=== PATIENT | female | born 1965 | race Caucasian/White ===

== ENCOUNTER 2017-07-30 08:26 | Inpatient (IN) | payer OTHER, SELFPAY ==
[2017-07-30] VITALS (10 sets, daily range): BP systolic 101–143; BP diastolic 57–80; PULSE 73–87; RESP 16–21; TEMP 36.2–37.8; O2SAT 86–98; BMI 28.0; BMI 28.2
--- NOTE | 2017-07-30 08:39 | RAD_ITS ---
STUDY: X-RAY CHEST REASON FOR EXAM: Female, 52 years old. Cough, COPD TECHNIQUE: PA and lateral views of the chest. COMPARISON: 04/12/2017 FINDINGS: Cardiac monitoring leads overlie the chest. The lungs are hyperinflated. There is scarring at the right lung base. There is no demonstrated pleural abnormality. Normal size heart. Normal mediastinum and rosemary. Normal visualized pulmonary arteries. Normal visualized aortic arch and descending thoracic aorta. Normal visualized thoracic spine. The bones are demineralized. There is no demonstrated abnormality of the visualized soft tissue structures of the upper abdomen. RAD/Chest PA and Lateral IMPRESSION: COPD. No focal consolidation. Electronically Signed: Ori Gibbons DO at 10:35 EDT Tel , Service support ,
--- NOTE | 2017-07-30 08:39 | EKG12_ITS ---
Test Reason : SOB Blood Pressure : / mmHG Vent. Rate : 077 BPM Atrial Rate : 077 BPM P-R Int : 152 ms QRS Dur : 090 ms QT Int : 428 ms P-R-T Axes : 057 063 064 degrees QTc Int : 484 ms Normal sinus rhythm Prolonged QT Abnormal ECG Confirmed by SHI TIJERINA ([id number]), editor greeting card MATT HARRIS ([id number]) on 08/01/2017 2:25:17 PM Referred By: LYLE Confirmed By:SHI TIJERINA
[2017-07-30] MEDS: Ipratropium/Albuterol Sulfate 3 ML AMPUL.NEB INHALATION ×4 (08:55→22:50)
[2017-07-30] MEDS: Albuterol 2.5 MG/3 ML VIAL.NEB. INHALATION ×3 (08:55→08:57)
[2017-07-30] MEDS: predniSONE 20 MG Tablet 60 MG PO (09:36)
[2017-07-30 09:37] LABS: Absolute Lymphocyte Count 0.58 X10^3/ul (0.83-4.51); Absolute Neutrophil Count 2.2 X10^3/uL (2.0-7.7); Basophil# 0.01 X10^3/uL; Basophil% 0.3 % (0-1); Eosinophil# 0.06 X10^3/uL; Hematocrit 42.3 % (37-47); Hemoglobin 14.4 g/dl (12.0-15.0); Lymphocyte # 0.58 X10^3/ul (4.0); Lymphocyte % 19.2 % (19-41); Mean Corpuscular Hgb 29.2 pg (27.0-32.0); Mean Corpuscular Volume 85.8 fL (81-99); Mean Platelet Vol. 11.8 fl (6.2-12.0); Monocyte# 0.21 X10^3/uL; Neutrophil # 2.15 X10^3/uL (2.7-7.7); Neutrophil % 71.2 % (47-70); Platelet Count 86 K/mm3 (150-450); RBC Distribution Width CV 13.5 % (11.6-14.6); RBC Distribution Width SD 41.8 fl (35.1-43.9); Red Blood Count 4.93 M/mm3 (4.2-5.4)
[2017-07-30 09:39] LABS: Differential Indicated SCAN CRITERIA MET; POSITIVE COUNT NO; POSITIVE DIFFERENTIAL YES; POSITIVE MORPHOLOGY NO
[2017-07-30 09:51] LABS: Anion Gap 7 (5-15); BUN 18 mg/dL (7-18); BUN/Creat Ratio 20.5 RATIO (10-20); Calcium,Total 9.1 mg/dL (8.5-10.1); Chloride 102 mmol/L (98-107); Creatinine, Serum 0.88 mg/dL (0.55-1.02); EST Glomerular Filtration Rate 71 mL/min (>60); Est Glom Filt Rate - Afr Amer 86 mL/min (>60); Estimated Creatinine Clearance 60.46 ml/min; Glucose 125 mg/dL (74-106); Potassium 3.9 mmol/L (3.5-5.1); Sodium Level 143 mmol/L (136-145)
--- NOTE | 2017-07-30 10:10 | ED.VISSUMM ---
- ER Visit Summary Date of Service: 07/30/17 Chief Complaint: Cough and shortness of breath History of Present Illness: The patient is a 52 F presenting for evaluation secondary to cough and shortness of breath. Patient has a history of COPD due to alpha-1 antitrypsin deficiency. She is on chronic 3 L. Patient states that she has had hypoxia at home down into the 70s. She reports that she has had a cough productive of clear sputum. She denies any fevers or chest pain. She denies any nausea vomiting or diarrhea. Patient states that she gets short of breath even with walking short distances. Physical Examination: Vital signs are notable for pulse ox 86% on 3 L with hypoxia. Well-nourished female no acute distress. Moist mucous membranes, no conjunctival pallor or scleral icterus. No JVD. Heart regular rate and rhythm. Lungs sounds show poor air movement, but no retractions or respiratory distress. Abdomen soft nontender. No peripheral edema noted. No skin rashes noted. Test Results: EKG shows sinus rhythm at 77 with a mildly prolonged QTC of 484 no evidence of other acute ischemic or arrhythmic changes. CBC shows leukopenia of 3, troponin negative, chest x-ray demonstrates right lower lobe infiltrate with small effusion. Emergency Department Course and Treatment: Patient presented secondary to shortness of breath. She was treated with albuterol Atrovent oxygen and prednisone. Workup shows leukopenia and a right lower lobe infiltrate. Patient does meet sepsis criteria. Antibiotics were initiated after the patient was cultured. Due to the patient's hypoxia sepsis and pneumonia I believe she requires admission. I discussed this with the hospitalist. Disposition: Admission Impression: 1. Community-acquired pneumonia 2. Sepsis 3. Hypoxia This note was generated with [employer] dictation software. It may contain incorrect words, spelling, and punctuation that were not noted in review of the chart prior to signing ED Disposition - Plan for ED Patient: Chief Complaint: Shortness of Breath Referrals: Felipe Souza [Primary Care Provider] -
[2017-07-30] MEDS: Ceftriaxone 1 GM/50 mL Premix x1 IV (10:55)
--- NOTE | 2017-07-30 11:05 | CM.ED ---
CM Initial Assessment: See Link. CM will continue to follow for safe discharge planning.
[2017-07-30 12:00] LABS: Lactic Acid 0.9 mmol/L (0.4-2.0)
--- NOTE | 2017-07-30 15:35 | CASEMGMT ---
ER CM assessment reviewed. RN CM introduced role of CM to patient. Requested pt try and find out Home Health agency. Pt states her will be in later and will know the name of agency. Per pt, only nursing was coming to home. Jai JEAN BAPTISTEN RN ACM
--- NOTE | 2017-07-30 16:06 | PCM.HP.STD ---
Problem List (1) COPD with acute exacerbation Status: Acute (2) Hyperlipidemia Status: Chronic (3) Chronic thrombocytopenia Status: Chronic (4) Depression Status: Chronic (5) Chronic respiratory failure Status: Chronic (6) COPD (chronic obstructive pulmonary disease) Status: Chronic (7) Txatp-0-iegvfgvlhfb deficiency Status: Chronic History of Present Illness Date of Admission: 07/30/17 Chief Complaint: shortness of breath. The patient is a 52 year old F resents with shortness of breath for the past several days. Patient had a pulse ox and was registering in to the 70 range. Patient was having dyspnea on exertion. Patient presented to the emergency room was 86% on 3 L. Patient is on oxygen 3 L at home. Patient did receive prednisone and bronchodilators and her sats are now in the mid 90s. Patient is still short of breath. This is similar to prior episodes of her COPD. Patient does have a known history of alpha-1 antitrypsin deficiency but still does continue to smoke though only 3-4 cigarettes per day. [] Past Medical History Past Medical History (Chronic Problems): Chronic Problems Hyperlipidemia (Chronic) Chronic thrombocytopenia (Chronic) Depression (Chronic) Chronic respiratory failure (Chronic) COPD (chronic obstructive pulmonary disease) (Chronic) Nxgwp-5-jsnhdhidaaf deficiency (Chronic) Allergies erythromycin base Allergy (Verified 07/30/17 08:27) Other Home Medications: Ambulatory Orders Medication Instructions Recorded Albuterol Inhaler [Ventolin Hfa] 2 puff INHALATION Q4H PRN PRN 05/29/16 Atorvastatin Calcium [Lipitor] 10 mg PO QHS 05/29/16 Fluticasone/Salmeterol [Advair 1 puff INHALATION BID 05/29/16 500/50 Mcg Diskus] Ipratropium/Albuterol Sulfate 3 ml INHALATION Q6H PRN PRN 05/29/16 [Duoneb] Roflumilast [Daliresp] 500 mcg PO DAILY 05/29/16 Tiotropium [place] [Spiriva 18 MCG] 1 puff INHALATION DAILY 05/29/16 hydrOXYzine pamoate capsule 50 mg PO BIDCM 05/29/16 [Vistaril pamoate capsule] Alpha-1 Proteinase Inhibitor 5,390 mg IV QWEEK 04/12/17 [Prolastin C] Escitalopram Oxalate [Lexapro] 20 mg PO DAILY 04/12/17 Hydrochlorothiazide [Hctz] 25 mg PO DAILY 04/12/17 Hydroxyzine Pamoate [Vistaril] 50 mg PO QHS 04/12/17 Ipratropium [Atrovent Inhaler] 2 puff INHALATION TID 04/12/17 Lorazepam [Ativan] 0.5 mg PO TID PRN PRN 04/12/17 Pantoprazole Sodium [Protonix] 40 mg PO DAILY 04/12/17 Pregabalin [Lyrica] 150 mg PO BID 04/12/17 Gabapentin [Neurontin] 400 mg PO TID 07/30/17 Quetiapine Fumarate [Seroquel] 800 mg PO QHS 07/30/17 Surgical History: noncontributory Psychiatric History: Anxiety, 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 Smoking Status: Current some day smoker - *Family History Maternal History Items: No pertinent history, - - Positive for alpha-1 antitrypsin deficiency Paternal History Items: No pertinent history, - - Positive for alpha-1 antitrypsin deficiency Review of Systems Constitutional: Denies: Chills, Fever, Weight Change Eyes: Denies: Blurred vision, Double vision HEENT: Denies: Head Aches, Sinus Congestion, Sinus Drainage Cardiovascular: Denies: Chest Pain, Palpitations Respiratory: Reports: Cough, Shortness of Breath, Sputum production Gastrointestinal: Denies: Abdominal Pain, Nausea, Vomiting Genitourinary: Denies: Dysuria Musculoskeletal: Denies: Joint Pain, Joint Tenderness Skin: Denies: Rash, Wounds Neurological: Denies: Blurred vision, Double vision Psychiatric: Denies: Anxiety, Depression Endocrine: Denies: Change in Body Habitus, Heat/ Cold Intolerance Hematologic/ Lymphatic: Reports: Hx of blood clot. Denies: Easy Bruising, Easy Bleeding VTE Information - Inpt Only VTE Present on Admission: No VTE Pharm Prophylaxis ordered?: Yes Patient Problems: Active and Suspected Problems COPD with acute exacerbation (Acute) - Physical Exam General: Alert, Cooperative, No apparent distress, - - Tachypneic and with conversational dyspnea HEENT: Atraumatic, Normocephalic Neck: No Nodes, Thyroid Normal Size and Texture Lungs: No rhonchi, No wheeze, Diminished Cardiovascular: Regular rate, Regular Rhythm, Normal S1, Normal S2 Abdomen: Bowel Sounds Present, Soft, Non Tender, Non-Distended, No Hepato-splenomegaly Extremities: No edema, No Calf Tenderness Skin: No rashes, No breakdown Musculoskeletal: No Tenderness to Palpation of Joints or Extremities, No Muscle Wasting Neurological: Slurred Speech, - - no clonus. Psych/Mental Status: Normal Affect, Appropriate Vital Signs Temp Pulse Resp BP Pulse Ox 36.8 C 81 20 H 119/57 L 94 07/30/17 14:45 07/30/17 15:22 07/30/17 15:22 07/30/17 14:45 07/30/17 15:22 Oxygen Flow Rate (L/min) 3 Oxygen Delivery Method Nasal Cannula Weight: 72.257 kg Body Mass Index (BMI) 28.2 Laboratory Tests Past 24 Hrs 07/30/17 07/30/17 10:50 11:24 Lactic Acid Cancelled 0.9 Assessment/Plan Active and Suspected Problems COPD with acute exacerbation (Acute) 1. Acute COPD exacerbation No audible wheezes at this time the patient is profoundly diminished I do not appreciate any pneumonia on the patient's chest x-ray and therefore will be continuing antibiotics Will start patient on IV Solu-Medrol and tea with bronchodilators. Patient will follow up with Dr. Guajardo as outpatient Patient has known alpha-1 antitrypsin deficiency though does continue to smoke. Strongly recommended that the patient quit smoking as it will only continue to worsen her COPD which will likely continue to worsen with her alpha anti-1 trypsin deficiency. 2. Acute on chronic hypoxic respiratory failure Secondary to above Improved 3. DVT prophylaxis with Lovenox 4. Advanced care planning: Discussed with the patient about intubation and CPR. Patient wishes full there is: Patient is full CODE STATUS. Code Visit Inpatient E&M: 40170 Init Hosp L3
--- NOTE | 2017-07-30 16:13 | HP.PCM_ITS ---
Problem List (1) COPD with acute exacerbation Status: Acute (2) Hyperlipidemia Status: Chronic (3) Chronic thrombocytopenia Status: Chronic (4) Depression Status: Chronic (5) Chronic respiratory failure Status: Chronic (6) COPD (chronic obstructive pulmonary disease) Status: Chronic (7) Zggvp-0-qvskyrtggyw deficiency Status: Chronic History of Present Illness Date of Admission: 07/30/17 Chief Complaint: shortness of breath. The patient is a 52 year old F resents with shortness of breath for the past several days. Patient had a pulse ox and was registering in to the 70 range. Patient was having dyspnea on exertion. Patient presented to the emergency room was 86% on 3 L. Patient is on oxygen 3 L at home. Patient did receive prednisone and bronchodilators and her sats are now in the mid 90s. Patient is still short of breath. This is similar to prior episodes of her COPD. Patient does have a known history of alpha-1 antitrypsin deficiency but still does continue to smoke though only 3-4 cigarettes per day. [] Past Medical History Past Medical History (Chronic Problems): Chronic Problems Hyperlipidemia (Chronic) Chronic thrombocytopenia (Chronic) Depression (Chronic) Chronic respiratory failure (Chronic) COPD (chronic obstructive pulmonary disease) (Chronic) Xfdeu-9-orthcbnamlh deficiency (Chronic) Allergies erythromycin base Allergy (Verified 07/30/17 08:27) Other Home Medications: Ambulatory Orders Medication Instructions Recorded Albuterol Inhaler [Ventolin Hfa] 2 puff INHALATION Q4H PRN PRN 05/29/16 Atorvastatin Calcium [Lipitor] 10 mg PO QHS 05/29/16 Fluticasone/Salmeterol [Advair 1 puff INHALATION BID 05/29/16 500/50 Mcg Diskus] Ipratropium/Albuterol Sulfate 3 ml INHALATION Q6H PRN PRN 05/29/16 [Duoneb] Roflumilast [Daliresp] 500 mcg PO DAILY 05/29/16 Tiotropium [place] [Spiriva 18 MCG] 1 puff INHALATION DAILY 05/29/16 hydrOXYzine pamoate capsule 50 mg PO BIDCM 05/29/16 [Vistaril pamoate capsule] Alpha-1 Proteinase Inhibitor 5,390 mg IV QWEEK 04/12/17 [Prolastin C] Escitalopram Oxalate [Lexapro] 20 mg PO DAILY 04/12/17 Hydrochlorothiazide [Hctz] 25 mg PO DAILY 04/12/17 Hydroxyzine Pamoate [Vistaril] 50 mg PO QHS 04/12/17 Ipratropium [Atrovent Inhaler] 2 puff INHALATION TID 04/12/17 Lorazepam [Ativan] 0.5 mg PO TID PRN PRN 04/12/17 Pantoprazole Sodium [Protonix] 40 mg PO DAILY 04/12/17 Pregabalin [Lyrica] 150 mg PO BID 04/12/17 Gabapentin [Neurontin] 400 mg PO TID 07/30/17 Quetiapine Fumarate [Seroquel] 800 mg PO QHS 07/30/17 Surgical History: noncontributory Psychiatric History: Anxiety, Depression 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 Smoking Status: Current some day smoker - *Family History Maternal History Items: No pertinent history, - - Positive for alpha-1 antitrypsin deficiency Paternal History Items: No pertinent history, - - Positive for alpha-1 antitrypsin deficiency Review of Systems Constitutional: Denies: Chills, Fever, Weight Change Eyes: Denies: Blurred vision, Double vision HEENT: Denies: Head Aches, Sinus Congestion, Sinus Drainage Cardiovascular: Denies: Chest Pain, Palpitations Respiratory: Reports: Cough, Shortness of Breath, Sputum production Gastrointestinal: Denies: Abdominal Pain, Nausea, Vomiting Genitourinary: Denies: Dysuria Musculoskeletal: Denies: Joint Pain, Joint Tenderness Skin: Denies: Rash, Wounds Neurological: Denies: Blurred vision, Double vision Psychiatric: Denies: Anxiety, Depression Endocrine: Denies: Change in Body Habitus, Heat/ Cold Intolerance Hematologic/ Lymphatic: Reports: Hx of blood clot. Denies: Easy Bruising, Easy Bleeding VTE Information - Inpt Only VTE Present on Admission: No VTE Pharm Prophylaxis ordered?: Yes Patient Problems: Active and Suspected Problems COPD with acute exacerbation (Acute) - Physical Exam General: Alert, Cooperative, No apparent distress, - - Tachypneic and with conversational dyspnea HEENT: Atraumatic, Normocephalic Neck: No Nodes, Thyroid Normal Size and Texture Lungs: No rhonchi, No wheeze, Diminished Cardiovascular: Regular rate, Regular Rhythm, Normal S1, Normal S2 Abdomen: Bowel Sounds Present, Soft, Non Tender, Non-Distended, No Hepato- splenomegaly Extremities: No edema, No Calf Tenderness Skin: No rashes, No breakdown Musculoskeletal: No Tenderness to Palpation of Joints or Extremities, No Muscle Wasting Neurological: Slurred Speech, - - no clonus. Psych/Mental Status: Normal Affect, Appropriate Vital Signs Temp Pulse Resp BP Pulse Ox 36.8 C 81 20 H 119/57 L 94 07/30/17 14:45 07/30/17 15:22 07/30/17 15:22 07/30/17 14:45 07/30/17 15:22 Oxygen Flow Rate (L/min) 3 Oxygen Delivery Method Nasal Cannula Weight: 72.257 kg Body Mass Index (BMI) 28.2 Laboratory Tests Past 24 Hrs 07/30/17 07/30/17 10:50 11:24 Lactic Acid Cancelled 0.9 Assessment/Plan Active and Suspected Problems COPD with acute exacerbation (Acute) 1. Acute COPD exacerbation * No audible wheezes at this time the patient is profoundly diminished * I do not appreciate any pneumonia on the patient's chest x-ray and therefore will be continuing antibiotics * Will start patient on IV Solu-Medrol and tea with bronchodilators. * Patient will follow up with Dr. Guajardo as outpatient * Patient has known alpha-1 antitrypsin deficiency though does continue to smoke. Strongly recommended that the patient quit smoking as it will only continue to worsen her COPD which will likely continue to worsen with her alpha anti-1 trypsin deficiency. 2. Acute on chronic hypoxic respiratory failure * Secondary to above * Improved 3. DVT prophylaxis with Lovenox 4. Advanced care planning: Discussed with the patient about intubation and CPR. Patient wishes full there is: Patient is full CODE STATUS. Code Visit Inpatient E&M: 15638 Init Hosp L3
[2017-07-30] MEDS: hydrOXYzine PAM 25 MG Capsule 50 MG PO (16:28)
[2017-07-30] MEDS: LORazepam 0.5 MG Tablet PO ×2 (16:31→22:09)
[2017-07-30] MEDS: Acetaminophen 325 MG Tablet 650 MG PO (22:08)
[2017-07-30] MEDS: Ondansetron 4 MG/2 ML Vial IV (22:08)
[2017-07-30] MEDS: guaiFENesin 600 MG Tablet PO (22:09)
[2017-07-30] MEDS: Atorvastatin Calcium 10 MG Tablet PO (22:09)
[2017-07-30] MEDS: Pregabalin 75 MG Capsule 150 MG PO (22:09)
[2017-07-30] MEDS: QUEtiapine 100 MG Tablet 800 MG PO (22:09)
[2017-07-30] MEDS: hydrOXYzine PAM 25 MG Capsule 100 MG PO (22:10)
[2017-07-31 03:12] VITALS: BP 101/57; PULSE 83; RESP 14; TEMP 36.6; O2SAT 94
[2017-07-31 03:34] VITALS: PULSE 80; RESP 16
[2017-07-31] MEDS: Ipratropium/Albuterol Sulfate 3 ML AMPUL.NEB INHALATION ×3 (03:34→10:56)
[2017-07-31] MEDS: 0.9% NaCl Peripheral Flush Adult/Peds IV (06:23)
[2017-07-31 06:55] LABS: Absolute Lymphocyte Count 0.29 X10^3/ul (0.83-4.51); Absolute Neutrophil Count 1.4 X10^3/uL (2.0-7.7); Eosinophil# 0.05 X10^3/uL; Eosinophils% 2.8 % (0-5); Hematocrit 37.3 % (37-47); Hemoglobin 12.4 g/dl (12.0-15.0); Lymphocyte # 0.29 X10^3/ul (4.0); Mean Corp Hgb Conc 33.2 g/gl (32-36); Mean Corpuscular Volume 87.4 fL (81-99); Mean Platelet Vol. 11.2 fl (6.2-12.0); Monocyte# 0.07 X10^3/uL; Monocyte% 3.9 % (0-10); Neutrophil # 1.39 X10^3/uL (2.7-7.7); Neutrophil % 76.7 % (47-70); RBC Distribution Width CV 13.4 % (11.6-14.6); RBC Distribution Width SD 41.4 fl (35.1-43.9); Red Blood Count 4.27 M/mm3 (4.2-5.4); White Blood Count 1.8 K/mm3 (4.4-11.0)
[2017-07-31 06:56] VITALS: PULSE 78; RESP 18; O2SAT 95
[2017-07-31 06:57] LABS: Anion Gap 7 (5-15); BUN 20 mg/dL (7-18); BUN/Creat Ratio 27.6 RATIO (10-20); Calcium,Total 8.8 mg/dL (8.5-10.1); Chloride 111 mmol/L (98-107); Creatinine, Serum 0.72 mg/dL (0.55-1.02); EST Glomerular Filtration Rate 89 mL/min (>60); Est Glom Filt Rate - Afr Amer 108 mL/min (>60); Estimated Creatinine Clearance 73.89 ml/min; Glucose 174 mg/dL (74-106); Potassium 4.2 mmol/L (3.5-5.1); Sodium Level 142 mmol/L (136-145)
[2017-07-31 07:06] LABS: Differential Indicated SCAN CRITERIA MET; POSITIVE COUNT YES; POSITIVE DIFFERENTIAL YES; POSITIVE MORPHOLOGY NO
[2017-07-31 07:07] LABS: Platelet Count 35 K/mm3 (150-450)
[2017-07-31 07:08] LABS: Differential Comment SCANNED; Platelet Estimate MOD DEC (ADEQ)
[2017-07-31 07:41] VITALS: BP 126/51; PULSE 75; RESP 16; TEMP 36.6; O2SAT 93
[2017-07-31] MEDS: hydrOXYzine PAM 25 MG Capsule 50 MG PO (07:47)
[2017-07-31] MEDS: Pantoprazole Sodium 40 MG Tablet PO (07:47)
[2017-07-31] MEDS: ROFLUMILAST 500 MCG TABLET PO (10:05)
[2017-07-31] MEDS: hydroCHLOROthiazide 25 MG Tablet PO (10:05)
[2017-07-31] MEDS: guaiFENesin 600 MG Tablet PO (10:05)
[2017-07-31] MEDS: Escitalopram Oxalate 20 MG Tablet PO (10:05)
[2017-07-31] MEDS: Pregabalin 75 MG Capsule 150 MG PO (10:05)
--- NOTE | 2017-07-31 10:21 | PCM.PN.HOSP ---
Patient Problems: Active and Suspected Problems COPD with acute exacerbation (Acute) Subjective: Much better. Wants to go home. Vitals/I&O's: Vital Signs Temp Pulse Resp BP Pulse Ox 36.6 C 75 16 126/51 H 93 07/31/17 07:41 07/31/17 07:41 07/31/17 07:41 07/31/17 07:41 07/31/17 07:41 Oxygen Flow Rate (L/min) 3 Oxygen Delivery Method Nasal Cannula Weight: 72.257 kg Body Mass Index (BMI) 28.2 Intake and Output for Last 24 Hours 07/29/17 07/30/17 07/31/17 23:59 23:59 23:59 Intake Total 620 / 620 300 / 300 Output Total 200 / 200 Balance 420 / 420 300 / 300 General: Alert, Cooperative, No apparent distress HEENT: Atraumatic, Normocephalic Neck: No Nodes, Thyroid Normal Size and Texture Lungs: Normal air movement, - - Goals right lower lobe Cardiovascular: Regular rate, Regular Rhythm, Normal S1, Normal S2, No murmurs Abdomen: Bowel Sounds Present, Soft, Non Tender, Non-Distended, No Hepato-splenomegaly Extremities: No edema, No Calf Tenderness Musculoskeletal: No Tenderness to Palpation of Joints or Extremities, No Muscle Wasting Psych/Mental Status: Normal Affect, Appropriate Laboratory Results 07/30/17 10:50: Lactic Acid Cancelled 07/30/17 11:24: Lactic Acid 0.9 07/31/17 05:50: Sodium 142, Potassium 4.2, Chloride 111 H, Carbon Dioxide 24.0, Anion Gap 7, BUN 20 H, Creatinine 0.72, Estim Creat Clear Calc 73.89, Est GFR (MDRD) Af Amer 108, Est GFR (MDRD) Non-Af 89, BUN/Creatinine Ratio 27.6 H, Glucose 174 H, Calcium 8.8 07/31/17 05:50: WBC 1.8 L, RBC 4.27, Hgb 12.4, Hct 37.3, MCV 87.4, MCH 29.0, MCHC 33.2, RDW 13.4, RDW Differential 41.4, Plt Count 35 L*, MPV 11.2, Immature Gran % (Auto) 0.600, Neut % (Auto) 76.7 H, Lymph % (Auto) 16.0 L, [place] % (Auto) 3.9, Eos % (Auto) 2.8, Baso % (Auto) 0.0, Absolute Neuts (auto) 1.4 L, Absolute Lymphs (auto) 0.29 L, Total Counted Not Reportable, Differential Comment SCANNED, Diff Path Review May foll, Platelet Estimate MOD DEC Current Medications Acetaminophen (Tylenol) 650 mg PO Q6H PRN PRN PRN Reason: Mild Pain (scale 0-3)/T>100.7 Last Admin: 07/30/17 22:08 Dose: 650 mg Albuterol Sulfate (Ventolin Aerosols) 2.5 mg INHALATION Q2H PRN PRN PRN Reason: SHORTNESS OF BREATH Albuterol/Ipratropium (Duoneb) 3 ml INHALATION Q4H.RT [facility] Last Admin: 07/31/17 06:56 Dose: 3 ml Atorvastatin Calcium (Lipitor) 10 mg PO QHS [facility] Last Admin: 07/30/17 22:09 Dose: 10 mg Escitalopram Oxalate (Lexapro) 20 mg PO DAILY [facility] Last Admin: 07/31/17 10:05 Dose: 20 mg Guaifenesin (Mucinex) 600 mg PO BID [facility] Last Admin: 07/31/17 10:05 Dose: 600 mg Hydrochlorothiazide (Hctz) 25 mg PO DAILY [facility] Last Admin: 07/31/17 10:05 Dose: 25 mg Hydroxyzine Pamoate (Vistaril Pamoate Capsule) 100 mg PO QHS [facility] Last Admin: 07/30/17 22:10 Dose: 100 mg Hydroxyzine Pamoate ([facility]il [facility]apsule) [facility] Last Admin: 07/31/17 07:47 Dose: 50 mg Lorazepam (Ativan) 0.5 mg PO TID PRN PRN PRN Reason: ANXIETY Last Admin: 07/30/17 22:09 Dose: 0.5 mg Magnesium Hydroxide (Milk Of Magnesia) 30 ml PO DAILY PRN PRN PRN Reason: Constipation Methylprednisolone (Solu-Medrol) 40 mg IV Q8 [facility] Last Admin: 07/31/17 06:21 Dose: 40 mg Non-Formulary Medication (Alpha-1 Proteinase Inhibitor) 5,390 mg IV QWEEK [facility] Ondansetron HCl (Zofran) 4 mg IV Q8H PRN PRN PRN Reason: Nausea Last Admin: 07/30/17 22:08 Dose: 4 mg Pantoprazole Sodium (Protonix) 40 mg PO DAILY [facility] Last Admin: 07/31/17 07:47 Dose: 40 mg Pregabalin (Lyrica) 150 mg PO BID [facility] Last Admin: 07/31/17 10:05 Dose: 150 mg Quetiapine Fumarate (Seroquel) 800 mg PO QHS [facility] Last Admin: 07/30/17 22:09 Dose: 800 mg Sodium Chloride () 5 - 30 ml IV UD PRN PRN Reason: SALINE FLUSH Last Admin: 07/31/17 06:23 Dose: 10 ml Medical Necessity - Tobacco Use Smoking Status: Current some day smoker Assessment/Plan Active and Suspected Problems COPD with acute exacerbation (Acute) 1. Acute COPD exacerbation No audible wheezes at this time the patient is profoundly diminished I do not appreciate any pneumonia on the patient's chest x-ray and therefore will be continuing antibiotics Will start patient on IV Solu-Medrol and tea with bronchodilators. Patient will follow up with Dr. Guajardo as outpatient Patient has known alpha-1 antitrypsin deficiency though does continue to smoke. Strongly recommended that the patient quit smoking as it will only continue to worsen her COPD which will likely continue to worsen with her alpha anti-1 trypsin deficiency. Improved aeration today. Patient is on chronic O2 at 3 L/min and which is what she is on right now and doing well. Patient has a follow-up appointment with Dr. Guajardo on the . We will discharge patient with a prednisone taper 2. Acute on chronic hypoxic respiratory failure Secondary to above Improved 3. DVT prophylaxis with Lovenox 4. Advanced care planning: Discussed with the patient about intubation and CPR. Patient wishes full there is: Patient is full CODE STATUS. 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 Patient does have thrombocytopenia which is chronic. Lightly worse today but has been lower in the past. No evidence of any bleeding and therefore does not require any platelet infusions.
--- NOTE | 2017-07-31 10:24 | PN_ITS ---
Patient Problems: Active and Suspected Problems COPD with acute exacerbation (Acute) Subjective: Much better. Wants to go home. Vitals/I&O's: Vital Signs Temp Pulse Resp BP Pulse Ox 36.6 C 75 16 126/51 H 93 07/31/17 07:41 07/31/17 07:41 07/31/17 07:41 07/31/17 07:41 07/31/17 07:41 Oxygen Flow Rate (L/min) 3 Oxygen Delivery Method Nasal Cannula Weight: 72.257 kg Body Mass Index (BMI) 28.2 Intake and Output for Last 24 Hours 07/29/17 07/30/17 07/31/17 23:59 23:59 23:59 Intake Total 620 / 620 300 / 300 Output Total 200 / 200 Balance 420 / 420 300 / 300 General: Alert, Cooperative, No apparent distress HEENT: Atraumatic, Normocephalic Neck: No Nodes, Thyroid Normal Size and Texture Lungs: Normal air movement, - - Goals right lower lobe Cardiovascular: Regular rate, Regular Rhythm, Normal S1, Normal S2, No murmurs Abdomen: Bowel Sounds Present, Soft, Non Tender, Non-Distended, No Hepato- splenomegaly Extremities: No edema, No Calf Tenderness Musculoskeletal: No Tenderness to Palpation of Joints or Extremities, No Muscle Wasting Psych/Mental Status: Normal Affect, Appropriate Laboratory Results 07/30/17 10:50: Lactic Acid Cancelled 07/30/17 11:24: Lactic Acid 0.9 07/31/17 05:50: Sodium 142, Potassium 4.2, Chloride 111 H, Carbon Dioxide 24.0, Anion Gap 7, BUN 20 H, Creatinine 0.72, Estim Creat Clear Calc 73.89, Est GFR ( MDRD) Af Amer 108, Est GFR (MDRD) Non-Af 89, BUN/Creatinine Ratio 27.6 H, Glucose 174 H, Calcium 8.8 07/31/17 05:50: WBC 1.8 L, RBC 4.27, Hgb 12.4, Hct 37.3, MCV 87.4, MCH 29.0, MCHC 33.2, RDW 13.4, RDW Differential 41.4, Plt Count 35 L*, MPV 11.2, Immature Gran % (Auto) 0.600, Neut % (Auto) 76.7 H, Lymph % (Auto) 16.0 L, [place] % (Auto) 3.9, Eos % (Auto) 2.8, Baso % (Auto) 0.0, Absolute Neuts (auto) 1.4 L, Absolute Lymphs (auto) 0.29 L, Total Counted Not Reportable, Differential Comment SCANNED , Diff Path Review May foll, Platelet Estimate MOD DEC Current Medications Acetaminophen (Tylenol) 650 mg PO Q6H PRN PRN PRN Reason: Mild Pain (scale 0-3)/T>100.7 Last Admin: 07/30/17 22:08 Dose: 650 mg Albuterol Sulfate (Ventolin Aerosols) 2.5 mg INHALATION Q2H PRN PRN PRN Reason: SHORTNESS OF BREATH Albuterol/Ipratropium (Duoneb) 3 ml INHALATION Q4H.RT [facility] Last Admin: 07/31/17 06:56 Dose: 3 ml Atorvastatin Calcium (Lipitor) 10 mg PO QHS [facility] Last Admin: 07/30/17 22:09 Dose: 10 mg Escitalopram Oxalate (Lexapro) 20 mg PO DAILY [facility] Last Admin: 07/31/17 10:05 Dose: 20 mg Guaifenesin (Mucinex) 600 mg PO BID [facility] Last Admin: 07/31/17 10:05 Dose: 600 mg Hydrochlorothiazide (Hctz) 25 mg PO DAILY [facility] Last Admin: 07/31/17 10:05 Dose: 25 mg Hydroxyzine Pamoate (Vistaril Pamoate Capsule) 100 mg PO QHS [facility] Last Admin: 07/30/17 22:10 Dose: 100 mg [facility]xyzine [facility]ate ([facility]apsule[facility] Last Admin: 07/31/17 07:47 Dose: 50 mg Lorazepam (Ativan) 0.5 mg PO TID PRN PRN PRN Reason: ANXIETY Last Admin: 07/30/17 22:09 Dose: 0.5 mg Magnesium Hydroxide (Milk Of Magnesia) 30 ml PO DAILY PRN PRN PRN Reason: Constipation Methylprednisolone (Solu-Medrol) 40 mg IV Q8 [facility] Last Admin: 07/31/17 06:21 Dose: 40 mg Non-Formulary Medication (Alpha-1 Proteinase Inhibitor) 5,390 mg IV QWEEK [facility] Ondansetron HCl (Zofran) 4 mg IV Q8H PRN PRN PRN Reason: Nausea Last Admin: 07/30/17 22:08 Dose: 4 mg Pantoprazole Sodium (Protonix) 40 mg PO DAILY [facility] Last Admin: 07/31/17 07:47 Dose: 40 mg Pregabalin (Lyrica) 150 mg PO BID [facility] Last Admin: 07/31/17 10:05 Dose: 150 mg Quetiapine Fumarate (Seroquel) 800 mg PO QHS [facility] Last Admin: 07/30/17 22:09 Dose: 800 mg Sodium Chloride () 5 - 30 ml IV UD PRN PRN Reason: SALINE FLUSH Last Admin: 07/31/17 06:23 Dose: 10 ml Medical Necessity - Tobacco Use Smoking Status: Current some day smoker Assessment/Plan Active and Suspected Problems COPD with acute exacerbation (Acute) 1. Acute COPD exacerbation * No audible wheezes at this time the patient is profoundly diminished * I do not appreciate any pneumonia on the patient's chest x-ray and therefore will be continuing antibiotics * Will start patient on IV Solu-Medrol and tea with bronchodilators. * Patient will follow up with Dr. Guajardo as outpatient * Patient has known alpha-1 antitrypsin deficiency though does continue to smoke. Strongly recommended that the patient quit smoking as it will only continue to worsen her COPD which will likely continue to worsen with her alpha anti-1 trypsin deficiency. * Improved aeration today. Patient is on chronic O2 at 3 L/min and which is what she is on right now and doing well. Patient has a follow-up appointment with Dr. Guajardo on the . * We will discharge patient with a prednisone taper 2. Acute on chronic hypoxic respiratory failure * Secondary to above * Improved 3. DVT prophylaxis with Lovenox 4. Advanced care planning: Discussed with the patient about intubation and CPR. Patient wishes full there is: Patient is full CODE STATUS. 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 Patient does have thrombocytopenia which is chronic. Lightly worse today but has been lower in the past. No evidence of any bleeding and therefore does not require any platelet infusions.
--- NOTE | 2017-07-31 10:27 | PCM.DC ---
- Discharge Diagnoses Current Active Problems: Current Active and Chronic Problems COPD with acute exacerbation (Acute) You will use the following diet at home:: No restrictions Your food should be the consistency of: Regular Your liquids should be the consistency of: Regular/Thin Discharge Activity: Return to Normal Activity Call your doctor if you observe: Fever of 101 or Higher, Shortness of breath Allergies/Adverse Reactions: Allergies erythromycin base Allergy (Verified 07/30/17 08:27) Other Medications to take at Discharge Albuterol Inhaler [Ventolin Hfa] 2 puff INHALATION Q4H PRN PRN 05/29/16 Atorvastatin Calcium [Lipitor] 10 mg PO QHS 05/29/16 Fluticasone/Salmeterol [Advair 500/50 Mcg Diskus] 1 puff INHALATION BID 05/29/16 Ipratropium/Albuterol Sulfate [Duoneb] 3 ml INHALATION Q6H PRN PRN 05/29/16 Roflumilast [Daliresp] 500 mcg PO DAILY 05/29/16 Tiotropium [place] [Spiriva 18 MCG] 1 puff INHALATION DAILY 05/29/16 hydrOXYzine pamoate capsule [Vistaril pamoate capsule] 50 mg PO BIDCM 05/29/16 Alpha-1 Proteinase Inhibitor [Prolastin C] 5,390 mg IV QWEEK 04/12/17 Escitalopram Oxalate [Lexapro] 20 mg PO DAILY 04/12/17 Hydrochlorothiazide [Hctz] 25 mg PO DAILY 04/12/17 Hydroxyzine Pamoate [Vistaril] 50 mg PO QHS 04/12/17 Ipratropium [Atrovent Inhaler] 2 puff INHALATION TID 04/12/17 Lorazepam [Ativan] 0.5 mg PO TID PRN PRN 04/12/17 Pantoprazole Sodium [Protonix] 40 mg PO DAILY 04/12/17 Pregabalin [Lyrica] 150 mg PO BID 04/12/17 Gabapentin [Neurontin] 400 mg PO TID 07/30/17 Quetiapine Fumarate [Seroquel] 800 mg PO QHS 07/30/17 Prednisone 10 mg PO DAILY #30 tab 07/31/17 The following prescriptions were given: Prednisone 10 mg PO DAILY #30 tab Primary Care Physician: Felipe Souza [Primary Care Provider] - Within 2 Weeks
--- NOTE | 2017-07-31 10:29 | PCM.DC.SUM ---
Discharge Date and Diagnosis - Problem List Patient Problems: Active and Suspected Problems COPD with acute exacerbation (Acute) Date of Admission: 07/30/17 Date of Discharge: 07/31/17 - Primary Discharge Diagnosis Active and Suspected Problems COPD with acute exacerbation (Acute) - Secondary Discharge Diagnosis Chronic Problems Hyperlipidemia (Chronic) Chronic thrombocytopenia (Chronic) Depression (Chronic) Chronic respiratory failure (Chronic) COPD (chronic obstructive pulmonary disease) (Chronic) [id number] deficiency (Chronic) Hospital Course and Treatment Imaging Results: Clinical Impression(s) from Imaging Studies Chest X-Ray 07/30/17 08:39 IMPRESSION: COPD. No focal consolidation. Electronically Signed: Ori Gibbons DO at 10:35 EDT Tel , Service support , Operations: None Procedures: None Summary of Care Provided: The patient is a 52 year old F with acute exacerbation of COPD. Patient was started on steroids and broad dilators and has improved. Patient will be discharged today. 1. Acute COPD exacerbation No audible wheezes at this time the patient is profoundly diminished I do not appreciate any pneumonia on the patient's chest x-ray and therefore will be continuing antibiotics Will start patient on IV Solu-Medrol and tea with bronchodilators. Patient will follow up with Dr. Guajardo as outpatient Patient has known alpha-1 antitrypsin deficiency though does continue to smoke. Strongly recommended that the patient quit smoking as it will only continue to worsen her COPD which will likely continue to worsen with her alpha anti-1 trypsin deficiency. Improved aeration today. Patient is on chronic O2 at 3 L/min and which is what she is on right now and doing well. Patient has a follow-up appointment with Dr. Guajardo on the . We will discharge patient with a prednisone taper 2. Acute on chronic hypoxic respiratory failure Secondary to above Improved 3. Advanced care planning: Discussed with the patient about intubation and CPR. Patient wishes full there is: Patient is full CODE STATUS. 4. 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 Patient does have thrombocytopenia which is chronic. Lightly worse today but has been lower in the past. No evidence of any bleeding and therefore does not require any platelet infusions.[] Discharge Diet: No Restrictions Discharge Activity: Return to Normal Activity Call your doctor if you observe: Fever of 101 or Higher, Shortness of breath Home Medications: Medications to take at Discharge Albuterol Inhaler [Ventolin Hfa] 2 puff INHALATION Q4H PRN PRN 05/29/16 Atorvastatin Calcium [Lipitor] 10 mg PO QHS 05/29/16 Fluticasone/Salmeterol [Advair 500/50 Mcg Diskus] 1 puff INHALATION BID 05/29/16 Ipratropium/Albuterol Sulfate [Duoneb] 3 ml INHALATION Q6H PRN PRN 05/29/16 Roflumilast [Daliresp] 500 mcg PO DAILY 05/29/16 Tiotropium [place] [Spiriva 18 MCG] 1 puff INHALATION DAILY 05/29/16 hydrOXYzine pamoate capsule [Vistaril pamoate capsule] 50 mg PO BIDCM 05/29/16 Alpha-1 Proteinase Inhibitor [Prolastin C] 5,390 mg IV QWEEK 04/12/17 Escitalopram Oxalate [Lexapro] 20 mg PO DAILY 04/12/17 Hydrochlorothiazide [Hctz] 25 mg PO DAILY 04/12/17 Hydroxyzine Pamoate [Vistaril] 50 mg PO QHS 04/12/17 Ipratropium [Atrovent Inhaler] 2 puff INHALATION TID 04/12/17 Lorazepam [Ativan] 0.5 mg PO TID PRN PRN 04/12/17 Pantoprazole Sodium [Protonix] 40 mg PO DAILY 04/12/17 Pregabalin [Lyrica] 150 mg PO BID 04/12/17 Gabapentin [Neurontin] 400 mg PO TID 07/30/17 Quetiapine Fumarate [Seroquel] 800 mg PO QHS 07/30/17 Prednisone 10 mg PO DAILY #30 tab 07/31/17 Following Prescrptions Were Given to Patient: Prednisone 10 mg PO DAILY #30 tab Primary Care Physician: Felipe Souza [Primary Care Provider] - Within 2 Weeks Please Follow Up With: Haim Guajardo MD Disposition: Home Minutes spent on discharge:: 28 Patient Condition:: Good Medical Necessity - Tobacco Use Smoking Status: Current some day smoker Meaningful Use Info Meaningful Use Diagnoses (Choose all that apply): None applicable Code Visit Inpatient E&M: 96036 [facility] Hosp
--- NOTE | 2017-07-31 10:32 | DS.PCM_ITS ---
Discharge Date and Diagnosis - Problem List Patient Problems: Active and Suspected Problems COPD with acute exacerbation (Acute) Date of Admission: 07/30/17 Date of Discharge: 07/31/17 - Primary Discharge Diagnosis Active and Suspected Problems COPD with acute exacerbation (Acute) - Secondary Discharge Diagnosis Chronic Problems Hyperlipidemia (Chronic) Chronic thrombocytopenia (Chronic) Depression (Chronic) Chronic respiratory failure (Chronic) COPD (chronic obstructive pulmonary disease) (Chronic) [id number] deficiency (Chronic) Hospital Course and Treatment Imaging Results: Clinical Impression(s) from Imaging Studies Chest X-Ray 07/30/17 08:39 IMPRESSION: COPD. No focal consolidation. Electronically Signed: Ori Gibbons DO at 10:35 EDT Tel , Service support , Operations: None Procedures: None Summary of Care Provided: The patient is a 52 year old F with acute exacerbation of COPD. Patient was started on steroids and broad dilators and has improved. Patient will be discharged today. 1. Acute COPD exacerbation * No audible wheezes at this time the patient is profoundly diminished * I do not appreciate any pneumonia on the patient's chest x-ray and therefore will be continuing antibiotics * Will start patient on IV Solu-Medrol and tea with bronchodilators. * Patient will follow up with Dr. Guajardo as outpatient * Patient has known alpha-1 antitrypsin deficiency though does continue to smoke. Strongly recommended that the patient quit smoking as it will only continue to worsen her COPD which will likely continue to worsen with her alpha anti-1 trypsin deficiency. * Improved aeration today. Patient is on chronic O2 at 3 L/min and which is what she is on right now and doing well. Patient has a follow-up appointment with Dr. Guajardo on the . * We will discharge patient with a prednisone taper 2. Acute on chronic hypoxic respiratory failure * Secondary to above * Improved 3. Advanced care planning: Discussed with the patient about intubation and CPR. Patient wishes full there is: Patient is full CODE STATUS. 4. 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 Patient does have thrombocytopenia which is chronic. Lightly worse today but has been lower in the past. No evidence of any bleeding and therefore does not require any platelet infusions.[] Discharge Diet: No Restrictions Discharge Activity: Return to Normal Activity Call your doctor if you observe: Fever of 101 or Higher, Shortness of breath Home Medications: Medications to take at Discharge Albuterol Inhaler [Ventolin Hfa] 2 puff INHALATION Q4H PRN PRN 05/29/16 Atorvastatin Calcium [Lipitor] 10 mg PO QHS 05/29/16 Fluticasone/Salmeterol [Advair 500/50 Mcg Diskus] 1 puff INHALATION BID Ipratropium/Albuterol Sulfate [Duoneb] 3 ml INHALATION Q6H PRN PRN 05/29/16 Roflumilast [Daliresp] 500 mcg PO DAILY 05/29/16 Tiotropium [place] [Spiriva 18 MCG] 1 puff INHALATION DAILY 05/29/16 hydrOXYzine pamoate capsule [Vistaril pamoate capsule] 50 mg PO BIDCM 05/29/16 Alpha-1 Proteinase Inhibitor [Prolastin C] 5,390 mg IV QWEEK 04/12/17 Escitalopram Oxalate [Lexapro] 20 mg PO DAILY 04/12/17 Hydrochlorothiazide [Hctz] 25 mg PO DAILY 04/12/17 Hydroxyzine Pamoate [Vistaril] 50 mg PO QHS 04/12/17 Ipratropium [Atrovent Inhaler] 2 puff INHALATION TID 04/12/17 Lorazepam [Ativan] 0.5 mg PO TID PRN PRN 04/12/17 Pantoprazole Sodium [Protonix] 40 mg PO DAILY 04/12/17 Pregabalin [Lyrica] 150 mg PO BID 04/12/17 Gabapentin [Neurontin] 400 mg PO TID 07/30/17 Quetiapine Fumarate [Seroquel] 800 mg PO QHS 07/30/17 Prednisone 10 mg PO DAILY #30 tab 07/31/17 Following Prescrptions Were Given to Patient: Prednisone 10 mg PO DAILY #30 tab Primary Care Physician: Felipe Souza [Primary Care Provider] - Within 2 Weeks Please Follow Up With: Haim Guajardo MD Disposition: Home Minutes spent on discharge:: 28 Patient Condition:: Good Medical Necessity - Tobacco Use Smoking Status: Current some day smoker Meaningful Use Info Meaningful Use Diagnoses (Choose all that apply): None applicable Code Visit Inpatient E&M: 18114 Disch Hosp
[2017-07-31 10:57] VITALS: PULSE 98; RESP 18; O2SAT 95
[2017-07-31 14:45] LABS: Pathologist Review Reviewed
== END 2017-07-31 11:49 | disposition home or self-care (01) | DRG 190 ==
LOC: ED 09:33 → MS2 10:24
PROVIDERS: Emergency Provider Emergency Medicine; Family Provider Family Medicine; PCP Family Medicine
DX: J44.1 Chronic obstructive pulmonary disease with (acute) exacerbation (principal); J96.21 Acute and chronic respiratory failure with hypoxia; F17.210 Nicotine dependence, cigarettes, uncomplicated; Z99.81 Dependence on supplemental oxygen; E78.5 Hyperlipidemia, unspecified; D69.6 Thrombocytopenia, unspecified; F32.9 Major depressive disorder, single episode, unspecified; Z79.51 Long term (current) use of inhaled steroids; Z79.899 Other long term (current) drug therapy; E88.01 Alpha-1-antitrypsin deficiency; K74.60 Unspecified cirrhosis of liver
CPT/HCPCS: 36415; 71046; 80048; 83605; 84484; 85025; 87040; 93005; 94640; 94667; 94668; 97802; 99285; A4216; J2405

== ENCOUNTER 2018-03-09 21:07 | Observation (INO) | payer OTHER, SELFPAY ==
[2018-03-09 21:08] VITALS: BP 133/80; PULSE 100; RESP 28; TEMP 37.8; O2SAT 95; BMI 30.2
[2018-03-09 21:12] VITALS: RESP 4; O2SAT 96
--- NOTE | 2018-03-09 21:14 | EKG12_ITS ---
Test Reason : SOB Blood Pressure : / mmHG Vent. Rate : 094 BPM Atrial Rate : 094 BPM P-R Int : 118 ms QRS Dur : 088 ms QT Int : 370 ms P-R-T Axes : 048 032 045 degrees QTc Int : 462 ms Normal sinus rhythm Normal ECG Confirmed by MORELIA ALEXANDRA, SHANE ([id number]), assistant editor MEL WESTBROOK ([id number]) on 03/11/2018 4:24:17 PM Referred By: REY Confirmed By:SHANE THIBODEAUX MD
--- NOTE | 2018-03-09 21:15 | RAD_ITS ---
STUDY: X-RAY CHEST REASON FOR EXAM: Female, 52 years old. Increased SOB. TECHNIQUE: Portable chest. COMPARISON: 07/30/2017. FINDINGS: There is a new opacity in the left lower lobe laterally, consistent with pneumonia. Small lucency within the opacity may represent mild cavitation. Mild fibrotic changes are noted on the right, stable. There is no pleural effusion. Normal size heart. Normal mediastinum and rosemary. Normal visualized pulmonary arteries. Normal visualized aortic arch and descending thoracic aorta. Normal visualized thoracic spine. Normal visualized ribs, clavicles, and shoulders. There is no demonstrated abnormality of the visualized soft tissue structures of the upper abdomen. RAD/Chest 1 View (Portable) IMPRESSION: Left lower lobe pneumonia with possible cavitation. Electronically Signed: Dipti Allen MD at 21:55 EST Tel , Service support ,
[2018-03-09 21:20] VITALS: PULSE 97; RESP 20
[2018-03-09] MEDS: Ipratropium/Albuterol Sulfate 3 ML AMPUL.NEB INHALATION (21:20)
[2018-03-09] MEDS: Albuterol 2.5 MG/3 ML VIAL.NEB. INHALATION ×3 (21:20)
--- NOTE | 2018-03-09 21:22 | ED.VISSUMM ---
- ER Visit Summary Date of Service: 03/09/18 Chief Complaint: [Shortness of breath History of Present Illness: The patient is a 52 F presents to the emergency department shortness of breath. Patient has a history of COPD and alpha-1 antitrypsin. She is on 4-5 L of oxygen at home. States over the past 24 hours, she had gradual worsening shortness of breath. She had scant cough without productive sputum. She also admits to chills and myalgias. Her last prednisone was greater than a month ago. She does follow with Dr. Guajardo. She states that she is try to cut down on her smoking. She denies any chest pain. She is no history of pulmonary embolus. She denies any other recent travel or infectious symptoms. Physical Examination: Vital signs reviewed General: Well-nourished, well-developed Head: Normocephalic, atraumatic Eyes: Pupils equal and reactive, extraocular muscles intact Neck, supple, no lymphadenopathy Heart: Regular rate and rhythm Respiratory: No distress, diminished air movement with wheezing in all lung gould Abdomen: Soft, nontender, nondistended, no peritoneal signs Back: Nontender Extremities: Nontender, no edema, no cords Skin: Normal color no rash Neuro: Alert and oriented, no focal or lateralizing deficits Test Results: [] Emergency Department Course and Treatment: The patient presents with cough, chills, myalgias. She really has not had any productive sputum. She does have diffuse wheezing in all lung gould. She is a T-max of 100.1. Sepsis workup was pursued. Blood cultures were obtained. Patient has a white count of 3. Her lactate however is normal. She does have thrombus cytopenia with platelets in the 30s. This is chronic for her. Her chest x-ray does demonstrate a left lower lobe infiltrate. This was concerning for cavitation. Patient is sent for CT of her chest. She was started on broad-spectrum antibiotics. Given her worsening hypoxia, infection of the lung, and history of other significant lung disease I do feel that she is going to require admission. Patient was discussed with the hospitalist. Treatment Plan: [] Disposition: Admission Impression: 1. Community-acquired pneumonia 2. COPD exacerbation with history of alpha-1 antitrypsin 3. Increasing oxygen requirement 4. Thrombus cytopenia This note was generated with [employer] software. It may contain incorrect words, spelling, and punctuation that were not noted in review of the chart prior to signing ED Disposition - Plan for ED Patient: Chief Complaint: Shortness of Breath Referrals: Felipe Souza [Primary Care Provider] -
[2018-03-09] MEDS: 0.9% Normal Saline 1,000 ML 150 ML IV (21:39)
[2018-03-09] MEDS: MethylPREDNISolone 125 MG/2 ML Vial IV (21:39)
[2018-03-09 21:46] LABS: Absolute Lymphocyte Count 0.47 X10^3/ul (0.83-4.51); Absolute Neutrophil Count 2.3 X10^3/uL (2.0-7.7); Basophil# 0.01 X10^3/uL; Basophil% 0.3 % (0-1); Eosinophil# 0.08 X10^3/uL; Eosinophils% 2.7 % (0-5); Hematocrit 39.4 % (37-47); Hemoglobin 12.7 g/dl (12.0-15.0); Lymphocyte # 0.47 X10^3/ul (4.0); Lymphocyte % 15.6 % (19-41); Mean Corp Hgb Conc 32.2 g/gl (32-36); Mean Corpuscular Hgb 28.8 pg (27.0-32.0); Mean Corpuscular Volume 89.3 fL (81-99); Mean Platelet Vol. 10.6 fl (6.2-12.0); Monocyte# 0.19 X10^3/uL; Monocyte% 6.3 % (0-10); Neutrophil # 2.25 X10^3/uL (2.7-7.7); Neutrophil % 74.8 % (47-70); RBC Distribution Width CV 16.7 % (11.6-14.6); RBC Distribution Width SD 54.6 fl (35.1-43.9); Red Blood Count 4.41 M/mm3 (4.2-5.4)
[2018-03-09 21:59] LABS: Differential Indicated SCAN CRITERIA MET; POSITIVE COUNT YES; POSITIVE DIFFERENTIAL YES; POSITIVE MORPHOLOGY NO
[2018-03-09 22:00] LABS: Platelet Count 33 K/mm3 (150-450)
--- NOTE | 2018-03-09 22:00 | ED.RN ---
lab called with critical lab results. plt 33. Dr. Aviles made aware. no new orders at this time
[2018-03-09 22:02] LABS: Anisocytosis RARE; Platelet Estimate MKD DEC (ADEQ)
[2018-03-09 22:03] LABS: Anion Gap 4 (5-15); BUN 13 mg/dL (7-18); BUN/Creat Ratio 15.2 RATIO (10-20); Calcium,Total 9.4 mg/dL (8.5-10.1); Chloride 105 mmol/L (98-107); Creatinine, Serum 0.85 mg/dL (0.55-1.02); EST Glomerular Filtration Rate 74 mL/min (>60); Est Glom Filt Rate - Afr Amer 89 mL/min (>60); Estimated Creatinine Clearance 62.59 ml/min; Glucose 108 mg/dL (74-106); Potassium 4.1 mmol/L (3.5-5.1); Sodium Level 142 mmol/L (136-145)
[2018-03-09 22:07] VITALS: BP 117/64; PULSE 101; RESP 20; O2SAT 95
--- NOTE | 2018-03-09 22:08 | CT_ITS ---
STUDY: CT CHEST WITHOUT CONTRAST REASON FOR EXAM: Female, 52 years old. Cough RADIATION DOSAGE (If Supplied By Facility): CTDIvol = ( 7.43 ) mGy, DLP = ( 258.05 ) mGycm TECHNIQUE: Transaxial imaging was performed without the administration of intravenous contrast material. Individualized dose optimization techniques were used for this CT. COMPARISON: 01/30/2012 FINDINGS: Mild elevation of the left hemidiaphragm. Diffuse pulmonary emphysema. Lingular scarring and atelectasis. There is no demonstrated pleural abnormality. Normal heart and pericardium. Normal mediastinum. Normal hilar regions. Normal unenhanced pulmonary arteries. Normal aorta arch and descending thoracic aorta. Normal osseous structures. Incompletely imaged splenomegaly. CT/Chest without Contrast IMPRESSION: Mild elevation of the left hemidiaphragm. Incompletely imaged splenomegaly. Pulmonary emphysema. Lingular scarring. No acute alveolar disease or evidence of mediastinal pathology. Electronically Signed: Deric Bello MD at 0:27 EST Tel , Service support ,
[2018-03-09 22:17] LABS: Lactic Acid 1.3 mmol/L (0.4-2.0)
[2018-03-09] MEDS: levoFLOXacin IV 750 MG/150 ML BAG 100 MG IV (22:22)
--- NOTE | 2018-03-09 23:30 | PCM.HP.STD ---
Problem List (1) Acute respiratory failure with hypoxia Status: Acute (2) COPD exacerbation Status: Acute (3) Hyperlipidemia Status: Chronic Qualifiers: Hyperlipidemia type: unspecified Qualified Code(s): E78.5 - Hyperlipidemia, unspecified (4) Chronic thrombocytopenia Status: Chronic (5) Depression Status: Chronic Qualifiers: Depression Type: unspecified Qualified Code(s): F32.9 - Major depressive disorder, single episode, unspecified (6) Chronic respiratory failure Status: Chronic Qualifiers: Respiratory failure complication: hypoxia Qualified Code(s): J96.11 - Chronic respiratory failure with hypoxia (7) COPD (chronic obstructive pulmonary disease) Status: Chronic Qualifiers: COPD type: unspecified COPD Qualified Code(s): J44.9 - Chronic obstructive pulmonary disease, unspecified (8) Gffbn-0-dajhyvtemje deficiency Status: Chronic History of Present Illness Date of Admission: 03/09/18 Chief Complaint: Dyspnea, cough, wheezing. The patient is a 52 y/o F w/ PMHx: HTN. HLD, Chronic Thrombocytopenia, Depression and Anxiety, Chronic COPD w/ Chronic Hypoxic Respiratory Failure (4L NC home), Vtaeb-1-rlkajielylj deficiency following w/ Dr. Guajardo, Obesity, GERD who presents to the [facility] ED on 03/09/18 w/ history of 24 hours of worsening dyspnea, increased O2 needs, harsh cough without increased sputum production, myalgia and arthralgias. She noted despite home aerosol usage she continued to worsen. In the ED following treatments she initially intended to leave the ED AMA however following discussions she remained. Patient upon initial ED presentation with notable increased work of breathing, accessory muscle usage, increased RR. In the ED work-up included T1 100.1, heart rate 100, BP 133/80, respiratory rate initially 28, 95% on 4 L nasal cannula, CBC with WBC 3, hemoglobin 12.7, platelet 33, BMP with carbon dioxide 33, glucose 108, lactic acid 1.3, troponin < 0.015, rapid influenza negative, blood culture x2 pending, chest x-ray with left lower lobe pneumonia and possible cavitation but as noted follow-up CT chest with findings likely secondary to severity of her underlying pulmonary disease and scarring, CT chest w/ mild elevation of the left hemidiaphragm, incompletely imaged splenic megaly, pulmonary emphysema, lingular scarring, no acute alveolar disease or evidence of mediastinal pathology. In the ED patient administered Solu-Medrol, Levaquin 750 mg IV x1, DuoNeb, albuterol, normal saline. Past Medical History Past Medical History (Chronic Problems): Chronic Problems Hyperlipidemia (Chronic) Chronic thrombocytopenia (Chronic) Depression (Chronic) Chronic respiratory failure (Chronic) COPD (chronic obstructive pulmonary disease) (Chronic) Foobc-5-odkgiyekqij deficiency (Chronic) Allergies erythromycin base Allergy (Verified 03/09/18 21:11) FACIAL SWELLING Home Medications: Ambulatory Orders Medication Instructions Recorded Albuterol Inhaler [Ventolin Hfa] 2 puff INHALATION Q4H PRN PRN 05/29/16 Atorvastatin Calcium [Lipitor] 10 mg PO QHS 05/29/16 Ipratropium/Albuterol Sulfate 3 ml INHALATION Q6H PRN PRN 05/29/16 [Duoneb] Roflumilast [Daliresp] 500 mcg PO DAILY 05/29/16 Tiotropium [place] [Spiriva 18 MCG] 1 puff INHALATION DAILY 05/29/16 hydrOXYzine pamoate capsule 100 mg PO DAILY 05/29/16 [Vistaril pamoate capsule] Alpha-1 Proteinase Inhibitor 5,390 mg IV QWEEK 04/12/17 [Prolastin C] Escitalopram Oxalate [Lexapro] 20 mg PO DAILY 04/12/17 Hydrochlorothiazide [Hctz] 25 mg PO DAILY 04/12/17 Pantoprazole Sodium [Protonix] 40 mg PO DAILY 04/12/17 Pregabalin [Lyrica] 150 mg PO BID 04/12/17 Quetiapine Fumarate [Seroquel] 800 mg PO QHS 07/30/17 ALPRAZolam [Xanax] 0.5 mg PO TID 03/09/18 Potassium Chloride [K-Dur] 10 meq PO TID 03/09/18 Surgical History: hysterectomy Psychiatric History: Anxiety, Depression [employer]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 Tobacco Use: Cigarettes Alcohol: None Drugs: None - *Family History Maternal History Items: Diabetes, - - Positive for alpha-1 antitrypsin deficiency Paternal History Items: Heart Disease, Hypertension, - - Positive for alpha-1 antitrypsin deficiency Review of Systems Constitutional: Reports: Anorexia, Chills, Fever, Malaise, Weakness, Fatigue. Denies: Weight Change HEENT: Denies: Head Aches, Sinus Congestion, Sinus Drainage Cardiovascular: Denies: Chest Pain, Palpitations Respiratory: Reports: Cough, Shortness of Breath, Shortness of breath at rest, Shortness of breath upon exertion, Wheezing. Denies: Sputum production Gastrointestinal: Denies: Abdominal Pain, Nausea, Vomiting Genitourinary: Denies: Dysuria Musculoskeletal: Reports: Back Pain, Joint Pain, Muscle pain. Denies: Joint Tenderness Skin: Denies: Rash, Wounds Neurological: Denies: Numbness, Tingling, Focal weakness Psychiatric: Reports: Anxiety, Depression. Denies: Homicidal Ideations, Suicidal Ideations Hematologic/ Lymphatic: Denies: Easy Bruising, Easy Bleeding VTE Information - Inpt Only VTE Present on Admission: No VTE Mechan Device Prophylaxis: SCD's VTE Pharm Prophylaxis ordered?: Yes Patient Problems: Active and Suspected Problems Acute respiratory failure with hypoxia (Acute) Pneumonia (Acute) COPD exacerbation (Acute) Subjective: Seated upright in the ED bed, fatigued appearing, notes feeling improved since initial presentation which had been notable for increased work of breathing, accessory muscle usage and increased RR. Objective: Physical Examination: General: awake, alert, oriented x 3 and cooperative, seated upright in ED bed, improved appearance since initial presentation, was originally notable for increased work of breathing, accessory muscle usage increased respiratory rate. Skin: normal color, turgor, no icterus, cyanosis. HEENT: AT/NC, EOMI, PERRLA, moderately dry MM, no carotid bruits or JVD noted. Lungs: Notably diminished breath sounds bilateral bases, mild airway movement upper gould with audible expiratory wheezing diffusely, poor effort, still some accessory muscle usage but improved from initial presentation at which point patient had increased work of breathing and notably increased respiratory rate as well. Heart: Mildly tachycardic with regular rhythm; no gallop, rub audible. Abdomen: soft, NTTP, ND, normal BS, no HSM. Extremities: no cyanosis, clubbing, or edema. Neurological: patient awake, alert, oriented x 3; cognitive function intact; pupils equally reactive to light and accomodation; cranial nerves II-XII grossly normal, moving all 4 extremities, no focal deficits, strength severely globally decreased secondary to acute presentation. Psychiatric: affect appears irritable at having to stay, no acute evidence of depressive or anxiety feelings. - Physical Exam Vital Signs Temp Pulse Resp BP Pulse Ox 100.1 F H 101 H 20 H 117/64 95 03/09/18 21:08 03/09/18 22:07 03/09/18 22:07 03/09/18 22:07 03/09/18 22:07 Oxygen Flow Rate (L/min) 4 Oxygen Delivery Method Nasal Cannula Weight: 170 lb 13.732 oz Body Mass Index (BMI) 30.2 Microbiology Past 72 Hours 03/09/18 21:40 Influenza Types A,B Direct FA (JEREL) - Final Mucosa - Nasopharyngeal Laboratory Tests Past 24 Hrs 03/09/18 03/09/18 03/09/18 21:30 21:30 21:30 WBC 3.0 L RBC 4.41 Hgb 12.7 Hct 39.4 MCV 89.3 MCH 28.8 MCHC 32.2 RDW 16.7 H RDW Differential 54.6 H Plt Count 33 L* MPV 10.6 Immature Gran % (Auto) 0.300 Neut % (Auto) 74.8 H Lymph % (Auto) 15.6 L [place] % (Auto) 6.3 Eos % (Auto) 2.7 Baso % (Auto) 0.3 Absolute Neuts (auto) 2.3 Absolute Lymphs (auto) 0.47 L Total Counted Not Reportable Platelet Estimate MKD DEC Anisocytosis RARE Sodium 142 Potassium 4.1 Chloride 105 Carbon Dioxide 33.0 H Anion Gap 4 L BUN 13 Creatinine 0.85 Estim Creat Clear Calc 62.59 Est GFR (MDRD) Af Amer 89 Est GFR (MDRD) Non-Af 74 BUN/Creatinine Ratio 15.2 Glucose 108 H Lactic Acid 1.3 Calcium 9.4 Troponin I < 0.015 Assessment/Plan All Active Problems COPD with acute exacerbation (Acute) Acute respiratory failure with hypoxia (Acute) Pneumonia (Acute) COPD exacerbation (Acute) The patient is a 52 y/o F w/ PMHx: HTN, HLD, Chronic Thrombocytopenia, Depression and Anxiety, Chronic COPD w/ Chronic Hypoxic Respiratory Failure (4L NC home), Bvhbq-9-ajmmogyscru deficiency following w/ Dr. Guajardo, Obesity, GERD who presents to the [facility] ED on 03/09/18 w/ history of 24 hours of worsening dyspnea, increased O2 needs, harsh cough without increased sputum production, myalgia and arthralgias. (1) Acute Sepsis secondary to Acute on Chronic Hypoxic Respiratory Failure secondary to Acute on Chronic COPD Exacerbation, complicated by alpha-1 antitrypsin deficiency, CAP ruled out by CT Chest: In the ED work-up included T1 100.1, heart rate 100, BP 133/80, respiratory rate initially 28, 95% on 4 L nasal cannula, CBC with WBC 3, hemoglobin 12.7, platelet 33, BMP with carbon dioxide 33, glucose 108, lactic acid 1.3, troponin < 0.015, rapid influenza negative, blood culture x2 pending, chest x-ray with left lower lobe pneumonia and possible cavitation but as noted follow-up CT chest with findings likely secondary to severity of her underlying pulmonary disease and scarring, CT chest w/ mild elevation of the left hemidiaphragm, incompletely imaged splenic megaly, pulmonary emphysema, lingular scarring, no acute alveolar disease or evidence of mediastinal pathology. In the ED patient administered Solu-Medrol, Levaquin 750 mg IV x1, DuoNeb, albuterol, normal saline. Will admit to [facility], maintain on oxygen with wean as tolerated to home oxygen supplementation, continue ATC duonebs, PRN albuterol, maintain on IV solumedrol, maintain on on IV levaquin for COPD exacerbation, HOB, IS parameters w/ pending sputum cultures, respiratory viral panel. Bld cx x 2 obtained in the ED. Continue home alpha-1 protease inhibitor Prolastin C if remains through Saturday as administered IV weekly. (2) Chronic Thrombocytopenia: Admission Plts 33, Plts baseline 30-70, most recent 07/31/17 35, repeat CBC in AM. (3) Obesity: Weight loss and lifestyle changes encouraged. (4) Anxiety and depression: Continue home Xanax, Lexapro, Seroquel regimen. (5) Hyperlipidemia: Continue home statin regimen. (6) Hypertension: Continue home regimen including hydrochlorthiazide, PRN hydralazine. (7) GERD: PPI. (8) DVT Prophylaxis: SCDs, given thrombocytopenia will defer chemoprophylaxis. Code Visit Inpatient E&M: 05643 Init Hosp L3
[2018-03-10 00:43] VITALS: BMI 30.2
[2018-03-10 00:51] VITALS: BP 144/82; PULSE 97; RESP 22; TEMP 36.8; O2SAT 92
[2018-03-10 01:19] VITALS: BMI 30.2
[2018-03-10] MEDS: 0.9% Normal Saline 1,000 ML 100 ML IV (01:50)
[2018-03-10] MEDS: ALPRAZolam 0.5 MG Tablet PO (01:50)
[2018-03-10] MEDS: QUEtiapine 100 MG Tablet 800 MG PO (02:15)
--- NOTE | 2018-03-10 03:05 | NURSING ---
Pt left AMA at this time. This RN educated patient on importance of IV steroids and antibiotics. Pt states I have to go home and sleep in my own bed. Dr. Panchal notified.
--- NOTE | 2018-03-10 03:10 | DS.PCM_ITS ---
Discharge Date and Diagnosis - Problem List Patient Problems: Active and Suspected Problems Acute respiratory failure with hypoxia (Acute) Pneumonia (Acute) COPD exacerbation (Acute) Date of Admission: 03/09/18 Date of Discharge: 03/10/18 - Primary Discharge Diagnosis Active and Suspected Problems (1) Acute Sepsis secondary to Acute on Chronic Hypoxic Respiratory Failure secondary to Acute on Chronic COPD Exacerbation, complicated by alpha-1 antitrypsin deficiency, CAP ruled out by CT Chest (2) Chronic Thrombocytopenia (3) Obesity (4) Anxiety and depression (5) Hyperlipidemia (6) Hypertension: (7) GERD (8) Tobacco use - Secondary Discharge Diagnosis Chronic Problems Hyperlipidemia (Chronic) Chronic thrombocytopenia (Chronic) Depression (Chronic) Chronic respiratory failure (Chronic) COPD (chronic obstructive pulmonary disease) (Chronic) Kdnty-9-jruwqcolikt deficiency (Chronic) Hospital Course and Treatment Imaging Results: 03/09/18 21:15 Chest 1 View (Portable) [RAD] Stat 03/09/18 22:08 CT Chest [Chest without Contrast] [CT] Stat Operations: None Procedures: EKG Summary of Care Provided: The patient is a 52 y/o F w/ PMHx: HTN. HLD, Chronic Thrombocytopenia, Depression and Anxiety, Chronic COPD w/ Chronic Hypoxic Respiratory Failure (4L NC home), Qpnbj-3-kakbqozoduz deficiency following w/ Dr. Guajardo, Obesity, GERD who presented to the [facility] ED on 03/09/18 w/ history of 24 hours of worsening dyspnea, increased O2 needs, harsh cough without increased sputum production, myalgia and arthralgias. She noted despite home aerosol usage she continued to worsen. In the ED following treatments she initially intended to leave the ED AMA however following discussions she remained. Patient upon initial ED presentation with notable increased work of breathing, accessory muscle usage, increased RR. In the ED work-up included T1 100.1, heart rate 100, BP 133/80, respiratory rate initially 28, 95% on 4 L nasal cannula, CBC with WBC 3, hemoglobin 12.7, platelet 33, BMP with carbon dioxide 33, glucose 108, lactic acid 1.3, troponin < 0.015, rapid influenza negative, blood culture x2 pending, chest x-ray with left lower lobe pneumonia and possible cavitation but as noted follow-up CT chest with findings likely secondary to severity of her underlying pulmonary disease and scarring, CT chest w/ mild elevation of the left hemidiaphragm, incompletely imaged splenic megaly, pulmonary emphysema, lingular scarring, no acute alveolar disease or evidence of mediastinal pathology. In the ED patient administered Solu-Medrol, Levaquin 750 mg IV x1, DuoNeb, albuterol, normal saline. Patient was admiteded to MS w/ continued oxygen supplementation with wean as tolerated to home oxygen supplementation, continued ATC duonebs, PRN albuterol, maintained on IV solumedrol, maintained on on IV levaquin for COPD exacerbation, HOB, IS parameters w/ requested sputum cultures, respiratory viral panel; however, despite continued encouragement she left AMA. Patient Problems: Active and Suspected Problems Acute respiratory failure with hypoxia (Acute) Pneumonia (Acute) COPD exacerbation (Acute) - Physical Exam Vital Signs Temp Pulse Resp BP Pulse Ox 98.2 F 97 22 H 144/82 H 92 03/10/18 00:51 03/10/18 00:51 03/10/18 00:51 03/10/18 00:51 03/10/18 00:51 Oxygen Flow Rate (L/min) 4 Oxygen Delivery Method Nasal Cannula Weight: 170 lb 6.677 oz Body Mass Index (BMI) 30.2 Microbiology Past 72 Hours 03/09/18 21:40 Influenza Types A,B Direct FA (JEREL) - Final Mucosa - Nasopharyngeal Laboratory Tests Past 24 Hrs 03/09/18 03/09/18 03/09/18 21:30 21:30 21:30 WBC 3.0 L RBC 4.41 Hgb 12.7 Hct 39.4 MCV 89.3 MCH 28.8 MCHC 32.2 RDW 16.7 H RDW Differential 54.6 H Plt Count 33 L* MPV 10.6 Immature Gran % (Auto) 0.300 Neut % (Auto) 74.8 H Lymph % (Auto) 15.6 L [place] % (Auto) 6.3 Eos % (Auto) 2.7 Baso % (Auto) 0.3 Absolute Neuts (auto) 2.3 Absolute Lymphs (auto) 0.47 L Total Counted Not Reportable Platelet Estimate MKD DEC Anisocytosis RARE Sodium 142 Potassium 4.1 Chloride 105 Carbon Dioxide 33.0 H Anion Gap 4 L BUN 13 Creatinine 0.85 Estim Creat Clear Calc 62.59 Est GFR (MDRD) Af Amer 89 Est GFR (MDRD) Non-Af 74 BUN/Creatinine Ratio 15.2 Glucose 108 H Lactic Acid 1.3 Calcium 9.4 Magnesium Troponin I < 0.015 03/09/18 21:30 WBC RBC Hgb Hct MCV MCH MCHC RDW RDW Differential Plt Count MPV Immature Gran % (Auto) Neut % (Auto) Lymph % (Auto) [place] % (Auto) Eos % (Auto) Baso % (Auto) Absolute Neuts (auto) Absolute Lymphs (auto) Total Counted Platelet Estimate Anisocytosis Sodium Potassium Chloride Carbon Dioxide Anion Gap BUN Creatinine Estim Creat Clear Calc Est GFR (MDRD) Af Amer Est GFR (MDRD) Non-Af BUN/Creatinine Ratio Glucose Lactic Acid Calcium Magnesium 2.0 Troponin I Home Medications: Medications to take at Discharge Albuterol Inhaler [Ventolin Hfa] 2 puff INHALATION Q4H PRN PRN 05/29/16 Atorvastatin Calcium [Lipitor] 10 mg PO DAILY 05/29/16 Ipratropium/Albuterol Sulfate [Duoneb] 3 ml INHALATION Q6H PRN PRN 05/29/16 Roflumilast [Daliresp] 500 mcg PO DAILY 05/29/16 Tiotropium [place] [Spiriva 18 MCG] 1 puff INHALATION DAILY 05/29/16 Alpha-1 Proteinase Inhibitor [Prolastin C] 5,390 mg IV TH 04/12/17 Escitalopram Oxalate [Lexapro] 20 mg PO DAILY 04/12/17 Pantoprazole Sodium [Protonix] 40 mg PO DAILY 04/12/17 Pregabalin [Lyrica] 150 mg PO BID 04/12/17 Quetiapine Fumarate [Seroquel] 800 mg PO QHS 07/30/17 ALPRAZolam [Xanax] 0.5 mg PO TID 03/09/18 Potassium Chloride [K-Dur] 10 meq PO TID 03/09/18 Lamotrigine [Lamictal] 200 mg PO DAILY 03/10/18 traZODone [Desyrel] 50 mg PO QHS 03/10/18 Primary Care Physician: Felipe Souza [Primary Care Provider] - Disposition: Against Medical Advice Minutes spent on discharge:: 20 Patient Condition:: Stable Medical Necessity - Tobacco Use Smoking Status: Current some day smoker Tobacco Use: Cigarettes Meaningful Use Info Meaningful Use Diagnoses (Choose all that apply): None applicable
== END 2018-03-10 03:05 | disposition left against medical advice (07) ==
LOC: ED 21:26 → MS3 03-10 00:13
PROVIDERS: Admitting Provider Family Medicine; Emergency Provider Emergency Medicine; Family Provider Family Medicine; PCP Family Medicine; Visit Provider Family Medicine
DX: J96.21 Acute and chronic respiratory failure with hypoxia (principal); J18.9 Pneumonia, unspecified organism; J44.1 Chronic obstructive pulmonary disease with (acute) exacerbation; J44.0 Chronic obstructive pulmonary disease with (acute) lower respiratory infection; K21.9 Gastro-esophageal reflux disease without esophagitis; Z79.899 Other long term (current) drug therapy; E78.5 Hyperlipidemia, unspecified; E66.9 Obesity, unspecified; Z68.30 Body mass index [BMI] 30.0-30.9, adult; Z71.3 Dietary counseling and surveillance; F41.9 Anxiety disorder, unspecified; F32.9 Major depressive disorder, single episode, unspecified; I10 Essential (primary) hypertension; D69.6 Thrombocytopenia, unspecified; Z99.81 Dependence on supplemental oxygen; F17.210 Nicotine dependence, cigarettes, uncomplicated; E88.01 Alpha-1-antitrypsin deficiency
CPT/HCPCS: 71045; 71250; 80048; 83605; 83735; 84484; 85025; 87040; 87804; 93005; 94640; 96361; 96365; 96375; 99218; 99285; J7030; A4216; G0378

== ENCOUNTER → 2019-02-19 | Outpatient (CLI) | payer OTHER, SELFPAY ==
[2019-02-19 16:56] LABS: Base Excess 5 mmol/L (-2 to +2); Bicarbonate 29.1 mmol/L (22-26); Blood Gas Specimen Type ART; O2 Delivery Device Room Air; PO2 65 mmHG (75-100); SITE R Radial; SO2 93 % (95-99); Time Given 1648; Total Carbon Dioxide 30 mmol/L; pCO2 42.7 mmHg (35-45); pH 7.44 (7.35-7.45)
== END | disposition home or self-care (01) ==
LOC: PSN 16:30
PROVIDERS: Family Provider Family Medicine; PCP Family Medicine; Referring Provider Internal Medicine Pulmonary Disease; Visit Provider Internal Medicine Pulmonary Disease
DX: J44.9 Chronic obstructive pulmonary disease, unspecified (principal); R09.02 Hypoxemia
CPT/HCPCS: 36600; 82803

== ENCOUNTER 2019-07-27 17:08 | Inpatient (IN) | payer OTHER, SELFPAY ==
[2019-07-27] VITALS (12 sets, daily range): BP systolic 138–199; BP diastolic 65–108; PULSE 78–125; RESP 12–34; TEMP 35.5–37.4; O2SAT 62–98; BMI 33.0; BMI 32.8; BMI 32.9
--- NOTE | 2019-07-27 17:12 | EKG12_ITS ---
Test Reason : SOB Blood Pressure : / mmHG Vent. Rate : 117 BPM Atrial Rate : 117 BPM P-R Int : 164 ms QRS Dur : 118 ms QT Int : 340 ms P-R-T Axes : 064 076 059 degrees QTc Int : 474 ms Sinus tachycardia Otherwise normal ECG Confirmed by SHI TIJERINA ([id number]), metropolitan editor MATT HARRIS ([id number]) on 07/30/2019 10:26:17 AM Referred By: Yael Amaral Confirmed By:SHI TIJERINA
[2019-07-27] MEDS: 0.9% Normal Saline 1,000 ML 150 ML IV (17:21)
[2019-07-27] MEDS: MethylPREDNISolone 125 MG/2 ML Vial IV (17:21)
[2019-07-27] MEDS: Albuterol 2.5 MG/3 ML VIAL.NEB. INHALATION ×3 (17:28→17:37)
[2019-07-27] MEDS: Ipratropium/Albuterol Sulfate 3 ML AMPUL.NEB INHALATION (17:28)
[2019-07-27 17:31] LABS: Absolute Lymphocyte Count 1.03 X10^3/uL (0.83-4.51); Absolute Neutrophil Count 5.6 X10^3/uL (2.0-7.7); Basophil# 0.04 X10^3/uL; Basophil% 0.6 % (0-1); Eosinophil# 0.06 X10^3/uL; Eosinophils% 0.8 % (0-5); Hematocrit 45.3 % (37-47); Hemoglobin 13.8 g/dL (12.0-15.0); Lymphocyte # 1.03 X10^3/ul (4.0); Lymphocyte % 14.2 % (19-41); Mean Corp Hgb Conc 30.5 g/dL (32-36); Mean Corpuscular Volume 85.5 fL (81-99); Mean Platelet Vol. 10.5 fl (6.2-12.0); Monocyte# 0.39 X10^3/uL; Monocyte% 5.4 % (0-10); NRBC Flagged by Analyzer 0 % (0-5); Neutrophil # 5.62 X10^3/uL (2.7-7.7); Neutrophil % 77.3 % (47-70); POSITIVE COUNT YES; Platelet Count 97 K/mm3 (150-450); RBC Distribution Width CV 15.9 % (11.6-14.6); RBC Distribution Width SD 49.7 fl (35.1-43.9); White Blood Count 7.3 K/mm3 (4.4-11.0)
[2019-07-27 17:39] LABS: Differential Indicated SCAN CRITERIA MET
--- NOTE | 2019-07-27 17:40 | RAD_ITS ---
STUDY: X-RAY CHEST REASON FOR EXAM: Female, 54 years old. hx: COPD, increased SOB. TECHNIQUE: Single AP portable view of the chest. COMPARISON: March 09, 2018 FINDINGS: There is hyperinflation of the lungs consistent with chronic obstructive lung disease (COPD). Emphysematous changes and scarring noted bilaterally. No focal consolidation is seen. There is no demonstrated pleural abnormality. Normal size heart. Unremarkable visualized osseous structures. RAD/Chest 1 View (Portable) IMPRESSION: COPD/emphysema Electronically Signed: Lalo Kc MD at 18:10 EDT , Service support ,
[2019-07-27 17:53] LABS: Anion Gap 7 (5-15); BUN 18 mg/dL (7-18); BUN/Creat Ratio 15.5 RATIO (10-20); Calcium,Total 9.6 mg/dL (8.5-10.1); Chloride 106 mmol/L (98-107); Creatinine, Serum 1.16 mg/dL (0.55-1.02); EST Glomerular Filtration Rate 51 mL/min (>60); Est Glom Filt Rate - Afr Amer 62 mL/min (>60); Glucose 165 mg/dL (74-106); Potassium 4.9 mmol/L (3.5-5.1); Sodium Level 140 mmol/L (136-145)
[2019-07-27 18:05] LABS: Differential Comment SCANNED; Platelet Estimate MOD DEC (ADEQ)
--- NOTE | 2019-07-27 18:26 | ED.DCSUM_ITS ---
- ER Visit Summary Date of Service: 07/27/19 Chief Complaint: [Shortness of breath] History of Present Illness: The patient is a 54 F [resents the emergency department complaint of shortness of breath for over 2 weeks. Patient progressively getting worse. She denies any fever. Has had a mild cough is mos tly nonproductive. Patient has history of COPD and emphysema related to alpha-1 antitrypsin. Patient seen by sonography technologist Dr. Guajardo who referred her to the emergency department today. He did not feel her symptoms were consistent with novel coronavirus and she has had no exposures to any known patients. Patient's not had any recent travel. Patient normally on 4 L of home O2. She denies any chest pain.] Patient has never been intubated. Patient is agreeable to intubation should she needed. Physical Examination: [HEENT-PERRLA, EOMI. Cranial nerves II through XII grossly intact. TMs clear. Mucous membranes moist. No adenopathy. Cardiovascular-regular rate and rhythm without murmur or ectopy Lungs-diminished breath sounds bilaterally. Patient has expiratory wheezes bilaterally. She has conversational dyspnea. She has pallor and cyanosis around the lips. Patient has accessory muscle use. Abdomen-normoactive bowel sounds, soft, nontender, no rebound or rigidity, no peritoneal signs. Extremities-intact ?4, normal range of motion, normal pulses, atraumatic] Test Results: [EKG obtained arrival shows sinus rhythm with a ventricular rate of 117 bpm with no acute segment changes. CBC with external count 7.3, hemoglobin 13.8, hematocrit 45, placed 97. Chemistries unremarkable. Troponin was less than 0.015. Chest x-ray showed COPD and emphysema. Lactate is pending. Blood cultures ordered and pending. Patient had influenza screen ordered as well as a respiratory panel.] Emergency Department Course and Treatment: [She was ordered a DuoNeb aerosol followed by albuterol aerosols. Patient was started on BiPAP. ABG will be ordered. Patient did do very well on BiPAP and significantly improved her respiratory rate and she looks well and in no acute distress at this time. Patient was started on Solu-Medrol 125 mg IV.] Treatment Plan: [Admit] Disposition: [Admit] Impression: [COPD exacerbation Respiratory failure] This note was generated with [employer] dictation software. It may contain incorrect words, spelling, and punctuation that were not noted in review of the chart prior to signing ED Disposition - Plan for ED Patient: Referrals: Felipe Souza [Primary Care Provider] -
[2019-07-27 18:40] LABS: Base Excess 5 mmol/L (-2 to +2); Bicarbonate 29.2 mmol/L (22-26); PO2 98 mmHG (75-100); SO2 98 % (95-99); Total Carbon Dioxide 31 mmol/L; pCO2 44.7 mmHg (35-45); pH 7.42 (7.35-7.45)
[2019-07-27 18:42] LABS: Blood Gas Specimen Type ART
[2019-07-27 18:42] LABS: Lactic Acid 4.7 mmol/L (0.4-1.9)
--- NOTE | 2019-07-27 18:42 | ED.RN ---
notified Dr. Boyd of lactic acid 4.7
[2019-07-27 18:43] LABS: O2 Delivery Device Bi Pap; SITE R RADIAL; Time Given 1832
[2019-07-27 18:44] LABS: EPAP 8; IPAP 14
--- NOTE | 2019-07-27 18:44 | PCM.HP.STD ---
Problem List (1) Hyperlipidemia Status: Chronic Qualifiers: (2) Chronic thrombocytopenia Status: Chronic (3) Depression Status: Chronic Qualifiers: (4) Chronic respiratory failure Status: Chronic Qualifiers: (5) COPD (chronic obstructive pulmonary disease) Status: Chronic Qualifiers: (6) [id number] deficiency Status: Chronic History of Present Illness Date of Admission: 07/27/19 Chief Complaint: Shortness of breath. The patient is a 54 year old F with past medical history as mentioned above presented to the emergency room because of shortness of breath. Her symptoms started couple of weeks ago and has been progressive, shortness of breath initially was on moderate exertion and it progressed until became even at rest, aggravated by any type of activity over the last several days, associated with dry cough without sputum production and no relieving factors. She denied fever or chills. Today, she was seen by her supervisor beam department Dr. Guajardo and she was referred to the ER for evaluation. Patient denied any recent travel or sick contacts. She was oxygen at home at 4 L at baseline. Upon arrival to the emergency department, patient was afebrile, tachycardic, dyspneic, tachypneic and her pulse ox was 62% on 4 L. She was started on BiPAP and her pulse ox improved, heart rate also improved and her blood pressure came down. Her routine blood work was remarkable for chronic thrombocytopenia and blood glucose of 165 mg/dL. Her EKG revealed sinus tachycardia, otherwise normal. Troponin was negative. Chest x-ray revealed chronic emphysematous changes on both lower lobes, no acute infiltrate or consolidation. She is being admitted for acute COPD exacerbation complicated by acute on chronic hypoxic respiratory failure. Past Medical History Past Medical History (Chronic Problems): Chronic Problems Hyperlipidemia (Chronic) Chronic thrombocytopenia (Chronic) Depression (Chronic) Chronic respiratory failure (Chronic) COPD (chronic obstructive pulmonary disease) (Chronic) Gkxsg-1-wnxamqiubwm deficiency (Chronic) Allergies erythromycin base Allergy (Verified 07/27/19 17:15) FACIAL SWELLING Home Medications: Ambulatory Orders Medication Instructions Recorded Albuterol Inhaler [Ventolin Hfa] 2 puff INHALATION Q4H PRN PRN 05/29/16 Atorvastatin Calcium [Lipitor] 10 mg PO DAILY 05/29/16 Ipratropium/Albuterol Sulfate 3 ml INHALATION Q6H PRN PRN 05/29/16 [Duoneb] Roflumilast [Daliresp] 500 mcg PO DAILY 05/29/16 Escitalopram Oxalate [Lexapro] 20 mg PO DAILY 04/12/17 Potassium Chloride [K-Dur] 10 meq PO TID 03/09/18 [id number]-3-Qmxvosmjwy Inhibitor 5,390 mg IV TH 07/27/19 [Prolastin C] Doxycycline 100 mg PO BID 07/27/19 Esomeprazole Mag Trihydrate 40 mg PO DAILY 07/27/19 [Nexium] Fluticasone/Umeclidin/Vilanter 1 ea IH DAILY 07/27/19 [Trelegy Ellipta 100-62.5-25] Lamotrigine 150 mg PO DAILY@1900 07/27/19 Lamotrigine 300 mg PO DAILY 07/27/19 Prednisone See Taper PO DAILY 07/27/19 Quetiapine Fumarate [Seroquel Xr] 800 mg PO QHS 07/27/19 hydrOXYzine pamoate capsule 25 mg PO QHS 07/27/19 [Vistaril pamoate capsule] Surgical History: hysterectomy Psychiatric History: Anxiety, Depression [employer]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 Denies: Anorexia, Chills, Fever Eyes: Denies: Blurred vision, Double vision, Drainage, Redness HEENT: Denies: Difficulty Hearing, Ear Pain, Eye Pain, Nasal Congestion, Sore Throat Cardiovascular: Denies: Chest Pain, Chest Pressure, Chest Tightness, Edema, Light Headedness, Palpitations, Syncope Respiratory: Reports: Cough, Shortness of Breath, Shortness of breath at rest, Shortness of breath upon exertion. Denies: Pleuritic Pain, Sputum production, Wheezing Gastrointestinal: Denies: Abdominal Pain, Constipation, Diarrhea, Nausea, Vomiting Genitourinary: Denies: Dysuria, Frequency, Hematuria Musculoskeletal: Denies: Arm Pain, Back Pain, Foot Pain Skin: Denies: Dryness, Rash Neurological: Denies: Balance problems, Blurred vision, Double vision, Slurred speech, Confusion, Headaches, Incoordination, Numbness Psychiatric: Reports: Anxiety, Depression Endocrine: Denies: Change in Body Habitus, Polydipsia, Polyuria VTE Information - Inpt Only VTE Present on Admission: No VTE Mechan Device Prophylaxis: None VTE Pharm Prophylaxis ordered?: Yes - Physical Exam Vitals/I&O's: Vital Signs Temp Pulse Resp BP Pulse Ox 97.4 F L 95 22 H 148/67 H 97 07/27/19 18:39 07/27/19 18:39 07/27/19 18:39 07/27/19 18:39 07/27/19 18:39 Oxygen Flow Rate (L/min) 4 Oxygen Delivery Method Bi-pap Weight: 186 lb 8.177 oz Body Mass Index (BMI) 33.0 General: Alert, Oriented x3, Cooperative, - - Moderately short of breath. HEENT: Atraumatic, PERRLA, EOMI, Normocephalic Oral: Moist Mucosa, No Gingival or Mucosal Lesions/ Ulcerations Neck: Supple, No JVD, Negative Carotid Bruits, Trachea Midline, Thyroid Normal Size and Texture Lungs: No rhonchi, No wheeze, No rales, Diminished, Short of Breath, Tachypneic, - - Markedly decreased breath sounds bilateral, otherwise clear. Cardiovascular: Regular rate, Regular Rhythm, Normal S1, Normal S2, PMI Normal, Tachycardic Abdomen: Bowel Sounds Present, Soft, Non Tender, Non-Distended, No Hepato-splenomegaly Extremities: No clubbing, No cyanosis, No edema Skin: No rashes, No breakdown Lymphatic: No Cervical, Supraclavicular, or Inguinal Adenopathy Neurological: Cranial nerves II-XII grossly intact, Motor Exam 5/5 strength throughout Psych/Mental Status: Normal Affect, Appropriate, Alert and oriented to time, place, person, mood and affect Laboratory Results 07/27/19 17:20: WBC 7.3, RBC 5.30, Hgb 13.8, Hct 45.3, MCV 85.5, MCH 26.0 L, MCHC 30.5 L, RDW Std Deviation 49.7 H, RDW Coeff of Renetta 15.9 H, Plt Count 97 L, MPV 10.5, Immature Gran % (Auto) 1.700 H, Neut % (Auto) 77.3 H, Lymph % (Auto) 14.2 L, Carter % (Auto) 5.4, Eos % (Auto) 0.8, Baso % (Auto) 0.6, Absolute Neuts (auto) 5.6, Absolute Lymphs (auto) 1.03, Nucleated RBC % 0, Differential Comment SCANNED, Platelet Estimate MOD DEC 07/27/19 17:20: Sodium 140, Potassium 4.9, Chloride 106, Carbon Dioxide 27.0, Anion Gap 7, BUN 18, Creatinine 1.16 H, Estim Creat Clear Calc 44.80, Est GFR (MDRD) Af Amer 62, Est GFR (MDRD) Non-Af 51 L, BUN/Creatinine Ratio 15.5, Glucose 165 H, Calcium 9.6, Troponin I < 0.015 07/27/19 17:20: Lactic Acid 4.7 H* 07/27/19 18:32: pH 7.42, Bicarbonate Actual 29.2 H, POC Total CO2 31, Base Excess 5 H, O2 Saturation 98, ABG pCO2 44.7, ABG pO2 98 Clinical Impression(s) from Imaging Studies Chest X-Ray 07/27/19 17:40 IMPRESSION: COPD/emphysema Electronically Signed: Lalo Kc MD at 18:10 EDT , Service support , Current Medications Sodium Chloride () 1,000 mls @ 150 mls/hr IV .[id number] ONE Stop: 07/27/19 23:51 Last Admin: 07/27/19 17:21 Dose: 150 mls/hr Documented by: Assessment/Plan This is a 54 years old female patient presented to the emergency room because of shortness of breath that has been progressive over the last couple of weeks with dry cough and she was found to have acute COPD exacerbation complicated by acute on chronic hypoxic respiratory failure and she is being admitted for treatment. #1 acute on chronic hypoxic respiratory failure: Attributed to acute COPD exacerbation triggered by influenza A and B. Pulse ox was 62% on 4 L upon arrival, patient was dyspneic and tachypneic. Chest x-ray reviewed, no acute findings. Nasal swab for influenza a and B as well as respiratory panel for viruses is pending. Patient is on BiPAP at this time. ABG reviewed as above. Plan: Admit to PCU, cardiac monitoring, continue BiPAP, IV steroids, bronchodilators, IV antibiotics, chest physiotherapy, incentive spirometer, repeat CBC and BMP tomorrow morning, PT OT evaluation and treatment. #2 acute COPD exacerbation: Likely triggered by influenza A and B. With history of alpha-1 antitrypsin deficiency. Patient is on home oxygen. Plan: IV steroids, IV Levaquin, DuoNeb every 6 hours, albuterol PRN, Tamiflu twice daily. #3 hyperglycemia: Without history of diabetes. Blood glucose is 165. Plan: Hemoglobin A1c, Accu-Cheks, sliding scale. #4 alpha-1 antitrypsin deficiency: Continue alpha-1 proteinase inhibitor supplement. #5 COPD/chronic respiratory failure: On home oxygen at 4 L at baseline. Plan as above. #6 chronic thrombocytopenia: Unclear etiology, platelet count is stable. No evidence of active bleeding. #7 hyperlipidemia: Continue statins. #8 depression: Continue Lexapro and Seroquel. #9 CODE STATUS: Full code. Patient agreed to CPR, intubation and mechanical ventilation if needed. #10 DVT prophylaxis: Subcu Lovenox. This note was generated with [employer]Note[employer] dictation software. It may contain incorrect words, spelling, and punctuation that were not noted in checking the note before signing. Inpatient E&M: 51300 Init Hosp L3
[2019-07-27] MEDS: Oseltamivir Phosphate 75 MG Capsule PO (19:04)
[2019-07-27] MEDS: 0.9% Normal Saline 1,000 ML 75 ML IV (20:45)
[2019-07-27 21:26] LABS: Reflex Lactate? Y
[2019-07-27 21:46] LABS: Hemoglobin A1c 5.9 % (4.2-6.3)
[2019-07-27] MEDS: 0.9% Saline Lock 10 ML Syringe IV (22:33)
[2019-07-27] MEDS: levoFLOXacin IV 500 MG/100 ML BAG 100 MG IV (22:34)
[2019-07-27 22:38] LABS: Lactic Acid 3.9 mmol/L (0.4-1.9)
[2019-07-27] MEDS: QUEtiapine 100 MG Tablet 400 MG PO (22:51)
[2019-07-27] MEDS: lamoTRIgine 150 MG Tablet PO (22:51)
[2019-07-27] MEDS: hydrOXYzine PAM 25 MG Capsule PO (22:51)
[2019-07-28] VITALS (11 sets, daily range): BP systolic 127–148; BP diastolic 62–74; PULSE 74–101; RESP 18–24; TEMP 36.8–37.5; O2SAT 93–96
[2019-07-28] MEDS: Insulin Lispro 100 UNIT/ML INSULN.PEN SC ×5 (00:50→21:51)
[2019-07-28 01:05] LABS: Bedside Glucose 196 mg/dL (70-110)
[2019-07-28] MEDS: 0.9% Saline Lock 10 ML Syringe IV ×3 (05:02→21:39)
[2019-07-28] MEDS: Acetaminophen 325 MG Tablet 650 MG PO (05:03)
[2019-07-28 05:56] LABS: Bedside Glucose 179 mg/dL (70-110)
[2019-07-28 06:15] LABS: Absolute Lymphocyte Count 0.22 X10^3/uL (0.83-4.51); Absolute Neutrophil Count 2.4 X10^3/uL (2.0-7.7); Eosinophil# 0.01 X10^3/uL; Eosinophils% 0.4 % (0-5); Hemoglobin 11.1 g/dL (12.0-15.0); Lymphocyte # 0.22 X10^3/ul (4.0); Lymphocyte % 8.1 % (19-41); Mean Corp Hgb Conc 30.8 g/dL (32-36); Mean Corpuscular Hgb 26.2 pg (27.0-32.0); Mean Corpuscular Volume 84.9 fL (81-99); Mean Platelet Vol. 11.3 fl (6.2-12.0); Monocyte# 0.12 X10^3/uL; Monocyte% 4.4 % (0-10); NRBC Flagged by Analyzer 0 % (0-5); Neutrophil # 2.35 X10^3/uL (2.7-7.7); Neutrophil % 86.4 % (47-70); POSITIVE COUNT YES; POSITIVE DIFFERENTIAL YES; Platelet Count 50 K/mm3 (150-450); RBC Distribution Width CV 15.9 % (11.6-14.6); RBC Distribution Width SD 49.5 fl (35.1-43.9); Red Blood Count 4.24 M/mm3 (4.2-5.4); White Blood Count 2.7 K/mm3 (4.4-11.0)
[2019-07-28 06:19] LABS: Differential Indicated SCAN CRITERIA MET
[2019-07-28 06:33] LABS: Anion Gap 4 (5-15); BUN 18 mg/dL (7-18); BUN/Creat Ratio 20.9 RATIO (10-20); Calcium,Total 9.2 mg/dL (8.5-10.1); Chloride 105 mmol/L (98-107); Creatinine, Serum 0.86 mg/dL (0.55-1.02); EST Glomerular Filtration Rate 72 mL/min (>60); Est Glom Filt Rate - Afr Amer 88 mL/min (>60); Estimated Creatinine Clearance 60.42 ml/min; Glucose 164 mg/dL (74-106); Potassium 4.6 mmol/L (3.5-5.1); Sodium Level 138 mmol/L (136-145)
[2019-07-28 06:36] LABS: Lactic Acid 1.9 mmol/L (0.4-1.9)
[2019-07-28 06:46] LABS: Differential Comment SCANNED
[2019-07-28 06:47] LABS: Reactive Lymphocyte RARE
[2019-07-28] MEDS: Ipratropium/Albuterol Sulfate 3 ML AMPUL.NEB INHALATION ×3 (07:13→19:45)
[2019-07-28] MEDS: Ensure Clear 120 ML Liquid PO (07:37)
--- NOTE | 2019-07-28 09:43 | CASEMGMT ---
SHAKIR ROSARIO assessment: Phone interview with patient due to pt in droplet isolation for initial transition planning/care coordination assessment. SHAKIR ROSARIO introduced self and role at [facility], pt voices understanding and consents to assessment at this time. Pt is A/Ox4 at this time and answers all questions appropriately at this time. Care providers, pharmacy, and demographics verified/updated at this time. Presentation: Increased SOB, pt states hx COPD Admitting dx: Acute on chronic resp failure, COPD PCP: Felipe Souza Specialists: sujit Guajardo Preferred Pharmacy: [facility] Insurance: [employer] Prescription Benefit: [employer] Living Will/HPOA: Pt states does not have LW/HPOA but states would like AD info at this time and this was provided at this time. LNOK: Rick Miller, ; Ruslan Mark, daughter Living Arrangements: Pt states lives with in 1 story home with no steps and states no concerns at home at this time. Pt states independent with ADL's. Transportation: Pt states drives self and states no transportation concerns at this time. DME/HHC: Pt states has the following DME: w/c, walker, raised toilet seat, grab bars, shower chair, electric scooter, and 4 liters home oxygen thru [employer]. Pt states no need for any further DME at this time. Pt states no hx of HHC or SNF in the past. Pt states no concerns with going home at time of discharge. Pt states is disabled. Pt states quit smoking cigarettes 8 months ago and does not drink ETOH. Pt states no further concerns/needs at this time. CM to follow for any further discharge planning/needs. Advised pt to ask for CM if any further questions/concerns/needs arise, voices understanding. Pt Goal: Home Plan[place] SHAKIR ROSARIO
[2019-07-28] MEDS: levoFLOXacin IV 500 MG/100 ML BAG 100 MG IV (10:00)
[2019-07-28] MEDS: Oseltamivir Phosphate 30 MG Capsule PO (10:01)
[2019-07-28] MEDS: QUEtiapine 100 MG Tablet 400 MG PO ×2 (10:01→21:36)
[2019-07-28] MEDS: lamoTRIgine 150 MG Tablet 300 MG PO (10:02)
[2019-07-28] MEDS: Escitalopram Oxalate 20 MG Tablet PO (10:02)
[2019-07-28] MEDS: Pantoprazole Sodium 40 MG Tablet PO (10:02)
--- NOTE | 2019-07-28 10:55 | PN_ITS ---
<Hui Gibbons - Last Filed: 07/28/19 11:08> Subjective: Patient seen and examined. Reports mild improvement in breathing. Intermittent cough. Patient states she thinks her had COVID within the last week. When questioned regarding his symptoms she states he had all of the symptoms. She also reports she has had visitors in her home that have had a cold. Given patient's presentation and negative respiratory panel, COVID testing obtained and patient transferred to COVID floor. - Physical Exam Vitals/I&O's: Vital Signs Temp Pulse Resp BP Pulse Ox 99.5 F H 87 20 H 148/73 H 94 07/28/19 09:57 07/28/19 09:57 07/28/19 09:57 07/28/19 09:57 07/28/19 09:57 Oxygen Flow Rate (L/min) 4 Oxygen Delivery Method Nasal Cannula Weight: 185 lb 10.067 oz Body Mass Index (BMI) 32.8 Intake and Output for Last 24 Hours 07/26/19 07/27/19 07/28/19 23:59 23:59 23:59 Intake Total 1140 / 1140 457.5 / 457.5 Output Total 290 / 290 100 / 100 Balance 850 / 850 357.5 / 357.5 General: Alert, Oriented x3, Cooperative HEENT: Atraumatic, PERRLA, EOMI, Normocephalic Oral: Dry Mucosa Neck: Supple, No JVD, Negative Carotid Bruits Lungs: Diminished, Wheezes Cardiovascular: Regular rate, Regular Rhythm, Normal S1, Normal S2, No murmurs Abdomen: Bowel Sounds Present, Soft, Non Tender, Non-Distended Extremities: No clubbing, No cyanosis, No edema, Capillary Refill Less than 3 Seconds Skin: No rashes, No breakdown Musculoskeletal: No Tenderness to Palpation of Joints or Extremities Neurological: Cranial nerves II-XII grossly intact, Neuro grossly intact Psych/Mental Status: Normal Affect, Appropriate Microbiology Past 72 Hours 07/27/19 17:30 Mucosa - Nasopharyngeal Respiratory Panel (PCR) - Final 07/27/19 17:30 Mucosa - Nasopharyngeal Influenza Types A,B Direct FA (JEREL) - Final Influenzae A&B Laboratory Results 07/27/19 17:20: WBC 7.3, RBC 5.30, Hgb 13.8, Hct 45.3, MCV 85.5, MCH 26.0 L, MCHC 30.5 L, RDW Std Deviation 49.7 H, RDW Coeff of Renetta 15.9 H, Plt Count 97 L, MPV 10.5, Immature Gran % (Auto) 1.700 H, Neut % (Auto) 77.3 H, Lymph % (Auto) 14.2 L, [place] % (Auto) 5.4, Eos % (Auto) 0.8, Baso % (Auto) 0.6, Absolute Neuts (auto) 5.6, Absolute Lymphs (auto) 1.03, Nucleated RBC % 0, Differential Comment SCANNED, Platelet Estimate MOD 07/27/19 17:20: Sodium 140, Potassium 4.9, Chloride 106, Carbon Dioxide 27.0, Anion Gap 7, BUN 18, Creatinine 1.16 H, Estim Creat Clear Calc 44.80, Est GFR (MDRD) Af Amer 62, Est GFR (MDRD) Non-Af 51 L, BUN/Creatinine Ratio 15.5, Glucose 165 H, Calcium 9.6, Troponin I < 0.015 07/27/19 17:20: Lactic Acid 4.7 H* 07/27/19 17:20: Hemoglobin A1c 5.9 07/27/19 18:32: Specimen Type ART, Sample Site R RADIAL, pH 7.42, Bicarbonate Actual 29.2 H, POC Total CO2 31, Base Excess 5 H, O2 Saturation 98, ABG pCO2 44.7, ABG pO2 98, O2 Delivery Device Bi Pap, EPAP 8, IPAP 14, Blood Gas Notified Whom ED , Blood Gas Notified Time 18307/27/19 22:00: Lactic Acid 3.9 H* 07/28/19 00:50: POC Glucose 196 H 07/28/19 04:59: POC Glucose 179 H 07/28/19 06:00: Sodium 138, Potassium 4.6, Chloride 105, Carbon Dioxide 29.0, Anion Gap 4 L, BUN 18, Creatinine 0.86, Estim Creat Clear Calc 60.42, Est GFR (MDRD) Af Amer 88, Est GFR (MDRD) Non-Af 72, BUN/Creatinine Ratio 20.9 H, Glucose 164 H, Calcium 9.2 07/28/19 06:00: WBC 2.7 L, RBC 4.24, Hgb 11.1 L, Hct 36.0 L, MCV 84.9, MCH 26.2 L, MCHC 30.8 L, RDW Std Deviation 49.5 H, RDW Coeff of Renetta 15.9 H, Plt Count 50 L*, MPV 11.3, Immature Gran % (Auto) 0.700, Neut % (Auto) 86.4 H, Lymph % (Auto) 8.1 L, [place] % (Auto) 4.4, Eos % (Auto) 0.4, Baso % (Auto) 0.0, Absolute Neuts (auto) 2.4, Absolute Lymphs (auto) 0.22 L, Nucleated RBC % 0, Differential Comment SCANNED, Reactive Lymphocytes RARE 07/28/19 06:00: Lactic Acid 1.9 Current Medications Acetaminophen (Tylenol) 650 mg PO Q6H PRN PRN PRN Reason: Pain Score 1-10/Temp > 100.7 F Last Admin: 07/28/19 05:03 Dose: 650 mg Documented by: Albuterol Sulfate (Ventolin Aerosols) 2.5 mg INHALATION Q2H PRN PRN PRN Reason: Shortness of breath, wheezing Albuterol/Ipratropium (Duoneb) 3 ml INHALATION Q4HWA.RT [facility] Last Admin: 07/28/19 07:13 Dose: 3 ml Documented by: Atorvastatin Calcium (Lipitor) 10 mg PO QHS TY Escitalopram Oxalate (Lexapro) 20 mg PO DAILY [facility] Last Admin: 07/28/19 10:02 Dose: 20 mg Documented by: Hydroxyzine Pamoate (Vistaril Pamoate Capsule) 25 mg PO QHS [facility] Last Admin: 07/27/19 22:51 Dose: 25 mg Documented by: Levofloxacin (Levaquin Iv) 500 mg in 100 mls @ 100 mls/hr IV Q24 [facility] Last Admin: 07/28/19 10:00 Dose: 100 mls/hr Documented by: Sodium Chloride () 250 mls @ 15 mls/hr IV .[id number] PRN PRN Reason: Saline Flush Sodium Chloride () 250 mls @ 15 mls/hr IV .[id number] PRN PRN Reason: Additional IVPB Infusion Insulin Human Lispro (Humalog Kwikpen (Bkc)) 0 unit SC Q6 [facility]; Protocol Last Admin: 07/28/19 05:03 Dose: 1 u Documented by: Lamotrigine (Lamictal) 150 mg PO DAILY@1900 [facility] Last Admin: 07/27/19 22:51 Dose: 150 mg Documented by: Lamotrigine (Lamictal) 300 mg PO DAILY [facility] Last Admin: 07/28/19 10:02 Dose: 300 mg Documented by: Methylprednisolone (Solu-Medrol) 40 mg IV Q8 [facility] Last Admin: 07/28/19 05:02 Dose: 40 mg Documented by: Nutritional Formula (Lactose Free) (Glucerna Shake) 120 ml PO TIDCM [facility] Ondansetron HCl (Zofran) 4 mg IV Q8H PRN PRN PRN Reason: NAUSEA/VOMITING Oseltamivir Phosphate (Tamiflu) 30 mg PO BID [facility] Stop: 08/01/19 10:01 Last Admin: 07/28/19 10:01 Dose: 30 mg Documented by: Pantoprazole Sodium (Protonix) 40 mg PO DAILY [facility] Last Admin: 07/28/19 10:02 Dose: 40 mg Documented by: Quetiapine Fumarate (Seroquel) 400 mg PO BID [facility] Last Admin: 07/28/19 10:01 Dose: 400 mg Documented by: Senna/Docusate Sodium (Senokot-S, [place]-Colace) 2 tablet PO BID PRN PRN PRN Reason: Constipation Sodium Chloride () 10 - 40 ml IV UD PRN PRN Reason: SALINE FLUSH Last Admin: 07/28/19 05:02 Dose: 20 ml Documented by: Zolpidem Tartrate (Ambien (Generic)) 5 mg PO QHS PRN PRN PRN Reason: INSOMNIA Medical Necessity - Tobacco Use Smoking Status: Former smoker Assessment/Plan 1. Acute on chronic hypoxic respiratory failure secondary to COPD exacerbation- rapid influenza positive for a and B however respiratory panel negative. COVID test ordered. Continue albuterol and DuoNeb. IV Levaquin. Check CPK, CRP, LDH, liver profile. Lactic acid 4.7 on admission however no other criteria for sepsis. Chest x-ray without acute process. Continue supplement oxygen to maintain O2 at or above 90%. Patient wears 4 L chronically at baseline. Discontinue Tamiflu. Ambulatory pulse ox prior to discharge. 2. Alpha 1 antitrypsin deficiency-continue alpha-1 proteinase inhibitor supplement. 3. Acute on chronic thrombocytopenia-hold Lovenox. Trend CBC. 4. Hyperlipidemia-continue statin. 5. Depression-continue Lexapro, Seroquel, lamotrigine. 6. GERD-continue PPI. DVT prophylaxis-SCDs, discontinue Lovenox given worsening thrombocytopenia This patient was seen by FREDDY Newman under the supervision of Dr. Lipscomb. <Jeffersno Lipscomb - Last Filed: 07/28/19 11:34> Subjective: Seen and examined. Patient has history of smoking started smoking in teenage and quit a year ago therefore about 40 pack years of smoking. Has COPD for more than 10 years. On 4 L of home oxygen 05/11. Follows Dr. Guajardo. Shortness of breath is better. Patient still has dry cough. She thinks her has COVID last 1 week. Patient still mild short of breath. Rapid influenza test was positive flu a and B but respiratory panel negative. Needs COVID testing therefore transferred to second floor. T-max 99.5. No fever. - Physical Exam Vitals/I&O's: Vital Signs Temp Pulse Resp BP Pulse Ox 99.5 F H 87 20 H 148/73 H 94 07/28/19 09:57 07/28/19 09:57 07/28/19 09:57 07/28/19 09:57 07/28/19 09:57 Oxygen Flow Rate (L/min) 4 Oxygen Delivery Method Nasal Cannula Weight: 185 lb 10.067 oz Body Mass Index (BMI) 32.8 Intake and Output for Last 24 Hours 07/26/19 07/27/19 07/28/19 23:59 23:59 23:59 Intake Total 1140 / 1140 557.5 / 557.5 Output Total 290 / 290 100 / 100 Balance 850 / 850 457.5 / 457.5 General: Alert, Oriented x3, Cooperative HEENT: Atraumatic, PERRLA, EOMI, Normocephalic Neck: Supple, No JVD, Negative Carotid Bruits Lungs: Diminished - Air entry diminished diffusely in all lung gould, Rhonchi, Short of Breath, Wheezes - . Cardiovascular: Regular Rhythm, Normal S1, Normal S2, No murmurs Abdomen: Bowel Sounds Present, Soft, Non Tender, Non-Distended Extremities: No edema, Capillary Refill Less than 3 Seconds Skin: No rashes, No breakdown Musculoskeletal: No Tenderness to Palpation of Joints or Extremities, Arthritic Changes Neurological: Cranial nerves II-XII grossly intact, Deep Tendon Reflexes 2+/4 and Symmetrical, Neuro grossly intact, Motor Exam 5/5 strength throughout Psych/Mental Status: Normal Affect, Appropriate Microbiology Past 72 Hours 07/27/19 17:30 Mucosa - Nasopharyngeal Respiratory Panel (PCR) - Final 07/27/19 17:30 Mucosa - Nasopharyngeal Influenza Types A,B Direct FA (JEREL) - Final Influenzae A&B Laboratory Results 07/27/19 17:20: WBC 7.3, RBC 5.30, Hgb 13.8, Hct 45.3, MCV 85.5, MCH 26.0 L, MCHC 30.5 L, RDW Std Deviation 49.7 H, RDW Coeff of Renetta 15.9 H, Plt Count 97 L, MPV 10.5, Immature Gran % (Auto) 1.700 H, Neut % (Auto) 77.3 H, Lymph % (Auto) 14.2 L, [place] % (Auto) 5.4, Eos % (Auto) 0.8, Baso % (Auto) 0.6, Absolute Neuts (auto) 5.6, Absolute Lymphs (auto) 1.03, Nucleated RBC % 0, Differential Comment SCANNED, Platelet Estimate MOD 07/27/19 17:20: Sodium 140, Potassium 4.9, Chloride 106, Carbon Dioxide 27.0, Anion Gap 7, BUN 18, Creatinine 1.16 H, Estim Creat Clear Calc 44.80, Est GFR (MDRD) Af Amer 62, Est GFR (MDRD) Non-Af 51 L, BUN/Creatinine Ratio 15.5, Glucose 165 H, Calcium 9.6, Troponin I < 0.015 07/27/19 17:20: Lactic Acid 4.7 H* 07/27/19 17:20: Hemoglobin A1c 5.9 07/27/19 18:32: Specimen Type ART, Sample Site R RADIAL, pH 7.42, Bicarbonate Actual 29.2 H, POC Total CO2 31, Base Excess 5 H, O2 Saturation 98, ABG pCO2 44.7, ABG pO2 98, O2 Delivery Device Bi Pap, EPAP 8, IPAP 14, Blood Gas Notified Whom ED , Blood Gas Notified Time 183107/27/19 22:00: Lactic Acid 3.9 H* 07/28/19 00:50: POC Glucose 196 H 07/28/19 04:59: POC Glucose 179 H 07/28/19 06:00: Sodium 138, Potassium 4.6, Chloride 105, Carbon Dioxide 29.0, Anion Gap 4 L, BUN 18, Creatinine 0.86, Estim Creat Clear Calc 60.42, Est GFR (MDRD) Af Amer 88, Est GFR (MDRD) Non-Af 72, BUN/Creatinine Ratio 20.9 H, Glucose 164 H, Calcium 9.2 07/28/19 06:00: WBC 2.7 L, RBC 4.24, Hgb 11.1 L, Hct 36.0 L, MCV 84.9, MCH 26.2 L, MCHC 30.8 L, RDW Std Deviation 49.5 H, RDW Coeff of Renetta 15.9 H, Plt Count 50 L*, MPV 11.3, Immature Gran % (Auto) 0.700, Neut % (Auto) 86.4 H, Lymph % (Auto) 8.1 L, [place] % (Auto) 4.4, Eos % (Auto) 0.4, Baso % (Auto) 0.0, Absolute Neuts (auto) 2.4, Absolute Lymphs (auto) 0.22 L, Nucleated RBC % 0, Differential Comment SCANNED, Reactive Lymphocytes RARE 07/28/19 06:00: Lactic Acid 1.9 Current Medications Acetaminophen (Tylenol) 650 mg PO Q6H PRN PRN PRN Reason: Pain Score 1-10/Temp > 100.7 F Last Admin: 07/28/19 05:03 Dose: 650 mg Documented by: Albuterol Sulfate (Ventolin Aerosols) 2.5 mg INHALATION Q2H PRN PRN PRN Reason: Shortness of breath, wheezing Albuterol/Ipratropium (Duoneb) 3 ml INHALATION Q4HWA.RT [facility] Last Admin: 07/28/19 07:13 Dose: 3 ml Documented by: Atorvastatin Calcium (Lipitor) 10 mg PO QHS TY Escitalopram Oxalate (Lexapro) 20 mg PO DAILY [facility] Last Admin: 07/28/19 10:02 Dose: 20 mg Documented by: Hydroxyzine Pamoate (Vistaril Pamoate Capsule) 25 mg PO QHS [facility] Last Admin: 07/27/19 22:51 Dose: 25 mg Documented by: Levofloxacin (Levaquin Iv) 500 mg in 100 mls @ 100 mls/hr IV Q24 [facility] Last Infusion: 07/28/19 11:04 Dose: Infused Documented by: Sodium Chloride () 250 mls @ 15 mls/hr IV .[id number] PRN PRN Reason: Saline Flush Sodium Chloride () 250 mls @ 15 mls/hr IV .[id number] PRN PRN Reason: Additional IVPB Infusion Insulin Human Lispro (Humalog Kwmariellepen (Bkc)) 0 unit SC Q6 [facility]; Protocol Last Admin: 07/28/19 05:03 Dose: 1 u Documented by: Lamotrigine (Lamictal) 150 mg PO DAILY@1900 [facility] Last Admin: 07/27/19 22:51 Dose: 150 mg Documented by: Lamotrigine (Lamictal) 300 mg PO DAILY [facility] Last Admin: 07/28/19 10:02 Dose: 300 mg Documented by: Methylprednisolone (Solu-Medrol) 40 mg IV Q8 [facility] Last Admin: 07/28/19 05:02 Dose: 40 mg Documented by: Nutritional Formula (Lactose Free) (Glucerna Shake) 120 ml PO TIDCM [facility] Ondansetron HCl (Zofran) 4 mg IV Q8H PRN PRN PRN Reason: NAUSEA/VOMITING Pantoprazole Sodium (Protonix) 40 mg PO DAILY [facility] Last Admin: 07/28/19 10:02 Dose: 40 mg Documented by: Quetiapine Fumarate (Seroquel) 400 mg PO BID [facility] Last Admin: 07/28/19 10:01 Dose: 400 mg Documented by: Senna/Docusate Sodium (Senokot-S, [place]-Colace) 2 tablet PO BID PRN PRN PRN Reason: Constipation Sodium Chloride () 10 - 40 ml IV UD PRN PRN Reason: SALINE FLUSH Last Admin: 07/28/19 05:02 Dose: 20 ml Documented by: Zolpidem Tartrate (Ambien (Generic)) 5 mg PO QHS PRN PRN PRN Reason: INSOMNIA Assessment/Plan This patient was seen in conjunction with VP COMPLIANCEHui. I have independently interviewed and examined the patient and reviewed pertinent history, examination findings, laboratory and plan of management. I have reviewed the note and agree with the documented findings with the few additional points. In brief, patient is 54-year-old female with history of COPD, chronic hypoxic respiratory failure on 4 L of home oxygen came to ER with progressive worsening shortness of breath for few weeks along with cough. No fever or chills. Rapid influenza test was positive for A AND B but respiratory panel is negative. Discussed with the ID, we agree that needs with testing. Patient is transfer to COVID floor. Continue IV Levaquin. Continue DuoNeb, Solu-Medrol, incentive spirometry and chest physiotherapy. Tamiflu discontinued. She follows Dr. Guajardo. Diagnosis: Acute on chronic hypoxic respiratory failure secondary to COPD exacerbation rule out COVID. Has alpha-1 antitrypsin deficiency. Acute on chronic thrombocytopenia. Other comorbidities include anxiety and depression, GERD and dyslipidemia: No antiplatelet or antithrombotic agent. Bilateral SCDs for DVT prophylaxis. I have discussed my assessment with VP COMPLIANCEHui and orders have been reviewed. Total time of the visit including total time spent in counseling or coordination of care, (more than 50% of the total time, spent in obtaining medical information from nurses and other ancillary care providers), discussion with security system sales consultant, ID, review of labs and imaging is 30 minutes Inpatient E&M: [id number] [facility]
[2019-07-28 12:11] LABS: AST(SGOT) 11 U/L (15-37); Alanine Aminotransfer ALT/SGPT 18 U/L (13-56); Albumin, Serum 3.5 g/dL (3.2-5.0); Alkaline Phosphatase 70 U/L (45-117); Bilirubin, Direct 0.16 mg/dL (0.00-0.30); CPK Total, Creatine Kinase 37 U/L (26-192); CRP < 2.90 mg/L (0.0-3.0); Globulin 2.8 g/dL (2.2-4.2); LDH 162 U/L (84-246); Protein, Total 6.3 g/dL (6.4-8.2)
[2019-07-28 12:21] LABS: Bedside Glucose 396 mg/dL (70-110)
[2019-07-28] MEDS: Glucerna Shake 120 ML LIQUID PO ×2 (12:41→17:13)
[2019-07-28] MEDS: lamoTRIgine 150 MG Tablet PO (17:13)
[2019-07-28] MEDS: LORazepam 1 MG Tablet PO (17:13)
[2019-07-28 17:25] LABS: Bedside Glucose 283 mg/dL (70-110)
[2019-07-28] MEDS: hydrOXYzine PAM 25 MG Capsule PO (21:37)
[2019-07-28] MEDS: Atorvastatin Calcium 10 MG Tablet PO (21:37)
--- NOTE | 2019-07-28 22:00 | NURSING ---
Pt. moved from MS2 room 210 to ICU room 5 at this time. Maddy Owusu RN taking over care of pt. Pt. A/O, no distress noted.
[2019-07-28 22:16] LABS: Bedside Glucose 286 mg/dL (70-110)
[2019-07-29 03:44] VITALS: BP 124/69; PULSE 85; RESP 19; TEMP 37.3; O2SAT 95
[2019-07-29 03:58] LABS: Hematocrit 35.7 % (37-47); Hemoglobin 11.1 g/dL (12.0-15.0); Mean Corp Hgb Conc 31.1 g/dL (32-36); Mean Corpuscular Hgb 26.4 pg (27.0-32.0); Mean Corpuscular Volume 84.8 fL (81-99); Mean Platelet Vol. 11.1 fl (6.2-12.0); POSITIVE COUNT YES; RBC Distribution Width SD 49.1 fl (35.1-43.9); Red Blood Count 4.21 M/mm3 (4.2-5.4); White Blood Count 2.8 K/mm3 (4.4-11.0)
[2019-07-29 04:00] LABS: Platelet Count 48 K/mm3 (150-450)
[2019-07-29 04:08] LABS: Anion Gap 5 (5-15); BUN 21 mg/dL (7-18); BUN/Creat Ratio 22.9 RATIO (10-20); Calcium,Total 8.7 mg/dL (8.5-10.1); Chloride 103 mmol/L (98-107); Creatinine, Serum 0.92 mg/dL (0.55-1.02); EST Glomerular Filtration Rate 67 mL/min (>60); Est Glom Filt Rate - Afr Amer 82 mL/min (>60); Estimated Creatinine Clearance 56.48 ml/min; Glucose 190 mg/dL (74-106); Potassium 4.2 mmol/L (3.5-5.1); Sodium Level 138 mmol/L (136-145)
[2019-07-29 04:18] LABS: Differential Comment SCANNED; Scan Indicated on CBC? Y/N YES- FLAGS NOTED
[2019-07-29] MEDS: 0.9% Saline Lock 10 ML Syringe IV (07:12)
[2019-07-29 07:15] VITALS: PULSE 77; RESP 17
[2019-07-29] MEDS: Ipratropium/Albuterol Sulfate 3 ML AMPUL.NEB INHALATION ×2 (07:20→11:30)
[2019-07-29 08:50] LABS: Bedside Glucose 116 mg/dL (70-110)
[2019-07-29 09:44] VITALS: BP 140/65; PULSE 91; RESP 20; TEMP 36.9; O2SAT 96
[2019-07-29] MEDS: levoFLOXacin IV 500 MG/100 ML BAG 100 MG IV (10:17)
[2019-07-29] MEDS: QUEtiapine 100 MG Tablet 400 MG PO (10:17)
[2019-07-29] MEDS: lamoTRIgine 150 MG Tablet 300 MG PO (10:18)
[2019-07-29] MEDS: Glucerna Shake 120 ML LIQUID PO (10:18)
[2019-07-29] MEDS: Pantoprazole Sodium 40 MG Tablet PO (10:18)
[2019-07-29] MEDS: Escitalopram Oxalate 20 MG Tablet PO (10:18)
[2019-07-29 10:55] LABS: Pathologist Review Reviewed
[2019-07-29 10:56] LABS: Pathologist Review Reviewed
[2019-07-29] MEDS: Insulin Lispro 100 UNIT/ML INSULN.PEN SC (11:25)
[2019-07-29 11:36] LABS: Bedside Glucose 256 mg/dL (70-110)
--- NOTE | 2019-07-29 11:46 | DCINST_ITS ---
You will use the following diet at home:: Cardiac Your food should be the consistency of: Regular Your liquids should be the consistency of: Regular/Thin Discharge Activity: Return to Normal Activity Weight Bearing Status: Weight bearing as tolerated Call your doctor if you observe: Fever of 101 or Higher, Shortness of breath Instructions: What Is COPD?, Care for COPD, Treatments for COPD, Chronic Lung Disease: Your Emotional Well-Being Additional Instructions: stay in self isolation for hte next 14 days; If COVID screen comes back negative, to consider discontinuing self isolation. Use 3L of oxygen for shortness of breath as needed Allergies/Adverse Reactions: Allergies erythromycin base Allergy (Verified 07/27/19 17:15) FACIAL SWELLING Medications to take at Discharge Albuterol Inhaler [Ventolin Hfa] 2 puff INHALATION Q4H PRN PRN 05/29/16 Atorvastatin Calcium [Lipitor] 10 mg PO DAILY 05/29/16 Ipratropium/Albuterol Sulfate [Duoneb] 3 ml INHALATION Q6H PRN PRN 05/29/16 Roflumilast [Daliresp] 500 mcg PO DAILY 05/29/16 Escitalopram Oxalate [Lexapro] 20 mg PO DAILY 04/12/17 Potassium Chloride [K-Dur] 10 meq PO TID 03/09/18 [id number] Inhibitor [Prolastin C] 5,390 mg IV TH 07/27/19 Esomeprazole Mag Trihydrate [Nexium] 40 mg PO DAILY 07/27/19 Fluticasone/Umeclidin/Vilanter [Trelegy Ellipta 100-62.5-25] 1 ea IH DAILY 07/27/19 Lamotrigine 150 mg PO DAILY@1900 07/27/19 Lamotrigine 300 mg PO DAILY 07/27/19 Quetiapine Fumarate [Seroquel Xr] 800 mg PO QHS 07/27/19 hydrOXYzine pamoate capsule [Vistaril pamoate capsule] 25 mg PO QHS 07/27/19 levoFLOXacin tablet [Levaquin tablet] 750 mg PO DAILY #3 tab 07/29/19 predniSONE tablet 40 mg PO DAILY 5 Days #10 tab 07/29/19 The following prescriptions were given: levoFLOXacin tablet [Levaquin tablet] 750 mg PO DAILY #3 tab Transmission Status: Pending to [id number] predniSONE tablet 40 mg PO DAILY 5 Days #10 tab Transmission Status: Pending to [id number] Primary Care Physician: Felipe Souza [Primary Care Provider] - Please follow up with your Primary Care Physician in: 1-2 weeks Test Results: Test results from this visit will be discussed in further detail at your follow- up appointment, if applicable. Proposed Discharge Date: 07/29/19
[2019-07-29 11:58] VITALS: PULSE 72; RESP 18
--- NOTE | 2019-07-29 11:58 | PCM.DC.SUM ---
Discharge Date and Diagnosis Date of Admission: 07/27/19 Date of Discharge: 07/29/19 - Primary Discharge Diagnosis COPD exacerbation acute on chronic hypoxic respiratory failure - Secondary Discharge Diagnosis Chronic Problems Hyperlipidemia (Chronic) Chronic thrombocytopenia (Chronic) Depression (Chronic) Chronic respiratory failure (Chronic) COPD (chronic obstructive pulmonary disease) (Chronic) Ujyfm-8-ezjipxtaxlt deficiency (Chronic) Hospital Course and Treatment Imaging Results: Diagnostic Data Chest X-Ray 07/27/19 17:40 IMPRESSION: COPD/emphysema Electronically Signed: Lalo Kc MD at 18:10 EDT , Service support , Operations: None Procedures: None Summary of Care Provided: The patient is a 54 year old F admitted through the ED on 07/27/2019 with a complaint of shortness of breath. Symptoms have been going on for couple of weeks and progressively worsening until was present even at rest and aggravated by exertion. She also had a still dry cough without sputum production. She said her may have had symptoms of COVID-19 though he had not been diagnosed with it. Patient is on 4 L of oxygen chronically at home but she was still short of breath even on her baseline 4 liters. He saw her implementation consultant on the day of admission and she was referred to the ED. On arrival in the ED, she was afebrile, tachycardic and tachypneic with a saturation being 62% on 4 L of oxygen. She was put on BiPAP and her saturation improved, heart rate also improved and her blood pressure came down. Labs were significant for chronic thrombocytopenia. EKG showed sinus tachycardia with no acute ST changes and troponins were negative. Chest x-ray showed chronic emphysematous changes with no evidence of new acute infiltrate or consolidation. She was admitted to be managed for acute on chronic hypoxic respiratory failure and COPD exacerbation. She was placed on IV Solu-Medrol and breathing treatments with bronchodilators as well as IV Levaquin. Covered 19 screen was also ordered and patient was sent home with precaution during admission. Shortness of breath resolved and patient was doing well on 3 L of oxygen which is lower than her baseline 4 L of oxygen that she wears at home. She was evaluated by physical therapy and did well with therapy. She remained stable and was discharged home on 07/29/2019 with a prescription for p.o. Levaquin 750 mg daily x3 days and with a 5-day course of prednisone 40 mg daily. She is to follow-up with her primary care doctor and implementation consultant. COVID-19 screen was still pending at time of discharge and patient was counseled that she would need to be in self-isolation for the next 14 days and would be informed by the hospital about the COVID screen. If COVID screen came back negative, then she could end self-isolation. Patient seen and examined prior to discharge. He had no complaints. Review of systems otherwise negative. Labs and vitals reviewed. Home medications reviewed and reconciled. o/e: Vital Signs Temp Pulse Resp BP Pulse Ox 99.1 F 72 18 124/69 H 95 07/29/19 03:44 07/29/19 11:58 07/29/19 11:58 07/29/19 03:44 07/29/19 03:44 General: Alert, Oriented x3, Cooperative HEENT: Atraumatic, PERRLA, EOMI, Normocephalic Oral: Dry Mucosa Neck: Supple, No JVD, Negative Carotid Bruits Lungs: mildly diminished breawth sounds, no wheezes or crackles. on 3L of oxygen Cardiovascular: Regular rate, Regular Rhythm, Normal S1, Normal S2, No murmurs Abdomen: Bowel Sounds Present, Soft, Non Tender, Non-Distended Extremities: No clubbing, No cyanosis, No edema, Capillary Refill Less than 3 Seconds Skin: No rashes, No breakdown Musculoskeletal: No Tenderness to Palpation of Joints or Extremities Neurological: Cranial nerves II-XII grossly intact, Neuro grossly intact Psych/Mental Status: Normal Affect, Appropriate Plan as above. - Physical Exam Vitals/I&O's: Vital Signs Temp Pulse Resp BP Pulse Ox 99.1 F 77 17 124/69 H 95 07/29/19 03:44 07/29/19 07:15 07/29/19 07:15 07/29/19 03:44 07/29/19 03:44 Oxygen Flow Rate (L/min) 3 Oxygen Delivery Method Nasal Cannula Weight: 185 lb 10.067 oz Body Mass Index (BMI) 32.8 Intake and Output for Last 24 Hours 04/13/20 04/14/20 04/15/20 23:59 23:59 23:59 Intake Total 1140 / 1140 2237.5 / 2237.5 400 / 400 Output Total 290 / 290 725 / 725 400 / 400 Balance 850 / 850 1512.5 / 1512.5 0 / 0 Microbiology Past 72 Hours 07/27/19 17:30 Mucosa - Nasopharyngeal Respiratory Panel (PCR) - Final 07/27/19 17:30 Mucosa - Nasopharyngeal Influenza Types A,B Direct FA (JEREL) - Final Influenzae A&B Laboratory Results 07/28/19 06:00: Diff Path Review Reviewed 07/28/19 06:00: Total Bilirubin 0.30, Direct Bilirubin 0.16, AST 11 L, ALT 18, Alkaline Phosphatase 70, Lactate Dehydrogenase 162, Total Creatine Kinase 37, C-React Prot Ext Range < 2.90, Total Protein 6.3 L, Albumin 3.5, Globulin 2.8 07/28/19 12:01: POC Glucose 396 H 07/28/19 17:12: POC Glucose 283 H 07/28/19 21:45: POC Glucose 286 H 07/29/19 02:47: WBC 2.8 L, RBC 4.21, Hgb 11.1 L, Hct 35.7 L, MCV 84.8, MCH 26.4 L, MCHC 31.1 L, RDW Std Deviation 49.1 H, RDW Coeff of Renetta 16.0 H, Plt Count 48 L*, MPV 11.1, Differential Comment SCANNED, Diff Path Review Reviewed 07/29/19 02:47: Sodium 138, Potassium 4.2, Chloride 103, Carbon Dioxide 30.0, Anion Gap 5, BUN 21 H, Creatinine 0.92, Estim Creat Clear Calc 56.48, Est GFR (MDRD) Af Amer 82, Est GFR (MDRD) Non-Af 67, BUN/Creatinine Ratio 22.9 H, Glucose 190 H, Calcium 8.7 07/29/19 08:18: POC Glucose 116 H 07/29/19 11:18: POC Glucose 256 H Current Medications Acetaminophen (Tylenol) 650 mg PO Q6H PRN PRN PRN Reason: Pain Score 1-10/Temp > 100.7 F Last Admin: 07/28/19 05:03 Dose: 650 mg Documented by: Albuterol Sulfate (Ventolin Aerosols) 2.5 mg INHALATION Q2H PRN PRN PRN Reason: Shortness of breath, wheezing Albuterol/Ipratropium (Duoneb) 3 ml INHALATION Q4HWA.RT [facility] Last Admin: 07/29/19 11:30 Dose: 3 ml Documented by: Atorvastatin Calcium (Lipitor) 10 mg PO QHS [facility] Last Admin: 07/28/19 21:37 Dose: 10 mg Documented by: Escitalopram Oxalate (Lexapro) 20 mg PO DAILY [facility] Last Admin: 07/29/19 10:18 Dose: 20 mg Documented by: Hydroxyzine Pamoate (Vistaril Pamoate Capsule) 25 mg PO QHS [facility] Last Admin: 07/28/19 21:37 Dose: 25 mg Documented by: Levofloxacin (Levaquin Iv) 500 mg in 100 mls @ 100 mls/hr IV Q24 [facility] Last Infusion: 07/29/19 11:50 Dose: Infused Documented by: Sodium Chloride () 250 mls @ 15 mls/hr IV .[id number] PRN PRN Reason: Saline Flush Sodium Chloride () 250 mls @ 15 mls/hr IV .[id number] PRN PRN Reason: Additional IVPB Infusion Insulin Human Lispro (Humalog Kwikpen (Bkc)) 0 unit SC ACHS [facility]; Protocol Last Admin: 07/29/19 11:25 Dose: 2 units Documented by: Lamotrigine (Lamictal) 150 mg PO DAILY@1900 [facility] Last Admin: 07/28/19 17:13 Dose: 150 mg Documented by: Lamotrigine (Lamictal) 300 mg PO DAILY [facility] Last Admin: 07/29/19 10:18 Dose: 300 mg Documented by: Methylprednisolone (Solu-Medrol) 40 mg IV Q8 [facility] Last Admin: 07/29/19 07:12 Dose: 40 mg Documented by: Nutritional Formula (Lactose Free) (Glucerna Shake) 120 ml PO TIDCM [facility] Last Admin: 07/29/19 10:18 Dose: 120 ml Documented by: Ondansetron HCl (Zofran) 4 mg IV Q8H PRN PRN PRN Reason: NAUSEA/VOMITING Pantoprazole Sodium (Protonix) 40 mg PO DAILY [facility] Last Admin: 07/29/19 10:18 Dose: 40 mg Documented by: Quetiapine Fumarate (Seroquel) 400 mg PO BID [facility] Last Admin: 07/29/19 10:17 Dose: 400 mg Documented by: Senna/Docusate Sodium (Senokot-S, [place]-Colace) 2 tablet PO BID PRN PRN PRN Reason: Constipation Sodium Chloride () 10 - 40 ml IV UD PRN PRN Reason: SALINE FLUSH Last Admin: 07/29/19 07:12 Dose: 10 ml Documented by: Zolpidem Tartrate (Ambien (Generic)) 5 mg PO QHS PRN PRN PRN Reason: INSOMNIA Discharge Diet: Low fat/ Low Cholesterol Discharge Activity: Return to Normal Activity Weight Bearing Status: Weight bearing as tolerated Call your doctor if you observe: Fever of 101 or Higher, Shortness of breath Home Medications: Medications to take at Discharge Albuterol Inhaler [Ventolin Hfa] 2 puff INHALATION Q4H PRN PRN 05/29/16 Atorvastatin Calcium [Lipitor] 10 mg PO DAILY 05/29/16 Ipratropium/Albuterol Sulfate [Duoneb] 3 ml INHALATION Q6H PRN PRN 05/29/16 Roflumilast [Daliresp] 500 mcg PO DAILY 05/29/16 Escitalopram Oxalate [Lexapro] 20 mg PO DAILY 04/12/17 Potassium Chloride [K-Dur] 10 meq PO TID 03/09/18 Qzxvj-6-Trdqqbipmx Inhibitor [Prolastin C] 5,390 mg IV TH 07/27/19 Esomeprazole Mag Trihydrate [Nexium] 40 mg PO DAILY 07/27/19 Fluticasone/Umeclidin/Vilanter [Trelegy Ellipta 100-62.5-25] 1 ea IH DAILY 07/27/19 Lamotrigine 150 mg PO DAILY@1900 07/27/19 Lamotrigine 300 mg PO DAILY 07/27/19 Quetiapine Fumarate [Seroquel Xr] 800 mg PO QHS 07/27/19 hydrOXYzine pamoate capsule [Vistaril pamoate capsule] 25 mg PO QHS 07/27/19 levoFLOXacin tablet [Levaquin tablet] 750 mg PO DAILY #3 tab 07/29/19 predniSONE tablet 40 mg PO DAILY 5 Days #10 tab 07/29/19 Following Prescrptions Were Given to Patient: levoFLOXacin tablet [Levaquin tablet] 750 mg PO DAILY #3 tab Transmission Status: Pending to [facility] predniSONE tablet 40 mg PO DAILY 5 Days #10 tab Transmission Status: Pending to [facility] Primary Care Physician: Felipe Souza [Primary Care Provider] - Please follow up with your Primary Care Physician in: 1-2 weeks Please Follow Up With: Haim Guajardo MD When: 2-3 weeks Patient Instructions: What Is COPD?, Care for COPD, Treatments for COPD, Chronic Lung Disease: Your Emotional Well-Being Disposition: Home Minutes spent on discharge:: 45 Patient Condition:: Stable Medical Necessity - Tobacco Use Smoking Status: Former smoker Meaningful Use Info Meaningful Use Diagnoses (Choose all that apply): None applicable Inpatient E&M: [id number] [facility]
--- NOTE | 2019-07-29 13:11 | CASEMGMT ---
SHAKIR ROSARIO called patient to discuss discharge plans. Patient wishes to discharge home. Patient already has oxygen with portability at home and has tanks. Patient states she is independent and denies need for HHC. Patient's Covid-19 test is still pending results. SHAKIR ROSARIO inquired if patient is able to self isolate with own bed and bath, patient states yes. Patient states she has thermometer at home to check temperature. is able to assist with meals and meds. Patient denied further needs at this time. CM to remain available should discharge needs arise.
--- NOTE | 2019-07-31 13:52 | CASEMGMT ---
SHAKIR CM DC PHONE CALL DC DATE: 07.29.19 DC DISPOSITION: Home LACE/STRATA: 01/15 DC DIAGNOSIS: SARS COVID 2- NEGATIVE Attempted call to patient. No answer and no message machine. Jai JEAN BAPTISTEN RN ACM
== END 2019-07-29 15:25 | disposition home or self-care (01) | DRG 190 ==
LOC: ED 17:33 → PCU 18:46 → MS2 07-28 11:36 → ICU 07-28 22:15
PROVIDERS: Family Medicine; Internal Medicine; Nurse Practitioner Family; Admitting Provider Hospitalist; Emergency Provider Emergency Medicine; PCP Family Medicine; Referring Provider Hospitalist; Visit Provider Student in an Organized Health Care Education/Training Program
DX: J44.1 Chronic obstructive pulmonary disease with (acute) exacerbation (principal); J96.21 Acute and chronic respiratory failure with hypoxia; D69.6 Thrombocytopenia, unspecified; E78.5 Hyperlipidemia, unspecified; F32.9 Major depressive disorder, single episode, unspecified; E88.01 Alpha-1-antitrypsin deficiency; Z99.81 Dependence on supplemental oxygen; Z87.891 Personal history of nicotine dependence; K21.9 Gastro-esophageal reflux disease without esophagitis
CPT/HCPCS: 36415; 36600; 71045; 80048; 80076; 82550; 82803; 82962; 83036; 83605; 83615; 84484; 85025; 85027; 86140; 87040; 87633; 87635; 87804; 93005; 94002; 94003; 94640; 94667; 94668; 96361; 96374; 97116; 97162; 97166; 97530; 99251; 99285; 99406; J7030; A4216; G0463; U0004

== ENCOUNTER 2019-08-13 11:39 | Inpatient (IN) | payer OTHER, SELFPAY ==
[2019-07-27 20:15] VITALS: BMI 32.8
[2019-08-13] VITALS (25 sets, daily range): BP systolic 94–163; BP diastolic 57–107; PULSE 90–112; RESP 12–33; TEMP 36.5–37.1; O2SAT 94–100; BMI 32.1; BMI 31.6
--- NOTE | 2019-08-13 11:50 | EKG12_ITS ---
Test Reason : SOB Blood Pressure : / mmHG Vent. Rate : 100 BPM Atrial Rate : 100 BPM P-R Int : 170 ms QRS Dur : 096 ms QT Int : 366 ms P-R-T Axes : 054 054 041 degrees QTc Int : 472 ms Normal sinus rhythm Normal ECG Confirmed by OANH ALEXANDRA, LISA ([id number]), publication editor MATT HARRIS ([id number]) on 08/17/2019 2:19:27 PM Referred By: HUMBLE Confirmed By:LISA HUGO MD
--- NOTE | 2019-08-13 11:50 | RAD_ITS ---
STUDY: X-RAY CHEST REASON FOR EXAM: Female, 54 years old. COUGH, SHORT OF BREATH X A COUPLE DAYS TECHNIQUE: Single AP portable view of the chest. COMPARISON: Comparison is made with prior study dated July 27, 2019. FINDINGS: EKG electrodes are seen. Stable mild increased linear markings at the lung bases suggestive of scarring. Hyperinflation. There is no demonstrated pleural abnormality. Normal size heart. Normal mediastinum and rosemary. Normal visualized pulmonary arteries. Normal visualized aortic arch and descending thoracic aorta. There is a mild dextroscoliosis of the thoracic spine. Normal visualized ribs, clavicles, and shoulders. There is no demonstrated abnormality of the visualized soft tissue structures of the upper abdomen. RAD/Chest 1 View (Portable) IMPRESSION: Hyperinflation. Stable mild increased linear markings at the lung bases suggestive of linear scarring. Electronically Signed: Gregory Salas, at 13:23 EDT , Service support ,
[2019-08-13] MEDS: 0.9% Normal Saline 1,000 ML 999 ML IV (11:54)
[2019-08-13] MEDS: MethylPREDNISolone 125 MG/2 ML Vial IV (11:54)
[2019-08-13] MEDS: Ipratropium/Albuterol Sulfate 3 ML AMPUL.NEB INHALATION ×3 (11:54→19:07)
[2019-08-13 12:17] LABS: Absolute Lymphocyte Count 0.36 X10^3/uL (0.83-4.51); Absolute Neutrophil Count 2.3 X10^3/uL (2.0-7.7); Basophil# 0.01 X10^3/uL; Basophil% 0.3 % (0-1); Eosinophil# 0.03 X10^3/uL; Hematocrit 38.6 % (37-47); Hemoglobin 11.7 g/dL (12.0-15.0); Lymphocyte # 0.36 X10^3/ul (4.0); Lymphocyte % 12.4 % (19-41); Mean Corp Hgb Conc 30.3 g/dL (32-36); Mean Corpuscular Hgb 25.5 pg (27.0-32.0); Mean Corpuscular Volume 84.3 fL (81-99); Mean Platelet Vol. 11.1 fl (6.2-12.0); Monocyte# 0.19 X10^3/uL; Monocyte% 6.5 % (0-10); NRBC Flagged by Analyzer 0 % (0-5); Neutrophil # 2.29 X10^3/uL (2.7-7.7); Neutrophil % 78.8 % (47-70); POSITIVE COUNT YES; POSITIVE DIFFERENTIAL YES; RBC Distribution Width CV 16.7 % (11.6-14.6); RBC Distribution Width SD 50.7 fl (35.1-43.9); Red Blood Count 4.58 M/mm3 (4.2-5.4); White Blood Count 2.9 K/mm3 (4.4-11.0)
[2019-08-13 12:20] LABS: Anion Gap 5 (5-15); BUN 11 mg/dL (7-18); BUN/Creat Ratio 12.1 RATIO (10-20); Calcium,Total 9.2 mg/dL (8.5-10.1); Chloride 105 mmol/L (98-107); Creatinine, Serum 0.91 mg/dL (0.55-1.02); EST Glomerular Filtration Rate 68 mL/min (>60); Est Glom Filt Rate - Afr Amer 82 mL/min (>60); Estimated Creatinine Clearance 62.12 ml/min; Glucose 171 mg/dL (74-106); Potassium 4.6 mmol/L (3.5-5.1); Sodium Level 139 mmol/L (136-145)
[2019-08-13 12:25] LABS: Differential Indicated SCAN CRITERIA MET; Platelet Count 44 K/mm3 (150-450)
[2019-08-13 12:29] LABS: Lactic Acid 1.5 mmol/L (0.4-1.9)
--- NOTE | 2019-08-13 12:42 | ED.DCSUM_ITS ---
- ER Visit Summary Date of Service: 08/13/19 Chief Complaint: Shortness of breath History of Present Illness: The patient is a [address] Munoz and Dr. Guajardo. She has a history of alpha-1 antitrypsin deficiency. She does not smoke. However, she has a history of chronic respiratory failure and is on 4 L of home O2. Patient reports that she has been short of breath for the past 2 weeks. She is had a nonproductive cough. She denies any fever or chills. No chest pain. She does complain of generalized weakness. Physical Examination: Vitals: 97.7, 159/107, 112, 24, 96% on BiPAP General: Well-nourished and well-developed. Head: Normocephalic atraumatic. Neck: Supple, no lymphadenopathy. No JVD. Nontender. Cardiovascular: Tachycardic regular rhythm. No murmurs. Respiratory: Moderate respiratory distress. She has mild wheezing bilaterally with greatly decreased air movement. Abdominal: Soft, nontender, nondistended, normal bowel sounds. No guarding, rebound, or peritoneal signs. Back: Nontender. Extremities: IO in her right tibia. There is no infiltration. There is no surrounding erythema. There is no active bleeding. No pedal edema. Skin: Normal color, no rash. Neurologic: Alert and oriented ?3. Cranial nerves II through XII are intact. Normal strength and sensation. Psych: Normal affect. Test Results: EKG is sinus tach at 100. Is unchanged from earlier this month. CBC shows a white count of 2.9, hemoglobin of 11.7, platelets of 44, segmented neutrophils 79, and lymphocytes of 12. Chem-7 shows a glucose of 171. Lactic acid is 1.5. BNP is 21.0. Clinical Impression(s) from Imaging Studies Chest X-Ray 08/13/19 11:50 IMPRESSION: Hyperinflation. Stable mild increased linear markings at the lung bases suggestive of linear scarring. Electronically Signed: Gregory Salas, at 13:23 EDT , Service support , I reviewed the patient's prior labs. She had a negative COVID-19 test on Anna 14. Emergency Department Course and Treatment: Patient was placed on BiPAP upon arrival. She was given albuterol Atrovent aerosols. She was given Solu-Medrol IV. She is resting more comfortably. Treatment Plan: Patient was discussed with Dr. Guevara. She will be admitted to the hospital for further evaluation and treatment. Disposition: Admitted in serious condition. Impression: 1. Acute on chronic respiratory failure on BiPAP. 2. COPD exacerbation. 3. History of alpha antitrypsin deficiency. 4. Pancytopenia. 5. Critical care time 33 minutes. This note was generated with [employer] dictation software. It may contain incorrect words, spelling, and punctuation that were not noted in review of the chart prior to signing ED Disposition - Plan for ED Patient: Referrals: Felipe Souza [Primary Care Provider] -
[2019-08-13 12:59] LABS: Differential Comment SCANNED; Platelet Estimate MKD DEC (ADEQ)
[2019-08-13 13:00] LABS: Platelet Morphology LARGE
--- NOTE | 2019-08-13 14:08 | HP.PCM_ITS ---
Problem List (1) Wcrad-6-qrnbeptypvs deficiency Status: Chronic (2) COPD (chronic obstructive pulmonary disease) Status: Chronic Qualifiers: COPD type: unspecified COPD (3) Chronic respiratory failure Status: Chronic Qualifiers: Respiratory failure complication: hypoxia Qualified Code(s): J96.11 - Chronic respiratory failure with hypoxia (4) Chronic thrombocytopenia Status: Chronic (5) Depression Status: Chronic Qualifiers: Depression Type: unspecified (6) Hyperlipidemia Status: Chronic Qualifiers: Hyperlipidemia type: unspecified History of Present Illness Date of Admission: 08/13/19 Chief Complaint: Shortness of breath - since July, The patient is a 54 year old F with PMHx of chronic respiratory failure secondary to alpha-1 anti-trypsin deficiency, who was recently admitted on 07/27/19 and discharged on 07/29/19 with progressive worsening shortness of breath and treated as COPD exacerbation. Patient at that time was tested for CO VID and was found to be negative. Patient lives at home with her and denies any contact with any sick person. Her is not feeling well and has had myalgia with arthralgia ongoing for 1 month. Further history taking from the revealed that he does not have fever or shortness of breath. He has had a telemetry held visit with his primary care doctor twice and the explanation given was that he has post influenza myalgia and his arthralgia was secondary to his RA flareup. According to the patient's , patient has not had any fever, she has a dry cough, she however has been very short of breath. She was discharged with 5 days of prednisone. Vitals in the ED showed temperature of 97.7F, heart rate 112, blood pressure 159/107, respiratory rate was 32, she was saturating 96% on BiPAP. BC count is 2.9 hemoglobin is 11.7 platelet count is 44, pH is 7.33, PCO2 is 57.3, PO2 was 434 on BiPAP 18/8, 100% FiO2. Admitting chest x-ray showed hyperinflation, stable mild increased linear markings at the lung bases suggestive of linear scarring. When patient was seen in the ICU, she was in severe respiratory distress with use of accessory muscles, and respiratory rate was more than 38, she was on BiPAP 14/8, FiO2 30%. This was the settings that she was on in the ED and was comfortable. Attempts at getting her CODE STATUS clarified were unsuccessful as patient would not and at times also shake her head. Called her , Rick Miller on phone and and clarify the various type of CODE STATUS with him. stated patient would like to be kept alive and thinks she should be intubated if needed. Past Medical History Past Medical History (Chronic Problems): Chronic Problems Hyperlipidemia (Chronic) Chronic thrombocytopenia (Chronic) Depression (Chronic) Chronic respiratory failure (Chronic) COPD (chronic obstructive pulmonary disease) (Chronic) Tqkad-7-ncabsrzpjky deficiency (Chronic) Allergies erythromycin base Allergy (Verified 08/13/19 11:46) FACIAL SWELLING Home Medications: Ambulatory Orders Medication Instructions Recorded Albuterol Inhaler [Ventolin Hfa] 2 puff INHALATION Q4H PRN PRN 05/29/16 Atorvastatin Calcium [Lipitor] 10 mg PO DAILY 05/29/16 Ipratropium/Albuterol Sulfate 3 ml INHALATION Q6H PRN PRN 05/29/16 [Duoneb] Roflumilast [Daliresp] 500 mcg PO DAILY 05/29/16 Escitalopram Oxalate [Lexapro] 40 mg PO DAILY 04/12/17 Potassium Chloride [K-Dur] 10 meq PO TID 03/09/18 Aazgl-8-Qgffdtvvyz Inhibitor 5,390 mg IV TH 07/27/19 [Prolastin C] Esomeprazole Mag Trihydrate 40 mg PO DAILY 07/27/19 [Nexium] Fluticasone/Umeclidin/Vilanter 1 ea IH DAILY 07/27/19 [Trelegy Ellipta 100-62.5-25] Lamotrigine 150 mg PO BID 07/27/19 Quetiapine Fumarate [Seroquel Xr] 800 mg PO QHS 07/27/19 hydrOXYzine pamoate capsule 25 mg PO QHS 07/27/19 [Vistaril pamoate capsule] Prednisone See Taper PO DAILY 08/13/19 Surgical History: hysterectomy Psychiatric History: Anxiety, Depression B2B APPOINTMENT SETTER History: No pertinent B2B APPOINTMENT SETTER history Lives: Spouse/ Significant Other Smoking Status: Former smoker Tobacco Use: Non-smoker Alcohol: None Drugs: None - *Family History Maternal History Items: Diabetes, - - Positive for alpha-1 antitrypsin deficiency Paternal History Items: Heart Disease, Hypertension, - - Positive for alpha-1 antitrypsin deficiency Review of Systems Constitutional: Reports: Malaise, Weakness, Fatigue. Denies: Anorexia, Chills, Fever, Weight Change Eyes: Denies: Blurred vision, Cataracts, Conjunctivae Inflammation, Pain, Redness, Vision Change HEENT: Denies: Difficulty Hearing, Difficulty Swallowing, Head Aches, Hearing Changes, Sinus Congestion, Sinus Drainage, Sore Throat Cardiovascular: Denies: Chest Pain, Claudication, Orthopnea, Palpitations, Paroxysmal Noc. Dyspnea Respiratory: Reports: Cough, Shortness of Breath, Shortness of breath at rest, Shortness of breath upon exertion, Wheezing. Denies: Hemoptysis, Sputum production Gastrointestinal: Denies: Abdominal Pain, Nausea, Vomiting Genitourinary: Denies: Dysuria Musculoskeletal: Denies: Joint Pain, Joint stiffness, Joint swelling, Joint Tenderness Skin: Denies: Rash, Wounds Neurological: Denies: Difficulty swallowing, Focal weakness, Numbness, Tingling Psychiatric: Denies: Anxiety, Depression, Homicidal Ideations, Suicidal Ideations Hematologic/ Lymphatic: Denies: Easy Bruising, Easy Bleeding VTE Information - Inpt Only VTE Present on Admission: No VTE Pharm Prophylaxis ordered?: Yes - Physical Exam Vitals/I&O's: Vital Signs Temp Pulse Resp BP Pulse Ox 97.8 F 90 20 H 126/78 H 95 08/13/19 13:22 08/13/19 14:03 08/13/19 14:03 08/13/19 13:22 08/13/19 13:22 Oxygen Delivery Method Bi-pap Weight: 87.6 kg Body Mass Index (BMI) 32.1 Intake and Output for Last 24 Hours 08/11/19 08/12/19 08/13/19 23:59 23:59 23:59 Intake Total 1000 / 1000 Balance 1000 / 1000 General: Alert, Cooperative, - - in severe respiratory distress HEENT: Atraumatic, PERRLA, EOMI, Normocephalic Oral: Moist Mucosa Neck: Supple Lungs: Diminished Cardiovascular: Regular rate, Regular Rhythm, Normal S1, Normal S2 Abdomen: Bowel Sounds Present, Soft, Non Tender, Non-Distended, No Hepato- splenomegaly Extremities: No edema Skin: No rashes Musculoskeletal: No Tenderness to Palpation of Joints or Extremities Lymphatic: No Cervical, Supraclavicular, or Inguinal Adenopathy Neurological: Cranial nerves II-XII grossly intact Psych/Mental Status: Normal Affect, Appropriate Laboratory Results 08/13/19 11:49: WBC 2.9 L, RBC 4.58, Hgb 11.7 L, Hct 38.6, MCV 84.3, MCH 25.5 L, MCHC 30.3 L, RDW Std Deviation 50.7 H, RDW Coeff of Renetta 16.7 H, Plt Count 44 L*, MPV 11.1, Immature Gran % (Auto) 1.000 H, Neut % (Auto) 78.8 H, Lymph % (Auto) 12.4 L, [place] % (Auto) 6.5, Eos % (Auto) 1.0, Baso % (Auto) 0.3, Absolute Neuts (auto) 2.3, Absolute Lymphs (auto) 0.36 L, Nucleated RBC % 0, Differential Comment SCANNED, Diff Path Review August rosalinda, Platelet Estimate MKD DEC, Plt Morphology Comment LARGE 08/13/19 11:49: Sodium 139, Potassium 4.6, Chloride 105, Carbon Dioxide 29.0, Anion Gap 5, BUN 11, Creatinine 0.91, Estim Creat Clear Calc 62.12, Est GFR (MDRD) Af Amer 82, Est GFR (MDRD) Non-Af 68, BUN/Creatinine Ratio 12.1, Glucose 171 H, Calcium 9.2 08/13/19 11:49: Lactic Acid 1.5 08/13/19 11:49: B-Natriuretic Peptide 21.0 Assessment/Plan 1. Acute hypoxic respiratory failure in a patient with chronic respiratory failure on 4 L of oxygen at home Patient is currently on BiPAP, continue breathing treatments, oxygen 2. Acute COPD exacerbation in a patient with alpha-1 antitrypsin deficiency Respiratory panel is negative. Recent influenza A and B Recent COVID 19 negative Most likely exacerbation could be smoldering COPD exacerbation with perhaps not long enough prednisone taper Continue on IV Solu-Medrol, breathing treatments, continue on Bipap, acupuncture physician consult 3. Pancytopenia, chronic, with low thrombocytopenia 4. Depression, on Seroquel, on Lexapro 5. DVT PPx- SCDs 6. Code status: Full code Discussed in detail with the patient's , explaining the various types of CODE STATUS-full code, DNR CCA, DNR CC. He states patient will wish to be full code. Time spent discussing CODE STATUS 18 minutes Inpatient E&M: [id number] Init Hosp L3
--- NOTE | 2019-08-13 14:23 | ED.RN ---
assisted pt to make phone call to . ice water given to drink, purewick placed per pt request. repositioned in bed x2 assist.
[2019-08-13 16:15] LABS: AST(SGOT) 16 U/L (15-37); Alanine Aminotransfer ALT/SGPT 27 U/L (13-56); Albumin, Serum 3.9 g/dL (3.2-5.0); Alkaline Phosphatase 79 U/L (45-117); Bilirubin, Direct 0.23 mg/dL (0.00-0.30); Globulin 2.9 g/dL (2.2-4.2); Protein, Total 6.8 g/dL (6.4-8.2)
[2019-08-13 16:31] LABS: Base Excess 4 mmol/L (-2 to +2); Bicarbonate 30.2 mmol/L (22-26); PO2 434 mmHG (75-100); SO2 100 % (95-99); Total Carbon Dioxide 32 mmol/L; pCO2 57.3 mmHg (35-45); pH 7.33 (7.35-7.45)
[2019-08-13 16:34] LABS: Blood Gas Specimen Type ART; Time Given 1604
[2019-08-13 16:35] LABS: FI02 100; O2 Delivery Device Bi Pap
[2019-08-13 16:36] LABS: EPAP 8; IPAP 18
[2019-08-13] MEDS: fentaNYL 100 MCG/2 ML Ampul 25 MCG IV (17:04)
[2019-08-13] MEDS: Furosemide 100 MG/10 ML Vial 40 MG IV (17:04)
[2019-08-13 17:17] LABS: SITE L RADIAL
--- NOTE | 2019-08-13 17:18 | CPS ---
COPIES OF CRITICAL ABG GIVEN TO DR. MOREIRA AND DR. LEMON
--- NOTE | 2019-08-13 17:39 | CON.PCM_ITS ---
Problem List (1) Acute respiratory failure with hypercapnia Status: Acute (2) Hyperlipidemia Status: Chronic Qualifiers: Hyperlipidemia type: unspecified (3) Chronic thrombocytopenia Status: Chronic (4) Depression Status: Chronic Qualifiers: Depression Type: unspecified (5) COPD (chronic obstructive pulmonary disease) Status: Chronic Qualifiers: COPD type: unspecified COPD (6) Rrzsg-7-[id number] deficiency Status: Chronic Reason for Consult Date of Consultation: 08/13/19 Reason for Consultation: Respiratory failure History of Present Illness: The patient is a 54 year old F, with past medical history listed below, who presented to [facility] on 08/13/2019 secondary to progressive shortness of breath. Patient does have a history of alpha-1 antitrypsin deficiency with associated COPD and is on 4 L nasal cannula at baseline. Patient reports that over the last 2 weeks she has had progressive shortness of breath and a nonproductive cough. Patient is unclear if she has had any fever or chills though she does not check her temperature at home. Patient denied any chest pain, but does report generalized weakness. Patient was recently hospitalized for similar type presentation and found to have influenza A and influenza B approximately 2 weeks ago. In the ER, patient was immediately placed on BiPAP therapy secondary to respiratory effort and hypoxia. EKG showed no ST change compared to previous. Patient does have a history of pancytopenia. Chem-7 showed an elevated glucose at 171, but BNP was normal at 21. Lactate was 1.5. Chest x-ray showed no acute infiltrates, but did have some linear scarring. Patient was given aerosols, IV Solu-Medrol and transferred to the intensive care unit for further evaluation. On arrival to the intensive care unit, patient had significant respiratory distress. Patient was breathing 30-40 times a minute and saturating in the 60s. Patient was evaluated and there was some concern that she would require intubation. Patient had an increase in IPAP pressures and FiO2 with some improvement. Patient was not able to provide a full review of systems secondary to the acute condition. Patient does report that she should have a BiPAP at home, but she cannot afford it. Patient was unaware of her previous pulmonary function testing. Patient is unaware of any previous cardiac history. Patient has completed pulmonary rehab in the past. Patient was unable to tell me if she is currently on replacement therapy for alpha-1 antitrypsin, but it is labeled on her outpatient medications. Past Medical History Past Medical History (Chronic Problems): Chronic Problems Hyperlipidemia (Chronic) Chronic thrombocytopenia (Chronic) Depression (Chronic) Chronic respiratory failure (Chronic) COPD (chronic obstructive pulmonary disease) (Chronic) Xkbnt-2-iabmllwitlt deficiency (Chronic) Allergies erythromycin base Allergy (Verified 08/13/19 11:46) FACIAL SWELLING Home Medications: Ambulatory Orders Medication Instructions Recorded Albuterol Inhaler [Ventolin Hfa] 2 puff INHALATION Q4H PRN PRN 05/29/16 Atorvastatin Calcium [Lipitor] 10 mg PO DAILY 05/29/16 Ipratropium/Albuterol Sulfate 3 ml INHALATION Q6H PRN PRN 05/29/16 [Duoneb] Roflumilast [Daliresp] 500 mcg PO DAILY 05/29/16 Escitalopram Oxalate [Lexapro] 40 mg PO DAILY 04/12/17 Potassium Chloride [K-Dur] 10 meq PO TID 03/09/18 Rsfjr-4-Khgnauszdi Inhibitor 5,390 mg IV TH 07/27/19 [Prolastin C] Esomeprazole Mag Trihydrate 40 mg PO DAILY 07/27/19 [Nexium] Fluticasone/Umeclidin/Vilanter 1 ea IH DAILY 07/27/19 [Trelegy Ellipta 100-62.5-25] Lamotrigine 150 mg PO BID 07/27/19 Quetiapine Fumarate [Seroquel Xr] 800 mg PO QHS 07/27/19 hydrOXYzine pamoate capsule 25 mg PO QHS 07/27/19 [Vistaril pamoate capsule] Prednisone See Taper PO DAILY 08/13/19 Surgical History: hysterectomy Psychiatric History: Anxiety, Depression 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 Chest x-ray shows no obvious infiltrates. Patient does not have a previous echocardiogram. No pulmonary function tests are available for review. - Physical Exam Vitals/I&O's: Vital Signs Temp Pulse Resp BP Pulse Ox 37.1 C 107 H 32 H 114/57 L 100 08/13/19 14:09 08/13/19 16:30 08/13/19 16:30 08/13/19 14:09 08/13/19 16:30 Oxygen Delivery Method Bi-pap Weight: 87.6 kg Body Mass Index (BMI) 32.1 Intake and Output for Last 24 Hours 08/11/19 08/12/19 08/13/19 23:59 23:59 23:59 Intake Total 1000 / 1000 Balance 1000 / 1000 General: Alert, Oriented x3, Cooperative, - - Moderate respiratory distress. Decent BiPAP synchrony after increase in IPAP. HEENT: Atraumatic, PERRLA, EOMI, Normocephalic, - - Slight scleral injection without icterus Oral: No Gingival or Mucosal Lesions/ Ulcerations, Dry Mucosa Neck: Supple, No JVD, No Nodes, Trachea Midline Lungs: No rhonchi, No wheeze, No rales, Diminished - Very poor air exchange Cardiovascular: Normal S1, Normal S2, No murmurs, No rub noted, No Gallop, Tachycardic Abdomen: Bowel Sounds Present, Soft, Non Tender, Non-Distended, Obese Extremities: No cyanosis, Clubbing, Edema - 1-2+ lower extremities Skin: No rashes, No breakdown Musculoskeletal: No Tenderness to Palpation of Joints or Extremities Lymphatic: No Cervical, Supraclavicular, or Inguinal Adenopathy Neurological: Cranial nerves II-XII grossly intact, Neuro grossly intact, Motor Exam 5/5 strength throughout Psych/Mental Status: Anxious, Impulsive, Restless Microbiology Past 72 Hours 08/13/19 11:55 Mucosa - Nose Influenza Types A,B Direct FA (JEREL) - Final 08/13/19 12:15 Mucosa - Nose Respiratory Panel (PCR) - Final Laboratory Results 08/13/19 11:49: WBC 2.9 L, RBC 4.58, Hgb 11.7 L, Hct 38.6, MCV 84.3, MCH 25.5 L, MCHC 30.3 L, RDW Std Deviation 50.7 H, RDW Coeff of Renetta 16.7 H, Plt Count 44 L*, MPV 11.1, Immature Gran % (Auto) 1.000 H, Neut % (Auto) 78.8 H, Lymph % (Auto) 12.4 L, [place] % (Auto) 6.5, Eos % (Auto) 1.0, Baso % (Auto) 0.3, Absolute Neuts (auto) 2.3, Absolute Lymphs (auto) 0.36 L, Nucleated RBC % 0, Differential Comment SCANNED, Diff Path Review May foll, Platelet Estimate MKD DEC, Plt Morphology Comment LARGE 08/13/19 11:49: Sodium 139, Potassium 4.6, Chloride 105, Carbon Dioxide 29.0, Anion Gap 5, BUN 11, Creatinine 0.91, Estim Creat Clear Calc 62.12, Est GFR (MDRD) Af Amer 82, Est GFR (MDRD) Non-Af 68, BUN/Creatinine Ratio 12.1, Glucose 171 H, Calcium 9.2 08/13/19 11:49: Lactic Acid 1.5 08/13/19 11:49: B-Natriuretic Peptide 21.0 08/13/19 11:49: Total Bilirubin 0.60, Direct Bilirubin 0.23, AST 16, ALT 27, Alkaline Phosphatase 79, Total Protein 6.8, Albumin 3.9, Globulin 2.9 08/13/19 16:04: Specimen Type ART, Sample Site L RADIAL, pH 7.33 L, Bicarbonate Actual 30.2 H, POC Total CO2 32, Base Excess 4 H, O2 Saturation 100 H, O2 % 100, ABG pCO2 57.3 H, ABG pO2 434 H*, Derian Test NA, O2 Delivery Device Bi Pap, EPAP 8, IPAP 18, Blood Gas Notified Whom [facility] , Blood Gas Notified Time 1604 08/13/19 17:00: COVID-19 (DELANEY) Pending Current Medications Acetaminophen (Tylenol) 650 mg PO Q6H PRN PRN PRN Reason: Pain Score 1-10/Temp > 100.7 F Albuterol Sulfate (Ventolin Aerosols) 2.5 mg INHALATION Q2H PRN PRN PRN Reason: SOB/Wheezing Albuterol/Ipratropium (Duoneb) 3 ml INHALATION Q4HWA.RT TY Last Admin: 08/13/19 15:30 Dose: 3 ml Documented by: Atorvastatin Calcium (Lipitor) 10 mg PO DAILY [facility] Escitalopram Oxalate (Lexapro) 40 mg PO DAILY TY Fentanyl Citrate (Sublimaze (100mcg Ampule)) 25 mcg IV Q2H PRN PRN PRN Reason: Pain Score 1-10/10 Last Admin: 08/13/19 17:04 Dose: 25 mcg Documented by: Furosemide (Lasix) 20 mg IV DAILY [facility] Hydroxyzine Pamoate (Vistaril Pamoate Capsule) 25 mg PO QHS TY Sodium Chloride () 250 mls @ 15 mls/hr IV .[id number] PRN PRN Reason: Saline Flush Sodium Chloride () 250 mls @ 15 mls/hr IV .[id number] PRN PRN Reason: Additional IVPB Infusion Methylprednisolone (Solu-Medrol) 40 mg IV Q8 TY Pantoprazole Sodium (Protonix) 40 mg PO DAILY TY Sodium Chloride () 10 - 40 ml IV UD PRN PRN Reason: SALINE FLUSH Clinical Impression(s) from Imaging Studies Chest X-Ray 08/13/19 11:50 IMPRESSION: Hyperinflation. Stable mild increased linear markings at the lung bases suggestive of linear scarring. Electronically Signed: Gregory Salas, at 13:23 EDT , Service support , Assessment/Plan Active and Suspected Problems Acute respiratory failure with hypercapnia (Acute) RECOMMENDATIONS: 1. Continue empiric BiPAP therapy for now 2. BiPAP breaks as tolerated, but continue with sleep 3. Agree with mucolytic, bronchodilators and Solu-Medrol 4. Monitor for signs and symptoms of bleeding. No transfusions at this time 5. Hold on systemic anticoagulation given pancytopenia IMPRESSIONS: 1. Acute on chronic hypoxic respiratory failure secondary to presumed COPD exacerbation Patient was recently positive for influenza A and B. Patient did have a COVID negative test in the past, but may have been exposed to a positive person in the interim. We will repeat COVID testing. Agree with Solu-Medrol, bronchodilators and mucolytic. Patient appears to be tolerating BiPAP at this time. Patient did state that she would be open to intubation if necessary. Patient has been placed in a negative pressure room with appropriate viral filters in place. Will use COVID precautions. If patient is positive for COVID-19, convalescent serum may be considered. 2. Pancytopenia/depression/alpha-1 antitrypsin deficiency/poor historian/hyperglycemia Patient does not carry a formal diagnosis of diabetes mellitus, but was recently on steroid therapy. Reasonable to continue with sliding scale insulin. No alpha-1 repletion while in the intensive care unit. Okay to continue with p.o. medications if patient is able to take breaks off of BiPAP. TIME: 32 minutes critical care time spent addressing patient's respiratory failure, pancytopenia, review of all data and collaboration with care team. (4 PM to 5:50 PM) [phone]: [id number] Critical care first hour
[2019-08-13] MEDS: hydrOXYzine PAM 25 MG Capsule PO (21:32)
[2019-08-13 23:45] LABS: Bedside Glucose 141 mg/dL (70-110)
[2019-08-14] VITALS (26 sets, daily range): BP systolic 92–145; BP diastolic 52–93; PULSE 23–106; RESP 12–27; TEMP 36.5–36.8; O2SAT 92–100
--- NOTE | 2019-08-14 01:47 | CPS ---
Pt. requested to come off BiPAP
[2019-08-14 04:05] LABS: Absolute Lymphocyte Count 0.21 X10^3/uL (0.83-4.51); Absolute Neutrophil Count 2.5 X10^3/uL (2.0-7.7); Basophil# 0.01 X10^3/uL; Basophil% 0.4 % (0-1); Hematocrit 37.5 % (37-47); Hemoglobin 11.5 g/dL (12.0-15.0); Lymphocyte # 0.21 X10^3/ul (4.0); Lymphocyte % 7.4 % (19-41); Mean Corp Hgb Conc 30.7 g/dL (32-36); Mean Corpuscular Volume 84.8 fL (81-99); Monocyte% 3.5 % (0-10); NRBC Flagged by Analyzer 0 % (0-5); Neutrophil # 2.51 X10^3/uL (2.7-7.7); POSITIVE COUNT YES; POSITIVE DIFFERENTIAL YES; RBC Distribution Width CV 16.7 % (11.6-14.6); Red Blood Count 4.42 M/mm3 (4.2-5.4); White Blood Count 2.9 K/mm3 (4.4-11.0)
[2019-08-14 04:17] LABS: Differential Indicated SCAN CRITERIA MET; Platelet Count 44 K/mm3 (150-450)
[2019-08-14 04:22] LABS: ALB/GLOB Ratio 1.2 RATIO (0.9-2.4); AST(SGOT) 32 U/L (15-37); Alanine Aminotransfer ALT/SGPT 26 U/L (13-56); Albumin, Serum 3.7 g/dL (3.2-5.0); Alkaline Phosphatase 70 U/L (45-117); Anion Gap 7 (5-15); BUN 12 mg/dL (7-18); Calcium,Total 9.2 mg/dL (8.5-10.1); Chloride 103 mmol/L (98-107); EST Glomerular Filtration Rate 61 mL/min (>60); Est Glom Filt Rate - Afr Amer 74 mL/min (>60); Estimated Creatinine Clearance 54.24 ml/min; Globulin 3.2 g/dL (2.2-4.2); Glucose 145 mg/dL (74-106); Potassium 4.7 mmol/L (3.5-5.1); Protein, Total 6.9 g/dL (6.4-8.2); Sodium Level 137 mmol/L (136-145)
[2019-08-14 04:54] LABS: Anisocytosis 1+; Hypochromasia 2+; Platelet Estimate MKD DEC (ADEQ)
[2019-08-14] MEDS: Acetaminophen 325 MG Tablet 650 MG PO ×2 (05:19→11:35)
[2019-08-14 05:31] LABS: Bedside Glucose 134 mg/dL (70-110)
[2019-08-14] MEDS: Ipratropium/Albuterol Sulfate 3 ML AMPUL.NEB INHALATION ×3 (06:58→18:39)
--- NOTE | 2019-08-14 07:11 | PN_ITS ---
Subjective: Patient did well overnight. No acute issues were reported. Patient reports she is subjectively improved compared to yesterday, but still has significant dyspnea on exertion. Patient has had some issues with poor respiratory mechanics with anxiety, but has been able to tolerate 4 L nasal cannula for most of the evening. Patient is asking to eat. No bleeding complications have been reported. General: Alert, Oriented x3, Cooperative, - - Mild conversational dyspnea. Appears older than stated age. HEENT: Atraumatic, PERRLA, EOMI, Normocephalic, - - No scleral icterus or injection noted Oral: Moist Mucosa, No Gingival or Mucosal Lesions/ Ulcerations Neck: Supple, No JVD, No Nodes, Trachea Midline Lungs: No rhonchi, No rales, Diminished, Wheezes, - - Symmetric expansion. Cardiovascular: Normal S1, Normal S2, No murmurs, No rub noted, No Gallop, Tachycardic Abdomen: Bowel Sounds Present, Soft, Non Tender, Non-Distended, Obese Extremities: No cyanosis, No edema, Capillary Refill Less than 3 Seconds, Clubbing Skin: No rashes, No breakdown Musculoskeletal: No Tenderness to Palpation of Joints or Extremities Lymphatic: No Cervical, Supraclavicular, or Inguinal Adenopathy Neurological: Cranial nerves II-XII grossly intact, Neuro grossly intact, Motor Exam 5/5 strength throughout Psych/Mental Status: Anxious Vital Signs Temp Pulse Resp BP Pulse Ox 36.8 C 90 18 135/65 H 100 08/14/19 00:00 08/14/19 07:00 08/14/19 07:00 08/14/19 07:00 08/14/19 07:00 Oxygen Flow Rate (L/min) 4 Oxygen Delivery Method Nasal Cannula Weight: 83.6 kg Body Mass Index (BMI) 31.6 Intake and Output for Last 24 Hours 08/12/19 08/13/19 08/14/19 23:59 23:59 23:59 Intake Total 1075 / 1075 150 / 150 Output Total 1250 / 1250 450 / 450 Balance -175 / -175 -300 / -300 Labs (Last 48 Hours) 08/13/19 08/13/19 08/13/19 11:49 11:49 11:49 WBC 2.9 L RBC 4.58 Hgb 11.7 L Hct 38.6 MCV 84.3 MCH 25.5 L MCHC 30.3 L RDW Std Deviation 50.7 H RDW Coeff of Renetta 16.7 H Plt Count 44 L* MPV 11.1 Immature Gran % (Auto) 1.000 H Neut % (Auto) 78.8 H Lymph % (Auto) 12.4 L [place] % (Auto) 6.5 Eos % (Auto) 1.0 Baso % (Auto) 0.3 Absolute Neuts (auto) 2.3 Absolute Lymphs (auto) 0.36 L Nucleated RBC % 0 Differential Comment SCANNED Diff Path Review May foll Platelet Estimate MKD DEC Plt Morphology Comment LARGE Hypochromasia Anisocytosis Specimen Type Sample Site pH Bicarbonate Actual POC Total CO2 Base Excess O2 Saturation O2 % ABG pCO2 ABG pO2 Derian Test O2 Delivery Device EPAP IPAP Blood Gas Notified Whom Blood Gas Notified Time Sodium 139 Potassium 4.6 Chloride 105 Carbon Dioxide 29.0 Anion Gap 5 BUN 11 Creatinine 0.91 Estim Creat Clear Calc 62.12 Est GFR (MDRD) Af Amer 82 Est GFR (MDRD) Non-Af 68 BUN/Creatinine Ratio 12.1 Glucose 171 H Lactic Acid 1.5 Calcium 9.2 Total Bilirubin Direct Bilirubin AST ALT Alkaline Phosphatase B-Natriuretic Peptide Total Protein Albumin Globulin Albumin/Globulin Ratio COVID-19 (DELANEY) POC Glucose 08/13/19 08/13/19 08/13/19 11:49 11:49 16:04 WBC RBC Hgb Hct MCV MCH MCHC RDW Std Deviation RDW Coeff of Renetta Plt Count MPV Immature Gran % (Auto) Neut % (Auto) Lymph % (Auto) [place] % (Auto) Eos % (Auto) Baso % (Auto) Absolute Neuts (auto) Absolute Lymphs (auto) Nucleated RBC % Differential Comment Diff Path Review Platelet Estimate Plt Morphology Comment Hypochromasia Anisocytosis Specimen Type ART Sample Site L RADIAL pH 7.33 L Bicarbonate Actual 30.2 H POC Total CO2 32 Base Excess 4 H O2 Saturation 100 H O2 % 100 ABG pCO2 57.3 H ABG pO2 434 H* Derian Test NA O2 Delivery Device Bi Pap EPAP 8 IPAP 18 Blood Gas Notified Whom [facility] Blood Gas Notified Time 1604 Sodium Potassium Chloride Carbon Dioxide Anion Gap BUN Creatinine Estim Creat Clear Calc Est GFR (MDRD) Af Amer Est GFR (MDRD) Non-Af BUN/Creatinine Ratio Glucose Lactic Acid Calcium Total Bilirubin 0.60 Direct Bilirubin 0.23 AST 16 ALT 27 Alkaline Phosphatase 79 B-Natriuretic Peptide 21.0 Total Protein 6.8 Albumin 3.9 Globulin 2.9 Albumin/Globulin Ratio COVID-19 (DELANEY) POC Glucose 08/13/19 08/13/19 08/14/19 17:00 23:36 03:50 WBC 2.9 L RBC 4.42 Hgb 11.5 L Hct 37.5 MCV 84.8 MCH 26.0 L MCHC 30.7 L RDW Std Deviation 51.0 H RDW Coeff of Renetta 16.7 H Plt Count 44 L* MPV Immature Gran % (Auto) 0.700 Neut % (Auto) 88.0 H Lymph % (Auto) 7.4 L [place] % (Auto) 3.5 Eos % (Auto) 0.0 Baso % (Auto) 0.4 Absolute Neuts (auto) 2.5 Absolute Lymphs (auto) 0.21 L Nucleated RBC % 0 Differential Comment COMMENT Diff Path Review May foll Platelet Estimate MKD DEC Plt Morphology Comment Hypochromasia 2+ Anisocytosis 1+ Specimen Type Sample Site pH Bicarbonate Actual POC Total CO2 Base Excess O2 Saturation O2 % ABG pCO2 ABG pO2 Derian Test O2 Delivery Device EPAP IPAP Blood Gas Notified Whom Blood Gas Notified Time Sodium Potassium Chloride Carbon Dioxide Anion Gap BUN Creatinine Estim Creat Clear Calc Est GFR (MDRD) Af Amer Est GFR (MDRD) Non-Af BUN/Creatinine Ratio Glucose Lactic Acid Calcium Total Bilirubin Direct Bilirubin AST ALT Alkaline Phosphatase B-Natriuretic Peptide Total Protein Albumin Globulin Albumin/Globulin Ratio COVID-19 (DELANEY) Pending POC Glucose 141 H 08/14/19 08/14/19 03:50 05:17 WBC RBC Hgb Hct MCV MCH MCHC RDW Std Deviation RDW Coeff of Renetta Plt Count MPV Immature Gran % (Auto) Neut % (Auto) Lymph % (Auto) [place] % (Auto) Eos % (Auto) Baso % (Auto) Absolute Neuts (auto) Absolute Lymphs (auto) Nucleated RBC % Differential Comment Diff Path Review Platelet Estimate Plt Morphology Comment Hypochromasia Anisocytosis Specimen Type Sample Site pH Bicarbonate Actual POC Total CO2 Base Excess O2 Saturation O2 % ABG pCO2 ABG pO2 Derian Test O2 Delivery Device EPAP IPAP Blood Gas Notified Whom Blood Gas Notified Time Sodium 137 Potassium 4.7 Chloride 103 Carbon Dioxide 27.0 Anion Gap 7 BUN 12 Creatinine 1.00 Estim Creat Clear Calc 54.24 Est GFR (MDRD) Af Amer 74 Est GFR (MDRD) Non-Af 61 BUN/Creatinine Ratio 12.0 Glucose 145 H Lactic Acid Calcium 9.2 Total Bilirubin 0.60 Direct Bilirubin AST 32 ALT 26 Alkaline Phosphatase 70 B-Natriuretic Peptide Total Protein 6.9 Albumin 3.7 Globulin 3.2 Albumin/Globulin Ratio 1.2 COVID-19 (DELANEY) POC Glucose 134 H Microbiology 08/13/19 11:55 Mucosa - Nose Influenza Types A,B Direct FA (JEREL) - Final 08/13/19 12:15 Mucosa - Nose Respiratory Panel (PCR) - Final Clinical Impression(s) from Imaging Studies Chest X-Ray 08/13/19 11:50 IMPRESSION: Hyperinflation. Stable mild increased linear markings at the lung bases suggestive of linear scarring. Electronically Signed: Gregory Josue, at 13:23 EDT , Service support , Medical Necessity - Tobacco Use Smoking Status: Former smoker Tobacco Use: Non-smoker Assessment/Plan All Active Problems Acute respiratory failure with hypercapnia (Acute) RECOMMENDATIONS: 1. Reinitiate baseline Seroquel therapy nightly 2. BiPAP breaks as tolerated, but continue with sleep 3. Agree with mucolytic, bronchodilators and Solu-Medrol 4. Monitor for signs and symptoms of bleeding. No transfusions at this time 5. Await COVID testing 6. Monitor through the day. Possible transfer to the cohort floor later today pending clinical course IMPRESSIONS: 1. Acute on chronic hypoxic respiratory failure secondary to presumed COPD exacerbation Patient was recently positive for influenza A and B. Patient did have a COVID negative test in the past, but may have been exposed to a positive person in the interim. We will repeat COVID testing. Agree with Solu-Medrol, bronchodilators and mucolytic. Patient appears to be tolerating baseline nasal cannula at this time. Patient did state that she would be open to intubation if necessary. Patient has been placed in a negative pressure room with appropriate viral filters in place. If patient is positive for COVID-19, convalescent serum may be considered. 2. Pancytopenia/depression/alpha-1 antitrypsin deficiency/poor historian/hyperglycemia Patient does not carry a formal diagnosis of diabetes mellitus, but was recently on steroid therapy. Reasonable to continue with sliding scale insulin. No alpha-1 repletion while in the intensive care unit. Okay to continue with p.o. medications if patient is able to take breaks off of BiPAP. Inpatient E&M: [id number] [facility]
[2019-08-14] MEDS: Atorvastatin Calcium 10 MG Tablet PO (08:46)
[2019-08-14] MEDS: Pantoprazole Sodium 40 MG Tablet PO (08:46)
[2019-08-14] MEDS: Furosemide 20 MG/2 ML VIAL IV (08:46)
[2019-08-14] MEDS: QUEtiapine 100 MG Tablet 400 MG PO ×2 (08:46→22:11)
[2019-08-14] MEDS: Escitalopram Oxalate 20 MG Tablet 40 MG PO (08:46)
[2019-08-14] MEDS: 0.9% Saline Lock 10 ML Syringe IV ×3 (08:50→22:11)
[2019-08-14 09:57] LABS: Pathologist Review Reviewed
[2019-08-14 10:00] LABS: Pathologist Review Reviewed
--- NOTE | 2019-08-14 10:28 | PN_ITS ---
Patient Problems: Active and Suspected Problems Acute respiratory failure with hypercapnia (Acute) Reason for Visit: COPD exacerbation Subjective: breathing better. still with WEBBER with minimal activity. Chest pain and left arm pain today. Vitals/I&O's: Vital Signs Temp Pulse Resp BP Pulse Ox 36.7 C 101 H 22 H 145/80 H 94 08/14/19 08:51 08/14/19 10:00 08/14/19 08:51 08/14/19 10:00 08/14/19 10:00 Oxygen Flow Rate (L/min) 4 Oxygen Delivery Method Nasal Cannula Weight: 83.6 kg Body Mass Index (BMI) 31.6 Intake and Output for Last 24 Hours 08/12/19 08/13/19 08/14/19 23:59 23:59 23:59 Intake Total 1075 / 1075 150 / 150 Output Total 1250 / 1250 450 / 450 Balance -175 / -175 -300 / -300 General: Alert, Cooperative, No apparent distress HEENT: Atraumatic, Normocephalic Oral: Moist Mucosa, No Gingival or Mucosal Lesions/ Ulcerations Neck: No Nodes, Trachea Midline Lungs: No wheeze, Diminished Cardiovascular: Regular rate, Regular Rhythm, Normal S1, Normal S2 Abdomen: Bowel Sounds Present, Soft, Non Tender, Non-Distended, No Hepato-splenomegaly Extremities: No edema, No Calf Tenderness, - - reproducible left sided chest pain. Psych/Mental Status: Normal Affect, Appropriate Microbiology Past 72 Hours 08/13/19 11:55 Mucosa - Nose Influenza Types A,B Direct FA (JEREL) - Final 08/13/19 12:15 Mucosa - Nose Respiratory Panel (PCR) - Final Laboratory Results 08/13/19 11:49: WBC 2.9 L, RBC 4.58, Hgb 11.7 L, Hct 38.6, MCV 84.3, MCH 25.5 L, MCHC 30.3 L, RDW Std Deviation 50.7 H, RDW Coeff of Renetta 16.7 H, Plt Count 44 L*, MPV 11.1, Immature Gran % (Auto) 1.000 H, Neut % (Auto) 78.8 H, Lymph % (Auto) 12.4 L, [place] % (Auto) 6.5, Eos % (Auto) 1.0, Baso % (Auto) 0.3, Absolute Neuts (auto) 2.3, Absolute Lymphs (auto) 0.36 L, Nucleated RBC % 0, Differential Comment SCANNED, Diff Path Review Reviewed, Platelet Estimate MKD DEC, Plt Morphology Comment LARGE 08/13/19 11:49: Sodium 139, Potassium 4.6, Chloride 105, Carbon Dioxide 29.0, Anion Gap 5, BUN 11, Creatinine 0.91, Estim Creat Clear Calc 62.12, Est GFR (MDRD) Af Amer 82, Est GFR (MDRD) Non-Af 68, BUN/Creatinine Ratio 12.1, Glucose 171 H, Calcium 9.2 08/13/19 11:49: Lactic Acid 1.5 08/13/19 11:49: B-Natriuretic Peptide 21.0 08/13/19 11:49: Total Bilirubin 0.60, Direct Bilirubin 0.23, AST 16, ALT 27, Alkaline Phosphatase 79, Total Protein 6.8, Albumin 3.9, Globulin 2.9 08/13/19 16:04: Specimen Type ART, Sample Site L RADIAL, pH 7.33 L, Bicarbonate Actual 30.2 H, POC Total CO2 32, Base Excess 4 H, O2 Saturation 100 H, O2 % 100, ABG pCO2 57.3 H, ABG pO2 434 H*, Derian Test NA, O2 Delivery Device Bi Pap, EPAP 8, IPAP 18, Blood Gas Notified Whom CHARLA ALEXANDRA, Blood Gas Notified Time 1604 08/13/19 17:00: COVID-19 (DELANEY) Pending 08/13/19 23:36: POC Glucose 141 H 08/14/19 03:50: WBC 2.9 L, RBC 4.42, Hgb 11.5 L, Hct 37.5, MCV 84.8, MCH 26.0 L, MCHC 30.7 L, RDW Std Deviation 51.0 H, RDW Coeff of Renetta 16.7 H, Plt Count 44 L*, Immature Gran % (Auto) 0.700, Neut % (Auto) 88.0 H, Lymph % (Auto) 7.4 L, [place] % (Auto) 3.5, Eos % (Auto) 0.0, Baso % (Auto) 0.4, Absolute Neuts (auto) 2.5, Absolute Lymphs (auto) 0.21 L, Nucleated RBC % 0, Differential Comment COMMENT, Diff Path Review Reviewed, Platelet Estimate MKD MAR, Hypochromasia 2+, Anisocytosis 1+ 08/14/19 03:50: Sodium 137, Potassium 4.7, Chloride 103, Carbon Dioxide 27.0, Anion Gap 7, BUN 12, Creatinine 1.00, Estim Creat Clear Calc 54.24, Est GFR (MDRD) Af Amer 74, Est GFR (MDRD) Non-Af 61, BUN/Creatinine Ratio 12.0, Glucose 145 H, Calcium 9.2, Total Bilirubin 0.60, AST 32, ALT 26, Alkaline Phosphatase 70, Total Protein 6.9, Albumin 3.7, Globulin 3.2, Albumin/Globulin Ratio 1.2 08/14/19 05:17: POC Glucose 134 H Current Medications Acetaminophen (Tylenol) 650 mg PO Q6H PRN PRN PRN Reason: Pain Score 1-10/Temp > 100.7 F Last Admin: 08/14/19 05:19 Dose: 650 mg Documented by: Albuterol Sulfate (Ventolin Aerosols) 2.5 mg INHALATION Q2H PRN PRN PRN Reason: SOB/Wheezing Albuterol/Ipratropium (Duoneb) 3 ml INHALATION Q4HWA.RT [facility] Last Admin: 08/14/19 06:58 Dose: 3 ml Documented by: Atorvastatin Calcium (Lipitor) 10 mg PO DAILY [facility] Last Admin: 08/14/19 08:46 Dose: 10 mg Documented by: Escitalopram Oxalate (Lexapro) 40 mg PO DAILY [facility] Last Admin: 08/14/19 08:46 Dose: 40 mg Documented by: Fentanyl Citrate (Sublimaze (100mcg Ampule)) 50 mcg IV Q2H PRN PRN PRN Reason: Pain Score 1-10/10 Furosemide (Lasix) 20 mg IV DAILY [facility] Last Admin: 08/14/19 08:46 Dose: 20 mg Documented by: Hydroxyzine Pamoate (Vistaril Pamoate Capsule) 25 mg PO QHS [facility] Last Admin: 08/13/19 21:32 Dose: 25 mg Documented by: Sodium Chloride () 250 mls @ 15 mls/hr IV .[id number] PRN PRN Reason: Saline Flush Sodium Chloride () 250 mls @ 15 mls/hr IV .[id number] PRN PRN Reason: Additional IVPB Infusion Methylprednisolone (Solu-Medrol) 40 mg IV Q8 [facility] Last Admin: 08/14/19 05:20 Dose: 40 mg Documented by: Pantoprazole Sodium (Protonix) 40 mg PO DAILY [facility] Last Admin: 08/14/19 08:46 Dose: 40 mg Documented by: Quetiapine Fumarate (Seroquel) 400 mg PO BID [facility] Last Admin: 08/14/19 08:46 Dose: 400 mg Documented by: Sodium Chloride () 10 - 40 ml IV UD PRN PRN Reason: SALINE FLUSH Last Admin: 08/14/19 08:50 Dose: 10 ml Documented by: STROKE Vital Signs/Narrative: Vital Signs Temp Pulse Resp BP Pulse Ox 08/14/19 10:00 101 H 145/80 H 94 08/14/19 08:51 36.7 C 22 H 08/14/19 08:00 92 126/79 H 96 08/14/19 07:36 88 08/14/19 07:01 87 19 H 97 08/14/19 07:00 90 18 135/65 H 100 08/14/19 06:58 19 H 97 Medical Necessity - Tobacco Use Smoking Status: Former smoker Tobacco Use: Non-smoker Assessment/Plan All Active Problems Acute respiratory failure with hypercapnia (Acute) 1. acute hypoxic respiratory failure * 2/2 COPD 2. AECOPD * still very symptomatic. Patient states that she was short of breath after her last admission, but had worsened. * on BDs, methylprednisolone * COVID-19 pending. 3. Pancytopenia: * chronic. stable 4. Chest pain * atypical * cycle troponins 5. VTE proph: SCDs Inpatient E&M: [id number] Subs Hosp L2
--- NOTE | 2019-08-14 11:36 | CASEMGMT ---
RN CM Readmission Note Previous Admission: 07.27.19-.20 Diagnosis: COPD exacerbation. 07.28.19- COVID 19 results negative. DC Plan: Home Presentation: COPD exacerbation, COVID 19 pending Intro role of CM and purpose of RN CM assessment to patient via phone. Pt is able to participate in assessment via phone. Demographics, PCP and Pharmacy verified. Pt states she lives at home with her . Is not independent with care needs. States her helps her with care at home. -Pt would have difficulty isolating in home, as her assists with care, meals etc. Would need instructions on isolation, masks etc on dc. Family can get get groceries and prescriptions if needed. Pt has nurse through [employer] for prolastin- this is not an agency that can provide long-term. Per nurse, Joey Jimenez , he provides infusion only. PCP: Dr. Felipe Souza Specialists: Dr. Guajardo [facility] Insurance: [employer] Prescription Benefit: yes LNOK : , Rick Living Arrangements: Live in one story home with her . States her assists with ADL's. Daughter comes once a week to assist with house cleaning. Transportation: does driving. DME: walker, wheelchair, scooter, shower chair, grab bars. Oxygen: pt does not remember name of company, but has portability and concentrator at home. HHC: Pt would consider if needed. Patient DC goals: Home DC PLAN: Home. RN CM advised to contact cm for any concerns/needs that may arise. Jai DUVALL RN AC
[2019-08-14 12:10] LABS: Bedside Glucose 223 mg/dL (70-110)
[2019-08-14 18:11] LABS: Bedside Glucose 172 mg/dL (70-110)
[2019-08-14] MEDS: hydrOXYzine PAM 25 MG Capsule PO (22:10)
[2019-08-14 22:40] LABS: Bedside Glucose 140 mg/dL (70-110)
--- NOTE | 2019-08-14 22:57 | CPS ---
Pt. states she doesn't want to wear BiPAP at night; pt.'s maintaining oxygen saturation > 94% on 4L NC
[2019-08-15] MEDS: 0.9% Saline Lock 10 ML Syringe IV ×3 (04:59→21:20)
[2019-08-15 05:02] VITALS: BP 133/79; PULSE 97; RESP 20; TEMP 36.6; O2SAT 95
[2019-08-15 05:36] LABS: Bedside Glucose 144 mg/dL (70-110)
[2019-08-15 07:52] LABS: Absolute Lymphocyte Count 0.25 X10^3/uL (0.83-4.51); Absolute Neutrophil Count 1.4 X10^3/uL (2.0-7.7); Hemoglobin 11.5 g/dL (12.0-15.0); Lymphocyte # 0.25 X10^3/ul (4.0); Lymphocyte % 13.7 % (19-41); Mean Corp Hgb Conc 30.3 g/dL (32-36); Monocyte# 0.12 X10^3/uL; Monocyte% 6.6 % (0-10); NRBC Flagged by Analyzer 0 % (0-5); Neutrophil # 1.43 X10^3/uL (2.7-7.7); Neutrophil % 78.6 % (47-70); POSITIVE COUNT YES; POSITIVE DIFFERENTIAL YES; POSITIVE MORPHOLOGY YES; RBC Distribution Width CV 16.3 % (11.6-14.6); RBC Distribution Width SD 51.4 fl (35.1-43.9); Red Blood Count 4.42 M/mm3 (4.2-5.4); White Blood Count 1.8 K/mm3 (4.4-11.0)
[2019-08-15 07:57] LABS: Differential Indicated SCAN CRITERIA MET; Platelet Count 41 K/mm3 (150-450)
[2019-08-15] MEDS: Ipratropium/Albuterol Sulfate 3 ML AMPUL.NEB INHALATION ×3 (08:00→19:39)
[2019-08-15 08:01] VITALS: PULSE 94; RESP 18; O2SAT 94
[2019-08-15 08:13] LABS: Anion Gap 4 (5-15); BUN 24 mg/dL (7-18); BUN/Creat Ratio 25.1 RATIO (10-20); Calcium,Total 9.1 mg/dL (8.5-10.1); Chloride 107 mmol/L (98-107); Creatinine, Serum 0.96 mg/dL (0.55-1.02); EST Glomerular Filtration Rate 64 mL/min (>60); Est Glom Filt Rate - Afr Amer 78 mL/min (>60); Glucose 142 mg/dL (74-106); Potassium 4.3 mmol/L (3.5-5.1); Sodium Level 143 mmol/L (136-145)
--- NOTE | 2019-08-15 08:47 | PCM.PN.INT ---
Subjective: Patient transferred out of the intensive care unit yesterday. Patient reports subjective improvement in overall condition. No fevers were noted overnight. Patient has been on her baseline 3 to 4 L/min nasal cannula to maintain saturations. No BiPAP rescue has been required. General: Alert, Oriented x3, Cooperative, - - Mild conversational dyspnea. Obese. Appears older than stated age. HEENT: Atraumatic, PERRLA, EOMI, Normocephalic, - - No scleral icterus or injection noted Oral: Moist Mucosa, No Gingival or Mucosal Lesions/ Ulcerations Neck: Supple, No JVD, No Nodes, Trachea Midline Lungs: No rhonchi, No wheeze, No rales, Diminished, - - Symmetric expansion. Increased AP diameter. Cardiovascular: Normal S1, Normal S2, No murmurs, No rub noted, No Gallop, Tachycardic Abdomen: Bowel Sounds Present, Soft, Non Tender, Non-Distended, Obese Extremities: No cyanosis, No edema, Capillary Refill Less than 3 Seconds, Clubbing Skin: - - No change compared to previous Musculoskeletal: No Tenderness to Palpation of Joints or Extremities Lymphatic: No Cervical, Supraclavicular, or Inguinal Adenopathy Neurological: Cranial nerves II-XII grossly intact, Neuro grossly intact, Motor Exam 5/5 strength throughout Psych/Mental Status: Alert and oriented to time, place, person, mood and affect Vital Signs Temp Pulse Resp BP Pulse Ox 36.6 C 94 18 133/79 H 94 08/15/19 05:02 08/15/19 08:01 08/15/19 08:01 08/15/19 05:02 08/15/19 08:01 Oxygen Flow Rate (L/min) 4.5 Oxygen Delivery Method Nasal Cannula Weight: 81.6 kg Body Mass Index (BMI) 31.6 Intake and Output for Last 24 Hours 08/13/19 08/14/19 08/15/19 23:59 23:59 23:59 Intake Total 1075 / 1075 650 / 650 Output Total 1250 / 1250 1300 / 1300 Balance -175 / -175 -650 / -650 Labs (Last 48 Hours) 08/13/19 08/13/19 08/13/19 11:49 11:49 11:49 WBC 2.9 L RBC 4.58 Hgb 11.7 L Hct 38.6 MCV 84.3 MCH 25.5 L MCHC 30.3 L RDW Std Deviation 50.7 H RDW Coeff of Renetta 16.7 H Plt Count 44 L* MPV 11.1 Immature Gran % (Auto) 1.000 H Neut % (Auto) 78.8 H Lymph % (Auto) 12.4 L [place] % (Auto) 6.5 Eos % (Auto) 1.0 Baso % (Auto) 0.3 Absolute Neuts (auto) 2.3 Absolute Lymphs (auto) 0.36 L Nucleated RBC % 0 Differential Comment SCANNED Diff Path Review Reviewed Platelet Estimate MKD DEC Plt Morphology Comment LARGE Hypochromasia Anisocytosis Specimen Type Sample Site pH Bicarbonate Actual POC Total CO2 Base Excess O2 Saturation O2 % ABG pCO2 ABG pO2 Derian Test O2 Delivery Device EPAP IPAP Blood Gas Notified Whom Blood Gas Notified Time Sodium 139 Potassium 4.6 Chloride 105 Carbon Dioxide 29.0 Anion Gap 5 BUN 11 Creatinine 0.91 Estim Creat Clear Calc 62.12 Est GFR (MDRD) Af Amer 82 Est GFR (MDRD) Non-Af 68 BUN/Creatinine Ratio 12.1 Glucose 171 H Lactic Acid 1.5 Calcium 9.2 Total Bilirubin Direct Bilirubin AST ALT Alkaline Phosphatase Troponin I B-Natriuretic Peptide Total Protein Albumin Globulin Albumin/Globulin Ratio COVID-19 (DELANEY) POC Glucose 08/13/19 08/13/19 08/13/19 11:49 11:49 16:04 WBC RBC Hgb Hct MCV MCH MCHC RDW Std Deviation RDW Coeff of Renetta Plt Count MPV Immature Gran % (Auto) Neut % (Auto) Lymph % (Auto) [place] % (Auto) Eos % (Auto) Baso % (Auto) Absolute Neuts (auto) Absolute Lymphs (auto) Nucleated RBC % Differential Comment Diff Path Review Platelet Estimate Plt Morphology Comment Hypochromasia Anisocytosis Specimen Type ART Sample Site L RADIAL pH 7.33 L Bicarbonate Actual 30.2 H POC Total CO2 32 Base Excess 4 H O2 Saturation 100 H O2 % 100 ABG pCO2 57.3 H ABG pO2 434 H* Derian Test NA O2 Delivery Device Bi Pap EPAP 8 IPAP 18 Blood Gas Notified Whom [facility] Blood Gas Notified Time 1604 Sodium Potassium Chloride Carbon Dioxide Anion Gap BUN Creatinine Estim Creat Clear Calc Est GFR (MDRD) Af Amer Est GFR (MDRD) Non-Af BUN/Creatinine Ratio Glucose Lactic Acid Calcium Total Bilirubin 0.60 Direct Bilirubin 0.23 AST 16 ALT 27 Alkaline Phosphatase 79 Troponin I B-Natriuretic Peptide 21.0 Total Protein 6.8 Albumin 3.9 Globulin 2.9 Albumin/Globulin Ratio COVID-19 (DELANEY) POC Glucose 08/13/19 08/13/19 08/14/19 17:00 23:36 03:50 WBC 2.9 L RBC 4.42 Hgb 11.5 L Hct 37.5 MCV 84.8 MCH 26.0 L MCHC 30.7 L RDW Std Deviation 51.0 H RDW Coeff of Renetta 16.7 H Plt Count 44 L* MPV Immature Gran % (Auto) 0.700 Neut % (Auto) 88.0 H Lymph % (Auto) 7.4 L [place] % (Auto) 3.5 Eos % (Auto) 0.0 Baso % (Auto) 0.4 Absolute Neuts (auto) 2.5 Absolute Lymphs (auto) 0.21 L Nucleated RBC % 0 Differential Comment COMMENT Diff Path Review Reviewed Platelet Estimate MKD DEC Plt Morphology Comment Hypochromasia 2+ Anisocytosis 1+ Specimen Type Sample Site pH Bicarbonate Actual POC Total CO2 Base Excess O2 Saturation O2 % ABG pCO2 ABG pO2 Derian Test O2 Delivery Device EPAP IPAP Blood Gas Notified Whom Blood Gas Notified Time Sodium Potassium Chloride Carbon Dioxide Anion Gap BUN Creatinine Estim Creat Clear Calc Est GFR (MDRD) Af Amer Est GFR (MDRD) Non-Af BUN/Creatinine Ratio Glucose Lactic Acid Calcium Total Bilirubin Direct Bilirubin AST ALT Alkaline Phosphatase Troponin I B-Natriuretic Peptide Total Protein Albumin Globulin Albumin/Globulin Ratio COVID-19 (DELANEY) Pending POC Glucose 141 H 08/14/19 08/14/19 08/14/19 03:50 05:17 11:35 WBC RBC Hgb Hct MCV MCH MCHC RDW Std Deviation RDW Coeff of Renetta Plt Count MPV Immature Gran % (Auto) Neut % (Auto) Lymph % (Auto) [place] % (Auto) Eos % (Auto) Baso % (Auto) Absolute Neuts (auto) Absolute Lymphs (auto) Nucleated RBC % Differential Comment Diff Path Review Platelet Estimate Plt Morphology Comment Hypochromasia Anisocytosis Specimen Type Sample Site pH Bicarbonate Actual POC Total CO2 Base Excess O2 Saturation O2 % ABG pCO2 ABG pO2 Derian Test O2 Delivery Device EPAP IPAP Blood Gas Notified Whom Blood Gas Notified Time Sodium 137 Potassium 4.7 Chloride 103 Carbon Dioxide 27.0 Anion Gap 7 BUN 12 Creatinine 1.00 Estim Creat Clear Calc 54.24 Est GFR (MDRD) Af Amer 74 Est GFR (MDRD) Non-Af 61 BUN/Creatinine Ratio 12.0 Glucose 145 H Lactic Acid Calcium 9.2 Total Bilirubin 0.60 Direct Bilirubin AST 32 ALT 26 Alkaline Phosphatase 70 Troponin I B-Natriuretic Peptide Total Protein 6.9 Albumin 3.7 Globulin 3.2 Albumin/Globulin Ratio 1.2 COVID-19 (DELANEY) POC Glucose 134 H 223 H 08/14/19 08/14/19 08/14/19 12:05 14:30 17:29 WBC RBC Hgb Hct MCV MCH MCHC RDW Std Deviation RDW Coeff of Renetta Plt Count MPV Immature Gran % (Auto) Neut % (Auto) Lymph % (Auto) [place] % (Auto) Eos % (Auto) Baso % (Auto) Absolute Neuts (auto) Absolute Lymphs (auto) Nucleated RBC % Differential Comment Diff Path Review Platelet Estimate Plt Morphology Comment Hypochromasia Anisocytosis Specimen Type Sample Site pH Bicarbonate Actual POC Total CO2 Base Excess O2 Saturation O2 % ABG pCO2 ABG pO2 Derian Test O2 Delivery Device EPAP IPAP Blood Gas Notified Whom Blood Gas Notified Time Sodium Potassium Chloride Carbon Dioxide Anion Gap BUN Creatinine Estim Creat Clear Calc Est GFR (MDRD) Af Amer Est GFR (MDRD) Non-Af BUN/Creatinine Ratio Glucose Lactic Acid Calcium Total Bilirubin Direct Bilirubin AST ALT Alkaline Phosphatase Troponin I < 0.015 < 0.015 B-Natriuretic Peptide Total Protein Albumin Globulin Albumin/Globulin Ratio COVID-19 (DELANEY) POC Glucose 172 H 08/14/19 08/15/19 08/15/19 22:08 04:58 07:25 WBC 1.8 L RBC 4.42 Hgb 11.5 L Hct 38.0 MCV 86.0 MCH 26.0 L MCHC 30.3 L RDW Std Deviation 51.4 H RDW Coeff of Renetta 16.3 H Plt Count 41 L* MPV 11.0 Immature Gran % (Auto) 1.100 H Neut % (Auto) 78.6 H Lymph % (Auto) 13.7 L [place] % (Auto) 6.6 Eos % (Auto) 0.0 Baso % (Auto) 0.0 Absolute Neuts (auto) 1.4 L Absolute Lymphs (auto) 0.25 L Nucleated RBC % 0 Differential Comment Diff Path Review Platelet Estimate Plt Morphology Comment Hypochromasia Anisocytosis Specimen Type Sample Site pH Bicarbonate Actual POC Total CO2 Base Excess O2 Saturation O2 % ABG pCO2 ABG pO2 Derian Test O2 Delivery Device EPAP IPAP Blood Gas Notified Whom Blood Gas Notified Time Sodium Potassium Chloride Carbon Dioxide Anion Gap BUN Creatinine Estim Creat Clear Calc Est GFR (MDRD) Af Amer Est GFR (MDRD) Non-Af BUN/Creatinine Ratio Glucose Lactic Acid Calcium Total Bilirubin Direct Bilirubin AST ALT Alkaline Phosphatase Troponin I B-Natriuretic Peptide Total Protein Albumin Globulin Albumin/Globulin Ratio COVID-19 (DELANEY) POC Glucose 140 H 144 H 08/15/19 07:25 WBC RBC Hgb Hct MCV MCH MCHC RDW Std Deviation RDW Coeff of Renetta Plt Count MPV Immature Gran % (Auto) Neut % (Auto) Lymph % (Auto) [place] % (Auto) Eos % (Auto) Baso % (Auto) Absolute Neuts (auto) Absolute Lymphs (auto) Nucleated RBC % Differential Comment Diff Path Review Platelet Estimate Plt Morphology Comment Hypochromasia Anisocytosis Specimen Type Sample Site pH Bicarbonate Actual POC Total CO2 Base Excess O2 Saturation O2 % ABG pCO2 ABG pO2 Derian Test O2 Delivery Device EPAP IPAP Blood Gas Notified Whom Blood Gas Notified Time Sodium 143 Potassium 4.3 Chloride 107 Carbon Dioxide 32.0 Anion Gap 4 L BUN 24 H Creatinine 0.96 Estim Creat Clear Calc 56.50 Est GFR (MDRD) Af Amer 78 Est GFR (MDRD) Non-Af 64 BUN/Creatinine Ratio 25.1 H Glucose 142 H Lactic Acid Calcium 9.1 Total Bilirubin Direct Bilirubin AST ALT Alkaline Phosphatase Troponin I B-Natriuretic Peptide Total Protein Albumin Globulin Albumin/Globulin Ratio COVID-19 (DELANEY) POC Glucose Microbiology 08/13/19 12:05 Blood Culture (Wb) #2 - Anticubital Right Blood Culture - Preliminary No growth in 48 hours. 08/13/19 11:49 Blood Culture (Wb) - Left Wrist Blood Culture - Preliminary No growth in 48 hours. 08/13/19 11:55 Mucosa - Nose Influenza Types A,B Direct FA (JEREL) - Final 08/13/19 12:15 Mucosa - Nose Respiratory Panel (PCR) - Final Medical Necessity - Tobacco Use Smoking Status: Former smoker Tobacco Use: Non-smoker Assessment/Plan All Active Problems Acute respiratory failure with hypercapnia (Acute) RECOMMENDATIONS: 1. Reinitiate baseline Seroquel therapy 2. Encourage BiPAP with sleep 3. Agree with mucolytic, bronchodilators, but will wean Solu-Medrol 4. Monitor for signs and symptoms of bleeding. No transfusions at this time 5. Await COVID testing 6. If COVID negative, anticipate transition to prednisone tomorrow and wean over the next 12 to 14 days IMPRESSIONS: 1. Acute on chronic hypoxic respiratory failure secondary to presumed COPD exacerbation Patient was recently positive for influenza A and B. Patient did have a COVID negative test in the past, but may have been exposed to a positive person in the interim. Repeat COVID testing pending. Agree with bronchodilators and mucolytic. Will wean IV steroids. Probably transition to prednisone tomorrow and wean over 12 to 14 days. If doing well, possible discharge tomorrow with follow-up with primary drafting clerk. Patient appears to be tolerating baseline nasal cannula at this time. Patient did state that she would be open to intubation if necessary. 2. Pancytopenia/depression/alpha-1 antitrypsin deficiency/poor historian/hyperglycemia Patient does not carry a formal diagnosis of diabetes mellitus, but was recently on steroid therapy. Reasonable to continue with sliding scale insulin. No alpha-1 repletion while hospitalized. Okay to continue with baseline p.o. medications. Inpatient E&M: [id number] [facility] Hosp L2
[2019-08-15 08:51] LABS: Platelet Estimate MKD DEC (ADEQ)
[2019-08-15 10:30] VITALS: BP 110/59; PULSE 93; RESP 18; TEMP 37.2; O2SAT 96
[2019-08-15] MEDS: Escitalopram Oxalate 20 MG Tablet 40 MG PO (10:43)
[2019-08-15] MEDS: Atorvastatin Calcium 10 MG Tablet PO (10:43)
[2019-08-15] MEDS: Pantoprazole Sodium 40 MG Tablet PO (10:43)
[2019-08-15] MEDS: Furosemide 20 MG/2 ML VIAL IV (10:43)
[2019-08-15] MEDS: Glucerna Shake 120 ML LIQUID PO ×3 (10:43→17:14)
[2019-08-15] MEDS: QUEtiapine 100 MG Tablet 400 MG PO ×2 (10:43→21:21)
--- NOTE | 2019-08-15 12:00 | PN_ITS ---
Patient Problems: Active and Suspected Problems Acute respiratory failure with hypercapnia (Acute) Reason for Visit: COPD exacerbation Subjective: Breathing better. Vitals/I&O's: Vital Signs Temp Pulse Resp BP Pulse Ox 37.2 C 93 18 110/59 L 96 08/15/19 10:30 08/15/19 10:30 08/15/19 10:30 08/15/19 10:30 08/15/19 10:30 Oxygen Flow Rate (L/min) 4 Oxygen Delivery Method Nasal Cannula Weight: 81.6 kg Body Mass Index (BMI) 31.6 Intake and Output for Last 24 Hours 08/13/19 08/14/19 08/15/19 23:59 23:59 23:59 Intake Total 1075 / 1075 650 / 650 Output Total 1250 / 1250 1300 / 1300 Balance -175 / -175 -650 / -650 General: Alert, Cooperative, No apparent distress HEENT: Atraumatic, Normocephalic Oral: Moist Mucosa, No Gingival or Mucosal Lesions/ Ulcerations Neck: No Nodes, Trachea Midline Lungs: Diminished, Wheezes - faint Cardiovascular: Regular rate, Regular Rhythm, Normal S1, Normal S2, No murmurs Abdomen: Bowel Sounds Present, Soft, Non Tender, Non-Distended, No Hepato- splenomegaly Extremities: No edema, No Calf Tenderness Psych/Mental Status: Normal Affect, Appropriate Microbiology Past 72 Hours 08/13/19 12:05 Blood Culture (Wb) #2 - Anticubital Right Blood Culture - Preliminary No growth in 48 hours. 08/13/19 11:49 Blood Culture (Wb) - Left Wrist Blood Culture - Preliminary No growth in 48 hours. 08/13/19 11:55 Mucosa - Nose Influenza Types A,B Direct FA (JEREL) - Final 08/13/19 12:15 Mucosa - Nose Respiratory Panel (PCR) - Final Laboratory Results 08/14/19 11:35: POC Glucose 223 H 08/14/19 12:05: Troponin I < 0.015 08/14/19 14:30: Troponin I < 0.015 08/14/19 17:29: POC Glucose 172 H 08/14/19 22:08: POC Glucose 140 H 08/15/19 04:58: POC Glucose 144 H 08/15/19 07:25: WBC 1.8 L, RBC 4.42, Hgb 11.5 L, Hct 38.0, MCV 86.0, MCH 26.0 L, MCHC 30.3 L, RDW Std Deviation 51.4 H, RDW Coeff of Renetta 16.3 H, Plt Count 41 L*, MPV 11.0, Immature Gran % (Auto) 1.100 H, Neut % (Auto) 78.6 H, Lymph % (Auto) 13.7 L, [place] % (Auto) 6.6, Eos % (Auto) 0.0, Baso % (Auto) 0.0, Absolute Neuts (auto) 1.4 L, Absolute Lymphs (auto) 0.25 L, Nucleated RBC % 0, Differential Comment COMMENT, Diff Path Review August foll, Platelet Estimate MKD 08/15/19 07:25: Sodium 143, Potassium 4.3, Chloride 107, Carbon Dioxide 32.0, Anion Gap 4 L, BUN 24 H, Creatinine 0.96, Estim Creat Clear Calc 56.50, Est GFR (MDRD) Af Amer 78, Est GFR (MDRD) Non-Af 64, BUN/Creatinine Ratio 25.1 H, Glucose 142 H, Calcium 9.1 Current Medications Acetaminophen (Tylenol) 650 mg PO Q6H PRN PRN PRN Reason: Pain Score 1-10/Temp > 100.7 F Last Admin: 08/14/19 11:35 Dose: 650 mg Documented by: Albuterol Sulfate (Ventolin Aerosols) 2.5 mg INHALATION Q2H PRN PRN PRN Reason: SOB/Wheezing Albuterol/Ipratropium (Duoneb) 3 ml INHALATION Q4HWA.RT [facility] Last Admin: 08/15/19 08:00 Dose: 3 ml Documented by: Atorvastatin Calcium (Lipitor) 10 mg PO DAILY [facility] Last Admin: 08/15/19 10:43 Dose: 10 mg Documented by: Escitalopram Oxalate (Lexapro) 40 mg PO DAILY [facility] Last Admin: 08/15/19 10:43 Dose: 40 mg Documented by: Fentanyl Citrate (Sublimaze (100mcg Ampule)) 50 mcg IV Q2H PRN PRN PRN Reason: Pain Score 1-10/10 Furosemide (Lasix) 20 mg IV DAILY [facility] Last Admin: 08/15/19 10:43 Dose: 20 mg Documented by: Hydroxyzine Pamoate (Vistaril Pamoate Capsule) 25 mg PO QHS [facility] Last Admin: 08/14/19 22:10 Dose: 25 mg Documented by: Sodium Chloride () 250 mls @ 15 mls/hr IV .[id number] PRN PRN Reason: Saline Flush Sodium Chloride () 250 mls @ 15 mls/hr IV .[id number] PRN PRN Reason: Additional IVPB Infusion Methylprednisolone (Solu-Medrol) 40 mg IV Q12 [facility] Nutritional Formula (Lactose Free) (Glucerna Shake) 120 ml PO TIDCM [facility] Last Admin: 08/15/19 10:43 Dose: 120 ml Documented by: Pantoprazole Sodium (Protonix) 40 mg PO DAILY [facility] Last Admin: 08/15/19 10:43 Dose: 40 mg Documented by: Quetiapine Fumarate (Seroquel) 400 mg PO BID [facility] Last Admin: 08/15/19 10:43 Dose: 400 mg Documented by: Sodium Chloride () 10 - 40 ml IV UD PRN PRN Reason: SALINE FLUSH Last Admin: 08/15/19 10:43 Dose: 10 ml Documented by: STROKE Vital Signs/Narrative: Vital Signs Temp Pulse Resp BP Pulse Ox 08/15/19 10:30 37.2 C 93 18 110/59 L 96 08/15/19 08:01 94 18 94 Medical Necessity - Tobacco Use Smoking Status: Former smoker Tobacco Use: Non-smoker Assessment/Plan All Active Problems Acute respiratory failure with hypercapnia (Acute) 1. acute hypoxic respiratory failure * 2/2 COPD exacerbation 2. AECOPD * subjectively improved. Patient states that she was short of breath after her last admission, but had worsened. * on BDs, methylprednisolone * COVID-19 pending. * Pulm following 3. Pancytopenia: * chronic. stable 4. Chest pain * atypical * trops negative 5. VTE proph: SCDs Inpatient E&M: 80892 Subs Hosp L2
[2019-08-15 12:56] LABS: Bedside Glucose 231 mg/dL (70-110)
[2019-08-15 15:27] VITALS: BP 127/88; PULSE 103; RESP 18; TEMP 37.1; O2SAT 97
[2019-08-15 19:40] VITALS: PULSE 102; RESP 18; O2SAT 95
--- NOTE | 2019-08-15 20:12 | CPS ---
PT STATES INSURANCE WILL NOT PAY FOR BIPAP WILL NOT WEAR DOESN'T WANT TO GET USED TO WEARING AND NOT HAVE AT HOME
[2019-08-15 20:24] VITALS: BP 142/52; PULSE 105; RESP 18; TEMP 37.6; O2SAT 95
[2019-08-15] MEDS: hydrOXYzine PAM 25 MG Capsule PO (21:21)
[2019-08-15 21:51] LABS: Bedside Glucose 175 mg/dL (70-110)
[2019-08-16 02:45] VITALS: BP 136/94; PULSE 93; RESP 18; TEMP 36.7; O2SAT 100
[2019-08-16 06:30] LABS: Bedside Glucose 156 mg/dL (70-110)
--- NOTE | 2019-08-16 07:44 | PCM.PN.PUL ---
Patient Problems: Active and Suspected Problems Acute respiratory failure with hypercapnia (Acute) Subjective: Patient did well overnight. No acute issues were reported. Patient has been saturating well on her baseline nasal cannula oxygen. COVID testing came back negative and patient was moved back to [facility]. Patient states that she feels good this morning and is confident that she can go home. - Physical Exam Vitals/I&O's: Vital Signs Temp Pulse Resp BP Pulse Ox 36.7 C 93 18 136/94 H 100 08/16/19 02:45 08/16/19 02:45 08/16/19 02:45 08/16/19 02:45 08/16/19 02:45 Oxygen Flow Rate (L/min) 4 Oxygen Delivery Method Nasal Cannula Weight: 83 kg Body Mass Index (BMI) 31.6 Intake and Output for Last 24 Hours 08/14/19 08/15/19 08/16/19 23:59 23:59 23:59 Intake Total 650 / 650 1090 / 1090 100 / 100 Output Total 1300 / 1300 Balance -650 / -650 1090 / 1090 100 / 100 General: Alert, Oriented x3, Cooperative, No apparent distress, - - Appears older than stated age. Obese. Speaking in full sentences. HEENT: Atraumatic, PERRLA, EOMI, Normocephalic, - - No scleral icterus or injection noted Oral: Moist Mucosa, No Gingival or Mucosal Lesions/ Ulcerations Neck: Supple, No JVD, No Nodes, Trachea Midline Lungs: No rhonchi, No wheeze, No rales, Diminished, - - Symmetric expansion. Increased AP diameter. Cardiovascular: Regular rate, Regular Rhythm, Normal S1, Normal S2, No murmurs, No rub noted, No Gallop Abdomen: Bowel Sounds Present, Soft, Non Tender, Non-Distended, Obese Extremities: No cyanosis, No edema, Capillary Refill Less than 3 Seconds, Clubbing Skin: - - No change compared to previous Musculoskeletal: No Tenderness to Palpation of Joints or Extremities, No Muscle Wasting Lymphatic: No Cervical, Supraclavicular, or Inguinal Adenopathy Neurological: Cranial nerves II-XII grossly intact, Neuro grossly intact, Motor Exam 5/5 strength throughout Psych/Mental Status: Alert and oriented to time, place, person, mood and affect Microbiology Past 72 Hours 08/13/19 12:05 Blood Culture (Wb) #2 - Anticubital Right Blood Culture - Preliminary No growth in 48 hours. 08/13/19 11:49 Blood Culture (Wb) - Left Wrist Blood Culture - Preliminary No growth in 48 hours. 08/13/19 11:55 Mucosa - Nose Influenza Types A,B Direct FA (JEREL) - Final 08/13/19 12:15 Mucosa - Nose Respiratory Panel (PCR) - Final Laboratory Results 08/13/19 17:00: COVID-19 (DELANEY) Not Detected 08/15/19 07:25: WBC 1.8 L, RBC 4.42, Hgb 11.5 L, Hct 38.0, MCV 86.0, MCH 26.0 L, MCHC 30.3 L, RDW Std Deviation 51.4 H, RDW Coeff of Renetta 16.3 H, Plt Count 41 L*, MPV 11.0, Immature Gran % (Auto) 1.100 H, Neut % (Auto) 78.6 H, Lymph % (Auto) 13.7 L, [place] % (Auto) 6.6, Eos % (Auto) 0.0, Baso % (Auto) 0.0, Absolute Neuts (auto) 1.4 L, Absolute Lymphs (auto) 0.25 L, Nucleated RBC % 0, Differential Comment COMMENT, Diff Path Review August rosalinda, Platelet Estimate MKD 08/15/19 07:25: Sodium 143, Potassium 4.3, Chloride 107, Carbon Dioxide 32.0, Anion Gap 4 L, BUN 24 H, Creatinine 0.96, Estim Creat Clear Calc 56.50, Est GFR (MDRD) Af Amer 78, Est GFR (MDRD) Non-Af 64, BUN/Creatinine Ratio 25.1 H, Glucose 142 H, Calcium 9.1 08/15/19 12:38: POC Glucose 231 H 08/15/19 17:13: POC Glucose 156 H 08/15/19 21:20: POC Glucose 175 H Current Medications Acetaminophen (Tylenol) 650 mg PO Q6H PRN PRN PRN Reason: Pain Score 1-10/Temp > 100.7 F Last Admin: 08/14/19 11:35 Dose: 650 mg Documented by: Albuterol Sulfate (Ventolin Aerosols) 2.5 mg INHALATION Q2H PRN PRN PRN Reason: SOB/Wheezing Albuterol/Ipratropium (Duoneb) 3 ml INHALATION Q4HWA.RT [facility] [place] Last Admin: 08/15/19 19:39 Dose: 3 ml Documented by: Atorvastatin Calcium (Lipitor) 10 mg PO DAILY [facility] [facility] Last Admin: 08/15/19 10:43 Dose: 10 mg Documented by: Escitalopram Oxalate (Lexapro) 40 mg PO DAILY [facility] [place] Last Admin: 08/15/19 10:43 Dose: 40 mg Documented by: Fentanyl Citrate (Sublimaze (100mcg Ampule)) 50 mcg IV Q2H PRN PRN PRN Reason: Pain Score 1-10/10 Furosemide (Lasix) 20 mg IV DAILY [facility] [place] Last Admin: 08/15/19 10:43 Dose: 20 mg Documented by: Hydroxyzine Pamoate (Vistaril Pamoate Capsule) 25 mg PO QHS [facility] [place] Last Admin: 08/15/19 21:21 Dose: 25 mg Documented by: Sodium Chloride () 250 mls @ 15 mls/hr IV .[id number] PRN PRN Reason: Saline Flush Sodium Chloride () 250 mls @ 15 mls/hr IV .[id number] PRN PRN Reason: Additional IVPB Infusion Nutritional Formula (Lactose Free) (Glucerna Shake) 120 ml PO TIDCM [facility] [place] Last Admin: 08/15/19 17:14 Dose: 120 ml Documented by: Pantoprazole Sodium (Protonix) 40 mg PO DAILY [facility] Last Admin: 08/15/19 10:43 Dose: 40 mg Documented by: Quetiapine Fumarate (Seroquel) 400 mg PO BID [facility] Last Admin: 08/15/19 21:21 Dose: 400 mg Documented by: Sodium Chloride () 10 - 40 ml IV UD PRN PRN Reason: SALINE FLUSH Last Admin: 08/15/19 21:20 Dose: 10 ml Documented by: Medical Necessity - Tobacco Use Smoking Status: Former smoker Tobacco Use: Non-smoker Assessment/Plan All Active Problems Acute respiratory failure with hypercapnia (Acute) RECOMMENDATIONS: 1. Continue baseline Seroquel therapy 2. Encourage BiPAP with sleep 3. Agree with mucolytic, bronchodilators, but will transition to prednisone 4. Monitor for signs and symptoms of bleeding. No transfusions at this time 5. Wean prednisone over the next 12 to 14 days. Okay to discharge from a pulmonary perspective 6. Okay to follow-up with primary final finisher forging dies in 2 weeks following discharge IMPRESSIONS: 1. Acute on chronic hypoxic respiratory failure secondary to presumed COPD exacerbation Patient was recently positive for influenza A and B. Patient did have a COVID negative test in the past, but may have been exposed to a positive person in the interim. Repeat COVID testing negative. Agree with bronchodilators and mucolytic. Transition to prednisone tomorrow and wean over 12 to 14 days. Okay to discharge from my perspective with follow-up with primary final finisher forging dies. Patient appears to be tolerating baseline nasal cannula at this time. Patient did state that she would be open to intubation if necessary. 2. Pancytopenia/depression/alpha-1 antitrypsin deficiency/poor historian/hyperglycemia Patient does not carry a formal diagnosis of diabetes mellitus, but was recently on steroid therapy. Reasonable to continue with sliding scale insulin. No alpha-1 repletion while hospitalized. No bleeding complications, so transfusions are not indicated okay to continue with baseline p.o. medications. Inpatient E&M: [id number] [facility] Hosp L2
[2019-08-16 07:49] VITALS: PULSE 84; RESP 16; O2SAT 98
[2019-08-16] MEDS: Ipratropium/Albuterol Sulfate 3 ML AMPUL.NEB INHALATION (07:49)
--- NOTE | 2019-08-16 08:24 | PCM.DC ---
- Discharge Diagnoses Current Active Problems: Current Active and Chronic Problems Acute respiratory failure with hypercapnia (Acute) You will use the following diet at home:: No restrictions Call your doctor if you observe: Fever of 101 or Higher, Shortness of breath Allergies/Adverse Reactions: Allergies erythromycin base Allergy (Verified 08/13/19 11:46) FACIAL SWELLING Medications to take at Discharge Albuterol Inhaler [Ventolin Hfa] 2 puff INHALATION Q4H PRN PRN 05/29/16 Atorvastatin Calcium [Lipitor] 10 mg PO DAILY 05/29/16 Ipratropium/Albuterol Sulfate [Duoneb] 3 ml INHALATION Q6H PRN PRN 05/29/16 Roflumilast [Daliresp] 500 mcg PO DAILY 05/29/16 Escitalopram Oxalate [Lexapro] 40 mg PO DAILY 04/12/17 Potassium Chloride [K-Dur] 10 meq PO TID 03/09/18 Aabew-4-Wactfchqaq Inhibitor [Prolastin C] 5,390 mg IV TH 07/27/19 Esomeprazole Mag Trihydrate [Nexium] 40 mg PO DAILY 07/27/19 Fluticasone/Umeclidin/Vilanter [Trelegy Ellipta 100-62.5-25] 1 ea IH DAILY 07/27/19 Lamotrigine 150 mg PO BID 07/27/19 Quetiapine Fumarate [Seroquel Xr] 800 mg PO QHS 07/27/19 hydrOXYzine pamoate capsule [Vistaril pamoate capsule] 25 mg PO QHS 07/27/19 Prednisone 1 tab PO DAILY #30 tab.ds.pk 08/16/19 The following prescriptions were given: Prednisone 1 tab PO DAILY #30 tab.ds.pk Transmission Status: Pending to [facility] [facility] Primary Care Physician: Felipe Souza [Primary Care Provider] - Within 2 Weeks Test Results: Test results from this visit will be discussed in further detail at your follow-up appointment, if applicable. Please Follow Up With: pulmonology When: 2 weeks Proposed Discharge Date: 08/16/19
--- NOTE | 2019-08-16 08:25 | PCM.DC.SUM ---
Discharge Date and Diagnosis - Problem List Patient Problems: Active and Suspected Problems Acute respiratory failure with hypercapnia (Acute) Date of Admission: 08/13/19 Date of Discharge: 08/16/19 - Primary Discharge Diagnosis Active and Suspected Problems Acute respiratory failure with hypercapnia (Acute) 1. acute hypoxic respiratory failure 2/2 COPD exacerbation 2. AECOPD subjectively improved. Patient states that she was short of breath after her last admission, but had worsened. on BDs, methylprednisolone, transition to prednisone taper. COVID-19 negative. Follow up with primary intranet developer as outpt. - Secondary Discharge Diagnosis Chronic Problems Hyperlipidemia (Chronic) Chronic thrombocytopenia (Chronic) Depression (Chronic) Chronic respiratory failure (Chronic) COPD (chronic obstructive pulmonary disease) (Chronic) Mziyp-1-dtyiaxssqjd deficiency (Chronic) Hospital Course and Treatment Imaging Results: Clinical Impression(s) from Imaging Studies Chest X-Ray 08/13/19 11:50 IMPRESSION: Hyperinflation. Stable mild increased linear markings at the lung bases suggestive of linear scarring. Electronically Signed: Gregory Salas, at 13:23 EDT , Service support , Anand, pulmonology Operations: None Procedures: None Summary of Care Provided: The patient is a 54 year old F who was discharged roughly 2 weeks prior to this admission. Patient states that that she was short of breath then but has progressively gotten worse. Patient was brought in and diagnosed with a COPD exacerbation. But given the ongoing pandemic, patient was checked for COVID-19 which I did subsequent come back as negative. Patient was treated with bronchodilators as well as methylprednisolone and has steadily improved. Patient was seen in consultation by pulmonology who is followed along during this hospitalization. Today, the patient is feeling better and back to baseline. States that she is able to go to the bathroom without any difficulty whereas when she initially presented, she was a short of breath with just minimal movement just in bed. So plan is to discharge patient with a prednisone taper. Patient will follow-up with her primary intranet developer next coming weeks. Patient still is on oxygen as she was before but she is on 4 L and stable from that standpoint. [] Patient Problems: Active and Suspected Problems Acute respiratory failure with hypercapnia (Acute) - Physical Exam Vitals/I&O's: Vital Signs Temp Pulse Resp BP Pulse Ox 36.7 C 93 18 136/94 H 100 08/16/19 02:45 08/16/19 02:45 08/16/19 02:45 08/16/19 02:45 08/16/19 02:45 Oxygen Flow Rate (L/min) 4 Oxygen Delivery Method Nasal Cannula Weight: 83 kg Body Mass Index (BMI) 31.6 Intake and Output for Last 24 Hours 08/14/19 08/15/19 08/16/19 23:59 23:59 23:59 Intake Total 650 / 650 1090 / 1090 100 / 100 Output Total 1300 / 1300 Balance -650 / -650 1090 / 1090 100 / 100 General: Alert, No apparent distress HEENT: Atraumatic, EOMI Oral: Moist Mucosa, No Gingival or Mucosal Lesions/ Ulcerations Lungs: Diminished, Wheezes Microbiology Past 72 Hours 08/13/19 12:05 Blood Culture (Wb) #2 - Anticubital Right Blood Culture - Preliminary No growth in 48 hours. 08/13/19 11:49 Blood Culture (Wb) - Left Wrist Blood Culture - Preliminary No growth in 48 hours. 08/13/19 11:55 Mucosa - Nose Influenza Types A,B Direct FA (JEREL) - Final 08/13/19 12:15 Mucosa - Nose Respiratory Panel (PCR) - Final Laboratory Results 08/13/19 17:00: COVID-19 (DELANEY) Not Detected 08/15/19 07:25: Differential Comment COMMENT, Diff Path Review May rosalinda Platelet Estimate MKD 08/15/19 12:38: POC Glucose 231 H 08/15/19 17:13: POC Glucose 156 H 08/15/19 21:20: POC Glucose 175 H Current Medications Acetaminophen (Tylenol) 650 mg PO Q6H PRN PRN PRN Reason: Pain Score 1-10/Temp > 100.7 F Last Admin: 08/14/19 11:35 Dose: 650 mg Documented by: Albuterol Sulfate (Ventolin Aerosols) 2.5 mg INHALATION Q2H PRN PRN PRN Reason: SOB/Wheezing Albuterol/Ipratropium (Duoneb) 3 ml INHALATION Q4HWA.RT [facility] Last Admin: 08/15/19 19:39 Dose: 3 ml Documented by: Atorvastatin Calcium (Lipitor) 10 mg PO DAILY [facility] Last Admin: 08/15/19 10:43 Dose: 10 mg Documented by: Escitalopram Oxalate (Lexapro) 40 mg PO DAILY [facility] Last Admin: 08/15/19 10:43 Dose: 40 mg Documented by: Fentanyl Citrate (Sublimaze (100mcg Ampule)) 50 mcg IV Q2H PRN PRN PRN Reason: Pain Score 1-10/10 Furosemide (Lasix) 20 mg IV DAILY [facility] Last Admin: 08/15/19 10:43 Dose: 20 mg Documented by: Hydroxyzine Pamoate (Vistaril Pamoate Capsule) 25 mg PO QHS [facility] Last Admin: 08/15/19 21:21 Dose: 25 mg Documented by: Sodium Chloride () 250 mls @ 15 mls/hr IV .[id number] PRN PRN Reason: Saline Flush Sodium Chloride () 250 mls @ 15 mls/hr IV .[id number] PRN PRN Reason: Additional IVPB Infusion Nutritional Formula (Lactose Free) (GlucerClearwave Shake) 120 ml PO TIDCM [facility] Last Admin: 08/15/19 17:14 Dose: 120 ml Documented by: Pantoprazole Sodium (Protonix) 40 mg PO DAILY [facility] Last Admin: 08/15/19 10:43 Dose: 40 mg Documented by: Prednisone () 40 mg PO DAILY@0800 [facility] Quetiapine Fumarate (Seroquel) 400 mg PO BID [facility] Last Admin: 08/15/19 21:21 Dose: 400 mg Documented by: Sodium Chloride () 10 - 40 ml IV UD PRN PRN Reason: SALINE FLUSH Last Admin: 08/15/19 21:20 Dose: 10 ml Documented by: Discharge Diet: No Restrictions Call your doctor if you observe: Fever of 101 or Higher, Shortness of breath Home Medications: Medications to take at Discharge Albuterol Inhaler [Ventolin Hfa] 2 puff INHALATION Q4H PRN PRN 05/29/16 Atorvastatin Calcium [Lipitor] 10 mg PO DAILY 05/29/16 Ipratropium/Albuterol Sulfate [Duoneb] 3 ml INHALATION Q6H PRN PRN 05/29/16 Roflumilast [Daliresp] 500 mcg PO DAILY 05/29/16 Escitalopram Oxalate [Lexapro] 40 mg PO DAILY 04/12/17 Potassium Chloride [K-Dur] 10 meq PO TID 03/09/18 Wqswf-6-Iytktydfhb Inhibitor [Prolastin C] 5,390 mg IV TH 07/27/19 Esomeprazole Mag Trihydrate [Nexium] 40 mg PO DAILY 07/27/19 Fluticasone/Umeclidin/Vilanter [Trelegy Ellipta 100-62.5-25] 1 ea IH DAILY 07/27/19 Lamotrigine 150 mg PO BID 07/27/19 Quetiapine Fumarate [Seroquel Xr] 800 mg PO QHS 07/27/19 hydrOXYzine pamoate capsule [Vistaril pamoate capsule] 25 mg PO QHS 07/27/19 Prednisone 1 tab PO DAILY #30 tab.ds.pk 08/16/19 Following Prescrptions Were Given to Patient: Prednisone 1 tab PO DAILY #30 tab.ds.pk Transmission Status: Pending to [facility] Primary Care Physician: Felipe Souza [Primary Care Provider] - Within 2 Weeks Please Follow Up With: pulmonology When: 2 weeks Disposition: Home Minutes spent on discharge:: 28 Patient Condition:: Good Medical Necessity - Tobacco Use Smoking Status: Former smoker Tobacco Use: Non-smoker Meaningful Use Info Meaningful Use Diagnoses (Choose all that apply): None applicable Inpatient E&M: [id number] [facility] Hosp
[2019-08-16] MEDS: predniSONE 20 MG Tablet 40 MG PO (09:04)
[2019-08-16 09:06] VITALS: BP 129/69; PULSE 95; RESP 20; TEMP 36.6; O2SAT 100
[2019-08-16] MEDS: Atorvastatin Calcium 10 MG Tablet PO (09:16)
[2019-08-16] MEDS: Pantoprazole Sodium 40 MG Tablet PO (09:16)
[2019-08-16] MEDS: Escitalopram Oxalate 20 MG Tablet 40 MG PO (09:18)
[2019-08-16 09:31] VITALS: O2SAT 82; O2SAT 88
--- NOTE | 2019-08-16 09:32 | NURSING ---
ambulated pt on 4L as she uses at home - walked with therapy and pt maintained on 4l in halls
[2019-08-16 22:41] LABS: Bedside Glucose 126 mg/dL (70-110)
[2019-08-17 11:15] LABS: Pathologist Review Reviewed
--- NOTE | 2019-08-17 11:20 | CASEMGMT ---
SHAKIR ROSARIO Discharge Follow-up Phone Call: ALBA: 12 Strata: 3 Call Date: 08/17/19 Discharge Date: 08/16/19 Time of Call: 1120 Duration: 1 min Admitting Diagnosis: Respiratory Failure SHAKIR ROSARIO attempted to complete follow-up phone call after recent hospitalization. No answer, voice message left with return contact information.
== END 2019-08-16 10:35 | disposition home or self-care (01) | DRG 189 ==
LOC: ED 14:05 → ICU 14:25 → MS2 08-14 17:55 → MS3 08-15 19:57
PROVIDERS: Internal Medicine Critical Care Medicine; Admitting Provider Internal Medicine; Emergency Provider Emergency Medicine; PCP Family Medicine
DX: J96.21 Acute and chronic respiratory failure with hypoxia (principal); J44.1 Chronic obstructive pulmonary disease with (acute) exacerbation; D61.818 Other pancytopenia; J96.02 Acute respiratory failure with hypercapnia; E88.01 Alpha-1-antitrypsin deficiency; Z99.81 Dependence on supplemental oxygen; F32.9 Major depressive disorder, single episode, unspecified; E78.5 Hyperlipidemia, unspecified; Z79.51 Long term (current) use of inhaled steroids; Z79.899 Other long term (current) drug therapy; Z87.891 Personal history of nicotine dependence; R73.9 Hyperglycemia, unspecified; R07.9 Chest pain, unspecified; E66.9 Obesity, unspecified; Z68.32 Body mass index [BMI] 32.0-32.9, adult
CPT/HCPCS: 36415; 36600; 71045; 80048; 80053; 80076; 82803; 82962; 83605; 83880; 84484; 85025; 87040; 87633; 87635; 87804; 93005; 94002; 94003; 94640; 96361; 96374; 97110; 97116; 97162; 97166; 97530; 97802; 99251; 99285; G2023; J7030; A4216; G0463; J1940; U0004

== ENCOUNTER → 2019-12-18 | Outpatient (CLI) | payer OTHER, SELFPAY ==
[2019-08-13 15:10] VITALS: BMI 31.6
== END | disposition home or self-care (01) ==
LOC: MTLAB 16:46
PROVIDERS: PCP Family Medicine; Referring Provider Internal Medicine Pulmonary Disease; Visit Provider Internal Medicine Pulmonary Disease
DX: J96.02 Acute respiratory failure with hypercapnia (principal)

== ENCOUNTER → 2019-12-22 | Outpatient (CLI) | payer OTHER, SELFPAY ==
[2019-08-13 15:10] VITALS: BMI 31.6
[2019-12-22 17:35] LABS: Allen Test Positive; Base Excess 3 mmol/L (-2 to +2); Bicarbonate 27.4 mmol/L (22-26); Blood Gas Specimen Type ART; FI02 36; O2 Delivery Device Cannula; PO2 69 mmHG (75-100); SITE L Radial; SO2 94 % (95-99); Total Carbon Dioxide 29 mmol/L; pCO2 42.4 mmHg (35-45); pH 7.42 (7.35-7.45)
== END | disposition home or self-care (01) ==
LOC: PSN 17:12
PROVIDERS: PCP Family Medicine; Referring Provider Internal Medicine Pulmonary Disease; Visit Provider Internal Medicine Pulmonary Disease
DX: J44.9 Chronic obstructive pulmonary disease, unspecified (principal); G47.33 Obstructive sleep apnea (adult) (pediatric); R09.02 Hypoxemia
CPT/HCPCS: 36600; 82803

== ENCOUNTER → 2020-11-08 11:14 | Outpatient (CLI) | payer OTHER, SELFPAY ==
[2019-08-13 15:10] VITALS: BMI 31.6
[2020-11-08 11:15] VITALS: PULSE 101; PULSE 90; PULSE 96; PULSE 97; PULSE 98; O2SAT 82; O2SAT 90; O2SAT 92; O2SAT 93; O2SAT 95
--- NOTE | 2020-11-08 12:01 | CPS ---
Pt started walk on room air. At 1 min pt was 82%. Pt stated she felt dizzy and S.O.B. Pt was placed back on her 4 lpm and saturation came up to 93%. Pt started walk again and about 30 seconds into restart she took a rest and continued to rest till end of walk.
--- NOTE | 2020-11-09 08:07 | PCM.PSN.6M ---
PSN 6 Minute Walk Test 6 Minute Walk Test 6 Minute Walk Test: 6 Minute Walk Test PSN:6-Minute Walk Test Start: 11/08/20 11:56 Freq: Status: Active Protocol: RESP.6MINW Document 11/08/20 11:15 BANNER (Rec: 11/08/20 12:06 BANNER [id number]) 6 Minute Walk Test Date Performed 11/08/20 Time Performed 11:15 Height 5 ft 3 in Weight: 77.111 kg Weight in Pounds 170.[address]: Haim Guajardo V Assistive device used: Walker 1st minute Oxygen Delivery Method Room Air Pulse Ox (%) 82 Pulse Rate (60-100 beats/min) 101 H Dyspnea Mik Scale (0-10) 3 Number of Rests Taken 1 Reported Symptoms Increased Work of Breathing, Dizziness 2nd minute Oxygen Flow Rate (L/min) (L/min) 4 Oxygen Delivery Method Nasal Cannula Pulse Ox (%) 90 Pulse Rate (60-100 beats/min) 98 Dyspnea Mik Scale (0-10) 2 Number of Rests Taken 1 Reported Symptoms Increased Work of Breathing 3rd minute Oxygen Flow Rate (L/min) (L/min) 4 Oxygen Delivery Method Nasal Cannula Pulse Ox (%) 92 Pulse Rate (60-100 beats/min) 96 Dyspnea Mik Scale (0-10) 1 Number of Rests Taken 1 Reported Symptoms Increased Work of Breathing 4th minute Oxygen Flow Rate (L/min) (L/min) 4 Oxygen Delivery Method Nasal Cannula Pulse Ox (%) 93 Pulse Rate (60-100 beats/min) 96 Dyspnea Mik Scale (0-10) 1 Number of Rests Taken 1 Reported Symptoms Increased Work of Breathing 5th minute Oxygen Flow Rate (L/min) (L/min) 4 Oxygen Delivery Method Nasal Cannula Pulse Ox (%) 90 Pulse Rate (60-100 beats/min) 101 H Dyspnea Mik Scale (0-10) 1 Number of Rests Taken 1 Reported Symptoms Increased Work of Breathing 6th minute Oxygen Flow Rate (L/min) (L/min) 4 Oxygen Delivery Method Nasal Cannula Pulse Ox (%) 90 Pulse Rate (60-100 beats/min) 97 Dyspnea Mik Scale (0-10) 1 Number of Rests Taken 1 Reported Symptoms Increased Work of Breathing Post-test Oxygen Flow Rate (L/min) (L/min) 4 Oxygen Delivery Method Nasal Cannula Pulse Ox (%) 95 Pulse Rate (60-100 beats/min) 90 Dyspnea Mik Scale (0-10) 1 Exertion Mik Scale (6-20) 6 Reported Symptoms Increased Work of Breathing Full Laps Walked 1 Partial Lap, Number of Tiles Walked 0 Total Distance Walked (ft) 59 11/08/20 12:01 Cardiopulmonary Services by Amita Lee Pt started walk on room air. At 1 min pt was 82%. Pt stated she felt dizzy and S.O.B. Pt was placed back on her 4 lpm and saturation came up to 93%. Pt started walk again and about 30 seconds into restart she took a rest and continued to rest till end of walk. Initialized on 11/08/20 12:01 - END OF NOTE Interpretation Interpretation: The patient ambulated 59 feet over the course of 6 minutes beginning on room air with the use of a walker. Pretesting oxygen saturation was noted to be 93% on room air. With ambulation, the tom oxygen saturation was 82% at minute 1 of testing. 4 L/min of supplemental oxygen was applied with appropriate improvement in her oxygenation status. However, the patient was unable to ambulate any further and subsequently rested throughout the remainder of the test. Recommendations Recommendations: 4 L/min of supplemental oxygen should be utilized with exertion. The sensitivity for detecting additional oxygen desaturation was significantly limited by the patient's walk distance.
== END ==
PROVIDERS: PCP Family Medicine; Referring Provider Internal Medicine Pulmonary Disease; Visit Provider Internal Medicine Pulmonary Disease
DX: J44.9 Chronic obstructive pulmonary disease, unspecified (principal); E88.01 Alpha-1-antitrypsin deficiency
CPT/HCPCS: 94618

== ENCOUNTER → 2020-12-08 09:55 | Outpatient (CLI) | payer OTHER, SELFPAY ==
[2019-08-13 15:10] VITALS: BMI 31.6
== END ==
PROVIDERS: PCP Family Medicine; Referring Provider Internal Medicine Pulmonary Disease; Visit Provider Internal Medicine Pulmonary Disease
DX: J44.9 Chronic obstructive pulmonary disease, unspecified (principal); E88.01 Alpha-1-antitrypsin deficiency
CPT/HCPCS: 94060; 94726; 94729

== ENCOUNTER 2021-08-03 02:39 | Emergency (ER) | payer OTHER, SELFPAY ==
[2021-08-03 02:40] VITALS: BP 160/89; PULSE 89; RESP 20; TEMP 36.3; O2SAT 97; BMI 33.3
[2021-08-03 02:51] VITALS: O2SAT 98
--- NOTE | 2021-08-03 02:54 | RAD_ITS ---
STUDY: X-RAY CHEST REASON FOR EXAM: Female, 56 years old. sob TECHNIQUE: AP portable. 3:07 AM COMPARISON: 08/13/2019. FINDINGS: LUNGS: Reticular opacities in the lung bases increased compared to prior study. No pneumothorax. MEDIASTINUM: Aorta atherosclerotic.. CARDIAC SILHOUETTE: Not enlarged. BONES AND SOFT TISSUES: No acute abnormalities. RAD/Chest 1 View (Portable) IMPRESSION: Increased basilar opacities likely atelectasis or infiltrates superimposed on chronic changes. Electronically Signed: Ngoc Coleman MD at 3:31 EDT ,
--- NOTE | 2021-08-03 02:55 | EKG12_ITS ---
Test Reason : DYSRHYTHMIA Blood Pressure : / mmHG Vent. Rate : 089 BPM Atrial Rate : 089 BPM P-R Int : 158 ms QRS Dur : 086 ms QT Int : 360 ms P-R-T Axes : 038 019 047 degrees QTc Int : 438 ms Normal sinus rhythm Nonspecific ST abnormality Abnormal ECG Confirmed by DENZEL ALEXANDRA, EDEN ([id number]), dictionary editor MADDY SHIN ([id number]) on 08/03/2021 12:52:19 P M Referred By: BETTIE Confirmed By:GALDINO MAHONEY MD
--- NOTE | 2021-08-03 02:55 | EDS_ITS ---
HPI History of Present Illness Chief Complaint: Shortness of Breath Informant: patient Onset/Context/Timing Onset: Days Context: Gradual Onset Current Severity: Mild Maximum Severity: Moderate Narrative Narrative: Patient presents via EMS secondary to shortness of breath. She has a history of end-stage COPD as well as alpha-1 antitrypsin deficiency. She is on 4 L nasal cannula chronically. Patient reports increased shortness of breath over the past week with more difficulty with activity. She has had cough with clear sputum. She has had chills with no fever. Patient states that EMS took her off her baseline oxygen and her O2 sat was 82%. On her 4 L that she chronically wears she was 95%. She was given a DuoNeb treatment in route and placed on 6 L nasal cannula. At the time of my exam she is back down to her baseline 4 L nasal cannula and satting 98%. [facility] Medical History Fjvht-2-cplybbqwrce deficiency Chronic hypoxemic respiratory failure COPD (chronic obstructive pulmonary disease) Depression Hyperlipidemia Home Medications albuterol sulfate [Ventolin HFA] 2 puff INHALATION Q4H PRN PRN 05/29/16 [History Last Taken 07/27/19] potassium chloride 10 meq PO TID 03/09/18 [History Last Taken 07/27/19] esomeprazole magnesium 40 mg PO DAILY 07/27/19 [History Last Taken 07/27/19] vjumbwosexs-[id number]-hqmwqdzs [Trelegy Ellipta] 1 ea IH DAILY 07/27/19 [History Last Taken 07/27/19] hydroxyzine pamoate [Vistaril] 25 mg PO QHS 07/27/19 [History Last Taken 07/26/19] lamotrigine [Lamictal] 150 mg PO BID 07/27/19 [History Last Taken 07/26/19] quetiapine 800 mg PO QHS 07/27/19 [History Last Taken 07/26/19] asenapine maleate [Saphris] 10 mg SUBLINGUAL BID 08/03/21 [History Last Taken Unknown] buspirone 15 mg PO BID 08/03/21 [History Last Taken Unknown] doxycycline monohydrate 100 mg PO BID #20 cap 08/03/21 [Rx Last Taken Unknown] metformin 1,000 mg PO BID 08/03/21 [History Last Taken Unknown] prednisone 40 mg PO DAILY #8 tab 08/03/21 [Rx Last Taken Unknown] propranolol 10 mg PO TID 08/03/21 [History Last Taken Unknown] Allergy/AdvReac Type Severity Reaction Status Date / Time erythromycin base Allergy FACIAL Verified 08/03/21 02:44 SWELLING Social History Smoking Status: Former smoker ROS ROS ED Constitutional Constitutional ED: Reports chills; Denies fever(s) Eyes Eyes: Denies change in vision ENT ENT ED: Denies sore throat Cardiovascular Cardiovascular: Reports other Details: Lungs feel tight ; Denies chest pain Respiratory/Chest Respiratory/Chest: Reports cough, dyspnea and sputum Gastrointestinal Gastrointestinal: Denies abdominal pain, diarrhea, nausea or vomiting Genitourinary Genitourinary ED: Denies dysuria Musculoskeletal Musculoskeletal: Denies back pain Integumentary Denies rash Neurologic Neurologic: Denies headache(s) or weakness Allergic/Immunologic Allergic/Immunologic ED: Denies urticaria EXAM Physical Exam Const Vital Signs: 08/03/21 02:40 08/03/21 02:51 08/03/21 04:00 Temperature 97.3 F L Temperature Source Temporal Pulse Rate 89 88 Respiratory Rate 20 H 18 Respiratory Effort Short of Breath Blood Pressure 160/89 H 149/84 H Blood Pressure Mean 112 105 Pulse Ox 97 97 Oxygen Delivery Method Nasal Cannula Nasal Cannula Nasal Cannula Oxygen Flow Rate (L/min) 4 4 4 Positive well nourished and well developed General Appearance ED: well developed HEENT Reports moist mucous membranes Eyes PERRL and EOMs intact bilaterally Neck supple Chest Wall inspection of chest normal and palpation of chest normal Resp normal respiratory effort and clear to auscultation bilaterally Cardio regular rate and regular rhythm GI non-tender Palpation: soft Extremity normal to inspection General Extremety ED: Negative for edema General Extremity: Negative for edema Neuro oriented x3 Sensorium / Orientation: alert Psych mental status grossly normal Skin no rashes or lesions noted MDM MDM MDM Narrative Medical decision making narrative: Patient had been given a DuoNeb with EMS prior to arrival. EKG, chest x-ray, lab work obtained. Lab Data Attestation: I reviewed the patient's lab results. Labs: Laboratory Results - last 24 hr 08/03/21 08/03/21 02:55 02:55 WBC 5.3 RBC 4.77 Hgb 14.2 Hct 42.9 MCV 89.9 MCH 29.8 MCHC 33.1 RDW Std Deviation 46.3 H RDW Coeff of Renetta 14.0 Plt Count 53 L MPV 10.5 Immature Gran % (Auto) 0.600 Neut % (Auto) 74.5 H Lymph % (Auto) 10.3 L Pettis % (Auto) 10.1 H Eos % (Auto) 3.9 Baso % (Auto) 0.6 Absolute Neuts (auto) 4.0 Absolute Lymphs (auto) 0.55 L Nucleated RBC % 0 Differential Comment SCANNED Sodium 142 Potassium 3.4 L Chloride 110 H Carbon Dioxide 28.0 Anion Gap 4 L BUN 7 Creatinine 0.46 L Estim Creat Clear Calc 110.27 Est GFR (MDRD) Af Amer 179 Est GFR (MDRD) Non-Af 148 BUN/Creatinine Ratio 15.2 Glucose 168 H Calcium 7.7 L Troponin I High Sens 5 Radiography Chest X-Ray - ED: 1 View, Read by ED Physician and Chronic Changes Diagnostic Testing: Clinical Impression(s) from Imaging Studies Chest X-Ray 08/03/21 02:54 IMPRESSION: Increased basilar opacities likely atelectasis or infiltrates superimposed on chronic changes. Electronically Signed: Ngoc Coleman MD at 3:31 EDT , EKG Initial EKG: Attestation: I personally reviewed and interpreted this EKG as follows: Interpretation: Sinus Rhythm (Sinus [address] change.) Treatment and Re-Evaluation Narrative: On repeat evaluation patient resting comfortably. She continues to report her breathing is improved after the DuoNeb treatment given by EMS. O2 sat is 97% on her normal baseline 4 L. She is speaking full sentences without difficulty. Lab work is reviewed. Potassium is slightly low at 3.4 this is replaced orally. Troponin normal. EKG reveals no ischemia. Chest x-ray reveals chronic changes at the bases with what appears to be overlying atelectasis. Radiologist interpretation is reviewed. In light of the patient's COPD exacerbation she will be given prednisone and doxycycline. Patient is to follow-up with pulmonary. Return instructions provided. Discharge Plan Triage Chief Complaint: Shortness of Breath ED Provider: Estefany Arrington Dx/Rx/DC Orders Clinical Impression: COPD exacerbation Instructions: ED COPD Flare Prescriptions: New prednisone 20 mg tablet 40 mg PO DAILY Qty: 8 RF: 0 doxycycline monohydrate 100 MG capsule 100 mg PO BID Qty: 20 RF: 0 No Action albuterol sulfate [Ventolin HFA] 1 INHALER inhaler 2 puff inhalation Q4H PRN PRN (Reason: Sob &/Or Wheezing) RF: 0 potassium chloride 10 MEQ tablet 10 meq PO TID RF: 0 lamotrigine [Lamictal] 150 MG tablet 150 mg PO BID RF: 0 esomeprazole magnesium 40 MG capsule 40 mg PO DAILY RF: 0 hydroxyzine pamoate [Vistaril] 25 MG capsule 25 mg PO QHS RF: 0 quetiapine 400 MG tablet extended release 24 hr 800 mg PO QHS RF: 0 Trelegy Ellipta 1 EACH blister with device 1 ea IH DAILY RF: 0 metformin 1,000 mg Tablet 1,000 mg PO BID RF: 0 buspirone 15 mg Tablet 15 mg PO BID RF: 0 asenapine maleate [Saphris] 5 mg Tablet, Sublingual 10 mg SUBLINGUAL BID RF: 0 propranolol 10 mg Tablet 10 mg PO TID RF: 0 Primary Care Provider: Felipe Souza Referrals: Arnaldo Aguirre DO [STAFF PHYSICIAN] - 1 Week if not improving Felipe Souza DO [Primary Care Provider] - Disposition Disposition: Home, Self Care
[2021-08-03 03:05] LABS: Absolute Lymphocyte Count 0.55 X10^3/uL (0.83-4.51); Basophil# 0.03 X10^3/uL; Basophil% 0.6 % (0-1); Eosinophil# 0.21 X10^3/uL; Eosinophils% 3.9 % (0-5); Hematocrit 42.9 % (37-47); Hemoglobin 14.2 g/dL (12.0-15.0); Lymphocyte # 0.55 X10^3/ul (0.83-4.51); Lymphocyte % 10.3 % (19-41); Mean Corp Hgb Conc 33.1 g/dL (32-36); Mean Corpuscular Hgb 29.8 pg (27.0-32.0); Mean Corpuscular Volume 89.9 fL (81-99); Mean Platelet Vol. 10.5 fl (6.2-12.0); Monocyte# 0.54 X10^3/uL; Monocyte% 10.1 % (0-10); NRBC Flagged by Analyzer 0 % (0-5); Neutrophil # 3.98 X10^3/uL (2.7-7.7); Neutrophil % 74.5 % (47-70); POSITIVE COUNT YES; POSITIVE DIFFERENTIAL YES; Platelet Count 53 K/mm3 (150-450); RBC Distribution Width SD 46.3 fl (35.1-43.9); Red Blood Count 4.77 M/mm3 (4.2-5.4); White Blood Count 5.3 K/mm3 (4.4-11.0)
[2021-08-03 03:12] LABS: Differential Indicated SCAN CRITERIA MET
[2021-08-03 03:27] LABS: Anion Gap 4 (5-15); BUN 7 mg/dL (7-18); BUN/Creat Ratio 15.2 RATIO (10-20); Calcium,Total 7.7 mg/dL (8.5-10.1); Chloride 110 mmol/L (98-107); Creatinine, Serum 0.46 mg/dL (0.55-1.02); EST Glomerular Filtration Rate 148 mL/min (>60); Est Glom Filt Rate - Afr Amer 179 mL/min (>60); Estimated Creatinine Clearance 110.27 ml/min; Glucose 168 mg/dL (74-106); Potassium 3.4 mmol/L (3.5-5.1); Sodium Level 142 mmol/L (136-145); Troponin-I HS 5 pg/mL (3.0-54.0)
[2021-08-03 03:41] LABS: Differential Comment SCANNED
[2021-08-03] MEDS: Potassium Chloride Oral Tablet 20 MEQ 40 MEQ PO (03:58)
[2021-08-03] MEDS: MethylPREDNISolone 125 MG/2 ML Vial IV (03:58)
[2021-08-03 04:00] VITALS: BP 149/84; PULSE 88; RESP 18; O2SAT 97
[2021-08-03] MEDS: Doxycycline 100 MG CAPSULE PO (04:17)
--- NOTE | 2021-08-03 04:19 | ED.RN ---
did not bring home o2 with him when he drove here and reports she is going to just take her home on RA. Pt has been dependent on oxygen use for years and is on 4L at home so explained I cannot let them do that and he will need to go home and get the tank and come back to pick her up with it. Patient and agreeable.
[2021-08-03 05:10] VITALS: PULSE 92; RESP 24; RESP 26; O2SAT 97
[2021-08-03] MEDS: Ipratropium/Albuterol Sulfate 3 ML AMPUL.NEB INHALATION (05:10)
[2021-08-03 05:24] VITALS: BP 124/74; PULSE 74; RESP 16; TEMP 36.8; O2SAT 97
== END 2021-08-03 05:27 | disposition home or self-care (01) ==
PROVIDERS: Emergency Provider Emergency Medicine; PCP Family Medicine; Visit Provider Emergency Medicine
DX: J44.1 Chronic obstructive pulmonary disease with (acute) exacerbation (principal); J96.11 Chronic respiratory failure with hypoxia; E88.01 Alpha-1-antitrypsin deficiency; Z87.891 Personal history of nicotine dependence; E78.5 Hyperlipidemia, unspecified; F32.A Depression, unspecified; Z99.81 Dependence on supplemental oxygen; Z79.899 Other long term (current) drug therapy
CPT/HCPCS: 71045; 80048; 84484; 85025; 93005; 94640; 96374; 99251; 99285; A4216; G0463

== ENCOUNTER → 2021-10-10 | Outpatient (CLI) | payer OTHER, SELFPAY ==
[2021-10-10 13:45] VITALS: PULSE 106; PULSE 79; PULSE 87; PULSE 88; PULSE 89; PULSE 90; PULSE 95; PULSE 97; O2SAT 81; O2SAT 82; O2SAT 85; O2SAT 90; O2SAT 91; O2SAT 92
--- NOTE | 2021-10-10 14:14 | CPS ---
PT ARRIVED ON HOME O2 4L. PLACED ON ROOM AIR WALKED ONE LAP AND SATS DROPPED TO 81%. PLACED BACK ON HOME O2 4L INCREASED TO 90%. AT 3 MIN SATS DROPPED TO 82% INCREASED TO 5L. PT RESTED MAJORITY OF THE TIME. WALKED AGAIN ON 5L SATS 90 AND ABOVE.
--- NOTE | 2021-10-11 10:06 | PCM.PSN.6M ---
PSN 6 Minute Walk Test 6 Minute Walk Test 6 Minute Walk Test: 6 Minute Walk Test PSN:6-Minute Walk Test Start: 10/10/21 14:09 Freq: Status: Active Protocol: RESP.6MINW Document 10/10/21 13:45 EW (Rec: 10/10/21 14:17 EW [id number]) 6 Minute Walk Test Date Performed 10/10/21 Time Performed 13:45 Height 5 ft 3 in Weight: 185 lb Weight in Pounds 185.[address]: Arnaldo Aguirre Assistive device used: None Pre-test Oxygen Delivery Method Room Air Pulse Ox (%) 90 Pulse Rate (60-100 beats/min) 87 Dyspnea Mik Scale (0-10) 3 Exertion Mik Scale (6-20) 8 1st minute Oxygen Flow Rate (L/min) (L/min) 4 Oxygen Delivery Method Nasal Cannula Pulse Ox (%) 81 Pulse Rate (60-100 beats/min) 106 H Number of Rests Taken 1 Reported Symptoms Increased Work of Breathing 2nd minute Oxygen Flow Rate (L/min) (L/min) 4 Oxygen Delivery Method Nasal Cannula Pulse Ox (%) 91 Pulse Rate (60-100 beats/min) 97 Number of Rests Taken 1 Reported Symptoms Increased Work of Breathing 3rd minute Oxygen Flow Rate (L/min) (L/min) 5 Oxygen Delivery Method Nasal Cannula Pulse Ox (%) 82 Pulse Rate (60-100 beats/min) 79 Reported Symptoms Increased Work of Breathing 4th minute Oxygen Flow Rate (L/min) (L/min) 5 Oxygen Delivery Method Nasal Cannula Pulse Ox (%) 85 Pulse Rate (60-100 beats/min) 88 Reported Symptoms Increased Work of Breathing 5th minute Oxygen Flow Rate (L/min) (L/min) 5 Oxygen Delivery Method Nasal Cannula Pulse Ox (%) 90 Pulse Rate (60-100 beats/min) 90 Reported Symptoms Increased Work of Breathing 6th minute Oxygen Flow Rate (L/min) (L/min) 5 Oxygen Delivery Method Nasal Cannula Pulse Ox (%) 90 Pulse Rate (60-100 beats/min) 95 Post-test Oxygen Flow Rate (L/min) (L/min) 5 Oxygen Delivery Method Nasal Cannula Pulse Ox (%) 92 Pulse Rate (60-100 beats/min) 89 Dyspnea Mik Scale (0-10) 5 Exertion Mik Scale (6-20) 16 Full Laps Walked 4 Partial Lap, Number of Tiles Walked 0 Total Distance Walked (ft) 236 10/10/21 14:14 Cardiopulmonary Services by Komal Panchal PT ARRIVED ON HOME O2 4L. PLACED ON ROOM AIR WALKED ONE LAP AND SATS DROPPED TO 81%. PLACED BACK ON HOME O2 4L INCREASED TO 90%. AT 3 MIN SATS DROPPED TO 82% INCREASED TO 5L. PT RESTED MAJORITY OF THE TIME. WALKED AGAIN ON 5L SATS 90 AND ABOVE. Initialized on 10/10/21 14:14 - END OF NOTE Interpretation Interpretation: The patient ambulated 236 feet over the course of 6 minutes beginning on room air with the use of a walker. Pretesting oxygen saturation was noted to be 90% on room air. With ambulation, the patient desaturated on several occasions requiring the initiation and escalation of flow rate to 5 L/min to maintain appropriate saturations. Recommendations Recommendations: 5 L/min of supplemental oxygen should be utilized with exertion.
== END | disposition home or self-care (01) ==
LOC: PSN 13:42
PROVIDERS: PCP Family Medicine; Referring Provider Internal Medicine Critical Care Medicine; Visit Provider Internal Medicine Critical Care Medicine
DX: J96.11 Chronic respiratory failure with hypoxia (principal)
CPT/HCPCS: 94618

== ENCOUNTER 2022-03-29 11:38 | Inpatient (IN) | payer OTHER, SELFPAY ==
[2022-03-29] VITALS (12 sets, daily range): BP systolic 126–170; BP diastolic 59–89; PULSE 90–107; RESP 20–26; TEMP 36.8–37.9; O2SAT 81–96; BMI 30.1; BMI 28.7
--- NOTE | 2022-03-29 12:04 | RAD_ITS ---
STUDY: X-RAY CHEST REASON FOR EXAM: Female, 56 years old. Chest pain TECHNIQUE: Single AP portable view of the chest. COMPARISON: Comparison is made with prior study 08/03/2021. FINDINGS: EKG changes are seen. Persistent increased linear markings at the lung bases. There is confluent suggestive of a atelectasis superimposed on scarring. There is no demonstrated pleural abnormality. Normal size heart. Normal mediastinum and rosemary. Normal visualized pulmonary arteries. Normal visualized aortic arch and descending thoracic aorta. There is a dextroscoliosis of the thoracic spine. Normal visualized ribs, clavicles, and shoulders. There is no demonstrated abnormality of the visualized soft tissue structures of the upper abdomen. RAD/Chest 1 View (Portable) IMPRESSION: Persistent increased linear markings at the lung bases with areas of confluence suggestive of atelectasis superimposed on scarring. Electronically Signed: Gregory Salas MD at 13:40 EST ,
--- NOTE | 2022-03-29 12:04 | EKG12_ITS ---
Test Reason : SOB Blood Pressure : / mmHG Vent. Rate : 089 BPM Atrial Rate : 089 BPM P-R Int : 120 ms QRS Dur : 088 ms QT Int : 378 ms P-R-T Axes : 038 008 021 degrees QTc Int : 459 ms Normal sinus rhythm Normal ECG Confirmed by MORELIA ALEXANDRA, SHANE ([id number]), acquisitions editor MADDY SHIN ([id number]) on 03/30/2022 11:01:57 AM Referred By: Confirmed By:SHANE THIBODEAUX MD
--- NOTE | 2022-03-29 12:05 | ED.VIS.DYS ---
HPI History of Present Illness Chief Complaint: Shortness of Breath Informant: patient and family Onset/Context/Timing Onset: Days Context: gradual Timing: Continuous Quality: Positive for Dyspnea on exertion Current Severity: Moderate Maximum Severity: Moderate Worsened by: Exertion and Coughing Relieved by: Oxygen Associated Symptoms cough; Negative for fever, sore throat, subjective, chills, sweats, clear sputum, white sputum, yellow sputum, green sputum or other Chest Pain: Positive for None Narrative Narrative: 56-year-old female history of COPD on 5 L home O2 oxygen. Alpha-1 antitrypsin. Has had URI symptoms for a week and a negative home COVID test. Has had increasing O2 requirements is just felt weak and trouble getting around her home. She has had no nausea or vomiting she has had some mild diarrhea. No dysuria. No fever. No chest pain or hemoptysis. She has had a remote history of prior DVT and PE. PE Risk Factors: Positive for Prior DVT or PE; Negative for Cancer, OCP + Smoking + > 35, Recent immobilization, Recent surgery or Recent travel Prior similar symptoms: Yes Recent Illness/Hospitalization: No PFSH PFSH Medical History [id number] deficiency Chronic hypoxemic respiratory failure COPD (chronic obstructive pulmonary disease) Depression Hyperlipidemia Home Medications albuterol sulfate 90 mcg/actuation aerosol inhaler (Ventolin HFA) 2 puff inhalation Q4H PRN PRN Sob &/Or Wheezing 05/29/16 [History Last Taken 03/28/22] potassium chloride 10 mEq tablet,extended release(part/cryst) 10 meq PO TID supplement 03/09/18 [History Last Taken 03/28/22] esomeprazole magnesium 40 mg capsule,delayed release 40 mg PO DAILY gerd 07/27/19 [History Last Taken 03/28/22] fluticasone fur. 100 mcg-umeclid 62.5 mcg-vilant 25 mcg inhalat.powder (Trelegy Ellipta) 1 ea IH DAILY copd 07/27/19 [History Last Taken 03/28/22] quetiapine 400 mg tablet,extended release 24 hr 800 mg PO QHS sleep 07/27/19 [History Last Taken 03/28/22] asenapine maleate 5 mg sublingual tablet (Saphris) 10 mg sublingual BID 08/03/21 [History Last Taken 03/28/22] buspirone 15 mg tablet 15 mg PO TID 08/03/21 [History Last Taken 03/28/22] metformin 1,000 mg tablet 1,000 mg PO BID 08/03/21 [History Last Taken 03/28/22] propranolol 10 mg tablet 10 mg PO TID 08/03/21 [History Last Taken 03/28/22] alprazolam 0.5 mg tablet 0.5 mg PO BID ANXIETY 03/29/22 [History Last Taken 03/28/22] doxepin 25 mg capsule 25 mg PO DAILY DEPRESSION 03/29/22 [History Last Taken 03/28/22] sertraline 50 mg tablet 100 mg PO DAILY DEPRESSION 03/29/22 [History Last Taken 03/28/22] Allergy/AdvReac Type Severity Reaction Status Date / Time erythromycin base Allergy FACIAL Verified 03/29/22 11:45 SWELLING Social History Smoking Status: Former smoker ROS ROS ED ROS Narrative URI symptoms. Diarrhea. Review of Systems ROS Unobtainable: Denies due to encephalopathy Constitutional Constitutional ED: Denies chills or fever(s) Eyes Eyes: Denies blurry vision ENT ENT ED: Denies ear pain Cardiovascular Cardiovascular: Denies chest pain Respiratory/Chest Respiratory/Chest: Reports cough and dyspnea Gastrointestinal Gastrointestinal: Reports diarrhea; Denies abdominal pain, melena, nausea or vomiting Genitourinary Genitourinary ED: Denies dysuria or hematuria Musculoskeletal Musculoskeletal: Denies arthralgias or back pain Integumentary Denies abscess Neurologic Neurologic: Denies headache(s) Psychiatric Psychiatric: Denies anxiety Endocrine Endocrinology: Denies cold intolerance Hematologic/Lymphatic Hematologic/Lymphatic: Denies easy bleeding or easy bruising Allergic/Immunologic Allergic/Immunologic ED: Denies mouth swelling or tongue swelling EXAM Physical Exam Narrative Exam Narrative: 56-year-old female currently no acute distress on oxygen. Vital signs are stable on her oxygen. Her initial pulse ox was 81% on 4 L. Has been bumped up to 6 L she is in the 90s. H EENT exam unremarkable. Moist Riis members. Neck nontender no JVD. No lymphadenopathy. Lungs diminished breath sounds bilaterally. No rales rhonchi or wheezing. Heart regular rhythm rate about 90 no murmur. Abdomen soft nontender. Moving all 4 extremities. Calves are nontender. Bilateral trace edema. No cords. Neurologically she is awake and alert with no focal motor deficits. Const Vital Signs: 03/29/22 11:40 03/29/22 11:45 03/29/22 12:22 Temperature 98.3 F Temperature Source Temporal Pulse Rate 93 Respiratory Rate 20 H Respiratory Effort Labored Respiratory Depth Shallow Respiratory Pattern Tachypnea Blood Pressure 170/85 H Blood Pressure Mean 113 Pulse Ox 81 Oxygen Delivery Method Nasal Cannula Nasal Cannula Nasal Cannula Oxygen Flow Rate (L/min) 4 6 5 03/29/22 13:14 03/29/22 13:38 03/29/22 15:00 Temperature Temperature Source Pulse Rate 91 94 Respiratory Rate 22 H 21 H Respiratory Effort Respiratory Depth Respiratory Pattern Blood Pressure 148/81 H 151/89 H Blood Pressure Mean 103 109 Pulse Ox 96 88 94 Oxygen Delivery Method Nasal Cannula Nasal Cannula Nasal Cannula Oxygen Flow Rate (L/min) 6 4 5.5 03/29/22 13:45 Temperature Temperature Source Pulse Rate Respiratory Rate Respiratory Effort Respiratory Depth Respiratory Pattern Blood Pressure Blood Pressure Mean Pulse Ox 90 Oxygen Delivery Method Oxygen Flow Rate (L/min) 5.5 Positive well nourished and well developed; Negative for obese, cachectic, contractures or unkempt General Appearance ED: well developed and NAD; Negative for unkempt, cachectic, contractures or pallor Nutritional Appearance: Negative for cachectic or obese HEENT Reports moist mucous membranes; Denies dry mucous membranes atraumatic; Negative for trauma or tenderness Mouth ED: No dry mucous membranes Mouth: No dry mucous membranes Eyes PERRL and EOMs intact bilaterally General Eye ED: Negative for pale conjunctiva or scleral icterus Neck no lymphadenopathy, supple, no meningeal signs and no JVD General: Negative for tenderness Lymph Lymphatic: Negative for other Chest Wall Chest: Negative for other Resp normal respiratory effort and clear to auscultation bilaterally Resp Narrative: Diminished breath sounds bilaterally. Coarse. Effort and Inspection: Negative for pain with movement Auscultation: diminished lung sounds; Negative for rales, rhonchi or wheezes Cardio regular rate, regular rhythm, S1 normal heart sound, S2 normal heart sound and no murmurs Rate: Negative for bradycardia Rhythm: Negative for abnormal rhythm GI non-tender, non-distended and no masses Inspection: Negative for other Auscultation: normoactive bowel sounds Palpation: soft; Negative for tender or guarding Bladder / Kidney Exam: No other Back/Spine no CVA tenderness and normal to inspection General Back: Negative for CVA tenderness Extremity Negative for normal to inspection General Extremety ED: Yes edema; Negative for tenderness General Extremity: edema Neuro oriented x3 Sensorium / Orientation: alert, oriented to person, oriented to place and oriented to time Speech: speech normal Motor Exam: strength 5/5 throughout Psych Appearance: Negative for unkempt Attitude: No agitated Mood & Affect: Negative for depressed Thought Process: No normal thought process Skin no wounds General Skin Exam: Negative for jaundice or pallor Rashes: no rashes Trauma: Negative for abrasion or laceration MDM MDM MDM Narrative Medical decision making narrative: 56-year-old female shortness of breath history of COPD on 5 L at home. This could be COPD it could theoretically be a blood clot because of her prior history it could be pneumonia or URI symptoms. She is also generally weak. She will be treated with DuoNeb and albuterol aerosols. 125 IV Solu-Medrol. Labs to be obtained to consider anemia infection or other etiologies. Cardiac work-up and a D-dimer will be obtained. Repeat exam patient is improved after the IV Solu-Medrol and aerosols. I went over all test results with her and her family. She has influenza A. Exacerbation of COPD. She is just too weak to go home. I will speak to the hospitalist about admission. Lab Data Attestation: I reviewed the patient's lab results. Lab results narrative: CBC shows white count 2.3 H&H 11.3 and 37. Platelets are low at 40,000. Electrolytes show a gap of 4 normal BUN and creatinine. Glucose 111. Troponin normal at 11. D-dimer is elevated at 4.6 6 therefore a CTA will be obtained. Urinalysis is negative. CT of the chest showed no PE per the radiologist to give me a handwritten read. Chronic changes consistent with COPD and bronchiectasis and scarring. Rapid COVID-negative. Influenza A positive. Labs: Laboratory Results - last 24 hr 03/29/22 03/29/22 03/29/22 12:20 12:20 12:20 WBC 2.3 L RBC 3.84 L Hgb 11.3 L Hct 37.3 MCV 97.1 MCH 29.4 MCHC 30.3 L RDW Std Deviation 51.2 H RDW Coeff of Renetta 14.6 Plt Count 40 L* MPV 11.5 Immature Gran % (Auto) 0.400 Neut % (Auto) 70.8 H Lymph % (Auto) 18.1 L [place] % (Auto) 8.6 Eos % (Auto) 1.7 Baso % (Auto) 0.4 Absolute Neuts (auto) 1.6 L Absolute Lymphs (auto) 0.42 L Nucleated RBC % 0 Differential Comment S Diff Path Review May foll D-Dimer Quant (PE/DVT) Cancelled Sodium 141 Potassium 4.1 Chloride 103 Carbon Dioxide 34.0 H Anion Gap 4 L BUN 9 Creatinine 0.40 L Estim Creat Clear Calc 126.82 Est GFR (MDRD) Af Amer 207 Est GFR (MDRD) Non-Af 171 BUN/Creatinine Ratio 22.2 H Glucose 111 H Calcium 8.8 Troponin I High Sens 11 Urine Color Urine Clarity Urine pH Ur Specific [place] Urine Protein Urine Glucose (UA) Urine Ketones Urine Occult Blood Urine Nitrite Urine Bilirubin Urine Urobilinogen Ur Leukocyte Esterase Urine RBC Urine WBC Ur Squamous Epith Cells Urine Bacteria Urine Mucus Urine Yeast 03/29/22 03/29/22 03/29/22 12:47 13:05 14:45 WBC RBC Hgb Hct MCV MCH MCHC RDW Std Deviation RDW Coeff of Renetta Plt Count MPV Immature Gran % (Auto) Neut % (Auto) Lymph % (Auto) [place] % (Auto) Eos % (Auto) Baso % (Auto) Absolute Neuts (auto) Absolute Lymphs (auto) Nucleated RBC % Differential Comment Diff Path Review D-Dimer Quant (PE/DVT) 4.66 H* Sodium Potassium Chloride Carbon Dioxide Anion Gap BUN Creatinine Estim Creat Clear Calc Est GFR (MDRD) Af Amer Est GFR (MDRD) Non-Af BUN/Creatinine Ratio Glucose Calcium Troponin I High Sens 12 Urine Color Yellow Urine Clarity Sl. Cloudy Urine pH 5.0 Ur Specific [place] 1.025 Urine Protein 15 H Urine Glucose (UA) Normal Urine Ketones 15 H Urine Occult Blood Negative Urine Nitrite Negative Urine Bilirubin 1 H Urine Urobilinogen 1 H Ur Leukocyte Esterase 500 H Urine RBC 0 SEEN Urine WBC 0 SEEN Ur Squamous Epith Cells 0-5 SEEN Urine Bacteria 0 SEEN Urine Mucus 0 SEEN Urine Yeast 1+ Radiography Chest X-Ray - ED: 1 View, Read by ED Physician, Heart, Lungs, Mediastinum, Bony Structures, No Acute Disease and Chronic Changes Diagnostic Testing: Clinical Impression(s) from Imaging Studies Chest X-Ray 03/29/22 12:04 IMPRESSION: Persistent increased linear markings at the lung bases with areas of confluence suggestive of atelectasis superimposed on scarring. Electronically Signed: Gregory Salas MD at 13:40 EST , Chest x-ray, portable, single view interpreted myself shows no acute abnormality. Atelectasis in bases. Chronic changes. No infiltrate. Normal cardiac silhouette mediastinum. Also read by the radiologist who agrees. CTA of the chest showed no PE. Chronic changes consistent with COPD. Rhythm Strip Rhythm Strip: Sinus Rhythm Rate: 89 Ectopy: None EKG Initial EKG: Attestation: I personally reviewed and interpreted this EKG as follows: Interpretation: Sinus Rhythm and No Acute Injury Pattern Comments: Normal sinus rhythm rate 89 no acute signs of TN or ischemia. Discharge Plan Dx/Rx/DC Orders Clinical Impression: Influenza A, COPD exacerbation, Weakness Disposition Disposition: [facility]
[2022-03-29] MEDS: MethylPREDNISolone 125 MG/2 ML Vial IV (12:21)
[2022-03-29] MEDS: Albuterol 2.5 MG/3 ML VIAL.NEB. INHALATION (12:22)
[2022-03-29] MEDS: Ipratropium/Albuterol Sulfate 3 ML AMPUL.NEB INHALATION ×3 (12:22→23:28)
[2022-03-29 12:29] LABS: Absolute Lymphocyte Count 0.42 X10^3/uL (0.83-4.51); Absolute Neutrophil Count 1.6 X10^3/uL (2.0-7.7); Basophil# 0.01 X10^3/uL; Basophil% 0.4 % (0-1); Eosinophil# 0.04 X10^3/uL; Eosinophils% 1.7 % (0-5); Hematocrit 37.3 % (37-47); Hemoglobin 11.3 g/dL (12.0-15.0); Lymphocyte # 0.42 X10^3/ul (0.83-4.51); Lymphocyte % 18.1 % (19-41); Mean Corp Hgb Conc 30.3 g/dL (32-36); Mean Corpuscular Hgb 29.4 pg (27.0-32.0); Mean Corpuscular Volume 97.1 fL (81-99); Mean Platelet Vol. 11.5 fl (6.2-12.0); Monocyte% 8.6 % (0-10); NRBC Flagged by Analyzer 0 % (0-5); Neutrophil # 1.64 X10^3/uL (2.7-7.7); Neutrophil % 70.8 % (47-70); POSITIVE COUNT YES; POSITIVE DIFFERENTIAL YES; RBC Distribution Width CV 14.6 % (11.6-14.6); RBC Distribution Width SD 51.2 fl (35.1-43.9); Red Blood Count 3.84 M/mm3 (4.2-5.4); White Blood Count 2.3 K/mm3 (4.4-11.0)
[2022-03-29 12:46] LABS: Anion Gap 4 (5-15); BUN 9 mg/dL (7-18); BUN/Creat Ratio 22.2 RATIO (10-20); Calcium,Total 8.8 mg/dL (8.5-10.1); Chloride 103 mmol/L (98-107); EST Glomerular Filtration Rate 171 mL/min (>60); Est Glom Filt Rate - Afr Amer 207 mL/min (>60); Estimated Creatinine Clearance 126.82 ml/min; Glucose 111 mg/dL (74-106); Potassium 4.1 mmol/L (3.5-5.1); Sodium Level 141 mmol/L (136-145); Troponin-I HS (w/2H Reflex) 11 pg/mL (3.0-54.0)
[2022-03-29 12:56] LABS: Differential Indicated SCAN CRITERIA MET; Platelet Count 40 K/mm3 (150-450)
[2022-03-29 13:09] LABS: Bacteria 0 SEEN /hpf (None Seen); Mucous, Urine 0 SEEN /hpf (<or=2+); Red Blood Cells-Urine 0 SEEN /hpf (0-5); White Blood Cells 0 SEEN /hpf (0-5)
[2022-03-29 13:13] LABS: Color, Urine Yellow (Yellow); Glucose, Dipstick Normal (Normal); Ketone-Dipstick 15 mg/dl (Negative); Leukocyte Esterase-Dipstick 500 /ul (Negative); Nitrite-Dipstick Negative (Negative); Occult Blood-Urine Negative /ul (Negative); Protein-Dipstick 15 mg/dl (Negative); Specific Gravity, Urine 1.025 (1.002-1.030); Urine Bilirubin Dipstick 1 mg/dL (Negative); Urine Clarity Sl. Cloudy (Clear); Urine Urobilinogen 1 mg/dl (Normal)
[2022-03-29 13:19] LABS: Squamous Epithelial Cells - UA 0-5 SEEN /hpf (5-10); Yeast-Urine 1+ /hpf (None Seen)
[2022-03-29 13:33] LABS: D-Dimer Quantitative (DVT/PE) 4.66 FEU/ug/m (0.27-0.49)
[2022-03-29 13:49] LABS: Differential Comment S
--- NOTE | 2022-03-29 14:16 | CT_ITS ---
STUDY: CTA CHEST REASON FOR EXAM: Female, 56 years old. elevated d-dimer RADIATION DOSAGE (If Supplied By Facility): CTDIvol = ( 8.11 ) mGy, DLP = ( 242.45 ) mGycm TECHNIQUE: The examination was performed with the intravenous administration of IV 75mL Isovue-370. Post-processing of the angiographic images was performed, with multiplanar reformation and 3D reconstruction. Individualized dose optimization techniques were used for this CT. COMPARISON: 03/10/2018, chest x-ray earlier today FINDINGS: Normal enhancement of the main pulmonary artery and right and left pulmonary arteries. Normal enhancement of the bilateral peripheral pulmonary arteries. There is no demonstrated pulmonary embolism. Normal thoracic aorta and visualized great vessels. There is no demonstrated aortic dissection. Normal heart and pericardium. Normal mediastinum. Normal hilar regions. Normal visualized trachea and bronchi. The lungs are well expanded. Moderate emphysema. Bibasilar cylindrical bronchiectasis. Alveolar density in the lower left lung consistent with left lower lobe pneumonia. Normal pleura. Normal chest wall structures. Normal osseous structures. Cirrhosis with splenomegaly likely from portal hypertension. CT/CTA Chest W/WO Contrast IMPRESSION: 1. No CT evidence of pulmonary embolism. 2. Moderate emphysema. 3. Left lower lobe pneumonia. Electronically Signed: Rick Rodríguez MD at 17:27 EST ,
[2022-03-29 14:24] LABS: Reflex Troponin-HS? (from REC) Y
[2022-03-29 15:20] LABS: Troponin-I HS 12 pg/mL (3.0-54.0)
--- NOTE | 2022-03-29 16:46 | PCM.HP.STD ---
HPI - General General Date of Admission: 03/29/22 Date of Service: 03/29/22 Chief Complaint: Progressive worsening of shortness of breath for 10 days on baseline chronic short of breath. Increased cough HPI Narrative SLOANE CANO, is a 56 F with history of COPD on chronic 5 L of oxygen with history of alpha-1 antitrypsin deficiency has been sick for about 10 days. She has history of COPD with chronic shortness of breath and cough but for last 2 days and she is having severe cough with whitish sputum, chest tightness and dyspnea even at rest. She had increased oxygen requirement at home. She feels very weak, could not get around at home. She also feels nauseated but no throwing up or change in bowel movement. Mild dyspeptic symptoms. No chest pain or pressure or chest tightness. Denies hemoptysis. 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 In ED, CTPA was done and shows chronic changes but no PE. Twelve-lead EKG shows sinus rhythm at 59 bpm. [facility] Medical History Plxfg-5-vllvxytgrld deficiency Chronic hypoxemic respiratory failure COPD (chronic obstructive pulmonary disease) Depression Hyperlipidemia Home Medications albuterol sulfate 90 mcg/actuation aerosol inhaler (Ventolin HFA) 2 puff inhalation Q4H PRN PRN Sob &/Or Wheezing 05/29/16 [History Last Taken 03/28/22] potassium chloride 10 mEq tablet,extended release(part/cryst) 10 meq PO TID supplement 03/09/18 [History Last Taken 03/28/22] esomeprazole magnesium 40 mg capsule,delayed release 40 mg PO DAILY gerd 07/27/19 [History Last Taken 03/28/22] fluticasone fur. 100 mcg-umeclid 62.5 mcg-vilant 25 mcg inhalat.powder (Trelegy Ellipta) 1 ea IH DAILY copd 07/27/19 [History Last Taken 03/28/22] quetiapine 400 mg tablet,extended release 24 hr 800 mg PO QHS sleep 07/27/19 [History Last Taken 03/28/22] asenapine maleate 5 mg sublingual tablet (Saphris) 10 mg sublingual BID 08/03/21 [History Last Taken 03/28/22] buspirone 15 mg tablet 15 mg PO TID 08/03/21 [History Last Taken 03/28/22] metformin 1,000 mg tablet 1,000 mg PO BID 08/03/21 [History Last Taken 03/28/22] propranolol 10 mg tablet 10 mg PO TID 08/03/21 [History Last Taken 03/28/22] alprazolam 0.5 mg tablet 0.5 mg PO BID ANXIETY 03/29/22 [History Last Taken 03/28/22] doxepin 25 mg capsule 25 mg PO DAILY DEPRESSION 03/29/22 [History Last Taken 03/28/22] sertraline 50 mg tablet 100 mg PO DAILY DEPRESSION 03/29/22 [History Last Taken 03/28/22] Allergy/AdvReac Type Severity Reaction Status Date / Time erythromycin base Allergy FACIAL Verified 03/29/22 11:45 SWELLING Social History Smoking Status: Former smoker ROS ROS Narrative Constitutional: Reports fatigue and weakness. No fever. HEENT: Reports systems reviewed and no addt'l complaints, except as documented Respiratory/Chest: As mentioned in HPI Gastrointestinal: Nauseated and mild dyspeptic symptoms. Denies coffee ground emesis, hematemesis or vomiting Genitourinary: Denies burning urination or new urinary tract symptoms Musculoskeletal: No energy, could not stand up or walk. Mild joint pain and limited range of motion Neurologic: Denies seizure-like activity skin: No ulcer. No rash Endocrinology: Reports systems reviewed and no addt'l complaints, except as documented Hematologic/Lymphatic: Reports systems reviewed and no addt'l complaints, except as documented Rest 14 ROS are negative except as mentioned in HPI Vital Signs Vital Signs Vital Signs: 03/29/22 11:40 03/29/22 11:45 03/29/22 12:22 Temperature 98.3 F Temperature Source Temporal Pulse Rate 93 Respiratory Rate 20 H Respiratory Effort Labored Respiratory Depth Shallow Respiratory Pattern Tachypnea Blood Pressure 170/85 H Blood Pressure Mean 113 Pulse Ox 81 Oxygen Delivery Method Nasal Cannula Nasal Cannula Nasal Cannula Oxygen Flow Rate (L/min) 4 6 5 03/29/22 13:14 03/29/22 13:38 03/29/22 15:00 Temperature Temperature Source Pulse Rate 91 94 Respiratory Rate 22 H 21 H Respiratory Effort Respiratory Depth Respiratory Pattern Blood Pressure 148/81 H 151/89 H Blood Pressure Mean 103 109 Pulse Ox 96 88 94 Oxygen Delivery Method Nasal Cannula Nasal Cannula Nasal Cannula Oxygen Flow Rate (L/min) 6 4 5.5 03/29/22 13:45 Temperature Temperature Source Pulse Rate Respiratory Rate Respiratory Effort Respiratory Depth Respiratory Pattern Blood Pressure Blood Pressure Mean Pulse Ox 90 Oxygen Delivery Method Oxygen Flow Rate (L/min) 5.5 Weight Weight: 169 lb 15.622 oz Body Mass Index (BMI) 30.1 Physical Exam Narrative Physical exam General: Alert, Oriented x3, Cooperative, mild respiratory distress. HEENT: Atraumatic, PERRLA, EOMI, Normocephalic Oral: Oral mucosa dry. No Gingival or Mucosal Lesions/ Ulcerations Neck: Supple, No JVD, Negative Carotid Bruits Lungs: Dyspnea at rest, tachypnea and labored breathing. Using accessory muscles. Air entry diminished in bilateral lung bases. Bilateral expiratory rhonchi Cardiovascular: Regular rate, Regular Rhythm, Normal S1, Normal S2, No murmurs Abdomen: Bowel Sounds Present, Soft, Non Tender, Non-Distended : Dark color unit, deep yellow. No renal angle tenderness. No suprapubic tenderness. Extremities: No edema, Capillary Refill Less than 3 Seconds Skin: No rashes, No breakdown Musculoskeletal: No Tenderness to Palpation of Joints or Extremities, ROM slightly restricted. Moderate muscle atrophy. Neurological: Cranial nerves II-XII grossly intact, DTR 2+/4 and Symmetrical, Neuro grossly intact Psych/Mental Status: Flat affect Results Lab / Micro Data Result Diagrams: 03/29/22 12:20 03/29/22 12:20 Labs: Laboratory Results - last 24 hr 03/29/22 12:20: WBC 2.3 L, RBC 3.84 L, Hgb 11.3 L, Hct 37.3, MCV 97.1, MCH 29.4, MCHC 30.3 L, RDW Std Deviation 51.2 H, RDW Coeff of Renetta 14.6, Plt Count 40 L*, MPV 11.5, Immature Gran % (Auto) 0.400, Neut % (Auto) 70.8 H, Lymph % (Auto) 18.1 L, Day % (Auto) 8.6, Eos % (Auto) 1.7, Baso % (Auto) 0.4, Absolute Neuts (auto) 1.6 L, Absolute Lymphs (auto) 0.42 L, Nucleated RBC % 0, Differential Comment S, Diff Path Review August03/29/22 12:20: D-Dimer Quant (PE/DVT) Cancelled 03/29/22 12:20: Sodium 141, Potassium 4.1, Chloride 103, Carbon Dioxide 34.0 H, Anion Gap 4 L, BUN 9, Creatinine 0.40 L, Estim Creat Clear Calc 126.82, Est GFR (MDRD) Af Amer 207, Est GFR (MDRD) Non-Af 171, BUN/Creatinine Ratio 22.2 H, Glucose 111 H, Calcium 8.8, Troponin I High Sens 11 03/29/22 12:47: D-Dimer Quant (PE/DVT) 4.66 H* 03/29/22 13:05: Urine Color Yellow, Urine Clarity Sl. Cloudy, Urine pH 5.0, Ur Specific [place] 1.025, Urine Protein 15 H, Urine Glucose (UA) Normal, Urine Ketones 15 H, Urine Occult Blood Negative, Urine Nitrite Negative, Urine Bilirubin 1 H, Urine Urobilinogen 1 H, Ur Leukocyte Esterase 500 H, Urine RBC 0 SEEN, Urine WBC 0 SEEN, Ur Squamous Epith Cells 0-5 SEEN, Urine Bacteria 0 SEEN, Urine Mucus 0 SEEN, Urine Yeast 1+ 03/29/22 14:45: Troponin I High Sens 12 Micro: Microbiology 03/29/22 12:47 Nasal Secretion SARS-CoV-2 & FLU Antigen (Rapid) - Final Influenzae A Rhythm Strip Rhythm Strip: Sinus Rhythm Rate: 89 Ectopy: None Radiology Impression Chest X-Ray 03/29/22 12:04 IMPRESSION: Persistent increased linear markings at the lung bases with areas of confluence suggestive of atelectasis superimposed on scarring. Electronically Signed: Gregory Salas MD at 13:40 EST , Assessment & Plan Assessment/Plan (1) COPD exacerbation: (2) Influenza A: PLAN: Plan This is a 56-year-old female is being admitted with acute on chronic shortness of breath, dyspnea at rest and chest tightness suggestive of COPD exacerbation due to influenza A bronchitis. 1. COPD exacerbation due to influenza A bronchitis: Patient is being admitted to [facility] floor. Started on Tamiflu 75 mg p.o. twice daily. DuoNeb every 4 hourly, Solu-Medrol, incentive spirometry, Mucinex, Tessalon pearls, PEP and incentive spirometry. Patient is also dehydrated therefore IV fluid ordered. CTPA negative for PE. It shows chronic changes of COPD. Not officially read but verbally told to ED physician 2. Chronic alpha-1 antitrypsin deficiency with history of COPD: Patient follows Dr. Aguirre but has many canceled pulmonary visits. On Trelegy. 3. Chronic thrombocytopenia with history of PE and DVT, pancytopenia: Patient not candidate for antithrombotic. Platlet count is 40,000. Mild chronic anemia, hemoglobin on baseline. Mild leukopenia, ANC 1.6 thousand and ALC 0.42 thousand therefore neutropenia and lymphopenia. Patient has history of pancytopenia as documented during last discharge summary 08/14/2021 when she was admitted for acute hypoxic respiratory due to COPD exacerbation 4. DVT prophylaxis: Patient not candidate for pharmacological VTE prophylaxis therefore bilateral SCDs Living will/advanced directive/end of life care: Patient does not have living will or advanced directive. Her near the bedside is next to kin and power of business attorney for health. After discussion of benefits/risks procedures involved with full code, DNR CC arrest and DNR CC, the patient opted for full code. Patient and her do want artificial life support including intubation, tube feed, ventilator and/chest compression, central venous catheter, vasopressor and DC shock if needed Total time spent in [id number] encounter in discussion of advanced directive 16 minutes. Clinical Impression(s) from Imaging Studies Chest X-Ray 03/29/22 12:04 IMPRESSION: Persistent increased linear markings at the lung bases with areas of confluence suggestive of atelectasis superimposed on scarring. Microbiology Past 72 Hours 03/29/22 12:47 Nasal Secretion SARS-CoV-2 & FLU Antigen (Rapid) - Final Influenzae A Laboratory Results 03/29/22 12:20: WBC 2.3 L, RBC 3.84 L, Hgb 11.3 L, Hct 37.3, MCV 97.1, MCH 29.4, MCHC 30.3 L, RDW Std Deviation 51.2 H, RDW Coeff of Renetta 14.6, Plt Count 40 L*, MPV 11.5, Immature Gran % (Auto) 0.400, Neut % (Auto) 70.8 H, Lymph % (Auto) 18.1 L, Day % (Auto) 8.6, Eos % (Auto) 1.7, Baso % (Auto) 0.4, Absolute Neuts (auto) 1.6 L, Absolute Lymphs (auto) 0.42 L, Nucleated RBC % 0, Differential Comment S, Diff Path Review August03/29/22 12:20: D-Dimer Quant (PE/DVT) Cancelled 03/29/22 12:20: Sodium 141, Potassium 4.1, Chloride 103, Carbon Dioxide 34.0 H, Anion Gap 4 L, BUN 9, Creatinine 0.40 L, Estim Creat Clear Calc 126.82, Est GFR (MDRD) Af Amer 207, Est GFR (MDRD) Non-Af 171, BUN/Creatinine Ratio 22.2 H, Glucose 111 H, Calcium 8.8, Troponin I High Sens 11 03/29/22 12:47: D-Dimer Quant (PE/DVT) 4.66 H* 03/29/22 13:05: Urine Color Yellow, Urine Clarity Sl. Cloudy, Urine pH 5.0, Ur Specific [place] 1.025, Urine Protein 15 H, Urine Glucose (UA) Normal, Urine Ketones 15 H, Urine Occult Blood Negative, Urine Nitrite Negative, Urine Bilirubin 1 H, Urine Urobilinogen 1 H, Ur Leukocyte Esterase 500 H, Urine RBC 0 SEEN, Urine WBC 0 SEEN, Ur Squamous Epith Cells 0-5 SEEN, Urine Bacteria 0 SEEN, Urine Mucus 0 SEEN, Urine Yeast 1+ 03/29/22 14:45: Troponin I High Sens 12 Charges/Coding Visit Charges Inpatient E&M: 17508 Init Hosp L3 Procedures Hospitalists Procedures: 96087 Advncd Care Plan 30 Min
[2022-03-29] MEDS: Lactated Ringers 1,000 ML 75 ML IV (18:40)
[2022-03-29] MEDS: Benzonatate 100 MG Capsule 200 MG PO ×2 (18:47→21:05)
[2022-03-29] MEDS: guaiFENesin 1,200 MG Tablet 1200 MG PO ×2 (18:48→21:05)
[2022-03-29] MEDS: Pantoprazole Sodium 40 MG Tablet PO (18:48)
[2022-03-29] MEDS: QUEtiapine 100 MG Tablet 300 MG PO (21:05)
[2022-03-29] MEDS: busPIRone 15 MG TABLET PO (21:05)
[2022-03-29] MEDS: Propranolol 10 MG Tablet PO (21:05)
[2022-03-29] MEDS: Oseltamivir Phosphate 75 MG Capsule PO (21:05)
[2022-03-29] MEDS: ALPRAZolam 0.5 MG Tablet 0.25 MG PO (21:06)
[2022-03-29] MEDS: Senna/Docusate Sodium 1 Tablet 2 TABLET PO (21:06)
[2022-03-29] MEDS: Insulin Lispro 100 UNIT/ML INSULN.PEN SC (21:07)
[2022-03-29 23:00] LABS: Bedside Glucose 192 mg/dL (74-106)
[2022-03-30] VITALS (12 sets, daily range): BP systolic 123–141; BP diastolic 55–84; PULSE 84–93; RESP 17–20; TEMP 36.5–36.8; O2SAT 84–94
[2022-03-30] MEDS: Ipratropium/Albuterol Sulfate 3 ML AMPUL.NEB INHALATION ×6 (03:35→23:35)
[2022-03-30] MEDS: Nystatin Powder 15gm Bottle 1 APPLIC TOPICAL ×3 (05:27→21:45)
[2022-03-30] MEDS: Benzonatate 100 MG Capsule 200 MG PO ×3 (05:28→21:45)
[2022-03-30] MEDS: Propranolol 10 MG Tablet PO ×3 (05:28→21:45)
[2022-03-30] MEDS: busPIRone 15 MG TABLET PO ×3 (05:28→21:45)
[2022-03-30] MEDS: 0.9% Saline Lock 10 ML Syringe IV (05:28)
[2022-03-30 06:06] LABS: Absolute Neutrophil Count 1.5 X10^3/uL (2.0-7.7); Eosinophil# 0.01 X10^3/uL; Eosinophils% 0.5 % (0-5); Hematocrit 35.5 % (37-47); Hemoglobin 11.4 g/dL (12.0-15.0); Lymphocyte % 14.6 % (19-41); Mean Corp Hgb Conc 32.1 g/dL (32-36); Mean Corpuscular Volume 93.4 fL (81-99); Mean Platelet Vol. 11.4 fl (6.2-12.0); Monocyte% 9.7 % (0-10); NRBC Flagged by Analyzer 0 % (0-5); Neutrophil # 1.54 X10^3/uL (2.7-7.7); Neutrophil % 74.7 % (47-70); POSITIVE COUNT YES; POSITIVE DIFFERENTIAL YES; RBC Distribution Width CV 14.6 % (11.6-14.6); RBC Distribution Width SD 49.5 fl (35.1-43.9); White Blood Count 2.1 K/mm3 (4.4-11.0)
[2022-03-30 06:09] LABS: Differential Indicated SCAN CRITERIA MET
[2022-03-30 06:10] LABS: Platelet Count 45 K/mm3 (150-450)
[2022-03-30 06:33] LABS: Platelet Estimate MKD DEC (ADEQ)
[2022-03-30 06:35] LABS: Anion Gap 4 (5-15); BUN 9 mg/dL (7-18); BUN/Creat Ratio 21.2 RATIO (10-20); Chloride 102 mmol/L (98-107); Creatinine, Serum 0.42 mg/dL (0.55-1.02); EST Glomerular Filtration Rate 162 mL/min (>60); Est Glom Filt Rate - Afr Amer 196 mL/min (>60); Estimated Creatinine Clearance 120.78 ml/min; Glucose 150 mg/dL (74-106); Potassium 3.9 mmol/L (3.5-5.1); Sodium Level 140 mmol/L (136-145)
[2022-03-30 06:35] LABS: Bedside Glucose 149 mg/dL (74-106)
[2022-03-30 07:26] LABS: Hemoglobin A1c 5.3 % (3.8-5.6)
[2022-03-30] MEDS: Glucerna Shake 120 ML LIQUID PO ×2 (08:10→10:40)
[2022-03-30] MEDS: Pantoprazole Sodium 40 MG Tablet PO (10:35)
[2022-03-30] MEDS: guaiFENesin 1,200 MG Tablet 1200 MG PO ×2 (10:35→21:45)
[2022-03-30] MEDS: Oseltamivir Phosphate 75 MG Capsule PO ×2 (10:36→21:45)
[2022-03-30] MEDS: Doxepin Hcl 25 MG Capsule PO (10:36)
[2022-03-30] MEDS: Sertraline 50 MG Tablet 100 MG PO (10:36)
[2022-03-30] MEDS: Senna/Docusate Sodium 1 Tablet 2 TABLET PO (10:36)
[2022-03-30] MEDS: ALPRAZolam 0.5 MG Tablet 0.25 MG PO ×2 (10:40→21:53)
[2022-03-30] MEDS: Insulin Lispro 100 UNIT/ML INSULN.PEN SC ×2 (11:26→21:45)
[2022-03-30 11:45] LABS: Bedside Glucose 167 mg/dL (74-106)
--- NOTE | 2022-03-30 12:25 | CASEMGMT ---
RN?CM?RESTAURANT HOST/HOSTESS?CM?to room to meet with patient for initial transition planning/care coordination?assessment.?RN?CM?introduced self and role at [facility].? Pt voices understanding and consents to?assessment?at this time.? Pt sitting up in chair in room in no distress at this time.? Pt is A/O at this time and answers all questions appropriately.?? Care providers, pharmacy, and demographics verified/updated at this time.? PCP:?Dr Souza Specialists:?Dr Aguirre-pulmonology Preferred [facility]acy:[facility] Insurance:?[place] PPO [employer] Prescription Benefit:??Yes Living Will/HPOA:??States does not have LW or HCPOA .? Interested in more information and would like to talk with SW to complete paperwork. Pt made aware, if SW unable to meet w/her while @ [facility], that AD can be completed as an OP.? Given Social Service rac card with number to call if chooses in the future to utilize [facility] social work for advanced directive completion. LNOK:?, Yayo. Daughter, Ruslan. Son, Erickson Living Arrangements:?Lives w/ in one-story home w/no steps to enter. assists w/ADL's for pt, such as SBA when ambulating, bathing/dressing, and does most home mgmt tasks. Pt states he helps her w/medications and appts as well. Dtr comes once in awhile to clean. Transportation:?Pt and . DME: ?States has the following DME:??shower chair, grab bars, walker, W/C, Scooter, nebulizer, pulse ox, functioning glucometer w/supplies, and O2 @ 5 l/m thru [employer] [facility]. Pt states no need for further DME at this time.?? HHC/SNF:?No hx of either. Pt would like HHC @ d/c. She was made aware a list of HHC agencies will be provided for her to choose from. MS3 RN ABRAHAM, Alivia, made aware of pt wanting HHC. Discussed Palliative care w/pt. She states she is interested in referral. SHAKIR Bunch CM, made aware. Pt wishes to return home and states has no concerns with going home at time of discharge.? Follow for any increase in home oxygen needs and any further discharge planning/needs.? Pt voices no further concerns/needs at this time.? Advised pt to ask for?CM?if any further questions/concerns/needs arise.? Voices understanding.? PLAN:??Home w/HHC Patricia BSN?RN?CM
--- NOTE | 2022-03-30 13:00 | PN.HOSP_ITS ---
Subjective Subjective Follow-up for COPD exacerbation Shortness of breath is better. Objective Data Objective Data Vital Signs: Vital Signs Temp Pulse Resp BP Pulse Ox O2 Del Method O2 Flow Rate 97.8 F 90 18 130/56 H 90 Nasal Cannula 6 03/30/22 08:16 03/30/22 10:24 03/30/22 10:24 03/30/22 08:16 03/30/22 08:16 03/30/22 08:20 03/30/22 08:20 Oxygen Flow Rate (L/min) 6 Oxygen Delivery Method Nasal Cannula Weight: 161 lb 9.581 oz Body Mass Index (BMI) 28.7 Intake & Output: Intake and Output for Last 24 Hours 03/28/22 03/29/22 03/30/22 23:59 23:59 23:59 Intake Total 1000 / 1000 Output Total 200 / 200 250 / 250 Balance -200 / -200 750 / 750 Lab / Micro Data Result Diagrams: 03/30/22 05:43 03/30/22 05:43 Labs: Laboratory Results - last 24 hr 03/29/22 12:20: Differential Comment S, Diff Path Review August03/29/22 12:47: D-Dimer Quant (PE/DVT) 4.66 H* 03/29/22 13:05: Urine Color Yellow, Urine Clarity Sl. Cloudy, Urine pH 5.0, Ur Specific [place] 1.025, Urine Protein 15 H, Urine Glucose (UA) Normal, Urine Ketones 15 H, Urine Occult Blood Negative, Urine Nitrite Negative, Urine Bilirubin 1 H, Urine Urobilinogen 1 H, Ur Leukocyte Esterase 500 H, Urine RBC 0 SEEN, Urine WBC 0 SEEN, Ur Squamous Epith Cells 0-5 SEEN, Urine Bacteria 0 SEEN, Urine Mucus 0 SEEN, Urine Yeast 1+ 03/29/22 14:45: Troponin I High Sens 03/29/22 20:56: POC Glucose 192 H 03/30/22 05:27: POC Glucose 149 H 03/30/22 05:43: WBC 2.1 L, RBC 3.80 L, Hgb 11.4 L, Hct 35.5 L, MCV 93.4, MCH 30.0, MCHC 32.1 D, RDW Std Deviation 49.5 H, RDW Coeff of Renetta 14.6, Plt Count 45 L*, MPV 11.4, Immature Gran % (Auto) 0.500, Neut % (Auto) 74.7 H, Lymph % (Auto) 14.6 L, White % (Auto) 9.7, Eos % (Auto) 0.5, Baso % (Auto) 0.0, Absolute Neuts (auto) 1.5 L, Absolute Lymphs (auto) 0.30 L, Nucleated RBC % 0, Diff Path Review August foll, Platelet Estimate MKD 03/30/22 05:43: Sodium 140, Potassium 3.9, Chloride 102, Carbon Dioxide 34.0 H, Anion Gap 4 L, BUN 9, Creatinine 0.42 L, Estim Creat Clear Calc 120.78, Est GFR (MDRD) Af Amer 196, Est GFR (MDRD) Non-Af 162, BUN/Creatinine Ratio 21.2 H, Glucose 150 H, Calcium 9.0 03/30/22 05:43: Hemoglobin A1c 5.3 03/30/22 11:25: POC Glucose 167 H Micro: Microbiology 03/29/22 12:47 Nasal Secretion SARS-CoV-2 & FLU Antigen (Rapid) - Final Influenzae A Radiography Diagnostic Testing: Radiology Impression Chest X-Ray 03/29/22 12:04 IMPRESSION: Persistent increased linear markings at the lung bases with areas of confluence suggestive of atelectasis superimposed on scarring. Chest CTA 03/29/22 14:16 IMPRESSION: 1. No CT evidence of pulmonary embolism. 2. Moderate emphysema. 3. Left lower lobe pneumonia. Electronically Signed: Rick Rodríguez MD at 17:27 EST , Rhythm Strip Rhythm Strip: Sinus Rhythm Rate: 89 Ectopy: None Physical Exam Narrative Physical exam General: Alert, Oriented x3, Cooperative, mild respiratory distress. HEENT: Atraumatic, PERRLA, EOMI, Normocephalic Oral: Oral mucosa dry. No Gingival or Mucosal Lesions/ Ulcerations Neck: Supple, No JVD, Negative Carotid Bruits Lungs: Dyspnea at rest, tachypnea and labored breathing. Using accessory muscles. Air entry diminished in bilateral lung bases. Bilateral expiratory rhonchi Cardiovascular: Regular rate, Regular Rhythm, Normal S1, Normal S2, No murmurs Abdomen: Bowel Sounds Present, Soft, Non Tender, Non-Distended : Dark color unit, deep yellow. No renal angle tenderness. No suprapubic tenderness. Extremities: No edema, Capillary Refill Less than 3 Seconds Skin: No rashes, No breakdown Musculoskeletal: No Tenderness to Palpation of Joints or Extremities, ROM slightly restricted. Moderate muscle atrophy. Neurological: Cranial nerves II-XII grossly intact, DTR 2+/4 and Symmetrical, Neuro grossly intact Psych/Mental Status: Flat affect Assessment & Plan Assessment/Plan (1) COPD exacerbation: (2) Influenza A: PLAN: Plan This is a 56-year-old female is being admitted with acute on chronic shortness of breath, dyspnea at rest and chest tightness suggestive of COPD exacerbation due to influenza A bronchitis. 1. COPD exacerbation due to influenza A bronchitis: [facility] Started on Tamiflu 75 mg p.o. twice daily. DuoNeb every 4 hourly, Solu-Medrol, incentive spirometry, Mucinex, Tessalon pearls, PEP and incentive spirometry. Patient is also dehydrated therefore IV fluid ordered. CTPA individually reviewed negative for PE. It shows chronic changes of COPD. Not officially read but verbally told to ED physician 03/30: CT chest shows left lower lobe alveolar density suggestive of pneumonia. Bibasilar cylindrical bronchiectasis. Moderate emphysema the patient is on IV ceftriaxone and doxycycline. Not on azithromycin due to allergy with erythromycin base. There is improvement in shortness of breath and dyspnea. 2. Chronic alpha-1 antitrypsin deficiency with history of COPD: Patient follows Dr. Aguirre but has many canceled pulmonary visits. On Trelegy. 3. Chronic thrombocytopenia with history of PE and DVT, pancytopenia: Patient not candidate for antithrombotic. Platlet count is 40,000. Mild chronic anemia, hemoglobin on baseline. Mild leukopenia, ANC 1.6 thousand and ALC 0.42 thousand therefore neutropenia and lymphopenia. Patient has history of pancytopenia as documented during last discharge summary 08/14/2021 when she was admitted for acute hypoxic respiratory due to COPD exacerbation 03/30: Patient has leukopenia. H&H did not show change. Platelet count 45,000. No significant change in all 3 cell counts. 4. DVT prophylaxis: Patient not candidate for pharmacological VTE prophylaxis therefore bilateral SCDs Total time of the visit including total time spent in counseling or coordination of care, (more than 50% of the total time, spent in obtaining medical information from nurses and other ancillary care providers,explaining to the patient about labs, imaging, diagnosis and management of active complex medical conditions), review of medical, review of labs and imaging is 40 minutes. Living will/advanced directive/end of life care: Patient does not have living will or advanced directive. Her near the bedside is next to kin and power of marketing director for health. After discussion of benefits/risks procedures involved with full code, DNR CC arrest and DNR CC, the patient opted for full code. Patient and her do want artificial life support including intubation, tube feed, ventilator and/chest compression, central venous catheter, vasopressor and DC shock if needed Clinical Impression(s) from Imaging Studies Chest X-Ray 03/29/22 12:04 IMPRESSION: Persistent increased linear markings at the lung bases with areas of confluence suggestive of atelectasis superimposed on scarring. Microbiology Past 72 Hours 03/29/22 12:47 Nasal Secretion SARS-CoV-2 & FLU Antigen (Rapid) - Final Influenzae A Laboratory Results 03/29/22 12:20: WBC 2.3 L, RBC 3.84 L, Hgb 11.3 L, Hct 37.3, MCV 97.1, MCH 29.4, MCHC 30.3 L, RDW Std Deviation 51.2 H, RDW Coeff of Renetta 14.6, Plt Count 40 L*, MPV 11.5, Immature Gran % (Auto) 0.400, Neut % (Auto) 70.8 H, Lymph % (Auto) 18.1 L, White % (Auto) 8.6, Eos % (Auto) 1.7, Baso % (Auto) 0.4, Absolute Neuts (auto) 1.6 L, Absolute Lymphs (auto) 0.42 L, Nucleated RBC % 0, Differential Comment S, Diff Path Review August03/29/22 12:20: D-Dimer Quant (PE/DVT) Cancelled 03/29/22 12:20: Sodium 141, Potassium 4.1, Chloride 103, Carbon Dioxide 34.0 H, Anion Gap 4 L, BUN 9, Creatinine 0.40 L, Estim Creat Clear Calc 126.82, Est GFR (MDRD) Af Amer 207, Est GFR (MDRD) Non-Af 171, BUN/Creatinine Ratio 22.2 H, Glucose 111 H, Calcium 8.8, Troponin I High Sens 11 03/29/22 12:47: D-Dimer Quant (PE/DVT) 4.66 H* 03/29/22 13:05: Urine Color Yellow, Urine Clarity Sl. Cloudy, Urine pH 5.0, Ur Specific [place] 1.025, Urine Protein 15 H, Urine Glucose (UA) Normal, Urine Ketones 15 H, Urine Occult Blood Negative, Urine Nitrite Negative, Urine Bilirubin 1 H, Urine Urobilinogen 1 H, Ur Leukocyte Esterase 500 H, Urine RBC 0 SEEN, Urine WBC 0 SEEN, Ur Squamous Epith Cells 0-5 SEEN, Urine Bacteria 0 SEEN, Urine Mucus 0 SEEN, Urine Yeast 1+ 03/29/22 14:45: Troponin I High Sens 12 Charges/Coding Visit Charges Inpatient E&M: 61410 Subs Hosp L3
[2022-03-30] MEDS: Doxycycline 100 MG CAPSULE PO ×2 (14:35→21:48)
[2022-03-30] MEDS: Ceftriaxone 1 GM/50 ML BAG IV (14:36)
--- NOTE | 2022-03-30 14:42 | CASEMGMT ---
Addendum entered by Alivia Crouch 03/30/22 14:43: Pt screened with [facility] Pall[facility] Care Screening tool, pt met criteria and patient agreeable to services. Email sent to Palliative to check pt benefits. Liaison present at hospital and took face sheet for this. No order entered as of yet. Original Note: Patient was provided a list of [facility] providers including quality and resource use data and consistent with the patient?s preferred geographic region, medical needs, and insurance network were provided from the [employer] Guide. Pt asked RN ABRAHAM to read list, pt chose [facility] followed by [facility]. Referral sent to [facility] via careport at this time.
--- NOTE | 2022-03-30 15:07 | CASEMGMT ---
Social Work Referral received from RNCM that pt would like to complete AD. SW met with pt and discussed Living will and health care POA. Pt choosing not to complete at this time. Pt would like to speak with her spouse. SW left pt with docuements and AD rack card with number to call to make outpt appointment. Pt understanding. LENORE Ross
[2022-03-30 15:54] LABS: M R Staph aureus DNA By PCR Negative (Negative); Probe Check PASS; Specimen Processing Control PASS
[2022-03-30 16:52] LABS: Bedside Glucose 149 mg/dL (74-106)
[2022-03-30] MEDS: QUEtiapine 100 MG Tablet 300 MG PO (21:45)
[2022-03-30 23:50] LABS: Bedside Glucose 226 mg/dL (74-106)
[2022-03-31] VITALS (14 sets, daily range): BP systolic 107–136; BP diastolic 44–71; PULSE 65–88; RESP 16–23; TEMP 36.4–36.9; O2SAT 91–99
[2022-03-31] MEDS: Ipratropium/Albuterol Sulfate 3 ML AMPUL.NEB INHALATION ×6 (03:40→23:06)
[2022-03-31] MEDS: Insulin Lispro 100 UNIT/ML INSULN.PEN SC ×4 (05:01→20:59)
[2022-03-31] MEDS: Propranolol 10 MG Tablet PO ×3 (05:02→21:04)
[2022-03-31] MEDS: Nystatin Powder 15gm Bottle 1 APPLIC TOPICAL ×3 (05:02→21:05)
[2022-03-31] MEDS: busPIRone 15 MG TABLET PO ×3 (05:02→21:04)
[2022-03-31] MEDS: Benzonatate 100 MG Capsule 200 MG PO ×3 (05:02→21:04)
[2022-03-31 06:26] LABS: Bedside Glucose 176 mg/dL (74-106)
[2022-03-31 07:49] LABS: Absolute Lymphocyte Count 0.32 X10^3/uL (0.83-4.51); Absolute Neutrophil Count 1.4 X10^3/uL (2.0-7.7); Eosinophil# 0.01 X10^3/uL; Eosinophils% 0.5 % (0-5); Hematocrit 38.4 % (37-47); Hemoglobin 11.9 g/dL (12.0-15.0); Lymphocyte # 0.32 X10^3/ul (0.83-4.51); Mean Corpuscular Hgb 29.1 pg (27.0-32.0); Mean Corpuscular Volume 93.9 fL (81-99); Mean Platelet Vol. 11.5 fl (6.2-12.0); Monocyte# 0.13 X10^3/uL; Monocyte% 6.9 % (0-10); NRBC Flagged by Analyzer 0 % (0-5); Neutrophil # 1.41 X10^3/uL (2.7-7.7); Neutrophil % 75.1 % (47-70); POSITIVE COUNT YES; POSITIVE DIFFERENTIAL YES; RBC Distribution Width CV 14.9 % (11.6-14.6); RBC Distribution Width SD 51.1 fl (35.1-43.9); Red Blood Count 4.09 M/mm3 (4.2-5.4); White Blood Count 1.9 K/mm3 (4.4-11.0)
[2022-03-31 07:53] LABS: Differential Indicated SCAN CRITERIA MET; Platelet Count 43 K/mm3 (150-450)
[2022-03-31 08:05] LABS: Anion Gap 4 (5-15); BUN 16 mg/dL (7-18); BUN/Creat Ratio 39.8 RATIO (10-20); Calcium,Total 9.3 mg/dL (8.5-10.1); Chloride 104 mmol/L (98-107); EST Glomerular Filtration Rate 173 mL/min (>60); Est Glom Filt Rate - Afr Amer 209 mL/min (>60); Estimated Creatinine Clearance 126.82 ml/min; Glucose 175 mg/dL (74-106); Potassium 3.9 mmol/L (3.5-5.1); Sodium Level 141 mmol/L (136-145)
[2022-03-31] MEDS: Pantoprazole Sodium 40 MG Tablet PO (09:12)
[2022-03-31] MEDS: Sertraline 50 MG Tablet 100 MG PO (09:12)
[2022-03-31] MEDS: Senna/Docusate Sodium 1 Tablet 2 TABLET PO (09:12)
[2022-03-31] MEDS: Doxepin Hcl 25 MG Capsule PO (09:12)
[2022-03-31] MEDS: Oseltamivir Phosphate 75 MG Capsule PO ×2 (09:13→21:04)
[2022-03-31] MEDS: guaiFENesin 1,200 MG Tablet 1200 MG PO ×2 (09:13→21:04)
[2022-03-31] MEDS: 0.9% Saline Lock 10 ML Syringe IV ×2 (09:16→14:06)
[2022-03-31] MEDS: ALPRAZolam 0.5 MG Tablet 0.25 MG PO ×2 (09:16→21:04)
[2022-03-31] MEDS: Ceftriaxone 1 GM/50 ML BAG IV (09:16)
[2022-03-31] MEDS: Doxycycline 100 MG CAPSULE PO ×2 (09:24→21:04)
[2022-03-31 10:14] LABS: Differential Comment SCANNED
[2022-03-31 10:15] LABS: Platelet Estimate MKD DEC (ADEQ)
--- NOTE | 2022-03-31 10:27 | DCINST_ITS ---
Discharge Instructions Follow Up Care Test Results: Test results from this visit will be discussed in further detail at your follow- up appointment, if applicable. Discharge Plan Admission Admit Date/Time: 03/29/22 16:46 Attending Provider: Jefferson Lipscomb Primary Care Provider: Felipe Souza Discharge Orders/Prescriptions Prescriptions: No Action albuterol sulfate [Ventolin HFA] 1 INHALER inhaler 2 puff inhalation Q4H PRN PRN (Reason: Sob &/Or Wheezing) potassium chloride 10 MEQ tablet 10 meq PO TID esomeprazole magnesium 40 MG capsule 40 mg PO DAILY quetiapine 400 MG tablet extended release 24 hr 800 mg PO QHS Trelegy Ellipta 1 EACH blister with device 1 ea IH DAILY metformin 1,000 mg Tablet 1,000 mg PO BID buspirone 15 mg Tablet 15 mg PO TID asenapine maleate [Saphris] 5 mg Tablet, Sublingual 10 mg SUBLINGUAL BID propranolol 10 mg Tablet 10 mg PO TID doxepin 25 mg capsule 25 mg PO DAILY Label Comments: take 1 capsule by mouth at bedtime alprazolam 0.5 mg tablet 0.5 mg PO BID Label Comments: take 1 tablet by mouth twice a day sertraline 50 mg tablet 100 mg PO DAILY Label Comments: take 2 tablets by mouth every evening AT 5PM Referrals / Follow Up: Felipe Souza DO [Primary Care Provider] -
[2022-03-31 11:45] LABS: Bedside Glucose 255 mg/dL (74-106)
--- NOTE | 2022-03-31 15:41 | PCM.PN.HOSP ---
Subjective Subjective Follow-up for COPD exacerbation Objective Data Objective Data Vital Signs: Vital Signs Temp Pulse Resp BP Pulse Ox O2 Del Method O2 Flow Rate 98.3 F 83 23 H 107/44 L 92 Nasal Cannula 5 03/31/22 14:17 03/31/22 14:17 03/31/22 14:33 03/31/22 14:17 03/31/22 14:17 03/31/22 14:17 03/31/22 14:17 Oxygen Flow Rate (L/min) 5 Oxygen Delivery Method Nasal Cannula Weight: 168 lb 3.2 oz Body Mass Index (BMI) 28.7 Intake & Output: Intake and Output for Last 24 Hours 03/29/22 03/30/22 03/31/22 23:59 23:59 23:59 Intake Total 1050 / 1050 400 / 400 Output Total 200 / 200 250 / 250 Balance -200 / -200 800 / 800 400 / 400 Lab / Micro Data Result Diagrams: 03/31/22 07:05 03/31/22 07:05 Labs: Laboratory Results - last 24 hr 03/30/22 14:10: MRSA (PCR) Negative 03/30/22 16:20: POC Glucose 149 H 03/30/22 21:43: POC Glucose 226 H 03/31/22 04:59: POC Glucose 176 H 03/31/22 07:05: WBC 1.9 L, RBC 4.09 L, Hgb 11.9 L, Hct 38.4, MCV 93.9, MCH 29.1, MCHC 31.0 L, RDW Std Deviation 51.1 H, RDW Coeff of Renetta 14.9 H, Plt Count 43 L*, MPV 11.5, Immature Gran % (Auto) 0.500, Neut % (Auto) 75.1 H, Lymph % (Auto) 17.0 L, [place] % (Auto) 6.9, Eos % (Auto) 0.5, Baso % (Auto) 0.0, Absolute Neuts (auto) 1.4 L, Absolute Lymphs (auto) 0.32 L, Nucleated RBC % 0, Differential Comment SCANNED, Diff Path Review August, Platelet Estimate MKD 03/31/22 07:05: Sodium 141, Potassium 3.9, Chloride 104, Carbon Dioxide 33.0 H, Anion Gap 4 L, BUN 16, Creatinine 0.40 L, Estim Creat Clear Calc 126.82, Est GFR (MDRD) Af Amer 209, Est GFR (MDRD) Non-Af 173, BUN/Creatinine Ratio 39.8 H, Glucose 175 H, Calcium 9.3 03/31/22 11:03: POC Glucose 255 H Micro: Microbiology 03/30/22 02:00 Sputum, Expectorated/Coughed Gram Stain - Final 03/30/22 02:00 Sputum, Expectorated/Coughed Respiratory Culture - Preliminary Gram negative jeol 03/30/22 13:48 Urine, Random Legionella Antigen - Final 03/30/22 13:48 Urine, Random Streptococcus pneumoniae Antigen (M - Final 03/29/22 12:47 Nasal Secretion SARS-CoV-2 & FLU Antigen (Rapid) - Final Influenzae A Rhythm Strip Rhythm Strip: Sinus Rhythm Rate: 89 Ectopy: None Physical Exam Narrative Patient is still very short of breath. She got hypoxic, pulse ox dropped in low 80s when she stood up from chair and moved to the bed. She was also dyspneic even on walking few steps. Even though she wants to go home she is not ready. Physical exam General: Alert, Oriented x3, Cooperative, mild respiratory distress. HEENT: Atraumatic, PERRLA, EOMI, Normocephalic Oral: Oral mucosa dry. No Gingival or Mucosal Lesions/ Ulcerations Neck: Supple, No JVD, Negative Carotid Bruits Lungs: Dyspnea at rest, tachypnea and labored breathing on mild exertion/ambulation. Air entry diminished in bilateral lung bases. Bilateral expiratory rhonchi Cardiovascular: Regular rate, Regular Rhythm, Normal S1, Normal S2, No murmurs Abdomen: Bowel Sounds Present, Soft, Non Tender, Non-Distended : Dark color unit, deep yellow. No renal angle tenderness. No suprapubic tenderness. Extremities: No edema, Capillary Refill Less than 3 Seconds Skin: No rashes, No breakdown Musculoskeletal: No Tenderness to Palpation of Joints or Extremities, ROM slightly restricted. Moderate muscle atrophy. Neurological: Cranial nerves II-XII grossly intact, DTR 2+/4 and Symmetrical, Neuro grossly intact Psych/Mental Status: Flat affect Assessment & Plan Assessment/Plan (1) COPD exacerbation: (2) Influenza A: PLAN: Plan This is a 56-year-old female is being admitted with acute on chronic shortness of breath, dyspnea at rest and chest tightness suggestive of COPD exacerbation due to influenza A bronchitis. 1. COPD exacerbation due to influenza A bronchitis: [facility] Started on Tamiflu 75 mg p.o. twice daily. DuoNeb every 4 hourly, Solu-Medrol, incentive spirometry, Mucinex, Tessalon pearls, PEP and incentive spirometry. Patient is also dehydrated therefore IV fluid ordered. CTPA individually reviewed negative for PE. It shows chronic changes of COPD. Not officially read but verbally told to ED physician 03/30: CT chest shows left lower lobe alveolar density suggestive of pneumonia. Bibasilar cylindrical bronchiectasis. Moderate emphysema the patient is on IV ceftriaxone and doxycycline. Not on azithromycin due to allergy with erythromycin base. There is improvement in shortness of breath and dyspnea. 03/31: Continue bronchodilator every 4 hourly, IV antibiotics, incentive spirometry and Pep. 2. Chronic alpha-1 antitrypsin deficiency with history of COPD: Patient follows Dr. Aguirre but has many canceled pulmonary visits. On Trelegy. 3. Chronic thrombocytopenia with history of PE and DVT, pancytopenia: Patient not candidate for antithrombotic. Platlet count is 40,000. Mild chronic anemia, hemoglobin on baseline. Mild leukopenia, ANC 1.6 thousand and ALC 0.42 thousand therefore neutropenia and lymphopenia. Patient has history of pancytopenia as documented during last discharge summary 08/14/2021 when she was admitted for acute hypoxic respiratory due to COPD exacerbation 03/30: Patient has leukopenia. H&H did not show change. Platelet count 45,000. No significant change in all 3 cell counts. 03/31: All 3 cell counts did not show significant change. WBC count 1.9 thousand. 4. DVT prophylaxis: Patient not candidate for pharmacological VTE prophylaxis therefore bilateral SCDs Living will/advanced directive/end of life care: Patient does not have living will or advanced directive. Her near the bedside is next to kin and power of contracts attorney for health. After discussion of benefits/risks procedures involved with full code, DNR CC arrest and DNR CC, the patient opted for full code. Patient and her do want artificial life support including intubation, tube feed, ventilator and/chest compression, central venous catheter, vasopressor and DC shock if needed Clinical Impression(s) from Imaging Studies Chest X-Ray 03/29/22 12:04 IMPRESSION: Persistent increased linear markings at the lung bases with areas of confluence suggestive of atelectasis superimposed on scarring. Charges/Coding Visit Charges Inpatient E&M: 74885 Subs Hosp L2
[2022-03-31 16:50] LABS: Bedside Glucose 250 mg/dL (74-106)
[2022-03-31] MEDS: QUEtiapine 100 MG Tablet 300 MG PO (21:04)
[2022-03-31 21:45] LABS: Bedside Glucose 198 mg/dL (74-106)
[2022-04-01] VITALS (7 sets, daily range): BP systolic 116–127; BP diastolic 51–53; PULSE 62–88; RESP 16–20; TEMP 36.6–36.7; O2SAT 88–96
[2022-04-01] MEDS: Ipratropium/Albuterol Sulfate 3 ML AMPUL.NEB INHALATION ×3 (03:20→10:41)
[2022-04-01] MEDS: Benzonatate 100 MG Capsule 200 MG PO (04:48)
[2022-04-01] MEDS: Propranolol 10 MG Tablet PO (04:48)
[2022-04-01] MEDS: 0.9% Saline Lock 10 ML Syringe IV ×2 (04:48→10:13)
[2022-04-01] MEDS: Nystatin Powder 15gm Bottle 1 APPLIC TOPICAL (04:48)
[2022-04-01] MEDS: busPIRone 15 MG TABLET PO (04:48)
[2022-04-01] MEDS: Insulin Lispro 100 UNIT/ML INSULN.PEN SC ×2 (04:50→10:53)
[2022-04-01 06:46] LABS: Bedside Glucose 208 mg/dL (74-106)
[2022-04-01 08:00] LABS: Absolute Lymphocyte Count 0.35 X10^3/uL (0.83-4.51); Absolute Neutrophil Count 1.2 X10^3/uL (2.0-7.7); Hematocrit 39.7 % (37-47); Hemoglobin 12.5 g/dL (12.0-15.0); Lymphocyte # 0.35 X10^3/ul (0.83-4.51); Lymphocyte % 21.1 % (19-41); Mean Corp Hgb Conc 31.5 g/dL (32-36); Mean Corpuscular Hgb 30.1 pg (27.0-32.0); Mean Corpuscular Volume 95.7 fL (81-99); Mean Platelet Vol. 11.1 fl (6.2-12.0); Monocyte# 0.13 X10^3/uL; Monocyte% 7.8 % (0-10); NRBC Flagged by Analyzer 0 % (0-5); Neutrophil # 1.18 X10^3/uL (2.7-7.7); Neutrophil % 71.1 % (47-70); POSITIVE COUNT YES; POSITIVE DIFFERENTIAL YES; RBC Distribution Width CV 14.9 % (11.6-14.6); RBC Distribution Width SD 51.8 fl (35.1-43.9); Red Blood Count 4.15 M/mm3 (4.2-5.4); White Blood Count 1.7 K/mm3 (4.4-11.0)
[2022-04-01 08:03] LABS: Differential Indicated SCAN CRITERIA MET; Platelet Count 38 K/mm3 (150-450)
--- NOTE | 2022-04-01 08:35 | DCINST_ITS ---
Discharge Instructions Diet Discharge Diet: No restrictions Activity Discharge Activity: Return to Normal Activity Dressing / Incision Call your doctor if you observe: Fever of 101 or Higher, Coldness, Increased Pain, Numbness or Tingling, Change in Color, Inability to urinate, Inability to have a bowel movement, Using more than 1 pad per hour, Shortness of breath, Dizziness, Fainting spells, Swelling in the ankles, Chest pain, Prolonged hiccupping, Increased palpitations (irregular heartbeat), Calf discomfort and Uncontrolled pain Follow Up Care Test Results: Test results from this visit will be discussed in further detail at your follow- up appointment, if applicable. Discharge Plan Admission Admit Date/Time: 03/29/22 16:46 Primary Reason for Your Visit: COPD exacerbation due to influenza A bronchitis. LLL pneumonia Attending Provider: Jefferson Lipscomb Primary Care Provider: Felipe Souza Instructions Additional Instructions / Restrictions: Continuing incentive spirometer and PEP for 1 more week Discharge Orders/Prescriptions Prescriptions: New benzonatate 100 mg Capsule 200 mg PO TID PRN (Reason: cough) Qty: 30 0RF oseltamivir 75 mg Capsule 75 mg PO BID Qty: 5 0RF cefdinir 300 mg capsule 300 mg PO BID Qty: 10 0RF prednisone 20 mg tablet 40 mg PO DAILY Qty: 10 0RF pseudoephedrine-guaifenesin [Mucinex D] 60-600 mg tablet extended release 12 hr 1 tab PO BID Qty: 14 0RF Continued albuterol sulfate [Ventolin HFA] 1 INHALER inhaler 2 puff inhalation Q4H PRN PRN (Reason: Sob &/Or Wheezing) potassium chloride 10 MEQ tablet 10 meq PO TID esomeprazole magnesium 40 MG capsule 40 mg PO DAILY Trelegy Ellipta 1 EACH blister with device 1 ea IH DAILY metformin 1,000 mg Tablet 1,000 mg PO BID buspirone 15 mg Tablet 15 mg PO TID asenapine maleate [Saphris] 5 mg Tablet, Sublingual 10 mg SUBLINGUAL BID propranolol 10 mg Tablet 10 mg PO TID doxepin 25 mg capsule 25 mg PO DAILY Label Comments: take 1 capsule by mouth at bedtime alprazolam 0.5 mg tablet 0.5 mg PO BID Label Comments: take 1 tablet by mouth twice a day sertraline 50 mg tablet 100 mg PO DAILY Label Comments: take 2 tablets by mouth every evening AT 5PM Changed quetiapine 400 MG tablet extended release 24 hr 400 mg PO QHS Qty: 2 0RF Referrals / Follow Up: Arnaldo Aguirre DO [Med Staff - Active Staff] - Within 2 Weeks (advance COPD with Pneumonia) Felipe Souza DO [Primary Care Provider] - Within 1 Week Disposition Disposition (needs filled in before D/C Order can be placed): Home, Self Care
[2022-04-01 08:36] LABS: Anion Gap 2 (5-15); BUN 16 mg/dL (7-18); BUN/Creat Ratio 40.3 RATIO (10-20); Chloride 108 mmol/L (98-107); EST Glomerular Filtration Rate 175 mL/min (>60); Est Glom Filt Rate - Afr Amer 212 mL/min (>60); Estimated Creatinine Clearance 126.82 ml/min; Glucose 180 mg/dL (74-106); Sodium Level 141 mmol/L (136-145)
--- NOTE | 2022-04-01 08:44 | PCM.DC.SUM ---
Providers Date of Admission: 03/29/22 Date of Discharge: 04/01/22 Primary Care Physician: Dr. Felipe Souza DO Reason For Visit: COPD EXA, INFLUENZA A Diagnosis Discharge Diagnosis (1) COPD exacerbation: Status: Chronic Code(s): J44.1 - Chronic obstructive pulmonary disease with (acute) exacerbation (2) Influenza A: Status: Acute Code(s): J10.1 - Influenza due to other identified influenza virus with other respiratory manifestations Plan This is a 56-year-old female is being admitted with acute on chronic shortness of breath, dyspnea at rest and chest tightness suggestive of COPD exacerbation due to influenza A bronchitis. 1. COPD exacerbation due to influenza A bronchitis: [facility] Started on Tamiflu 75 mg p.o. twice daily. DuoNeb every 4 hourly, Solu-Medrol, incentive spirometry, Mucinex, Tessalon pearls, PEP and incentive spirometry. Patient is also dehydrated therefore IV fluid ordered. CTPA individually reviewed negative for PE. It shows chronic changes of COPD. Not officially read but verbally told to ED physician 03/30: CT chest shows left lower lobe alveolar density suggestive of pneumonia. Bibasilar cylindrical bronchiectasis. Moderate emphysema the patient is on IV ceftriaxone and doxycycline. Not on azithromycin due to allergy with erythromycin base. There is improvement in shortness of breath and dyspnea. 03/31: Continue bronchodilator every 4 hourly, IV antibiotics, incentive spirometry and Pep. 04/01: Air entry both lungs improved. Patient not short of breath. Patient uses oxygen at home, and has DuoNeb nebulization equipment. Prescription sent for cefdinir, Tamiflu, Mucinex D and burst therapy of prednisone. 2. Chronic alpha-1 antitrypsin deficiency with history of COPD: Patient follows Dr. Aguirre but has many canceled pulmonary visits. On Trelegy. 04/01: Patient advised to follow-up with Dr. Aguirre. Advised to continue incentive spirometry and Pep at home she is a high risk for readmission 3. Chronic thrombocytopenia with history of PE and DVT, pancytopenia: Patient not candidate for antithrombotic. Platlet count is 40,000. Mild chronic anemia, hemoglobin on baseline. Mild leukopenia, ANC 1.6 thousand and ALC 0.42 thousand therefore neutropenia and lymphopenia. Patient has history of pancytopenia as documented during last discharge summary 08/14/2021 when she was admitted for acute hypoxic respiratory due to COPD exacerbation 03/30: Patient has leukopenia. H&H did not show change. Platelet count 45,000. No significant change in all 3 cell counts. 03/31: All 3 cell counts did not show significant change. WBC count 1.9 thousand. 04/01: Hemoglobin 12.5 much better. Platelet count and WBC are low on baseline 4. DVT prophylaxis: Patient not candidate for pharmacological VTE prophylaxis therefore bilateral SCDs Discharge medication reconciliation done. Discharge follow-up instructions completed. Discharge process discussed with the patient and all questions were answered to patient's satisfaction. Total time spent, exact 35 minutes on discharge meds reconciliation, examination, coordination of care with nurses and ancillary staff, review of imaging and blood test and discussion with the patient on follow-up instructions. Living will/advanced directive/end of life care: Patient does not have living will or advanced directive. Her near the bedside is next to kin and power of assistant county attorney for health. After discussion of benefits/risks procedures involved with full code, DNR CC arrest and DNR CC, the patient opted for full code. Patient and her do want artificial life support including intubation, tube feed, ventilator and/chest compression, central venous catheter, vasopressor and DC shock if needed Clinical Impression(s) from Imaging Studies Chest X-Ray 03/29/22 12:04 IMPRESSION: Persistent increased linear markings at the lung bases with areas of confluence suggestive of atelectasis superimposed on scarring. Medications at Discharge Home Medications albuterol sulfate 90 mcg/actuation aerosol inhaler (Ventolin HFA) 2 puff inhalation Q4H PRN PRN Sob &/Or Wheezing 05/29/16 potassium chloride 10 mEq tablet,extended release(part/cryst) 10 meq PO TID supplement 03/09/18 esomeprazole magnesium 40 mg capsule,delayed release 40 mg PO DAILY gerd 07/27/19 fluticasone fur. 100 mcg-umeclid 62.5 mcg-vilant 25 mcg inhalat.powder (Trelegy Ellipta) 1 ea IH DAILY copd 07/27/19 asenapine maleate 5 mg sublingual tablet (Saphris) 10 mg sublingual BID 08/03/21 buspirone 15 mg tablet 15 mg PO TID 08/03/21 metformin 1,000 mg tablet 1,000 mg PO BID 08/03/21 propranolol 10 mg tablet 10 mg PO TID 08/03/21 alprazolam 0.5 mg tablet 0.5 mg PO BID ANXIETY 03/29/22 doxepin 25 mg capsule 25 mg PO DAILY DEPRESSION 03/29/22 sertraline 50 mg tablet 100 mg PO DAILY DEPRESSION 03/29/22 benzonatate 100 mg capsule 200 mg PO TID PRN cough #30 caps 04/01/22 cefdinir 300 mg capsule 300 mg PO BID #10 caps 04/01/22 oseltamivir 75 mg capsule 75 mg PO BID #5 caps 04/01/22 prednisone 20 mg tablet 40 mg PO DAILY #10 tabs 04/01/22 pseudoephedrine-guaifenesin ER 60 mg-600 mg tablet,extend release 12hr (Mucinex D) 1 tab PO BID cold symptoms #14 tabs 04/01/22 quetiapine 400 mg tablet,extended release 24 hr 400 mg PO QHS sleep #2 tabs 04/01/22 Physical Exam Narrative Patient is not short of breath. On 5 L of oxygen her baseline home O2 requirement Physical exam General: Alert, Oriented x3, Cooperative, mild respiratory distress. HEENT: Atraumatic, PERRLA, EOMI, Normocephalic Oral: Oral mucosa dry. No Gingival or Mucosal Lesions/ Ulcerations Neck: Supple, No JVD, Negative Carotid Bruits Lungs: Air entry bilateral equal. Mild bilateral expiratory rhonchi. No dyspnea at rest or mild exertion. Cardiovascular: Regular rate, Regular Rhythm, Normal S1, Normal S2, No murmurs Abdomen: Bowel Sounds Present, Soft, Non Tender, Non-Distended : Dark color unit, deep yellow. No renal angle tenderness. No suprapubic tenderness. Extremities: No edema, Capillary Refill Less than 3 Seconds Skin: No rashes, No breakdown Musculoskeletal: No Tenderness to Palpation of Joints or Extremities, ROM slightly restricted. Moderate muscle atrophy. Neurological: Cranial nerves II-XII grossly intact, DTR 2+/4 and Symmetrical, Neuro grossly intact Psych/Mental Status: Flat affect Weight / BMI Weight Weight: 165 lb 2.02 oz Body Mass Index (BMI) 28.7 ABG / Lab / Microbiology Data Result Diagrams: 04/01/22 07:13 04/01/22 07:13 Laboratory: Laboratory Results - last 24 hr 03/31/22 07:05: Differential Comment SCANNED, Diff Path Review August foll, Platelet Estimate MKD 03/31/22 11:03: POC Glucose 255 H 03/31/22 16:26: POC Glucose 250 H 03/31/22 20:45: POC Glucose 198 H 04/01/22 04:50: POC Glucose 208 H 04/01/22 07:13: WBC 1.7 L, RBC 4.15 L, Hgb 12.5, Hct 39.7, MCV 95.7, MCH 30.1, MCHC 31.5 L, RDW Std Deviation 51.8 H, RDW Coeff of Renetta 14.9 H, Plt Count 38 L*, MPV 11.1, Immature Gran % (Auto) 0.000, Neut % (Auto) 71.1 H, Lymph % (Auto) 21.1, [place] % (Auto) 7.8, Eos % (Auto) 0.0, Baso % (Auto) 0.0, Absolute Neuts (auto) 1.2 L, Absolute Lymphs (auto) 0.35 L, Nucleated RBC % 0 04/01/22 07:13: Sodium 141, Potassium 4.0, Chloride 108 H, Carbon Dioxide 31.0, Anion Gap 2 L, BUN 16, Creatinine 0.40 L, Estim Creat Clear Calc 126.82, Est GFR (MDRD) Af Amer 212, Est GFR (MDRD) Non-Af 175, BUN/Creatinine Ratio 40.3 H, Glucose 180 H, Calcium 9.0 Microbiology: Microbiology 03/30/22 02:00 Sputum, Expectorated/Coughed Gram Stain - Final 03/30/22 02:00 Sputum, Expectorated/Coughed Respiratory Culture - Preliminary Gram negative joel 03/30/22 13:48 Urine, Random Legionella Antigen - Final 03/30/22 13:48 Urine, Random Streptococcus pneumoniae Antigen (M - Final 03/29/22 12:47 Nasal Secretion SARS-CoV-2 & FLU Antigen (Rapid) - Final Influenzae A D/C Instructions Discharge Diet: No restrictions Call your doctor if you observe: Fever of 101 or Higher, Coldness, Increased Pain, Numbness or Tingling, Change in Color, Inability to urinate, Inability to have a bowel movement, Using more than 1 pad per hour, Shortness of breath, Dizziness, Fainting spells, Swelling in the ankles, Chest pain, Prolonged hiccupping, Increased palpitations (irregular heartbeat), Calf discomfort and Uncontrolled pain Meaningful Use Info Meaningful Use Diagnoses (Choose all that apply): None applicable Discharge Plan Admission Admit Date/Time: 03/29/22 16:46 Primary Reason for Your Visit: COPD exacerbation due to influenza A bronchitis. LLL pneumonia Attending Provider: Jefferson Lipscomb Primary Care Provider: Felipe Souza Instructions Additional Instructions / Restrictions: Continuing incentive spirometer and PEP for 1 more week Discharge Orders/Prescriptions Prescriptions: New benzonatate 100 mg Capsule 200 mg PO TID PRN (Reason: cough) Qty: 30 0RF oseltamivir 75 mg Capsule 75 mg PO BID Qty: 5 0RF cefdinir 300 mg capsule 300 mg PO BID Qty: 10 0RF prednisone 20 mg tablet 40 mg PO DAILY Qty: 10 0RF pseudoephedrine-guaifenesin [Mucinex D] 60-600 mg tablet extended release 12 hr 1 tab PO BID Qty: 14 0RF Continued albuterol sulfate [Ventolin HFA] 1 INHALER inhaler 2 puff inhalation Q4H PRN PRN (Reason: Sob &/Or Wheezing) potassium chloride 10 MEQ tablet 10 meq PO TID esomeprazole magnesium 40 MG capsule 40 mg PO DAILY Trelegy Ellipta 1 EACH blister with device 1 ea IH DAILY metformin 1,000 mg Tablet 1,000 mg PO BID buspirone 15 mg Tablet 15 mg PO TID asenapine maleate [Saphris] 5 mg Tablet, Sublingual 10 mg SUBLINGUAL BID propranolol 10 mg Tablet 10 mg PO TID doxepin 25 mg capsule 25 mg PO DAILY Label Comments: take 1 capsule by mouth at bedtime alprazolam 0.5 mg tablet 0.5 mg PO BID Label Comments: take 1 tablet by mouth twice a day sertraline 50 mg tablet 100 mg PO DAILY Label Comments: take 2 tablets by mouth every evening AT 5PM Changed quetiapine 400 MG tablet extended release 24 hr 400 mg PO QHS Qty: 2 0RF Referrals / Follow Up: Arnaldo Aguirre DO [Med Staff - Active Staff] - Within 2 Weeks (advance COPD with Pneumonia) Felipe Souza DO [Primary Care Provider] - Within 1 Week Disposition Disposition (needs filled in before D/C Order can be placed): Home, Self Care Charges/Coding Visit Charges Inpatient E&M: 79926 Disch Hosp
[2022-04-01] MEDS: Doxycycline 100 MG CAPSULE PO (08:50)
[2022-04-01] MEDS: Pantoprazole Sodium 40 MG Tablet PO (08:50)
[2022-04-01] MEDS: guaiFENesin 1,200 MG Tablet 1200 MG PO (08:50)
[2022-04-01] MEDS: Oseltamivir Phosphate 75 MG Capsule PO (08:51)
[2022-04-01] MEDS: Doxepin Hcl 25 MG Capsule PO (08:51)
[2022-04-01] MEDS: Sertraline 50 MG Tablet 100 MG PO (08:51)
[2022-04-01] MEDS: ALPRAZolam 0.5 MG Tablet 0.25 MG PO (08:55)
[2022-04-01 09:49] LABS: Differential Comment SCANNED; Platelet Estimate MKD DEC (ADEQ)
[2022-04-01] MEDS: Ceftriaxone 1 GM/50 ML BAG IV (10:13)
[2022-04-01 11:15] LABS: Bedside Glucose 284 mg/dL (74-106)
[2022-04-02 10:05] LABS: Pathologist Review Reviewed
[2022-04-02 10:10] LABS: Pathologist Review Reviewed
[2022-04-02 13:56] LABS: Pathologist Review Reviewed
[2022-04-02 14:06] LABS: Pathologist Review Reviewed
== END 2022-04-01 14:11 | disposition home or self-care (01) | DRG 191 ==
LOC: ED 16:23 → MS3 03-30 09:15
PROVIDERS: Admitting Provider Internal Medicine; Emergency Provider Emergency Medicine; PCP Family Medicine; Visit Provider Internal Medicine
DX: J47.0 Bronchiectasis with acute lower respiratory infection (principal); J10.00 Influenza due to other identified influenza virus with unspecified type of pneumonia; J96.11 Chronic respiratory failure with hypoxia; E11.9 Type 2 diabetes mellitus without complications; E86.0 Dehydration; D72.810 Lymphocytopenia; E78.5 Hyperlipidemia, unspecified; E88.01 Alpha-1-antitrypsin deficiency; F32.A Depression, unspecified; F41.9 Anxiety disorder, unspecified; K21.9 Gastro-esophageal reflux disease without esophagitis; Z79.84 Long term (current) use of oral hypoglycemic drugs; Z99.81 Dependence on supplemental oxygen; Z86.718 Personal history of other venous thrombosis and embolism; Z86.711 Personal history of pulmonary embolism; Z87.891 Personal history of nicotine dependence
CPT/HCPCS: 36415; 71045; 71275; 80048; 81001; 82962; 83036; 84484; 85025; 85379; 87070; 87077; 87186; 87205; 87428; 87449; 87641; 93005; 94640; 94667; 94668; 94762; 97110; 97162; 97166; 97530; 97802; 99251; 99285; J7120; Q9967; A4216; G0463

== ENCOUNTER 2022-07-19 11:33 | Inpatient (IN) | payer OTHER, SELFPAY ==
[2022-07-19] VITALS (16 sets, daily range): BP systolic 128–166; BP diastolic 60–84; PULSE 93–118; RESP 14–32; TEMP 35.9–36.9; O2SAT 70–100; BMI 25.8; BMI 25.9
[2022-07-19] MEDS: MethylPREDNISolone 125 MG/2 ML Vial IV (12:11)
[2022-07-19] MEDS: Ipratropium/Albuterol Sulfate 3 ML AMPUL.NEB INHALATION ×2 (12:16→20:04)
--- NOTE | 2022-07-19 12:24 | RAD_ITS ---
EXAM: XR CHEST, 1 VIEW CLINICAL INDICATION: Shortness of breath. TECHNIQUE: Frontal view of the chest. This report was created using [employer] report generation technology. COMPARISON: 03/29/2022. FINDINGS: LUNGS AND PLEURAL SPACES: Asymmetric fibrosis in both lungs, greater in the lung bases are unchanged. No pneumothorax. No effusion. HEART: Unremarkable. Normal cardiac size. MEDIASTINUM: Central airways and mediastinal contour are unremarkable. BONES/JOINTS: Unremarkable. SOFT TISSUES: Unremarkable. OTHER FINDINGS: Rotated chest positioning. RAD/Chest 1 View (Portable) IMPRESSION: 1. No acute findings in the chest. 2. Chronic interstitial lung disease and unchanged when compared to 03/29/2022. Electronically Signed: Huey Frey MD at 12:45 EDT ,
[2022-07-19 12:25] LABS: Allen Test Positive; Base Excess 7 mmol/L (-2 to +2); Blood Gas Specimen Type ART; FI02 40; O2 Delivery Device BiPAP; PO2 85 mmHG (75-100); RR 14; SITE R Radial; SO2 96 % (95-99); Total Carbon Dioxide 34 mmol/L; pCO2 57.7 mmHg (35-45); pH 7.35 (7.35-7.45)
[2022-07-19 12:36] LABS: Anion Gap 5 (5-15); BUN 19 mg/dL (7-18); BUN/Creat Ratio 33.1 RATIO (10-20); Chloride 102 mmol/L (98-107); Creatinine, Serum 0.57 mg/dL (0.55-1.02); EST Glomerular Filtration Rate 115 mL/min (>60); Est Glom Filt Rate - Afr Amer 139 mL/min (>60); Estimated Creatinine Clearance 88.99 ml/min; Glucose 159 mg/dL (74-106); Potassium 4.1 mmol/L (3.5-5.1); Sodium Level 137 mmol/L (136-145); Troponin-I HS 15 pg/mL (3.0-54.0)
[2022-07-19 12:40] LABS: Absolute Lymphocyte Count 0.27 X10^3/uL (0.83-4.51); Absolute Neutrophil Count 1.9 X10^3/uL (2.0-7.7); Basophil# 0.03 X10^3/uL; Basophil% 1.1 % (0-1); Eosinophil# 0.02 X10^3/uL; Eosinophils% 0.8 % (0-5); Hematocrit 39.2 % (37-47); Hemoglobin 11.7 g/dL (12.0-15.0); Lymphocyte # 0.27 X10^3/ul (0.83-4.51); Lymphocyte % 10.2 % (19-41); Mean Corp Hgb Conc 29.8 g/dL (32-36); Mean Corpuscular Hgb 27.1 pg (27.0-32.0); Monocyte# 0.42 X10^3/uL; Monocyte% 15.8 % (0-10); NRBC Flagged by Analyzer 0 % (0-5); Neutrophil # 1.89 X10^3/uL (2.7-7.7); POSITIVE COUNT YES; POSITIVE DIFFERENTIAL YES; RBC Distribution Width CV 15.5 % (11.6-14.6); RBC Distribution Width SD 51.8 fl (35.1-43.9); Red Blood Count 4.31 M/mm3 (4.2-5.4); White Blood Count 2.7 K/mm3 (4.4-11.0)
[2022-07-19 12:43] LABS: Differential Indicated SCAN CRITERIA MET; Lactic Acid 2.2 mmol/L (0.4-1.9); Platelet Count 43 K/mm3 (150-450)
[2022-07-19] MEDS: 0.9% Normal Saline 1,000 ML 999 ML IV (12:58)
[2022-07-19 13:04] LABS: Differential Comment SCANNED; Platelet Estimate MKD DEC (ADEQ)
[2022-07-19 13:07] LABS: BNP,B-Type NATRIURETIC PEPTIDE 21.5 pg/mL (0-100)
--- NOTE | 2022-07-19 13:43 | EDS_ITS ---
HPI History of Present Illness Chief Complaint: Shortness of Breath Narrative Narrative: 56-year-old female presents with her son because of chronic respiratory failure. She has past medical history of alpha-1 antitrypsin deficiency and always has neutropenia according to her son. Over the last few days, she had increasing shortness of breath. They state that she was seen at [facility] for COPD exacerbation, and they wanted to keep her for COPD exacerbation and difficulty breathing, however it was at least a 33-hour wait for bed. Her son figured that they had steroids and albuterol at home for which they could treat her. She usually wears 4 L of oxygen all the time. She quit smoking a few years ago. She denies any fevers but has occasional cough that is dry. She denies other symptoms. Her son was concerned because although she was on her oxygen, she was hypoxic in the 70s, and looked bluish in color this morning. Additionally, he states that when they were getting her into the car, her pulse ox dropped into the 60s. [facility] Medical History Rrdqb-5-lpdrcrrctrx deficiency Chronic hypoxemic respiratory failure Cirrhosis COPD (chronic obstructive pulmonary disease) Depression Hyperlipidemia Influenza A Weakness Home Medications albuterol sulfate 90 mcg/actuation aerosol inhaler (Ventolin HFA) 2 puff inhalation Q4H PRN PRN Sob &/Or Wheezing 05/29/16 [History Last Taken 03/28/22] potassium chloride 10 mEq tablet,extended release(part/cryst) 10 meq PO TID supplement 03/09/18 [History Last Taken 03/28/22] esomeprazole magnesium 40 mg capsule,delayed release 40 mg PO DAILY gerd 07/27/19 [History Last Taken 03/28/22] fluticasone fur. 100 mcg-umeclid 62.5 mcg-vilant 25 mcg inhalat.powder (Trelegy Ellipta) 1 ea IH DAILY copd 07/27/19 [History Last Taken 03/28/22] asenapine maleate 5 mg sublingual tablet (Saphris) 10 mg sublingual BID 08/03/21 [History Last Taken 03/28/22] buspirone 15 mg tablet 15 mg PO TID 08/03/21 [History Last Taken 03/28/22] metformin 1,000 mg tablet 1,000 mg PO BID 08/03/21 [History Last Taken 03/28/22] propranolol 10 mg tablet 10 mg PO TID 08/03/21 [History Last Taken 03/28/22] alprazolam 0.5 mg tablet 0.5 mg PO BID ANXIETY 03/29/22 [History Last Taken 03/28/22] doxepin 25 mg capsule 25 mg PO DAILY DEPRESSION 03/29/22 [History Last Taken 03/28/22] sertraline 50 mg tablet 100 mg PO DAILY DEPRESSION 03/29/22 [History Last Taken 03/28/22] benzonatate 100 mg capsule 200 mg PO TID PRN cough #30 caps 04/01/22 [Rx Last Taken Unknown] cefdinir 300 mg capsule 300 mg PO BID #10 caps 04/01/22 [Rx Last Taken Unknown] oseltamivir 75 mg capsule 75 mg PO BID #5 caps 04/01/22 [Rx Last Taken Unknown] prednisone 20 mg tablet 40 mg PO DAILY #10 tabs 04/01/22 [Rx Last Taken Unknown] pseudoephedrine-guaifenesin ER 60 mg-600 mg tablet,extend release 12hr (Mucinex D) 1 tab PO BID cold symptoms #14 tabs 04/01/22 [Rx Last Taken Unknown] quetiapine 400 mg tablet,extended release 24 hr 400 mg PO QHS sleep #2 tabs 04/01/22 [Rx Last Taken 03/28/22] Allergy/AdvReac Type Severity Reaction Status Date / Time erythromycin base Allergy FACIAL Verified 03/29/22 11:45 SWELLING Family History (Updated 07/19/22 @ 14:[address] Evelyne Panchal MD) Mother Diabetes Cumcz-4-[id number] deficiency Father Heart disease Hypertension Yxpwv-6-[id number] deficiency Surgical History H/O: hysterectomy Social History household members: spouse Smoking Status: Former smoker alcohol intake: never substance use type: does not use ROS ROS ED ROS Narrative Constitutional: No fever, no chills. HEENT: No sore throat. No neck pain. No loss of vision. No rhinorrhea. Cardiovascular: No chest pain. No palpitations. No pedal edema. Respiratory: Occasional dry cough, positive shortness of breath. Abdominal: No abdominal pain. No nausea. No vomiting. Genitourinary: No dysuria. No hematuria. Musculoskeletal: No myalgias. No arthralgias. Neurologic: No headaches. No dizziness. No lightheadedness. Skin: No rash. Positive change in color according to son turned blue. Psychiatric: No depression. No anxiety. EXAM Physical Exam Narrative Exam Narrative: Afebrile. Vital signs noted. HEENT: Normocephalic. Atraumatic. PERRL, EOMI. Neck soft and supple. No point tenderness or step off. Cardiovascular: Positive no murmurs, rubs, or gallops appreciated. Respiratory: Positive tachypnea. Decreased breath sounds bilateral lung gould Gastrointestinal: Abdomen soft, nontender, with normoactive bowel sounds. No rebound or guarding. Neurological: Awake. Alert. Nonfocal, nonlateralizing. Skin: No rash. Normal color. No pallor. Musculoskeletal: No pedal edema. Full range of motion extremities. Const Vital Signs: 07/19/22 11:34 07/19/22 11:37 07/19/22 11:38 Temperature 98 F 98 F Temperature Source Temporal Temporal Pulse Rate 112 H 112 H Respiratory Rate 32 H 32 H Respiratory Effort Short of Breath Labored Respiratory Pattern Blood Pressure 158/84 H 158/84 H Blood Pressure Mean 108 108 Pulse Ox 100 100 Oxygen Delivery Method Non-Rebreather Non-Rebreather Nasal Cannula Oxygen Flow Rate (L/min) 15 15 4 Fraction of Inspired Oxygen (FIO2) 07/19/22 12:37 07/19/22 12:37 07/19/22 11:42 Temperature 97.2 F L 97.2 F L Temperature Source Temporal Temporal Pulse Rate 114 H 115 H 118 H Respiratory Rate 27 H 27 H 30 H Respiratory Effort Respiratory Pattern Normal Blood Pressure 152/77 H 152/77 H Blood Pressure Mean 102 102 Pulse Ox 95 95 100 Oxygen Delivery Method Bi-pap Bi-pap Oxygen Flow Rate (L/min) Fraction of Inspired Oxygen (FIO2) 40 07/19/22 12:16 07/19/22 13:30 07/19/22 13:52 Temperature 96.7 F L Temperature Source Temporal Pulse Rate 118 H 110 H 108 H Respiratory Rate 30 H 27 H 27 H Respiratory Effort Respiratory Pattern Tachypnea Blood Pressure 151/75 H 166/80 H Blood Pressure Mean 100 108 Pulse Ox 96 95 Oxygen Delivery Method Bi-pap Bi-pap Oxygen Flow Rate (L/min) Fraction of Inspired Oxygen (FIO2) 07/19/22 14:01 Temperature Temperature Source Pulse Rate 106 H Respiratory Rate 26 H Respiratory Effort Respiratory Pattern Blood Pressure 152/72 H Blood Pressure Mean 98 Pulse Ox 95 Oxygen Delivery Method Bi-pap Oxygen Flow Rate (L/min) Fraction of Inspired Oxygen (FIO2) MDM MDM MDM Narrative Medical decision making narrative: Upon arrival, patient was placed on BiPAP by respiratory. COPD exacerbation work-up was pursued. She has shown improvement on the BiPAP. I reviewed her laboratory work and she has neutropenia of 2.7 which is chronic for her, hemoglobin stable at 11.7 with hematocrit 39.2, platelet count low at 43. This is also a chronic thrombocytopenia in review of her prior laboratory work. Her lactic acid is slightly elevated at 2.2, but she is not hypotensive. She was bolused normal saline 1 L intravenously. Respiratory swabs were obtained for COVID and influenza and she has influenza B positive. Her son states that they swabbed her for COVID at [place] 2 days ago. High-sensitivity troponin is 15, I interpreted her EKG as sinus tachycardia at 115 bpm without ectopy or acute ST changes, no STEMI. Her BNP is normal at 21.5. Chest x-ray interpreted by myself independently shows no evidence of a consolidation. I reviewed the radiology report which confirms my independent evaluation. At this point in time, given her hypoxia that is profound and need for BiPAP, I will discuss the patient with Dr. Evelyne Panchal for admission to the PCU for her acute on chronic respiratory failure. I did obtain an ABG and reviewed it which shows a normal pH of 7.3 with PCO2 slightly elevated at 57 with a PO2 of 85. Given her slight hypercapnia, disposition is admit. She is in stable condition currently. History & Record Review Discussion w/independent historian: Patient and Family Additional record(s) reviewed:: Prior outpatient record, Prior ED visit and Prior labs Lab Data Attestation: I reviewed the patient's lab results. Labs: Laboratory Results - last 24 hr 07/19/22 07/19/22 07/19/22 11:45 11:45 11:45 WBC 2.7 L RBC 4.31 Hgb 11.7 L Hct 39.2 MCV 91.0 MCH 27.1 MCHC 29.8 L RDW Std Deviation 51.8 H RDW Coeff of Renetta 15.5 H Plt Count 43 L* MPV 13.0 H Immature Gran % (Auto) 1.100 H Neut % (Auto) 71.0 H Lymph % (Auto) 10.2 L [place] % (Auto) 15.8 H Eos % (Auto) 0.8 Baso % (Auto) 1.1 H Absolute Neuts (auto) 1.9 L Absolute Lymphs (auto) 0.27 L Nucleated RBC % 0 Differential Comment SCANNED Diff Path Review May foll Platelet Estimate MKD DEC Sodium 137 Potassium 4.1 Chloride 102 Carbon Dioxide 30.0 Anion Gap 5 BUN 19 H Creatinine 0.57 Estim Creat Clear Calc 88.99 Est GFR (MDRD) Af Amer 139 Est GFR (MDRD) Non-Af 115 BUN/Creatinine Ratio 33.1 H Glucose 159 H Lactic Acid Calcium 10.0 Troponin I High Sens 15 B-Natriuretic Peptide 21.5 07/19/22 11:45 WBC RBC Hgb Hct MCV MCH MCHC RDW Std Deviation RDW Coeff of Renetta Plt Count MPV Immature Gran % (Auto) Neut % (Auto) Lymph % (Auto) [place] % (Auto) Eos % (Auto) Baso % (Auto) Absolute Neuts (auto) Absolute Lymphs (auto) Nucleated RBC % Differential Comment Diff Path Review Platelet Estimate Sodium Potassium Chloride Carbon Dioxide Anion Gap BUN Creatinine Estim Creat Clear Calc Est GFR (MDRD) Af Amer Est GFR (MDRD) Non-Af BUN/Creatinine Ratio Glucose Lactic Acid 2.2 H* Calcium Troponin I High Sens B-Natriuretic Peptide ABG Data ABG results: ABG 07/19/22 12:19 Specimen Type ART Sample Site R Radial pH 7.35 Bicarbonate Actual 32.0 H Total CO2 34 Base Excess 7 H O2 Saturation 96 O2 % 40 ABG pCO2 57.7 H ABG pO2 85 Derian Test Positive Respiration Rate 14 O2 Delivery Device BiPAP Radiography Chest X-Ray - ED: 1 View and Read by ED Physician Diagnostic Testing: Clinical Impression(s) from Imaging Studies Chest X-Ray 07/19/22 12:24 IMPRESSION: 1. No acute findings in the chest. 2. Chronic interstitial lung disease and unchanged when compared to 03/29/2022. Electronically Signed: Huey Frey MD at 12:45 EDT , Management Discussion w/another healthcare provider: Hospitalist (Dr. Evelyne Panchal) Treatment and Re-Evaluation :: Although the patient is triggering the sepsis alert with low platelets, this is chronic for her. She does have the elevated lactic acid above 2, but I do feel that this is most likely secondary to other reasons. I have deferred antibiotics. Additionally, upon repeat evaluation she is improved on the BiPAP. I do not feel that she requires ICU placement at this time and that she could be admitted to the PCU. Discharge Plan Dx/Rx/DC Orders Clinical Impression: Acute respiratory failure with hypercapnia, Gojjj-1-adfqxbuquvz deficiency, Chronic hypoxemic respiratory failure, Chronic thrombocytopenia, Chronic neutropenia Disposition Disposition: [facility]
--- NOTE | 2022-07-19 14:05 | PCM.HP.STD ---
HPI - General General Date of Admission: 07/19/22 Date of Service: 07/19/22 Chief Complaint: Dyspnea, wheezing, hypoxia, worsening. HPI Narrative The patient is a 56 y/o F w/ PMHx: Pancytopenia, Diabetes mellitus type II, Chronic thrombocytopenia, Xvsoi-4-tzvsqnvwowz deficiency, Former tobacco use, COPD w/ Chronic Hypoxic Respiratory failure (4L NC) following with Dr. Aguirre, Depression and Anxiety, HTN, HLD, Cirrhosis unclear etiology who presents to the [facility] ED on 07/19/22 with history of at least approximately 10 days of fatigue, malaise, increased minimally productive cough, occasional wheezing with frontal throbbing aching headache, abdominal mild cramping with nausea with no emesis or diarrhea, congestion and chills with eventual evaluation at [facility] on Saturday of week of presentation with recommendation for inpatient admission however the wait for a bed was at least 33 hours prompting transition to home with ATC nebulizer albuterol at home but she has steadily worsened with oxygenation reported per family noted to be in 60-70s with blue hue prompting eventual transition to the ED for evaluation. Work-up in the ED included T98, heart rate 112, BP 158/84, respiratory rate 32, initially 100% on 15 L nonrebreather eventually transition to BiPAP with most current vital signs heart rate 110, BP 151/75, respiratory rate 27, 96% on BiPAP, CBC with WC 2.7, hemoglobin 0.7, platelet 43 with increased immature granulocytes but ANC 1.9 and absolute lymphs 0.27, ABG with pH 7.35, bicarb 32, PCO2 57.7, PO2 85 performed on BiPAP, BMP with BUN/creatinine 19/0.57, glucose 159, lactic acid 2.2, troponin 15, BNP 21.5, chest x-ray with chronic interstitial lung disease similar to previous with no acute cardiopulmonary findings, rapid SARS COVID and flu engine with a positive influenza B antigen. In the ED patient administered 1 L normal saline, Solu-Medrol 125 mg IV x1 as well as DuoNeb therapy. Patient does report symptomatically feeling improved with ED interventions including BiPAP. ON LICENSE OF [facility] Medical History (Updated 07/19/22 @ 14:[address] Evelyne Panchal MD) Azfqi-9-nmgwzaysjop deficiency Anxiety and depression Chronic hypoxemic respiratory failure Cirrhosis COPD (chronic obstructive pulmonary disease) Diabetes mellitus, type 2 Former tobacco use Hyperlipidemia Pancytopenia Home Medications albuterol sulfate 90 mcg/actuation aerosol inhaler (Ventolin HFA) 2 puff inhalation Q4H PRN PRN Sob &/Or Wheezing 05/29/16 [History Last Taken 03/28/22] potassium chloride 10 mEq tablet,extended release(part/cryst) 10 meq PO TID supplement 03/09/18 [History Last Taken 03/28/22] esomeprazole magnesium 40 mg capsule,delayed release 40 mg PO DAILY gerd 07/27/19 [History Last Taken 03/28/22] fluticasone fur. 100 mcg-umeclid 62.5 mcg-vilant 25 mcg inhalat.powder (Trelegy Ellipta) 1 ea IH DAILY copd 07/27/19 [History Last Taken 03/28/22] asenapine maleate 5 mg sublingual tablet (Saphris) 10 mg sublingual BID 08/03/21 [History Last Taken 03/28/22] buspirone 15 mg tablet 15 mg PO TID 08/03/21 [History Last Taken 03/28/22] metformin 1,000 mg tablet 1,000 mg PO BID 08/03/21 [History Last Taken 03/28/22] propranolol 10 mg tablet 10 mg PO TID 08/03/21 [History Last Taken 03/28/22] alprazolam 0.5 mg tablet 0.5 mg PO BID ANXIETY 03/29/22 [History Last Taken 03/28/22] doxepin 25 mg capsule 25 mg PO DAILY DEPRESSION 03/29/22 [History Last Taken 03/28/22] sertraline 50 mg tablet 100 mg PO DAILY DEPRESSION 03/29/22 [History Last Taken 03/28/22] benzonatate 100 mg capsule 200 mg PO TID PRN cough #30 caps 04/01/22 [Rx Last Taken Unknown] cefdinir 300 mg capsule 300 mg PO BID #10 caps 04/01/22 [Rx Last Taken Unknown] oseltamivir 75 mg capsule 75 mg PO BID #5 caps 04/01/22 [Rx Last Taken Unknown] prednisone 20 mg tablet 40 mg PO DAILY #10 tabs 04/01/22 [Rx Last Taken Unknown] pseudoephedrine-guaifenesin ER 60 mg-600 mg tablet,extend release 12hr (Mucinex D) 1 tab PO BID cold symptoms #14 tabs 04/01/22 [Rx Last Taken Unknown] quetiapine 400 mg tablet (Seroquel) 400 mg PO QHS 07/19/22 [History Last Taken Unknown] Allergy/AdvReac Type Severity Reaction Status Date / Time erythromycin base Allergy FACIAL Verified 03/29/22 11:45 SWELLING Family History (Updated 07/19/22 @ 14:[address] Evelyne Panchal MD) Mother Diabetes Tkxwt-2-nqmdzymoxbc deficiency Father Heart disease Hypertension Kaezd-6-grtozrcxlgb deficiency Surgical History H/O: hysterectomy Social History (Updated 07/19/22 @ 14:[address] Evelyne Panchal MD) household members: spouse Smoking Status: Former smoker how long ago did patient quit smoking: Quit ~ 2018. alcohol intake: never substance use type: does not use ROS ROS Narrative Admission Review of Systems: CONSTITUTIONAL: No weight loss, fever, + chills, weakness or fatigue. HEENT: + Congestion, rhinorrhea, headache. Eyes: No visual loss, blurred vision, double vision or yellow sclerae. Ears, Nose, Throat: No hearing loss, sneezing. SKIN: No rash or itching, lesions, wounds. CARDIOVASCULAR: No chest pain, chest pressure or chest discomfort, palpitations, edema, orthopnea, syncopal events. RESPIRATORY: + Shortness of breath, cough with minimal sputum, wheezing, No hemoptysis. GASTROINTESTINAL: + anorexia, nausea, abdominal cramping, No vomiting, diarrhea, melena, BRBPR. GENITOURINARY: No dysuria, frequency, urgency or retention. NEUROLOGICAL: + headache, No dizziness, syncope, paralysis, ataxia, numbness or tingling in the extremities, focal weakness, change in bowel or bladder control, seizure. MUSCULOSKELETAL: + muscle, back pain, joint pain or stiffness. HEMATOLOGIC: + anemia, bleeding or bruising. LYMPHATICS: No enlarged nodes. No history of splenectomy. PSYCHIATRIC: + history of depression or anxiety. ENDOCRINOLOGIC: No reports of sweating, cold or heat intolerance. No polyuria or polydipsia. ALLERGIES: No history of asthma, hives, eczema or rhinitis. Vital Signs Vital Signs Vital Signs: 07/19/22 11:34 07/19/22 11:37 07/19/22 11:38 Temperature 98 F 98 F Temperature Source Temporal Temporal Pulse Rate 112 H 112 H Respiratory Rate 32 H 32 H Respiratory Effort Short of Breath Labored Respiratory Pattern Blood Pressure 158/84 H 158/84 H Blood Pressure Mean 108 108 Pulse Ox 100 100 Oxygen Delivery Method Non-Rebreather Non-Rebreather Nasal Cannula Oxygen Flow Rate (L/min) 15 15 4 Fraction of Inspired Oxygen (FIO2) 07/19/22 12:37 07/19/22 12:37 07/19/22 11:42 Temperature 97.2 F L 97.2 F L Temperature Source Temporal Temporal Pulse Rate 114 H 115 H 118 H Respiratory Rate 27 H 27 H 30 H Respiratory Effort Respiratory Pattern Normal Blood Pressure 152/77 H 152/77 H Blood Pressure Mean 102 102 Pulse Ox 95 95 100 Oxygen Delivery Method Bi-pap Bi-pap Oxygen Flow Rate (L/min) Fraction of Inspired Oxygen (FIO2) 40 07/19/22 12:16 07/19/22 13:30 07/19/22 13:52 Temperature 96.7 F L Temperature Source Temporal Pulse Rate 118 H 110 H 108 H Respiratory Rate 30 H 27 H 27 H Respiratory Effort Respiratory Pattern Tachypnea Blood Pressure 151/75 H 166/80 H Blood Pressure Mean 100 108 Pulse Ox 96 95 Oxygen Delivery Method Bi-pap Bi-pap Oxygen Flow Rate (L/min) Fraction of Inspired Oxygen (FIO2) 07/19/22 14:01 Temperature Temperature Source Pulse Rate 106 H Respiratory Rate 26 H Respiratory Effort Respiratory Pattern Blood Pressure 152/72 H Blood Pressure Mean 98 Pulse Ox 95 Oxygen Delivery Method Bi-pap Oxygen Flow Rate (L/min) Fraction of Inspired Oxygen (FIO2) Weight Weight: 145 lb 11.609 oz Body Mass Index (BMI) 25.8 Physical Exam Narrative Physical Examination: General: Awake, alert, oriented x 3 and cooperative, fatigued appearing, seated upright in the ED bed, BiPAP still in place, she does report feeling improved, respiratory rate still mildly increased but respiratory distress is lessening Skin: Normal color, normal turgor, no icterus, no cyanosis. HEENT: AT/NC, EOMI, PERRLA, dry MM, BiPAP in place, difficult assessment of carotid bruit given referred sounds with BiPAP, no obvious elevated JVD. Lungs: Significantly diminished, decreased air movement, occasional end expiratory wheeze, BiPAP in place, still mildly increased respiratory rate with some accessory muscle usage but significantly improved since initial ED arrival, still some difficulty with speaking but BiPAP also in place Heart: Tachycardic with regular rhythm; no gallop, rub audible. Abdomen: Soft, despite complaints abdominal NTTP, no marked distention, mildly hyperactive BS, no HSM. Extremities: No cyanosis, clubbing, or edema. Neurological: Patient awake, alert, oriented as noted, cognitive function intact; pupils equally reactive to light and accommodation, cranial nerves II-XII grossly normal, moving all 4 extremities, no focal deficits, strength severely globally decreased secondary to acute presentation. Psychiatric: Affect appears flat, fatigued, respiratory distress improving, no acute evidence of depressive or anxiety feelings but does have underlying history. Results Lab / Micro Data Result Diagrams: 07/19/22 11:45 07/19/22 11:45 Labs: Laboratory Results - last 24 hr 07/19/22 11:45: WBC 2.7 L, RBC 4.31, Hgb 11.7 L, Hct 39.2, MCV 91.0, MCH 27.1, MCHC 29.8 L, RDW Std Deviation 51.8 H, RDW Coeff of Renetta 15.5 H, Plt Count 43 L*, MPV 13.0 H, Immature Gran % (Auto) 1.100 H, Neut % (Auto) 71.0 H, Lymph % (Auto) 10.2 L, [place] % (Auto) 15.8 H, Eos % (Auto) 0.8, Baso % (Auto) 1.1 H, Absolute Neuts (auto) 1.9 L, Absolute Lymphs (auto) 0.27 L, Nucleated RBC % 0, Differential Comment SCANNED, Diff Path Review August rosalinda, Platelet Estimate MKD 07/19/22 11:45: Sodium 137, Potassium 4.1, Chloride 102, Carbon Dioxide 30.0, Anion Gap 5, BUN 19 H, Creatinine 0.57, Estim Creat Clear Calc 88.99, Est GFR (MDRD) Af Amer 139, Est GFR (MDRD) Non-Af 115, BUN/Creatinine Ratio 33.1 H, Glucose 159 H, Calcium 10.0, Troponin I High Sens 15 07/19/22 11:45: B-Natriuretic Peptide 21.5 07/19/22 11:45: Lactic Acid 2.2 H* Micro: Microbiology 07/19/22 12:15 Nasal Secretion SARS-CoV-2 & FLU Antigen (Rapid) - Final Influenzae B ABG Data ABG results: ABG 07/19/22 12:19 Specimen Type ART Sample Site R Radial pH 7.35 Bicarbonate Actual 32.0 H Total CO2 34 Base Excess 7 H O2 Saturation 96 O2 % 40 ABG pCO2 57.7 H ABG pO2 85 Derian Test Positive Respiration Rate 14 O2 Delivery Device BiPAP Radiology Impression Chest X-Ray 07/19/22 12:24 IMPRESSION: 1. No acute findings in the chest. 2. Chronic interstitial lung disease and unchanged when compared to 03/29/2022. Electronically Signed: Huey Frey MD at 12:45 EDT , Assessment & Plan Assessment/Plan (1) COPD exacerbation: PLAN: Plan The patient is a 56 y/o F w/ PMHx: Pancytopenia, Diabetes mellitus type II, Chronic thrombocytopenia, Nryhd-1-mbxpnsozeht deficiency, Former tobacco use, COPD w/ Chronic Hypoxic Respiratory failure (4L NC) following with Dr. Aguirre, Depression and Anxiety, HTN, HLD, Cirrhosis unclear etiology who presents to the [facility] ED on 07/19/22 with history of at least approximately 10 days of fatigue, malaise, increased minimally productive cough, occasional wheezing with frontal throbbing aching headache, abdominal mild cramping with nausea with no emesis or diarrhea, congestion and chills with eventual evaluation at [facility] on Saturday of week of presentation with recommendation for inpatient admission however the wait for a bed was at least 33 hours prompting transition to home with ATC nebulizer albuterol at home but she has steadily worsened. #1. Acute on Chronic Hypoxic Respiratory Failure secondary to Acute on chronic COPD possibly secondary to Acute Influenza B Syndrome with associated #2: Will admit to PCU, will continue BIPAP, slowly improving, ABG not marked appearing, continue ATC duonebs, PRN albuterol, IV methylprednisolone, HOB, IS parameters, request sputum, although rapid denoted + influenza B these have notably been both falsely positive and negative, thus will obtain full respiratory viral panel although given timeline of at least 10 days of this illness antiviral therapy would be an appropriate this point, obtain COVID PCR, obtain procalcitonin. Add abx therapy if any indication arises of bacterial etiology. Patient and family both requesting evaluation per their energy and conservation technician therefore will place consultation request to Dr. Aguirre and notify him. #2. Lactic acidosis suspected secondary to hypoxemia: Admission lactic acid 2.2, only mildly elevated in the setting of acute hypoxic respiratory failure, will continue treatments as noted number 1, trend lactic acid per facility protocol #3. Chronic Pancytopenia (thrombocytopenia/chronic neutropenia/chronic normocytic anemia): Admission platelet 43, baseline ranges primarily 40-50, stable, admission WBC 2.7, baseline primarily 1.7-2.9, stable, admission hemoglobin 11.7, baseline primarily 11-12, stable. We will continue to trend CBC. #4. Anxiety and depression: We will continue patient home sertraline, doxepin, BuSpar, low-dose Ativan and Seroquel regimen. #5. Diabetes mellitus type II: Hold oral home regimen, ADA diet, accu checks w/ ISS. #6. Hypertension: Continue home regimen including propranolol, PRN hydralazine. #7. Hyperlipidemia: Per current list not on regimen, defer to outpatient. #8. Cirrhosis, unclear etiology: Encourage continued outpatient follow-up with gastroenterology, hepatic profile requested. #9. DVT prophylaxis: SCDs. #10. CODE status: Patient does not have healthcare power of collections attorney nor living will set up but does have interest in doing so therefore it was discussed that her and her son who is present should review these items with case management/social work for information. She does note that if she was unable to make a medical decision she would want her son to be her decision maker. Discussed CODE status at length including difference between FULL code, DNR-CCA and DNR-CC status. Following discussions about the differences in these status, requested Full Code status. Advanced Care Planning Face to Face Time: 16 minutes. Admission Evaluation Time spent evaluating chart, patient history, patient evaluation, care planning and discussion with specialists: 75 minutes. Charges/Coding Visit Charges Inpatient E&M: 71185 Init Hosp L3 Procedures Hospitalists Procedures: 84342 Advncd Care Plan 30 Min
[2022-07-19 15:02] LABS: AST(SGOT) 20 U/L (15-37); Alanine Aminotransfer ALT/SGPT 23 U/L (13-56); Albumin, Serum 3.7 g/dL (3.2-5.0); Alkaline Phosphatase 100 U/L (45-117); Bilirubin, Direct 0.56 mg/dL (0.00-0.30); Globulin 3.8 g/dL (2.2-4.2); Protein, Total 7.5 g/dL (6.4-8.2)
[2022-07-19] MEDS: 0.9% Normal Saline 1,000 ML 100 ML IV (15:36)
[2022-07-19 16:10] LABS: Reflex Lactate? Y
[2022-07-19 17:32] LABS: Lactic Acid 0.9 mmol/L (0.4-1.9)
[2022-07-19 17:35] LABS: Bedside Glucose 155 mg/dL (74-106)
[2022-07-19 17:39] LABS: Procalcitonin 0.16 ng/mL (0.00-0.09)
[2022-07-19] MEDS: 0.9% Saline Lock 10 ML Syringe IV (22:25)
[2022-07-19] MEDS: QUEtiapine 100 MG Tablet 400 MG PO (22:27)
[2022-07-19] MEDS: Sertraline 50 MG Tablet PO (22:28)
--- NOTE | 2022-07-19 22:36 | NURSING ---
Yayo Miller spouse to patient contacted about bringing in home med Saphris 5mg. Spouse is agreeable and can bring.
[2022-07-19] MEDS: busPIRone 5 MG Tablet 20 MG PO (22:48)
[2022-07-20] VITALS (16 sets, daily range): BP systolic 120–152; BP diastolic 48–87; PULSE 85–112; RESP 14–30; TEMP 36.6–37.2; O2SAT 88–98; BMI 25.9
[2022-07-20 01:10] LABS: Bedside Glucose 157 mg/dL (74-106)
[2022-07-20] MEDS: busPIRone 5 MG Tablet 20 MG PO ×3 (06:19→21:22)
[2022-07-20 06:29] LABS: Absolute Lymphocyte Count 0.21 X10^3/uL (0.83-4.51); Absolute Neutrophil Count 1.1 X10^3/uL (2.0-7.7); Basophil# 0.01 X10^3/uL; Basophil% 0.6 % (0-1); Eosinophil# 0.01 X10^3/uL; Eosinophils% 0.6 % (0-5); Hematocrit 33.4 % (37-47); Hemoglobin 9.8 g/dL (12.0-15.0); Lymphocyte # 0.21 X10^3/ul (0.83-4.51); Lymphocyte % 13.2 % (19-41); Mean Corp Hgb Conc 29.3 g/dL (32-36); Mean Corpuscular Hgb 27.3 pg (27.0-32.0); Mean Platelet Vol. 12.4 fl (6.2-12.0); Monocyte% 12.6 % (0-10); NRBC Flagged by Analyzer 0 % (0-5); Neutrophil # 1.11 X10^3/uL (2.7-7.7); Neutrophil % 69.9 % (47-70); POSITIVE COUNT YES; POSITIVE DIFFERENTIAL YES; Platelet Count 37 K/mm3 (150-450); RBC Distribution Width CV 15.5 % (11.6-14.6); RBC Distribution Width SD 53.1 fl (35.1-43.9); Red Blood Count 3.59 M/mm3 (4.2-5.4); White Blood Count 1.6 K/mm3 (4.4-11.0)
[2022-07-20 06:31] LABS: Differential Indicated SCAN CRITERIA MET
[2022-07-20 06:46] LABS: Bedside Glucose 157 mg/dL (74-106)
[2022-07-20 06:48] LABS: AST(SGOT) 20 U/L (15-37); Alanine Aminotransfer ALT/SGPT 21 U/L (13-56); Alkaline Phosphatase 82 U/L (45-117); Anion Gap 2 (5-15); BUN 15 mg/dL (7-18); BUN/Creat Ratio 39.2 RATIO (10-20); Calcium,Total 8.8 mg/dL (8.5-10.1); Chloride 105 mmol/L (98-107); Creatinine, Serum 0.38 mg/dL (0.55-1.02); EST Glomerular Filtration Rate 183 mL/min (>60); Est Glom Filt Rate - Afr Amer 221 mL/min (>60); Estimated Creatinine Clearance 133.49 ml/min; Glucose 169 mg/dL (74-106); Potassium 4.4 mmol/L (3.5-5.1); Sodium Level 139 mmol/L (136-145)
[2022-07-20 07:19] LABS: Anisocytosis 1+; Platelet Estimate MKD DEC (ADEQ)
[2022-07-20] MEDS: Ipratropium/Albuterol Sulfate 3 ML AMPUL.NEB INHALATION ×5 (07:22→23:40)
[2022-07-20] MEDS: Pantoprazole Sodium 40 MG Tablet PO (09:14)
[2022-07-20] MEDS: Spironolactone 50 MG Tablet PO (09:14)
[2022-07-20] MEDS: Doxepin Hcl 25 MG Capsule 50 MG PO (09:14)
[2022-07-20] MEDS: Insulin Lispro 100 UNIT/ML INSULN.PEN SC ×3 (11:33→21:23)
[2022-07-20 11:56] LABS: Bedside Glucose 255 mg/dL (74-106)
--- NOTE | 2022-07-20 12:45 | CASEMGMT ---
RN ABRAHAM Face to Face with patient for initial transition planning/care coordination assessment. RN CM introduced self and role at [facility]. Patient lying in bed, alert and oriented, at bedside. Patient willing to participate in assessment and is able to answer all questions appropriately. Care providers, pharmacy, and demographics verified. Patient wishes to discharge home, denies need for home health at this time. Patient states she has no further needs or concerns at this time. CM to follow for discharge planning needs that may arise. 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 and daughter assist patient with care. Transportation: DME/HHC: Patient has shower chair, BSC, grab bars, walker, wheelchair, nebulizer, pulse ox, portable concentrator and home oxygen through [employer] at 4.5lpm. Patient has an independent nurse that comes weekly to see patient. Disposition Plan: Patient to discharge home with family support and follow-up plans in place. Reema JEAN BAPTISTEN, RN, CM
[2022-07-20 13:00] LABS: Pathologist Review Reviewed
[2022-07-20] MEDS: 0.9% Saline Lock 10 ML Syringe IV ×2 (14:57→21:25)
--- NOTE | 2022-07-20 16:45 | PN_ITS ---
Subjective Subjective Patient seen and examined. She says she felt much better than when she came in. She is coughing a bit but denies any chest pain, wheezing, palpitations, nausea or vomiting. Review of systems otherwise negative. She is on 5 L of oxygen. She states she wears 3 to 4 L of oxygen at home. Objective Data Objective Data Vital Signs: Vital Signs Temp Pulse Resp BP Pulse Ox O2 Del Method O2 Flow Rate 98.2 F 99 19 H 136/56 H 94 Nasal Cannula 5 07/20/22 16:00 07/20/22 16:00 07/20/22 16:00 07/20/22 16:00 07/20/22 16:00 07/20/22 16:00 07/20/22 16:00 FiO2 35 07/20/22 04:29 Oxygen Flow Rate (L/min) 5 Oxygen Delivery Method Nasal Cannula Weight: 146 lb 13.246 oz Body Mass Index (BMI) 25.9 Intake & Output: Intake and Output for Last 24 Hours 07/18/22 07/19/22 07/20/22 23:59 23:59 23:59 Intake Total 1400 / 1400 1400 / 1400 Output Total 250 / 250 Balance 1400 / 1400 1150 / 1150 Medical Nutrition Assessment Dietitian: Malnutrition Criteria Met Start: 07/20/22 14:43 Freq: Status: Active Protocol: Document 07/20/22 14:43 AG (Rec: 07/20/22 14:43 AG [id number]) Nutrition Malnutrition Evidence of Malnutrition Exists Yes Malnutrition (severe): Chronic Evidenced By Suboptimal Energy Intake ( Severe),Weight Loss (Severe), Physical Changes (Moderate) Clinical Problem Chronic Disease or Condition Related Malnutrition Etiology chronic, severe malnutrition related to inadequate energy intake w/ increased energy needs d/t resp. failure Signs/Symptoms as evidenced by unintentional wt loss of 33.2#/18% wt loss x 10 months, estimated PO intake meeting <75 % of estimated energy needs > 3 months, Moderate muscle wasting/fat loss evident per physical exam in orbital, clavicle, acromion, and temporal areas Status Active Problem Recommendation Dietitian Recommendations/Changes will liberalize diet to regular, no added salt given evidence of severe malnutrition; will add ensure plus high protein 120mL 4x/day w/ medpass for additional calories/protein if consumed. Lab / Micro Data Result Diagrams: 07/20/22 06:00 07/20/22 06:00 Labs: Laboratory Results - last 24 hr 07/19/22 11:45: Diff Path Review Reviewed 07/19/22 15:05: COVID-19 (DELANEY) Not Detected 07/19/22 16:50: Procalcitonin 0.16 H 07/19/22 16:50: Lactic Acid 0.9 07/19/22 17:07: POC Glucose 155 H 07/19/22 22:46: POC Glucose 157 H 07/20/22 06:00: WBC 1.6 L, RBC 3.59 L, Hgb 9.8 L, Hct 33.4 L, MCV 93.0, MCH 27.3, MCHC 29.3 L, RDW Std Deviation 53.1 H, RDW Coeff of Renetta 15.5 H, Plt Count 37 L*, MPV 12.4 H, Immature Gran % (Auto) 3.100 H, Neut % (Auto) 69.9, Lymph % (Auto) 13.2 L, [place] % (Auto) 12.6 H, Eos % (Auto) 0.6, Baso % (Auto) 0.6, Absolute Neuts (auto) 1.1 L, Absolute Lymphs (auto) 0.21 L, Nucleated RBC % 0, Diff Path Review May foll, Platelet Estimate MKD DEC, Anisocytosis 1+ 07/20/22 06:00: Sodium 139, Potassium 4.4, Chloride 105, Carbon Dioxide 32.0, Anion Gap 2 L, BUN 15, Creatinine 0.38 L, Estim Creat Clear Calc 133.49, Est GFR (MDRD) Af Amer 221, Est GFR (MDRD) Non-Af 183, BUN/Creatinine Ratio 39.2 H, Glu cose 169 H, Calcium 8.8, Total Bilirubin 0.80, AST 20, ALT 21, Alkaline Phosphatase 82, Total Protein 6.0 L, Albumin 3.0 L, Globulin 3.0, Album in/Globulin Ratio 1.0 07/20/22 06:14: POC Glucose 157 H 07/20/22 11:30: POC Glucose 255 H Micro: Microbiology 07/19/22 12:15 Nasal Secretion SARS-CoV-2 & FLU Antigen (Rapid) - Final Influenzae B Physical Exam Const alert, oriented x3 and no apparent distress Constitutional Narrative: frail HEENT normocephalic, head/scalp atraumatic and moist oral mucous membranes Neck no lymphadenopathy and supple Lymph Lymphatic: no lymphadenopathy noted Resp Resp Narrative: Mildly diminished breath sounds bibasally. No wheezes or crackles. on 5L of oxygen by nasal canula GI normal to inspection, nondistended, normoactive bowel sounds, soft to palpation, non-tender and non-distended Extremity normal capillary refill, no clubbing, cyanosis or edema and no calf tenderness Skin General Skin Exam: no breakdown Neuro CN's II-XII intact bilaterally, no focal motor deficits and no sensory deficits noted Motor Exam: strength 5/5 throughout Psych thought process normal and cooperative Appearance: appropriate Assessment & Plan Assessment/Plan (1) COPD exacerbation: (2) Chronic hypoxemic respiratory failure: (3) COPD (chronic obstructive pulmonary disease): (4) Influenza: PLAN: Plan #Acute on chronic hypoxic respiratory failure due to COPD exacerbation and influenza infection * Currently on IV Solu-Medrol. States she is feeling much better. * Breathing treatments with bronchodilators. Titrate oxygen to maintain saturation above 90%. * Started on Tamiflu. * Pulmonology consulted. Family request. * #Lactic acidosis: Resolved #Chronic pancytopenia: Platelets and WBC as well as hemoglobin at baseline. Will monitor. #Anxiety and depression: On sertraline and doxepin as well as BuSpar and Seroquel #Type 2 diabetes mellitus: Oral meds on hold. Insulin sliding scale. Accu- Cheks ACHS. #Hypertension: On propranolol. IV hydralazine as needed #History of cirrhosis: Etiology is not clear. Follow-up with gastroenterology on outpatient basis DVT prophylaxis: SCDs Total time spent on evaluation and management of patient, reviewing chart and specialist notes, discussing plan with patient, discussion with nursing and ancillary staff as well as documentation: 45 Charges/Coding Visit Charges Inpatient E&M: 87162 Subs Hosp L2
[2022-07-20 17:36] LABS: Bedside Glucose 219 mg/dL (74-106)
[2022-07-20] MEDS: Ensure Plus High Protein 120 ML LIQUID PO ×2 (17:58→21:22)
[2022-07-20] MEDS: Oseltamivir Phosphate 75 MG Capsule PO (21:22)
[2022-07-20] MEDS: QUEtiapine 100 MG Tablet 400 MG PO (21:22)
[2022-07-20] MEDS: Sertraline 50 MG Tablet PO (21:23)
[2022-07-21] VITALS (15 sets, daily range): BP systolic 137–159; BP diastolic 59–72; PULSE 98–113; RESP 18–30; TEMP 35.8–36.8; O2SAT 87–97; BMI 26.0
[2022-07-21 01:21] LABS: Bedside Glucose 288 mg/dL (74-106)
[2022-07-21] MEDS: Ipratropium/Albuterol Sulfate 3 ML AMPUL.NEB INHALATION ×3 (03:25→10:23)
--- NOTE | 2022-07-21 03:25 | CPS ---
Decreased O2 to 4 lpm
[2022-07-21] MEDS: busPIRone 5 MG Tablet 20 MG PO ×3 (05:12→21:15)
[2022-07-21] MEDS: 0.9% Saline Lock 10 ML Syringe IV ×3 (05:12→21:16)
[2022-07-21] MEDS: Insulin Lispro 100 UNIT/ML INSULN.PEN SC ×4 (06:31→21:16)
[2022-07-21 07:00] LABS: Bedside Glucose 256 mg/dL (74-106)
[2022-07-21 07:54] LABS: Anion Gap 1 (5-15); BUN 17 mg/dL (7-18); BUN/Creat Ratio 39.9 RATIO (10-20); Chloride 107 mmol/L (98-107); Creatinine, Serum 0.43 mg/dL (0.55-1.02); EST Glomerular Filtration Rate 162 mL/min (>60); Est Glom Filt Rate - Afr Amer 195 mL/min (>60); Estimated Creatinine Clearance 117.97 ml/min; Glucose 265 mg/dL (74-106); Potassium 3.8 mmol/L (3.5-5.1); Sodium Level 138 mmol/L (136-145)
[2022-07-21 08:17] LABS: Absolute Lymphocyte Count 0.25 X10^3/uL (0.83-4.51); Absolute Neutrophil Count 1.2 X10^3/uL (2.0-7.7); Basophil# 0.01 X10^3/uL; Basophil% 0.6 % (0-1); Hematocrit 35.7 % (37-47); Hemoglobin 10.6 g/dL (12.0-15.0); Lymphocyte # 0.25 X10^3/ul (0.83-4.51); Lymphocyte % 14.5 % (19-41); Mean Corp Hgb Conc 29.7 g/dL (32-36); Mean Corpuscular Hgb 27.2 pg (27.0-32.0); Mean Corpuscular Volume 91.5 fL (81-99); Mean Platelet Vol. 11.2 fl (6.2-12.0); Monocyte# 0.21 X10^3/uL; Monocyte% 12.1 % (0-10); NRBC Flagged by Analyzer 0 % (0-5); Neutrophil # 1.18 X10^3/uL (2.7-7.7); Neutrophil % 68.2 % (47-70); POSITIVE COUNT YES; POSITIVE DIFFERENTIAL YES; RBC Distribution Width CV 15.6 % (11.6-14.6); RBC Distribution Width SD 51.8 fl (35.1-43.9); White Blood Count 1.7 K/mm3 (4.4-11.0)
[2022-07-21 08:31] LABS: Differential Indicated SCAN CRITERIA MET
[2022-07-21 08:32] LABS: Platelet Count 40 K/mm3 (150-450)
[2022-07-21] MEDS: Oseltamivir Phosphate 75 MG Capsule PO ×2 (09:22→21:15)
[2022-07-21] MEDS: Pantoprazole Sodium 40 MG Tablet PO (09:22)
[2022-07-21] MEDS: Spironolactone 50 MG Tablet PO (09:22)
[2022-07-21] MEDS: Doxepin Hcl 25 MG Capsule 50 MG PO (09:22)
[2022-07-21] MEDS: Ensure Plus High Protein 120 ML LIQUID PO ×4 (09:23→21:15)
[2022-07-21 10:54] LABS: Differential Comment SCANNED; Platelet Estimate MKD DEC (ADEQ)
--- NOTE | 2022-07-21 12:00 | PN_ITS ---
Subjective Subjective Patient seen and examined. She says she feels a bit weaker today. She is on 4 L of oxygen which is her baseline. She has no other complaints and review of systems otherwise negative. Objective Data Objective Data Vital Signs: Vital Signs Temp Pulse Resp BP Pulse Ox O2 Del Method O2 Flow Rate 98.3 F 98 20 H 159/72 H 92 Nasal Cannula 5 07/21/22 09:16 07/21/22 10:42 07/21/22 10:42 07/21/22 09:16 07/21/22 09:16 07/21/22 09:16 07/21/22 09:16 FiO2 35 07/21/22 00:44 Oxygen Flow Rate (L/min) 5 Oxygen Delivery Method Nasal Cannula Weight: 147 lb 0.773 oz Body Mass Index (BMI) 26.0 Intake & Output: Intake and Output for Last 24 Hours 07/19/22 07/20/22 07/21/22 23:59 23:59 23:59 Intake Total 1400 / 1400 1400 / 1520 180 / 180 Output Total 250 / 450 325 / 325 Balance 1400 / 1400 1150 / 1070 -145 / -145 Medical Nutrition Assessment Dietitian: Malnutrition Criteria Met Start: 07/20/22 14:43 Freq: Status: Active Protocol: Document 07/20/22 14:43 AG (Rec: 07/20/22 14:43 AG [id number]) Nutrition Malnutrition Evidence of Malnutrition Exists Yes Malnutrition (severe): Chronic Evidenced By Suboptimal Energy Intake ( Severe),Weight Loss (Severe), Physical Changes (Moderate) Clinical Problem Chronic Disease or Condition Related Malnutrition Etiology chronic, severe malnutrition related to inadequate energy intake w/ increased energy needs d/t resp. failure Signs/Symptoms as evidenced by unintentional wt loss of 33.2#/18% wt loss x 10 months, estimated PO intake meeting <75 % of estimated energy needs > 3 months, Moderate muscle wasting/fat loss evident per physical exam in orbital, clavicle, acromion, and temporal areas Status Active Problem Recommendation Dietitian Recommendations/Changes will liberalize diet to regular, no added salt given evidence of severe malnutrition; will add ensure plus high protein 120mL 4x/day w/ medpass for additional calories/protein if consumed. Lab / Micro Data Result Diagrams: 07/21/22 07:55 07/21/22 06:09 Labs: Laboratory Results - last 24 hr 07/19/22 11:45: Diff Path Review Reviewed 07/20/22 17:12: POC Glucose 219 H 07/20/22 21:20: POC Glucose 288 H 07/21/22 06:09: Sodium 138, Potassium 3.8, Chloride 107, Carbon Dioxide 30.0, Anion Gap 1 L, BUN 17, Creatinine 0.43 L, Estim Creat Clear Calc 117.97, Est GFR (MDRD) Af Amer 195, Est GFR (MDRD) Non-Af 162, BUN/Creatinine Ratio 39.9 H, Glucose 265 H, Calcium 9.0 07/21/22 06:29: POC Glucose 256 H 07/21/22 07:55: WBC 1.7 L, RBC 3.90 L, Hgb 10.6 L, Hct 35.7 L, MCV 91.5, MCH 27.2, MCHC 29.7 L, RDW Std Deviation 51.8 H, RDW Coeff of Renetta 15.6 H, Plt Count 40 L*, MPV 11.2, Immature Gran % (Auto) 4.600 H, Neut % (Auto) 68.2, Lymph % (Auto) 14.5 L, [place] % (Auto) 12.1 H, Eos % (Auto) 0.0, Baso % (Auto) 0.6, Absolute Neuts (auto) 1.2 L, Absolute Lymphs (auto) 0.25 L, Nucleated RBC % 0, Differential Comment SCANNED, Diff Path Review May foll, Platelet Estimate MKD MAR Micro: Microbiology 07/19/22 12:15 Nasal Secretion SARS-CoV-2 & FLU Antigen (Rapid) - Final Influenzae B Physical Exam Const alert, oriented x3 and no apparent distress Constitutional Narrative: frail General Appearance: cooperative and well developed HEENT normocephalic, head/scalp atraumatic, moist oral mucous membranes and oropharynx normal Eyes PERRL and EOMs intact bilaterally Neck no lymphadenopathy, supple and no JVD Lymph Lymphatic: no lymphadenopathy noted and no lymphedema noted Resp Resp Narrative: Mildly diminished breath sounds bibasally. No wheezes or crackles. on 4L of oxygen by nasal canula Cardio regular rate, regular rhythm, S1 normal heart sound, S2 normal heart sound and no murmurs GI normal to inspection, nondistended, normoactive bowel sounds, soft to palpation, non-tender and non-distended Extremity normal capillary refill, no clubbing, cyanosis or edema and no calf tenderness Skin General Skin Exam: no breakdown and turgor normal Neuro CN's II-XII intact bilaterally, no focal motor deficits and no sensory deficits noted Motor Exam: strength 5/5 throughout Psych thought process normal and cooperative Appearance: appropriate Assessment & Plan Assessment/Plan (1) COPD exacerbation: (2) Chronic hypoxemic respiratory failure: (3) COPD (chronic obstructive pulmonary disease): (4) Influenza: PLAN: Plan #Acute on chronic hypoxic respiratory failure due to COPD exacerbation and influenza infection * still on IV Solu-Medrol. States she is feeling much better. * Breathing treatments with bronchodilators. Titrate oxygen to maintain saturation above 90%. * on tamiflu, to complete a 10 day course * * #Lactic acidosis: Resolved #Chronic pancytopenia: Platelets and WBC as well as hemoglobin at baseline. Will monitor. #Anxiety and depression: On sertraline and doxepin as well as BuSpar and Seroquel #Type 2 diabetes mellitus: Oral meds on hold. Insulin sliding scale. Accu- Cheks ACHS. #Hypertension: On propranolol. IV hydralazine as needed #History of cirrhosis: Etiology is not clear. Follow-up with gastroenterology on outpatient basis DVT prophylaxis: SCDs Total time spent on evaluation and management of patient, reviewing chart and specialist notes, discussing plan with patient, discussion with nursing and ancillary staff as well as documentation: 42 mins Charges/Coding Visit Charges Inpatient E&M: 87697 Subs Hosp L2
[2022-07-21 12:55] LABS: Bedside Glucose 265 mg/dL (74-106)
[2022-07-21] MEDS: guaiFENesin 10 ML UDC (200MG/10ML) 20 ML PO (14:31)
[2022-07-21] MEDS: ASENAPINE MALEATE 5 MG TAB.SUBL SL ×2 (16:05→23:00)
[2022-07-21 17:45] LABS: Bedside Glucose 201 mg/dL (74-106)
[2022-07-21] MEDS: QUEtiapine 100 MG Tablet 400 MG PO (21:15)
[2022-07-21] MEDS: Sertraline 50 MG Tablet PO (21:15)
[2022-07-22] VITALS (16 sets, daily range): BP systolic 140–153; BP diastolic 53–75; PULSE 83–116; RESP 14–36; TEMP 36.4–36.8; O2SAT 86–100; BMI 25.2
[2022-07-22 00:06] LABS: Bedside Glucose 251 mg/dL (74-106)
--- NOTE | 2022-07-22 00:23 | NURSING ---
Pt noted resting with eyes closed, pt easily arouses with RN standing in pt room doorway. Pt is update on new Ativan order, pt is requesting to rest and then per pt will attempt BIPAP at 2AM.
[2022-07-22] MEDS: LORazepam 2 MG/ML Syringe 0.5 MG IV ×2 (02:08→23:49)
[2022-07-22] MEDS: 0.9% Saline Lock 10 ML Syringe IV ×6 (02:09→23:50)
[2022-07-22 05:40] LABS: Hematocrit 35.9 % (37-47); Hemoglobin 10.5 g/dL (12.0-15.0); Mean Corp Hgb Conc 29.2 g/dL (32-36); Mean Corpuscular Hgb 27.3 pg (27.0-32.0); Mean Corpuscular Volume 93.5 fL (81-99); POSITIVE COUNT YES; POSITIVE DIFFERENTIAL YES; POSITIVE MORPHOLOGY YES; Platelet Count 43 K/mm3 (150-450); RBC Distribution Width CV 15.7 % (11.6-14.6); RBC Distribution Width SD 53.5 fl (35.1-43.9); Red Blood Count 3.84 M/mm3 (4.2-5.4); White Blood Count 2.4 K/mm3 (4.4-11.0)
[2022-07-22 06:07] LABS: Differential Indicated MANUAL DIFF
[2022-07-22] MEDS: busPIRone 5 MG Tablet 20 MG PO ×3 (06:09→22:33)
[2022-07-22 06:11] LABS: Anion Gap 1 (5-15); BUN 17 mg/dL (7-18); BUN/Creat Ratio 37.4 RATIO (10-20); Chloride 103 mmol/L (98-107); Creatinine, Serum 0.46 mg/dL (0.55-1.02); EST Glomerular Filtration Rate 150 mL/min (>60); Est Glom Filt Rate - Afr Amer 181 mL/min (>60); Estimated Creatinine Clearance 110.27 ml/min; Glucose 295 mg/dL (74-106); Potassium 4.2 mmol/L (3.5-5.1); Sodium Level 140 mmol/L (136-145)
[2022-07-22] MEDS: Insulin Lispro 100 UNIT/ML INSULN.PEN SC ×4 (06:16→22:33)
[2022-07-22 06:45] LABS: Bedside Glucose 244 mg/dL (74-106)
[2022-07-22 07:07] LABS: Anisocytosis 1+; Platelet Estimate MKD DEC (ADEQ)
[2022-07-22 07:12] LABS: Absolute Lymphocyte Count 0.43 X10^3/uL (0.83-4.51); Absolute Neutrophil Count 1.6 X10^3/uL (2.0-7.7); Neutrophil-Segmented 52 % (47-70); Total Cells Counted 100 (MANUAL DIFF)
[2022-07-22 07:13] LABS: Eosinophil 1 % (0-5); Lymphocyte 18 % (19-41); Metamyelocyte 1 % (0-1); Monocyte 9 % (0-10); Myelocyte 4 % (0-0); Neutrophil-Band 15 % (0-5); Red Cell Morphology NORM C+C NORMAL (NORM C&C)
[2022-07-22] MEDS: Doxepin Hcl 25 MG Capsule 50 MG PO (08:19)
[2022-07-22] MEDS: Spironolactone 50 MG Tablet PO (08:19)
[2022-07-22] MEDS: Pantoprazole Sodium 40 MG Tablet PO (08:20)
[2022-07-22] MEDS: Oseltamivir Phosphate 75 MG Capsule PO ×2 (08:20→22:36)
[2022-07-22] MEDS: Ensure Plus High Protein 120 ML LIQUID PO ×4 (08:25→22:37)
[2022-07-22] MEDS: Furosemide 40 MG/4 ML Vial IV ×2 (08:25→17:24)
--- NOTE | 2022-07-22 10:11 | PN_ITS ---
Subjective Subjective Patient seen and examined. She was a bit sleepy and lethargic this morning. She was on 7L of oxygen. She was however saturating at 100% on the 7 L of oxygen. She denies any coughing or chest pain, palpitations or dizziness, nausea or vomiting. She is in positive fluid balance by about 2 L. Review of systems ot herwise negative. Objective Data Objective Data Vital Signs: Vital Signs Temp Pulse Resp BP Pulse Ox O2 Del Method O2 Flow Rate 97.6 F L 102 H 17 140/75 H 90 Nasal Cannula 7 07/22/22 08:00 07/22/22 08:00 07/22/22 08:00 07/22/22 08:00 07/22/22 09:29 07/22/22 09:29 07/22/22 09:29 FiO2 35 07/22/22 02:50 Oxygen Flow Rate (L/min) 7 Oxygen Delivery Method Nasal Cannula Weight: 142 lb 13.753 oz Body Mass Index (BMI) 25.2 Intake & Output: Intake and Output for Last 24 Hours 07/20/22 07/21/22 07/22/22 23:59 23:59 23:59 Intake Total 1400 / 1520 930 / 930 50 / 50 Output Total 250 / 450 1325 / 1325 150 / 150 Balance 1150 / 1070 -395 / -395 -100 / -100 Medical Nutrition Assessment Dietitian: Malnutrition Criteria Met Start: 07/20/22 14:43 Freq: Status: Active Protocol: Document 07/20/22 14:43 AG (Rec: 07/20/22 14:43 [id number]) Nutrition Malnutrition Evidence of Malnutrition Exists Yes Malnutrition (severe): Chronic Evidenced By Suboptimal Energy Intake ( Severe),Weight Loss (Severe), Physical Changes (Moderate) Clinical Problem Chronic Disease or Condition Related Malnutrition Etiology chronic, severe malnutrition related to inadequate energy intake w/ increased energy needs d/t resp. failure Signs/Symptoms as evidenced by unintentional wt loss of 33.2#/18% wt loss x 10 months, estimated PO intake meeting <75 % of estimated energy needs > 3 months, Moderate muscle wasting/fat loss evident per physical exam in orbital, clavicle, acromion, and temporal areas Status Active Problem Recommendation Dietitian Recommendations/Changes will liberalize diet to regular, no added salt given evidence of severe malnutrition; will add ensure plus high protein 120mL 4x/day w/ medpass for additional calories/protein if consumed. Lab / Micro Data Result Diagrams: 07/22/22 05:18 07/22/22 05:18 Labs: Laboratory Results - last 24 hr 07/21/22 07:55: Differential Comment SCANNED, Diff Path Review August rosalinda Platelet Estimate MKD 07/21/22 12:15: POC Glucose 265 H 07/21/22 16:58: POC Glucose 201 H 07/21/22 21:13: POC Glucose 251 H 07/22/22 05:18: WBC 2.4 L, RBC 3.84 L, Hgb 10.5 L, Hct 35.9 L, MCV 93.5, MCH 27.3, MCHC 29.2 L, RDW Std Deviation 53.5 H, RDW Coeff of Renetta 15.7 H, Plt Count 43 L*, MPV 11.0, Neut % (Auto) Not Reportable, Absolute Neuts (auto) 1.6 L, Absolute Lymphs (auto) 0.43 L, Total Counted 100, Neutrophils % (Manual) 52, Band Neutrophils % 15 H, Lymphocytes % (Manual) 18 L, Monocytes % (Manual) 9, Eosinophils % (Manual) 1, Metamyelocytes % 1, Myelocytes % 4 H, Diff Path Review August rosalinda Platelet Estimate MKD MAR, RBC Morphology NORM C+C, Anisocytosis 1+ 07/22/22 05:18: Sodium 140, Potassium 4.2, Chloride 103, Carbon Dioxide 36.0 H, Anion Gap 1 L, BUN 17, Creatinine 0.46 L, Estim Creat Clear Calc 110.27, Est GFR (MDRD) Af Amer 181, Est GFR (MDRD) Non-Af 150, BUN/Creatinine Ratio 37.4 H, Glucose 295 H, Calcium 9.0 07/22/22 06:15: POC Glucose 244 H Micro: Microbiology 07/19/22 12:15 Nasal Secretion SARS-CoV-2 & FLU Antigen (Rapid) - Final Influenzae B Physical Exam Const alert, oriented x3 and no apparent distress Constitutional Narrative: frail General Appearance: cooperative and well developed HEENT normocephalic, head/scalp atraumatic, moist oral mucous membranes and oropharynx normal Eyes PERRL and EOMs intact bilaterally Neck no lymphadenopathy, supple and no JVD Lymph Lymphatic: no lymphadenopathy noted and no lymphedema noted Resp Resp Narrative: Mildly diminished breath sounds bibasally. No wheezes or crackles. on 7L of oxygen by nasal canula Cardio regular rate, regular rhythm, S1 normal heart sound, S2 normal heart sound and no murmurs GI normal to inspection, nondistended, normoactive bowel sounds, soft to palpation, non-tender and non-distended Extremity normal capillary refill, no clubbing, cyanosis or edema and no calf tenderness Skin General Skin Exam: no breakdown and turgor normal Neuro CN's II-XII intact bilaterally, no focal motor deficits and no sensory deficits noted Motor Exam: strength 5/5 throughout Psych thought process normal and cooperative Appearance: appropriate Assessment & Plan Assessment/Plan (1) COPD exacerbation: (2) Chronic hypoxemic respiratory failure: (3) COPD (chronic obstructive pulmonary disease): (4) Influenza: PLAN: Plan #Acute on chronic hypoxic respiratory failure due to COPD exacerbation and influenza infection * still on IV Solu-Medrol. States she is feeling much better. * Breathing treatments with bronchodilators. Titrate oxygen to maintain saturation above 90%. * on tamiflu, to complete a 5 day course * in positive fluid balance by ~ 2L. Will diurese with IV lasix 40mg bid * on 7L of oxygen today; she usually wears 4-5L at home * will consult pulmonology * titrate oxygen to maintain sats >90% * * #Lactic acidosis: Resolved #Chronic pancytopenia: Platelets and WBC as well as hemoglobin at baseline. Will monitor. #Anxiety and depression: On sertraline and doxepin as well as BuSpar and Seroquel #Type 2 diabetes mellitus: Oral meds on hold. Insulin sliding scale. Accu- Cheks ACHS. #Hypertension: On propranolol. IV hydralazine as needed #History of cirrhosis: Etiology is not clear. Follow-up with gastroenterology on outpatient basis DVT prophylaxis: SCDs Total time spent on evaluation and management of patient, reviewing chart and specialist notes, discussing plan with patient, discussion with nursing and ancillary staff as well as documentation: 40 mins Charges/Coding Visit Charges Inpatient E&M: 19283 Subs Hosp L2
[2022-07-22 12:05] LABS: Bedside Glucose 269 mg/dL (74-106)
[2022-07-22] MEDS: Ipratropium/Albuterol Sulfate 3 ML AMPUL.NEB INHALATION (12:42)
[2022-07-22] MEDS: ASENAPINE MALEATE 5 MG TAB.SUBL SL ×2 (13:58→20:40)
--- NOTE | 2022-07-22 15:27 | CON.PCM.CC_ITS ---
Assessment & Plan Assessment/Plan (1) Influenza: PLAN: The patient has influenza B, and is outside the usual window. However she was started on Tamiflu 25 mg p.o. twice daily . (2) COPD exacerbation: PLAN: Continue current management with: - DuoNeb every 4 hours while awake and as needed - Guaifenesin 20 mL every 4 hours as needed - Methylprednisolone 40 mg IV every 8 hours - Bronchopulmonary hygiene, postural drainage. Patient has both the incentive spirometer and flutter device, use every hour while awake to help mobilize secretions - Maintain adequate hydration to help mobilize sputum - Patient is in the process of exploring alternative therapies such as bullectomy and valve placement with the practice but has missed some visits. She should follow-up with [facility] at discharge. - Continue Prolastin therapy, restart Trelegy as soon as feasible, preferably in the hospital, although her insurance may not cover it in which case it should be resumed as an outpatient. (3) Acute on chronic respiratory failure with hypoxia and hypercapnia: PLAN: - Continue 7 L/min high flow oxygen, maintain saturations greater than 90%. - Continue nocturnal BiPAP at current settings. (4) Chronic neutropenia: PLAN: - Management per primary team (5) Asyie-9-ehgpqlsgzzi deficiency: PLAN: - Continue weekly Prolastin infusions. (6) Cirrhosis: PLAN: - Minimize hepatotoxic medications, consider decreasing acetaminophen dose to 325 mg every 4 as needed since the 650 mg 6 times a day would exceed the recommended threshold of 2000 mg/day if she took all as needed doses. (7) Diabetes mellitus, type 2: PLAN: Management per primary team HPI Consult Data Date of Consult: 07/22/22 HPI Narrative Reason for Consultation: AECOPD, A1AT deficiency HPI Narrative: SLOANE CANO, is a pleasant 56-year-old wheelchair-bound [id number] former smoking woman with severe COPD and cirrhosis due to alpha-1 antitrypsin deficiency, on weekly Prolastin-C infusions (1000mg reconstituted) for more than 8 years. She is well-known to [facility], last having seen Karen Pino [employer] on 10/20/2021 (missed some subsequent appointments).? She was rejected by [facility] transplant program, and more recently has been evaluated at [facility] for lung transplant but did not qualify due to liver failure from A1 AT deficiency.? She is maintained on Trelegy inhaler for more than 1 year plus Mucinex, oxygen, volume assured noninvasive ventilator. She is considering lung volume reduction surgery and/or [facility] pulmonary valve procedure. The patient had a 10-day increase in her usual amount of cough productive of brownish sputum, dyspnea, with abdominal cramping and nausea chills, was seen in the ER at [facility] but after 33-hour wait elected to go home with albuterol.? She continued to worsen O2 sats dropped to 60s to 70s, she presented to [facility] ER and was on 15 L nonrebreather then BiPAP with reasonable vital signs.? Her arterial blood gas was 7.35, PCO2 58, PO2 85 on BiPAP lactate 2.2, with negative troponin and BNP and no change in her chest x-ray.? Nasal swab PCR was positive for influenza B.? She was started on Solu-Medrol, DuoNeb, but was outside the window for Tamiflu. Today, she feels better than she did on admission, but feels that she still has a way to go until she reaches her baseline.? Her cough is starting to lighten and decrease sputum quantity.? No chest pain, leg edema, ear or sinus problems, pleurisy, but has been in bed most of her hospitalization.? She is still wheezing, is sleeping a little better, denies any fevers chills or sweats.? She still wheezing but feels she is getting sufficiently frequent nebulizer therapy here.? O2 stable on 7 L nasal cannula. ?A hospital BiPAP machine is at the bedside. She was last hospitalized a year ago for exacerbation, and to outpatient prednisone bursts.? She is compliant with oxygen and inhalers and is 92% on 4 L at home.? Her mMRC is 4.? Her last 6-minute walk test was 236 feet, her O2 was increased to 5 L/min with exertion. Past medical history, social history, surgical history, family medications and allergies were reviewed. ROS 10 system review is negative except as above and in current records. The patient is a full code. [facility] Medical History (Updated 07/22/22 @ 15:[address] Juan Bailey MD) Acute on chronic respiratory failure with hypoxia and hypercapnia Ojrxr-1-jlkkdygsnyi deficiency Anxiety and depression Chronic hypoxemic respiratory failure Cirrhosis COPD (chronic obstructive pulmonary disease) Diabetes mellitus, type 2 Former tobacco use Hyperlipidemia Pancytopenia Home Medications albuterol sulfate 90 mcg/actuation aerosol inhaler (Ventolin HFA) 2 puff inhalation Q4H PRN PRN Sob &/Or Wheezing 05/29/16 [History Last Taken 03/28/22] potassium chloride 10 mEq tablet,extended release(part/cryst) 10 meq PO TID supplement 03/09/18 [History Last Taken 03/28/22] esomeprazole magnesium 40 mg capsule,delayed release (Nexium) 40 mg PO DAILY gerd 07/27/19 [History Last Taken 03/28/22] fluticasone fur. 100 mcg-umeclid 62.5 mcg-vilant 25 mcg inhalat.powder (Trelegy Ellipta) 1 ea IH DAILY copd 07/27/19 [History Last Taken 03/28/22] asenapine maleate 5 mg sublingual tablet (Saphris) 5 mg sublingual BID 08/03/21 [History Last Taken 03/28/22] buspirone 15 mg tablet 30 mg PO TID Check with primary doctor 08/03/21 [History Last Taken 03/28/22] metformin 1,000 mg tablet 1,000 mg PO BID diabetes 08/03/21 [History Last Taken 03/28/22] doxepin 25 mg capsule 50 mg PO DAILY DEPRESSION 03/29/22 [History Last Taken 03/28/22] sertraline 50 mg tablet (Zoloft) 50 mg PO QHS DEPRESSION 03/29/22 [History Last Taken 03/28/22] pseudoephedrine-guaifenesin ER 60 mg-600 mg tablet,extend release 12hr (Mucinex D) 1 tab PO BID cold symptoms #14 tabs 04/01/22 [Rx Last Taken Unknown] quetiapine 400 mg tablet (Seroquel) 400 mg PO QHS 07/19/22 [History Last Taken Unknown] spironolactone 50 mg tablet 50 mg DAILY Check with primary doctor 07/19/22 [History Last Taken Unknown] Allergy/AdvReac Type Severity Reaction Status Date / Time erythromycin base Allergy FACIAL Verified 03/29/22 11:45 SWELLING Family History (Updated 07/19/22 @ 14:[address] Evelyne Panchal MD) Mother Diabetes Pjnnx-2-ukhibyzcwcb deficiency Father Heart disease Hypertension Tasaq-5-egkgeebasfe deficiency Surgical History H/O: hysterectomy Social History (Updated 07/19/22 @ 14:[address] Evelyne Panchal MD) household members: spouse Smoking Status: Former smoker how long ago did patient quit smoking: Quit ~ 2018. alcohol intake: never substance use type: does not use Physical Exam Narrative Well-developed well-nourished no acute distress. She is laying in bed with chronic dyspnea, using accessory muscles, prolonged expiratory phase, hyperinflated chest, on 7 L of oxygen. HEENT mucous membranes dry no thrush Chest is hyperinflated with increased AP diameter. Positive accessory muscle use. Positive bilateral expiratory wheezing, decreased breath sounds on the left compared to the right. No cough during visit. Heart normal S1-S2 with no murmurs rubs or gallops Abdomen is soft nontender Extremities have no clubbing cyanosis or edema Neuro is nonfocal Skin is warm and dry. Peripheral IVs in good condition. Psych is pleasant and appropriate, good insight, no confusion, able to make own decisions. Medical Records Data Attestation: I reviewed the patient's medical records Medical Nutrition Assessment Dietitian: Malnutrition Criteria Met Start: 07/20/22 14:43 Freq: Status: Active Protocol: Document 07/20/22 14:43 AG (Rec: 07/20/22 14:43 AG [id number]) Nutrition Malnutrition Evidence of Malnutrition Exists Yes Malnutrition (severe): Chronic Evidenced By Suboptimal Energy Intake ( Severe),Weight Loss (Severe), Physical Changes (Moderate) Clinical Problem Chronic Disease or Condition Related Malnutrition Etiology chronic, severe malnutrition related to inadequate energy intake w/ increased energy needs d/t resp. failure Signs/Symptoms as evidenced by unintentional wt loss of 33.2#/18% wt loss x 10 months, estimated PO intake meeting <75 % of estimated energy needs > 3 months, Moderate muscle wasting/fat loss evident per physical exam in orbital, clavicle, acromion, and temporal areas Status Active Problem Recommendation Dietitian Recommendations/Changes will liberalize diet to regular, no added salt given evidence of severe malnutrition; will add ensure plus high protein 120mL 4x/day w/ medpass for additional calories/protein if consumed. Lab / Micro Data Attestation: I reviewed the patient's lab results. Lab results narrative: Pancytopenic, chronic, with left shift. Hyperglycemia on steroids. Result Diagrams: 07/22/22 05:18 07/22/22 05:18 Labs: Laboratory Results - last 24 hr 07/21/22 16:58: POC Glucose 201 H 07/21/22 21:13: POC Glucose 251 H 07/22/22 05:18: WBC 2.4 L, RBC 3.84 L, Hgb 10.5 L, Hct 35.9 L, MCV 93.5, MCH 27.3, MCHC 29.2 L, RDW Std Deviation 53.5 H, RDW Coeff of Renetta 15.7 H, Plt Count 43 L*, MPV 11.0, Neut % (Auto) Not Reportable, Absolute Neuts (auto) 1.6 L, Absolute Lymphs (auto) 0.43 L, Total Counted 100, Neutrophils % (Manual) 52, Band Neutrophils % 15 H, Lymphocytes % (Manual) 18 L, Monocytes % (Manual) 9, Eosinophils % (Manual) 1, Metamyelocytes % 1, Myelocytes % 4 H, Diff Path Review August, Platelet Estimate MKD DEC, RBC Morphology NORM C+C, Anisocytosis 1+ 07/22/22 05:18: Sodium 140, Potassium 4.2, Chloride 103, Carbon Dioxide 36.0 H, Anion Gap 1 L, BUN 17, Creatinine 0.46 L, Estim Creat Clear Calc 110.27, Est GFR (MDRD) Af Amer 181, Est GFR (MDRD) Non-Af 150, BUN/Creatinine Ratio 37.4 H, Glucose 295 H, Calcium 9.0 07/22/22 06:15: POC Glucose 244 H 07/22/22 11:42: POC Glucose 269 H Pulmonary function studies in November 2020 demonstrated evidence of advanced stage COPD with a postbronchodilator FEV1 of 34% of predicted.? There was a significant bronchodilator response.? The patient did have evidence of a mild restrictive impairment along with a severe reduction in diffusing capacity at 26% of predicted.? The patient did have a diagnostic polysomnogram completed in 2013 which revealed an overall AHI of 7 events per hour. Micro: No micro results available this admission. Respiratory PCR positive for influenza B. Chest x-ray 07/19/2022: RAD/Chest 1 View (Portable) IMPRESSION: ? 1.? No acute findings in the chest. ? 2.? Chronic interstitial lung disease and unchanged when compared to 03/29/2022. ? Electronically Signed: Huey Frey MD at 12:45 EDT , CTA chest March 2022: CT/CTA Chest W/WO Contrast IMPRESSION: 1.? No CT evidence of pulmonary embolism. 2.? Moderate emphysema. 3.? Left lower lobe pneumonia. ? Electronically Signed: Rick Rodríguez MD at 17:27 EST ABG Data ABG results: ER ABG 7.35 PCO2 58 PO2 85 on BiPAP Charges/Coding Visit Charges Inpatient E&M: 50887 Init Hosp L3
[2022-07-22 18:46] LABS: Bedside Glucose 382 mg/dL (74-106)
[2022-07-22] MEDS: Sertraline 50 MG Tablet PO (22:36)
[2022-07-22] MEDS: QUEtiapine 100 MG Tablet 400 MG PO (22:36)
[2022-07-22] MEDS: Insulin Glargine-YFGN 100 UNIT/ML Pen 14 UNIT SC (23:49)
[2022-07-23] VITALS (17 sets, daily range): BP systolic 122–137; BP diastolic 58–91; PULSE 102–124; RESP 14–28; TEMP 36.3–36.8; O2SAT 88–97; BMI 24.8
[2022-07-23] MEDS: 0.9% Saline Lock 10 ML Syringe IV ×5 (05:19→23:11)
[2022-07-23] MEDS: busPIRone 5 MG Tablet 20 MG PO ×3 (05:19→23:10)
[2022-07-23 06:20] LABS: Hematocrit 40.4 % (37-47); Hemoglobin 11.9 g/dL (12.0-15.0); Mean Corp Hgb Conc 29.5 g/dL (32-36); Mean Corpuscular Hgb 27.3 pg (27.0-32.0); Mean Corpuscular Volume 92.7 fL (81-99); Mean Platelet Vol. 11.6 fl (6.2-12.0); POSITIVE COUNT YES; POSITIVE DIFFERENTIAL YES; POSITIVE MORPHOLOGY YES; RBC Distribution Width CV 15.2 % (11.6-14.6); RBC Distribution Width SD 51.7 fl (35.1-43.9); Red Blood Count 4.36 M/mm3 (4.2-5.4); White Blood Count 3.5 K/mm3 (4.4-11.0)
[2022-07-23] MEDS: Insulin Lispro 100 UNIT/ML INSULN.PEN SC ×2 (06:25→17:08)
[2022-07-23 06:49] LABS: Anion Gap 3 (5-15); BUN 19 mg/dL (7-18); BUN/Creat Ratio 31.6 RATIO (10-20); Calcium,Total 9.8 mg/dL (8.5-10.1); Chloride 92 mmol/L (98-107); EST Glomerular Filtration Rate 109 mL/min (>60); Est Glom Filt Rate - Afr Amer 131 mL/min (>60); Estimated Creatinine Clearance 84.54 ml/min; Glucose 397 mg/dL (74-106); Potassium 4.2 mmol/L (3.5-5.1); Sodium Level 137 mmol/L (136-145)
[2022-07-23] MEDS: Ipratropium/Albuterol Sulfate 3 ML AMPUL.NEB INHALATION ×4 (06:49→19:39)
[2022-07-23 06:53] LABS: Platelet Count 42 K/mm3 (150-450)
[2022-07-23 06:54] LABS: Differential Indicated MANUAL DIFF
[2022-07-23 07:15] LABS: Bedside Glucose 368 mg/dL (74-106)
--- NOTE | 2022-07-23 08:02 | CPS ---
Patient refused PEP therapy at 06:49
[2022-07-23] MEDS: Spironolactone 50 MG Tablet PO (09:14)
[2022-07-23] MEDS: Doxepin Hcl 25 MG Capsule 50 MG PO (09:14)
[2022-07-23] MEDS: Oseltamivir Phosphate 75 MG Capsule PO ×2 (09:14→23:11)
[2022-07-23] MEDS: Pantoprazole Sodium 40 MG Tablet PO (09:14)
[2022-07-23] MEDS: Ensure Plus High Protein 120 ML LIQUID PO ×2 (09:15→18:31)
[2022-07-23] MEDS: Furosemide 40 MG/4 ML Vial IV ×2 (09:15→18:32)
[2022-07-23 09:37] LABS: Lymphocyte 17 % (19-41); Monocyte 2 % (0-10); Myelocyte 1 % (0-0); Neutrophil-Band 12 % (0-5); Neutrophil-Segmented 68 % (47-70); Nucleated Red Bld Cells,Manual 1 % (0-5); Platelet Estimate MKD DEC (ADEQ); Red Cell Morphology NORM C+C NORMAL (NORM C&C); Total Cells Counted 100 (MANUAL DIFF)
[2022-07-23 09:39] LABS: Absolute Neutrophil Count 2.8 X10^3/uL (2.0-7.7)
[2022-07-23] MEDS: Insulin Lispro 100 UNIT/ML INSULN.PEN 25 UNIT SC (12:10)
[2022-07-23 12:42] LABS: Glucose 582 mg/dL (74-106)
[2022-07-23 12:45] LABS: Bedside Glucose > 500 mg/dL (74-106)
--- NOTE | 2022-07-23 14:29 | PN.CC_ITS ---
Assessment & Plan Assessment/Plan (1) Influenza: (2) COPD exacerbation: (3) Acute on chronic respiratory failure with hypoxia and hypercapnia: (4) Chronic neutropenia: (5) Bxway-5-fncelqjgxrm deficiency: (6) Cirrhosis: (7) Diabetes mellitus, type 2: PLAN: Plan RECOMMENDATIONS: 1. Continue steroids, Tamiflu, mucolytic and bronchodilators 2. Encourage incentive spirometer and Acapella 3. Wean supplemental oxygen as tolerated 4. Increase activity as tolerated 5. Increase basal insulin IMPRESSIONS: 1. Acute on chronic hypoxic respiratory failure secondary to influenza Patient with multiple etiologies of hypoxia at baseline including alpha 1 antitrypsin deficiency, COPD and now an acute infection of influenza. Patient's oxygenation status appears to have somewhat stabilized. Would continue to recommend BiPAP with sleep. Patient having significant hyperglycemia secondary to steroid therapy, but would continue this at the current dosing for another 24 hours. Continue with mucolytic and bronchodilators. Patient is not out of the window for possible need for BiPAP rescue during the day. Patient may benefit from initiation of triple therapy as an outpatient. 2. Cirrhosis/chronic neutropenia/alpha-1 antitrypsin deficiency/debility Complicates care, management, recovery and prognosis. Medications have been evaluated for chronic liver disease alterations. Patient is on Prolastin at baseline, but it is unclear if she has been evaluated for possible endobronchial valve versus bullectomy. Patient will need to follow-up as an outpatient to see if these therapies are appropriate for her anatomically and given goals of therapy. Subjective Subjective Patient did well overnight. Patient's oxygen requirements have improved somewhat. Patient is still requiring 7 L nasal cannula to maintain saturation, but uses 5 L nasal cannula at baseline. Patient continues to have a purulent sputum, but feels the incentive spirometer and flutter devices are helpful. Objective Data Objective Data Vital Signs: Vital Signs Temp Pulse Resp BP Pulse Ox O2 Del Method O2 Flow Rate 36.4 C L 103 H 16 133/91 H 92 High Flow 6 07/23/22 09:09 07/23/22 09:09 07/23/22 09:09 07/23/22 09:09 07/23/22 12:18 07/23/22 12:18 07/23/22 12:18 FiO2 35 07/22/22 23:35 Oxygen Flow Rate (L/min) 6 Oxygen Delivery Method High Flow Weight: 63.7 kg Body Mass Index (BMI) 24.8 Intake & Output: Intake and Output for Last 24 Hours 07/21/22 07/22/22 07/23/22 23:59 23:59 23:59 Intake Total 930 / 930 560 / 560 50 / 50 Output Total 1325 / 1325 3550 / 3550 100 / 100 Balance -395 / -395 -2990 / -2990 -50 / -50 Medical Nutrition Assessment Dietitian: Malnutrition Criteria Met Start: 07/20/22 14:43 Freq: Status: Active Protocol: Document 07/23/22 10:30 RMA (Rec: 07/23/22 10:30 RMA [id number]) Nutrition Malnutrition Evidence of Malnutrition Exists Yes Malnutrition (severe): Chronic Evidenced By Suboptimal Energy Intake ( Severe),Weight Loss (Severe), Physical Changes (Moderate) Clinical Problem Chronic Disease or Condition Related Malnutrition Etiology chronic, severe malnutrition related to inadequate energy intake w/ increased energy needs d/t resp. failure Signs/Symptoms as evidenced by unintentional wt loss of 33.2#/18% wt loss x 10 months, estimated PO intake meeting <75 % of estimated energy needs > 3 months, Moderate muscle wasting/fat loss evident per physical exam in orbital, clavicle, acromion, and temporal areas Status Active Problem Recommendation Dietitian Recommendations/Changes Will adjust diet to carbohydrate-controlled/no added salt diet. Will continue ensure plus high protein 120mL 4x/day w/ medpass for additional calories/protein if consumed. Lab / Micro Data Attestation: I reviewed the patient's lab results. Result Diagrams: 07/23/22 05:45 07/23/22 11:56 Labs: Laboratory Results - last 24 hr 07/22/22 17:12: POC Glucose 382 H 07/23/22 05:45: WBC 3.5 L, RBC 4.36, Hgb 11.9 L, Hct 40.4, MCV 92.7, MCH 27.3, MCHC 29.5 L, RDW Std Deviation 51.7 H, RDW Coeff of Renetta 15.2 H, Plt Count 42 L*, MPV 11.6, Neut % (Auto) Not Reportable, Absolute Neuts (auto) 2.8, Absolute Lym phs (auto) 0.60 L, Total Counted 100, Neutrophils % (Manual) 68, Band Neutrop hils % 12 H, Lymphocytes % (Manual) 17 L, Monocytes % (Manual) 2, Myelocytes % 1 H, Nucleated RBCs/100 WBC 1, Diff Path Review May foll, Platelet Estimate MKD DEC, RBC Morphology NORM C+C 07/23/22 05:45: Sodium 137, Potassium 4.2, Chloride 92 L, Carbon Dioxide 42.0 H, Anion Gap 3 L, BUN 19 H, Creatinine 0.60, Estim Creat Clear Calc 84.54, Est GFR (MDRD) Af Amer 131, Est GFR (MDRD) Non-Af 109, BUN/Creatinine Ratio 31.6 H, Glucose 397 H, Calcium 9.8 07/23/22 06:24: POC Glucose 368 H 07/23/22 11:41: POC Glucose > 500 H* 07/23/22 11:56: Glucose 582 H* Micro: Microbiology 07/19/22 12:15 Nasal Secretion SARS-CoV-2 & FLU Antigen (Rapid) - Final Influenzae B Physical Exam Const alert and oriented x3 Constitutional Narrative: Mild conversational dyspnea noted. Appears older than stated age. General Appearance: cooperative, well developed and frail HEENT normocephalic, head/scalp atraumatic, moist oral mucous membranes and oropharynx normal Eyes PERRL and EOMs intact bilaterally Neck no lymphadenopathy, supple and no JVD Lymph Lymphatic: no lymphadenopathy noted and no lymphedema noted Chest Chest Narrative: Increased AP diameter Resp Resp Narrative: Significantly diminished bilaterally. On 7 L nasal cannula Auscultation: Negative for rales, rhonchi or wheezes Cardio regular rate, regular rhythm, S1 normal heart sound, S2 normal heart sound, no murmurs, no rub and no gallops GI normal to inspection, nondistended, normoactive bowel sounds, soft to palpation, non-tender and non-distended Extremity normal capillary refill, no clubbing, cyanosis or edema and no calf tenderness Skin General Skin Exam: no breakdown and turgor normal Neuro CN's II-XII intact bilaterally, no focal motor deficits and no sensory deficits noted Motor Exam: strength 5/5 throughout Psych thought process normal and cooperative Appearance: appropriate Charges/Coding Visit Charges Inpatient E&M: 40867 Subs Hosp L3
[2022-07-23] MEDS: ASENAPINE MALEATE 5 MG TAB.SUBL SL ×2 (15:19→21:03)
--- NOTE | 2022-07-23 15:25 | CHAPLAIN ---
Type of Pastoral Visit _x__ Initial Visit ___ Follow-up Visit ___ On-call Visit ___ General Patient Visit ___ Spiritual Assessment ___ Family Conference ___ Bereavement ___ Rapid Response ___ Code Blue ___ Other (describe below) Pastoral Care Referral From _x_ Patient ___ Family ___ Nurse ___ Physician ___ Compensation Manager ___ Assorter ___ Other (describe below) Sacrament/Intervention _x__ Active listening ___ Anointing ___ Faith ___ Bereavement ___ Communion ___ Rama exploration ___ ___ Life review _x__ Prayer ___ Reconciliation ___ Sacrament of Sick _x__ Supportive presence ___ Wedding ___ Other (describe below) Pastoral Comments patient gives her feelings at missing Easter and family over the weekend; pt states about health, 'this is ongoing issue for me'; pt states she is 'living day to day'; pt greatest resource for encouragement is spouse and family; other coping ideas are explored at this time; pt welcomes presence and prayer for support
[2022-07-23 15:36] LABS: Pathologist Review Reviewed
[2022-07-23 15:36] LABS: Pathologist Review Reviewed
[2022-07-23 17:31] LABS: Bedside Glucose 294 mg/dL (74-106)
--- NOTE | 2022-07-23 20:30 | PN.HOSP_ITS ---
Reason for Visit Reason for Visit: Diagnoses Neutropenia, unspecified (07/19/22) Type 2 diabetes mellitus without complications (07/19/22) Xogao-5-nyareuzuzak deficiency (07/19/22) Influenza due to unidentified influenza virus with other respiratory manifestations (07/19/22) Chronic obstructive pulmonary disease with (acute) exacerbation (07/19/22) Chronic obstructive pulmonary disease, unspecified (07/19/22) Chronic respiratory failure with hypoxia (07/19/22) Acute and chronic respiratory failure with hypoxia (07/19/22) Acute and chronic respiratory failure with hypercapnia (07/19/22) Unspecified cirrhosis of liver (07/19/22) Subjective Subjective Patient was seen and examined today, I talked with her who was in the room at the time my examination, at the time of my examination, patient was on 7 L of oxygen at rest, she does have oxygen at home but only uses 4 to 5 L. Patient may have to have a higher strength concentrator for home usage if her oxygen requirement is higher than her normal requirement, at the time of disch arge from the hospital here Objective Data Objective Data Vital Signs: Vital Signs Temp Pulse Resp BP Pulse Ox O2 Del Method O2 Flow Rate 98.1 F 119 H 24 H 131/58 H 91 Nasal Cannula 6 07/23/22 18:36 07/23/22 19:39 07/23/22 19:39 07/23/22 18:36 07/23/22 19:40 07/23/22 19:40 07/23/22 19:40 FiO2 35 07/22/22 23:35 Oxygen Flow Rate (L/min) 6 Oxygen Delivery Method Nasal Cannula Weight: 63.7 kg Body Mass Index (BMI) 24.8 Intake & Output: Intake and Output for Last 24 Hours 07/21/22 07/22/22 07/23/22 23:59 23:59 23:59 Intake Total 930 / 930 560 / 560 940 / 940 Output Total 1325 / 1325 3550 / 3550 1350 / 1350 Balance -395 / -395 -2990 / -2990 -410 / -410 Medical Nutrition Assessment Dietitian: Malnutrition Criteria Met Start: 07/20/22 14:43 Freq: Status: Active Protocol: Document 07/23/22 10:30 RMA (Rec: 07/23/22 10:30 RMA [id number]) Nutrition Malnutrition Evidence of Malnutrition Exists Yes Malnutrition (severe): Chronic Evidenced By Suboptimal Energy Intake ( Severe),Weight Loss (Severe), Physical Changes (Moderate) Clinical Problem Chronic Disease or Condition Related Malnutrition Etiology chronic, severe malnutrition related to inadequate energy intake w/ increased energy needs d/t resp. failure Signs/Symptoms as evidenced by unintentional wt loss of 33.2#/18% wt loss x 10 months, estimated PO intake meeting <75 % of estimated energy needs > 3 months, Moderate muscle wasting/fat loss evident per physical exam in orbital, clavicle, acromion, and temporal areas Status Active Problem Recommendation Dietitian Recommendations/Changes Will adjust diet to carbohydrate-controlled/no added salt diet. Will continue ensure plus high protein 120mL 4x/day w/ medpass for additional calories/protein if consumed. Lab / Micro Data Result Diagrams: 07/24/22 04:52 07/24/22 04:52 Labs: Laboratory Results - last 24 hr 07/20/22 06:00: Diff Path Review Reviewed 07/21/22 07:55: Diff Path Review Reviewed 07/23/22 05:45: WBC 3.5 L, RBC 4.36, Hgb 11.9 L, Hct 40.4, MCV 92.7, MCH 27.3, MCHC 29.5 L, RDW Std Deviation 51.7 H, RDW Coeff of Renetta 15.2 H, Plt Count 42 L*, MPV 11.6, Neut % (Auto) Not Reportable, Absolute Neuts (auto) 2.8, Absolute Lymphs (auto) 0.60 L, Total Counted 100, Neutrophils % (Manual) 68, Band Neutrophils % 12 H, Lymphocytes % (Manual) 17 L, Monocytes % (Manual) 2, Myelocytes % 1 H, Nucleated RBCs/100 WBC 1, Diff Path Review May foll, Platelet Estimate MKD DEC, RBC Morphology NORM C+C 07/23/22 05:45: Sodium 137, Potassium 4.2, Chloride 92 L, Carbon Dioxide 42.0 H, Anion Gap 3 L, BUN 19 H, Creatinine 0.60, Estim Creat Clear Calc 84.54, Est GFR (MDRD) Af Amer 131, Est GFR (MDRD) Non-Af 109, BUN/Creatinine Ratio 31.6 H, Glucose 397 H, Calcium 9.8 07/23/22 06:24: POC Glucose 368 H 07/23/22 11:41: POC Glucose > 500 H* 07/23/22 11:56: Glucose 582 H* 07/23/22 17:07: POC Glucose 294 H Micro: Microbiology 07/19/22 12:15 Nasal Secretion SARS-CoV-2 & FLU Antigen (Rapid) - Final Influenzae B Physical Exam Const alert, oriented x3, no apparent distress and healthy appearing General Appearance: cooperative, well kempt and well developed Orientation / Consciousness: awake, oriented to person, oriented to place and oriented to time HEENT normocephalic, head/scalp atraumatic and moist oral mucous membranes Eyes PERRL, EOMs intact bilaterally and conjunctivae normal Neck supple, no JVD and thyroid normal General: trachea midline Resp normal respiratory effort Resp Narrative: Patient's breath sounds are distant bilaterally Auscultation: Negative for rales, rhonchi or wheezes Cardio regular rate, regular rhythm, S1 normal heart sound, S2 normal heart sound, no murmurs, no rub and no gallops GI normal to inspection, nondistended, normoactive bowel sounds, soft to palpation, non-tender and non-distended Extremity no clubbing, cyanosis or edema Skin no rashes or lesions noted General Skin Exam: no breakdown Neuro oriented x3, CN's II-XII intact bilaterally, no focal motor deficits and no se nsory deficits noted Sensorium / Orientation: awake and alert Speech: speech normal Psych affect normal Assessment & Plan Assessment/Plan (1) Acute on chronic respiratory failure with hypoxia and hypercapnia: PLAN: Plan 1. Acute on chronic hypoxic respiratory failure secondary to influenza B- continue to wean oxygen if possible, pulmonary medicine is participating in her care #2 type 2 diabetes-blood sugars will be monitored, sliding scale insulin will be administered, patient is also currently on basal insulin #3 chronic severe protein and caloric malnutrition related to inadequate energy intake with increased energy needs due to respiratory failure as evidenced by unintentional weight loss of 33.2 pounds over the last 10 months and estimated p.o. intake meeting less than 75% of estimated energy needs more than 3 months. Diet was liberalized to regular, no added salt, and sugar plus high-protein 120 mL 4 times a day with med Pass for additional calories was added #4 alpha-1 antitrypsin deficiency-pulmonary medicine is participating in her care, complicates care, medical course, recovery, and prognosis #5 Central hypertension-patient is to remain on her present medication #6 chronic depression/anxiety-patient is currently on her home medications #7 chronic pancytopenia-etiology unclear, labs will be monitored #8 chronic obstructive pulmonary disease-continue present treatment, patient is being seen by pulmonary medicine Total clinical time spent by myself addressing the patient's medical issues, reviewing all of her data, and collaborating with patient's care team: 36 minutes Charges/Coding Visit Charges Inpatient E&M: 04514 Subs Hosp L2
--- NOTE | 2022-07-23 23:03 | NURSING ---
blood glucose 599, STAT lab draw ordered.
[2022-07-23] MEDS: QUEtiapine 100 MG Tablet 400 MG PO (23:11)
[2022-07-23] MEDS: LORazepam 2 MG/ML Syringe 0.5 MG IV (23:11)
[2022-07-24] VITALS (19 sets, daily range): BP systolic 114–143; BP diastolic 57–71; PULSE 95–123; RESP 14–26; TEMP 36.1–36.8; O2SAT 86–97; BMI 24.9
[2022-07-24 00:08] LABS: Glucose 668 mg/dL (74-106)
--- NOTE | 2022-07-24 00:20 | PN.HOSP_ITS ---
Hospitalist Note Heartedly elevated blood sugar at 668. Insulin doses have been adjusted earlier today however blood sugars still remain significantly high. Will increase basal insulin dosing to 35 units twice daily from 20 units twice daily. Start 15 units of log 3 times daily scheduled with meals plus sliding scale. One-time dose of 30 units of log now. Likely related to acute illness and use of Solu- Medrol. We will need to watch blood sugars closely when Solu-Medrol/steroids begin to be weaned.
[2022-07-24] MEDS: Insulin Lispro 100 UNIT/ML INSULN.PEN 30 UNIT SC (00:47)
[2022-07-24] MEDS: Insulin Glargine-YFGN 100 UNIT/ML Pen 35 UNIT SC ×2 (00:50→11:40)
[2022-07-24] MEDS: Sertraline 50 MG Tablet PO ×2 (00:51→22:23)
[2022-07-24] MEDS: busPIRone 5 MG Tablet 20 MG PO ×3 (04:44→22:23)
[2022-07-24] MEDS: 0.9% Saline Lock 10 ML Syringe IV ×2 (04:44→22:23)
[2022-07-24 05:19] LABS: Hematocrit 38.9 % (37-47); Hemoglobin 11.7 g/dL (12.0-15.0); Mean Corp Hgb Conc 30.1 g/dL (32-36); Mean Corpuscular Hgb 27.6 pg (27.0-32.0); Mean Corpuscular Volume 91.7 fL (81-99); Mean Platelet Vol. 11.6 fl (6.2-12.0); POSITIVE COUNT YES; POSITIVE DIFFERENTIAL YES; POSITIVE MORPHOLOGY YES; RBC Distribution Width CV 15.5 % (11.6-14.6); RBC Distribution Width SD 51.5 fl (35.1-43.9); Red Blood Count 4.24 M/mm3 (4.2-5.4); White Blood Count 4.5 K/mm3 (4.4-11.0)
[2022-07-24 05:40] LABS: Differential Indicated MANUAL DIFF; Platelet Count 44 K/mm3 (150-450)
[2022-07-24 06:18] LABS: Lymphocyte 13 % (19-41); Metamyelocyte 2 % (0-1); Monocyte 2 % (0-10); Myelocyte 4 % (0-0); Neutrophil-Band 1 % (0-5); Total Cells Counted 100 (MANUAL DIFF)
[2022-07-24 06:23] LABS: Eosinophil 1 % (0-5); Neutrophil-Segmented 77 % (47-70)
[2022-07-24 06:24] LABS: Absolute Lymphocyte Count 0.59 X10^3/uL (0.83-4.51); Absolute Neutrophil Count 3.5 X10^3/uL (2.0-7.7); Lymphocyte # 0.59 X10^3/ul (0.83-4.51)
[2022-07-24 06:25] LABS: Platelet Estimate MKD DEC (ADEQ)
[2022-07-24 06:46] LABS: Anion Gap 2 (5-15); BUN 25 mg/dL (7-18); BUN/Creat Ratio 34.8 RATIO (10-20); Calcium,Total 10.1 mg/dL (8.5-10.1); Chloride 93 mmol/L (98-107); Creatinine, Serum 0.72 mg/dL (0.55-1.02); EST Glomerular Filtration Rate 88 mL/min (>60); Est Glom Filt Rate - Afr Amer 107 mL/min (>60); Estimated Creatinine Clearance 70.45 ml/min; Glucose 363 mg/dL (74-106); Potassium 3.6 mmol/L (3.5-5.1); Sodium Level 136 mmol/L (136-145)
[2022-07-24] MEDS: Insulin Lispro 100 UNIT/ML INSULN.PEN SC ×2 (06:50→17:21)
[2022-07-24] MEDS: Insulin Lispro 100 UNIT/ML INSULN.PEN 20 UNIT SC ×3 (06:51→17:21)
[2022-07-24] MEDS: Ipratropium/Albuterol Sulfate 3 ML AMPUL.NEB INHALATION ×4 (07:14→19:41)
[2022-07-24 07:20] LABS: Bedside Glucose 308 mg/dL (74-106)
[2022-07-24] MEDS: Doxepin Hcl 25 MG Capsule 50 MG PO (09:30)
[2022-07-24] MEDS: Spironolactone 50 MG Tablet PO (09:30)
[2022-07-24] MEDS: Pantoprazole Sodium 40 MG Tablet PO (09:30)
[2022-07-24] MEDS: Ensure Plus High Protein 120 ML LIQUID PO ×2 (09:30→17:22)
[2022-07-24] MEDS: Oseltamivir Phosphate 75 MG Capsule PO ×2 (09:31→22:23)
--- NOTE | 2022-07-24 10:02 | PCM.PN.INT ---
Assessment & Plan Assessment/Plan (1) Influenza: (2) COPD exacerbation: (3) Acute on chronic respiratory failure with hypoxia and hypercapnia: (4) Chronic neutropenia: (5) Yosps-6-khptmtyxkry deficiency: (6) Cirrhosis: (7) Diabetes mellitus, type 2: PLAN: Plan RECOMMENDATIONS: 1. Wean steroids. Continue mucolytic and bronchodilators 2. Encourage incentive spirometer and Acapella 3. Wean supplemental oxygen as tolerated 4. Increase activity as tolerated 5. Increase basal insulin 6. May need to evaluate for home concentrator up to 10 L/min IMPRESSIONS: 1. Acute on chronic hypoxic respiratory failure secondary to influenza Patient with multiple etiologies of hypoxia at baseline including alpha 1 antitrypsin deficiency, COPD and now an acute infection of influenza. Patient's oxygenation status appears to have somewhat stabilized. Would continue to recommend BiPAP with sleep. We will attempt to wean steroids to help with hyperglycemia. Continue with mucolytic and bronchodilators. Patient should continue BiPAP with sleep if possible. Patient may benefit from initiation of triple therapy as an outpatient. 2. Cirrhosis/chronic neutropenia/alpha-1 antitrypsin deficiency/debility Complicates care, management, recovery and prognosis. Medications have been evaluated for chronic liver disease alterations. Patient is on Prolastin at baseline, but it is unclear if she has been evaluated for possible endobronchial valve versus bullectomy. Patient will need to follow-up as an outpatient to see if these therapies are appropriate for her anatomically and given goals of therapy. Subjective Subjective Patient feels subjectively improved compared to yesterday. Patient has required up to 8 L/min with sleep, but otherwise feels subjectively that her dyspnea is improving. Patient still has shortness of breath with minimal exertion. Patient does state that her home oxygen concentrator only goes up to 5 L/min. 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 Objective Data Objective Data Vital Signs: Vital Signs Temp Pulse Resp BP Pulse Ox O2 Del Method O2 Flow Rate 36.6 C 104 H 18 114/57 L 94 High Flow 6 07/24/22 09:28 07/24/22 09:28 07/24/22 09:28 07/24/22 09:28 07/24/22 09:28 07/24/22 09:28 07/24/22 09:28 FiO2 45 07/24/22 00:54 Oxygen Flow Rate (L/min) 6 Oxygen Delivery Method High Flow Weight: 63.9 kg Body Mass Index (BMI) 24.9 Intake & Output: Intake and Output for Last 24 Hours 07/22/22 07/23/22 07/24/22 23:59 23:59 23:59 Intake Total 560 / 560 1060 / 1060 Output Total 3550 / 3550 1999 / 1999 Balance -2990 / -2990 -940 / -940 Medical Nutrition Assessment Dietitian: Malnutrition Criteria Met Start: 07/20/22 14:43 Freq: Status: Active Protocol: Document 07/23/22 10:30 RMA (Rec: 07/23/22 10:30 RMA [id number]) Nutrition Malnutrition Evidence of Malnutrition Exists Yes Malnutrition (severe): Chronic Evidenced By Suboptimal Energy Intake ( Severe),Weight Loss (Severe), Physical Changes (Moderate) Clinical Problem Chronic Disease or Condition Related Malnutrition Etiology chronic, severe malnutrition related to inadequate energy intake w/ increased energy needs d/t resp. failure Signs/Symptoms as evidenced by unintentional wt loss of 33.2#/18% wt loss x 10 months, estimated PO intake meeting <75 % of estimated energy needs > 3 months, Moderate muscle wasting/fat loss evident per physical exam in orbital, clavicle, acromion, and temporal areas Status Active Problem Recommendation Dietitian Recommendations/Changes Will adjust diet to carbohydrate-controlled/no added salt diet. Will continue ensure plus high protein 120mL 4x/day w/ medpass for additional calories/protein if consumed. Lab / Micro Data Attestation: I reviewed the patient's lab results. Result Diagrams: 07/24/22 04:52 07/24/22 04:52 Labs: Laboratory Results - last 24 hr 07/20/22 06:00: Diff Path Review Reviewed 07/21/22 07:55: Diff Path Review Reviewed 07/23/22 11:41: POC Glucose > 500 H* 07/23/22 11:56: Glucose 582 H* 07/23/22 17:07: POC Glucose 294 H 07/23/22 23:11: Glucose 668 H* 07/24/22 04:52: WBC 4.5, RBC 4.24, Hgb 11.7 L, Hct 38.9, MCV 91.7, MCH 27.6, MCHC 30.1 L, RDW Std Deviation 51.5 H, RDW Coeff of Renetta 15.5 H, Plt Count 44 L*, MPV 11.6, Neut % (Auto) Not Reportable, Absolute Neuts (auto) 3.5, Absolute Lymphs (auto) 0.59 L, Total Counted 100, Neutrophils % (Manual) 77 H, Band Neutrophils % 1, Lymphocytes % (Manual) 13 L, Monocytes % (Manual) 2, Eosinophils % (Manual) 1, Metamyelocytes % 2 H, Myelocytes % 4 H, Diff Path Review August foll, Platelet Estimate MKD 07/24/22 04:52: Sodium 136, Potassium 3.6, Chloride 93 L, Carbon Dioxide 41.0 H, Anion Gap 2 L, BUN 25 H, Creatinine 0.72, Estim Creat Clear Calc 70.45, Est GFR (MDRD) Af Amer 107, Est GFR (MDRD) Non-Af 88, BUN/Creatinine Ratio 34.8 H, Glucose 363 H, Calcium 10.1 07/24/22 06:49: POC Glucose 308 H Micro: Microbiology 07/19/22 12:15 Nasal Secretion SARS-CoV-2 & FLU Antigen (Rapid) - Final Influenzae B Physical Exam Const alert and oriented x3 Constitutional Narrative: Mild conversational dyspnea noted. Appears older than stated age. General Appearance: cooperative, well developed and frail HEENT normocephalic, head/scalp atraumatic, moist oral mucous membranes and oropharynx normal Eyes PERRL and EOMs intact bilaterally Neck no lymphadenopathy, supple and no JVD Lymph Lymphatic: no lymphadenopathy noted and no lymphedema noted Chest Chest Narrative: Increased AP diameter Resp Resp Narrative: Significantly diminished bilaterally. On 6 L nasal cannula during my evaluation Auscultation: Negative for rales, rhonchi or wheezes Cardio regular rate, regular rhythm, S1 normal heart sound, S2 normal heart sound, no murmurs, no rub and no gallops GI normal to inspection, nondistended, normoactive bowel sounds, soft to palpation, non-tender and non-distended Extremity normal capillary refill, no clubbing, cyanosis or edema and no calf tenderness Skin General Skin Exam: no breakdown and turgor normal Neuro CN's II-XII intact bilaterally, no focal motor deficits and no sensory deficits noted Motor Exam: strength 5/5 throughout Psych thought process normal and cooperative Appearance: appropriate Charges/Coding Visit Charges Inpatient E&M: 60990 Subs Hosp L3
[2022-07-24 10:31] LABS: Bedside Glucose > 500 mg/dL (74-106)
[2022-07-24 10:31] LABS: Bedside Glucose 452 mg/dL (74-106)
[2022-07-24 10:31] LABS: Bedside Glucose > 500 mg/dL (74-106)
[2022-07-24 10:31] LABS: Bedside Glucose 450 mg/dL (74-106)
[2022-07-24 12:01] LABS: Bedside Glucose 197 mg/dL (74-106)
[2022-07-24] MEDS: ASENAPINE MALEATE 5 MG TAB.SUBL SL ×2 (15:07→19:55)
[2022-07-24 17:00] LABS: Bedside Glucose 306 mg/dL (74-106)
--- NOTE | 2022-07-24 21:02 | PN.HOSP_ITS ---
Reason for Visit Reason for Visit: Diagnoses Neutropenia, unspecified (07/19/22) Type 2 diabetes mellitus without complications (07/19/22) Nnlxr-2-wmxjwwgxtdb deficiency (07/19/22) Influenza due to unidentified influenza virus with other respiratory manifestations (07/19/22) Chronic obstructive pulmonary disease with (acute) exacerbation (07/19/22) Chronic obstructive pulmonary disease, unspecified (07/19/22) Chronic respiratory failure with hypoxia (07/19/22) Acute and chronic respiratory failure with hypoxia (07/19/22) Acute and chronic respiratory failure with hypercapnia (07/19/22) Unspecified cirrhosis of liver (07/19/22) Subjective Subjective Patient was seen and examined today, she is still on high flow oxygen at rest, she does not have a high flow oxygen concentrator at home, I briefly talked with her today and I talked with critical care, it appears that the patient is not stable for discharge due to her high oxygen demand at this time. Objective Data Objective Data Vital Signs: Vital Signs Temp Pulse Resp BP Pulse Ox O2 Del Method O2 Flow Rate 97.8 F 123 H 22 H 127/67 H 95 Nasal Cannula 8 07/24/22 19:50 07/24/22 19:50 07/24/22 19:50 07/24/22 19:50 07/24/22 19:50 07/24/22 19:50 07/24/22 19:50 FiO2 45 07/24/22 00:54 Oxygen Flow Rate (L/min) 8 Oxygen Delivery Method Nasal Cannula Weight: 63.9 kg Body Mass Index (BMI) 24.9 Intake & Output: Intake and Output for Last 24 Hours 07/22/22 07/23/22 07/24/22 23:59 23:59 23:59 Intake Total 560 / 560 1060 / 1060 660 / 660 Output Total 3550 / 3550 1999 / 1999 750 / 750 Balance -2990 / -2990 -940 / -940 -90 / -90 Medical Nutrition Assessment Dietitian: Malnutrition Criteria Met Start: 07/20/22 14:43 Freq: Status: Active Protocol: Document 07/23/22 10:30 RMA (Rec: 07/23/22 10:30 RMA [id number]) Nutrition Malnutrition Evidence of Malnutrition Exists Yes Malnutrition (severe): Chronic Evidenced By Suboptimal Energy Intake ( Severe),Weight Loss (Severe), Physical Changes (Moderate) Clinical Problem Chronic Disease or Condition Related Malnutrition Etiology chronic, severe malnutrition related to inadequate energy intake w/ increased energy needs d/t resp. failure Signs/Symptoms as evidenced by unintentional wt loss of 33.2#/18% wt loss x 10 months, estimated PO intake meeting <75 % of estimated energy needs > 3 months, Moderate muscle wasting/fat loss evident per physical exam in orbital, clavicle, acromion, and temporal areas Status Active Problem Recommendation Dietitian Recommendations/Changes Will adjust diet to carbohydrate-controlled/no added salt diet. Will continue ensure plus high protein 120mL 4x/day w/ medpass for additional calories/protein if consumed. Lab / Micro Data Result Diagrams: 07/26/22 04:22 07/26/22 04:22 Labs: Laboratory Results - last 24 hr 07/22/22 22:30: POC Glucose 452 H* 07/22/22 22:32: POC Glucose 450 H 07/23/22 22:56: POC Glucose > 500 H* 07/23/22 22:57: POC Glucose > 500 H* 07/23/22 23:11: Glucose 668 H* 07/24/22 04:52: WBC 4.5, RBC 4.24, Hgb 11.7 L, Hct 38.9, MCV 91.7, MCH 27.6, MCHC 30.1 L, RDW Std Deviation 51.5 H, RDW Coeff of Renetta 15.5 H, Plt Count 44 L*, MPV 11.6, Neut % (Auto) Not Reportable, Absolute Neuts (auto) 3.5, Absolute Lymphs (auto) 0.59 L, Total Counted 100, Neutrophils % (Manual) 77 H, Band Neutrophils % 1, Lymphocytes % (Manual) 13 L, Monocytes % (Manual) 2, Eosinophils % (Manual) 1, Metamyelocytes % 2 H, Myelocytes % 4 H, Diff Path Review August rosalinda Platelet Estimate MKD 07/24/22 04:52: Sodium 136, Potassium 3.6, Chloride 93 L, Carbon Dioxide 41.0 H, Anion Gap 2 L, BUN 25 H, Creatinine 0.72, Estim Creat Clear Calc 70.45, Est GFR (MDRD) Af Amer 107, Est GFR (MDRD) Non-Af 88, BUN/Creatinine Ratio 34.8 H, Glucose 363 H, Calcium 10.1 07/24/22 06:49: POC Glucose 308 H 07/24/22 11:39: POC Glucose 197 H 07/24/22 16:40: POC Glucose 306 H Micro: Microbiology 07/19/22 12:15 Nasal Secretion SARS-CoV-2 & FLU Antigen (Rapid) - Final Influenzae B Physical Exam Narrative alert, oriented x3, no apparent distress and healthy appearing General Appearance: cooperative, well kempt and well developed Orientation / Consciousness: awake, oriented to person, oriented to place and oriented to time HEENT normocephalic, head/scalp atraumatic and moist oral mucous membranes Eyes PERRL, EOMs intact bilaterally and conjunctivae normal Neck supple, no JVD and thyroid normal General: trachea midline Resp normal respiratory effort Resp Narrative: Patient's breath sounds are distant bilaterally Auscultation: Negative for rales, rhonchi or wheezes Cardio regular rate, regular rhythm, S1 normal heart sound, S2 normal heart sound, no murmurs, no rub and no gallops GI normal to inspection, nondistended, normoactive bowel sounds, soft to palpation, non-tender and non-distended Extremity no clubbing, cyanosis or edema Skin no rashes or lesions noted General Skin Exam: no breakdown Neuro oriented x3, CN's II-XII intact bilaterally, no focal motor deficits and no sensory deficits noted Sensorium / Orientation: awake and alert Speech: speech normal Psych affect normal Assessment & Plan Assessment/Plan (1) Acute on chronic respiratory failure with hypoxia and hypercapnia: PLAN: Plan 1. Acute on chronic hypoxic respiratory failure secondary to influenza B- continue to wean oxygen if possible, pulmonary medicine is participating in her care, there is been no meaningful change in her oxygen requirement at this time, patient is not stable for discharge home. #2 type 2 diabetes-blood sugars will be monitored, sliding scale insulin will be administered, patient is also currently on basal insulin #3 chronic severe protein and caloric malnutrition related to inadequate energy intake with increased energy needs due to respiratory failure as evidenced by unintentional weight loss of 33.2 pounds over the last 10 months and estimated p.o. intake meeting less than 75% of estimated energy needs more than 3 months. Diet was liberalized to regular, no added salt, and sugar plus high-protein 120 mL 4 times a day with med Pass for additional calories was added #4 alpha-1 antitrypsin deficiency-pulmonary medicine is participating in her care, complicates care, medical course, recovery, and prognosis #5 Central hypertension-patient is to remain on her present medication #6 chronic depression/anxiety-patient is currently on her home medications #7 chronic pancytopenia-etiology unclear, labs will be monitored #8 chronic obstructive pulmonary disease-continue present treatment, patient is being seen by pulmonary medicine Total clinical time spent by myself addressing the patient's medical issues, reviewing all of her data, and collaborating with patient's care team: 35 minutes Charges/Coding Visit Charges Inpatient E&M: 35217 Subs Hosp L2
[2022-07-24] MEDS: LORazepam 2 MG/ML Syringe 0.5 MG IV (22:22)
[2022-07-24] MEDS: QUEtiapine 100 MG Tablet 400 MG PO (22:23)
[2022-07-24 23:18] LABS: Glucose 591 mg/dL (74-106)
[2022-07-25] VITALS (19 sets, daily range): BP systolic 117–133; BP diastolic 58–69; PULSE 98–122; RESP 14–28; TEMP 35.9–36.8; O2SAT 59–98; BMI 24.9
--- NOTE | 2022-07-25 00:04 | NURSING ---
pt noted with episode of increased anxiety, BIPAP removed by pt, NC placed on pt at 8L. will monitor pt.
[2022-07-25] MEDS: Insulin Lispro 100 UNIT/ML INSULN.PEN 20 UNIT SC ×2 (00:08→06:42)
[2022-07-25] MEDS: Insulin Glargine-YFGN 100 UNIT/ML Pen 50 UNIT SC (00:09)
[2022-07-25 00:55] LABS: Bedside Glucose > 500 mg/dL (74-106)
[2022-07-25 04:39] LABS: Hematocrit 40.2 % (37-47); Hemoglobin 12.1 g/dL (12.0-15.0); Mean Corp Hgb Conc 30.1 g/dL (32-36); Mean Corpuscular Hgb 27.3 pg (27.0-32.0); Mean Corpuscular Volume 90.7 fL (81-99); POSITIVE COUNT YES; POSITIVE DIFFERENTIAL YES; POSITIVE MORPHOLOGY YES; RBC Distribution Width CV 15.7 % (11.6-14.6); RBC Distribution Width SD 51.4 fl (35.1-43.9); Red Blood Count 4.43 M/mm3 (4.2-5.4); White Blood Count 5.6 K/mm3 (4.4-11.0)
[2022-07-25 04:45] LABS: Differential Indicated MANUAL DIFF
[2022-07-25 04:45] LABS: Allen Test Positive; Base Excess 21 mmol/L (-2 to +2); Bicarbonate 44.4 mmol/L (22-26); Blood Gas Specimen Type ART; FI02 50; Mode BiLevel; O2 Delivery Device BiPAP; PO2 92 mmHG (75-100); SITE L Radial; SO2 97 % (95-99); Total Carbon Dioxide 46 mmol/L; pCO2 62.7 mmHg (35-45); pH 7.46 (7.35-7.45)
[2022-07-25 04:46] LABS: Platelet Count 38 K/mm3 (150-450)
[2022-07-25 05:14] LABS: Anion Gap 3 (5-15); BUN 28 mg/dL (7-18); BUN/Creat Ratio 42.9 RATIO (10-20); Calcium,Total 9.7 mg/dL (8.5-10.1); Chloride 95 mmol/L (98-107); Creatinine, Serum 0.65 mg/dL (0.55-1.02); EST Glomerular Filtration Rate 99 mL/min (>60); Est Glom Filt Rate - Afr Amer 119 mL/min (>60); Estimated Creatinine Clearance 78.04 ml/min; Glucose 348 mg/dL (74-106); Potassium 3.8 mmol/L (3.5-5.1); Sodium Level 137 mmol/L (136-145)
[2022-07-25 05:32] LABS: Lymphocyte 9 % (19-41); Metamyelocyte 1 % (0-1); Monocyte 3 % (0-10); Neutrophil-Band 11 % (0-5); Neutrophil-Segmented 76 % (47-70); Platelet Estimate MKD DEC (ADEQ); Total Cells Counted 100 (MANUAL DIFF)
[2022-07-25 05:33] LABS: Absolute Neutrophil Count 4.9 X10^3/uL (2.0-7.7); Neutrophil # 4.88 X10^3/uL (2.7-7.7); Red Cell Morphology NORM C+C NORMAL (NORM C&C)
[2022-07-25] MEDS: Insulin Lispro 100 UNIT/ML INSULN.PEN SC ×3 (06:42→23:15)
--- NOTE | 2022-07-25 06:44 | NURSING ---
pt is resting with BIPAP intact 0600 buspar not administered at this time
[2022-07-25 07:06] LABS: Bedside Glucose 326 mg/dL (74-106)
[2022-07-25] MEDS: Ipratropium/Albuterol Sulfate 3 ML AMPUL.NEB INHALATION ×4 (07:22→19:10)
--- NOTE | 2022-07-25 10:19 | PCM.PN.INT ---
Assessment & Plan Assessment/Plan (1) Influenza: (2) COPD exacerbation: (3) Acute on chronic respiratory failure with hypoxia and hypercapnia: (4) Chronic neutropenia: (5) Ycvwl-1-eciqbrrctpg deficiency: (6) Cirrhosis: (7) Diabetes mellitus, type 2: PLAN: Plan RECOMMENDATIONS: 1. Continue steroids at current dosing. Continue mucolytic and bronchodilators 2. Encourage incentive spirometer and Acapella 3. Wean supplemental oxygen as tolerated 4. Increase activity as tolerated 5. Increase basal insulin 6. May need to evaluate for home concentrator up to 10 L/min 7. Challenge with diuretics IMPRESSIONS: 1. Acute on chronic hypoxic respiratory failure secondary to influenza Patient with multiple etiologies of hypoxia at baseline including alpha 1 antitrypsin deficiency, COPD and now an acute infection of influenza. Patient's oxygenation status appears to have somewhat stabilized. Would continue to recommend BiPAP with sleep. Steroids will have to be kept at the current levels given persistent elevated FiO2 requirements. Continue with mucolytic and bronchodilators. Patient should continue BiPAP with sleep if possible. Patient may benefit from initiation of triple therapy as an outpatient. We will challenge with Lasix, but patient is -3.2 L over the course of the hospitalization so this may not be overly effective 2. Cirrhosis/chronic neutropenia/alpha-1 antitrypsin deficiency/debility Complicates care, management, recovery and prognosis. Medications have been evaluated for chronic liver disease alterations. Patient is on Prolastin at baseline, but it is unclear if she has been evaluated for possible endobronchial valve versus bullectomy. Patient will need to follow-up as an outpatient to see if these therapies are appropriate for her anatomically and given goals of therapy. Subjective Subjective Patient did okay overnight. Patient has been requiring between 6 and 8 L of nasal cannula oxygen to maintain saturations. Patient has had some elevated glucose levels but they are improved compared to yesterday. No bleeding has been reported. Patient was on BiPAP during my evaluation to get a nap. Patient overall felt subjectively unchanged compared to previous. Objective Data Objective Data Vital Signs: Vital Signs Temp Pulse Resp BP Pulse Ox O2 Del Method O2 Flow Rate 35.9 C L 115 H 19 H 117/62 95 Bi-pap 7 07/25/22 09:00 07/25/22 09:00 07/25/22 09:00 07/25/22 09:00 07/25/22 09:00 07/25/22 10:00 07/25/22 03:23 FiO2 45 07/25/22 10:00 Oxygen Flow Rate (L/min) 7 Oxygen Delivery Method Bi-pap Weight: 63.8 kg Body Mass Index (BMI) 24.9 Intake & Output: Intake and Output for Last 24 Hours 07/23/22 07/24/22 07/25/22 23:59 23:59 23:59 Intake Total 1060 / 1060 850 / 850 180 / 180 Output Total 1999 / 1999 1400 / 1400 1050 / 1050 Balance -940 / -940 -550 / -550 -870 / -870 Medical Nutrition Assessment Dietitian: Malnutrition Criteria Met Start: 07/20/22 14:43 Freq: Status: Active Protocol: Document 07/23/22 10:30 RMA (Rec: 07/23/22 10:30 RMA [id number]) Nutrition Malnutrition Evidence of Malnutrition Exists Yes Malnutrition (severe): Chronic Evidenced By Suboptimal Energy Intake ( Severe),Weight Loss (Severe), Physical Changes (Moderate) Clinical Problem Chronic Disease or Condition Related Malnutrition Etiology chronic, severe malnutrition related to inadequate energy intake w/ increased energy needs d/t resp. failure Signs/Symptoms as evidenced by unintentional wt loss of 33.2#/18% wt loss x 10 months, estimated PO intake meeting <75 % of estimated energy needs > 3 months, Moderate muscle wasting/fat loss evident per physical exam in orbital, clavicle, acromion, and temporal areas Status Active Problem Recommendation Dietitian Recommendations/Changes Will adjust diet to carbohydrate-controlled/no added salt diet. Will continue ensure plus high protein 120mL 4x/day w/ medpass for additional calories/protein if consumed. Lab / Micro Data Attestation: I reviewed the patient's lab results. Result Diagrams: 07/25/22 04:21 07/25/22 04:21 Labs: Laboratory Results - last 24 hr 07/22/22 22:30: POC Glucose 452 H* 07/22/22 22:32: POC Glucose 450 H 07/23/22 22:56: POC Glucose > 500 H* 07/23/22 22:57: POC Glucose > 500 H* 07/24/22 11:39: POC Glucose 197 H 07/24/22 16:40: POC Glucose 306 H 07/24/22 22:14: POC Glucose > 500 H* 07/24/22 22:40: Glucose 591 H* 07/25/22 04:21: WBC 5.6, RBC 4.43, Hgb 12.1, Hct 40.2, MCV 90.7, MCH 27.3, MCHC 30.1 L, RDW Std Deviation 51.4 H, RDW Coeff of Renetta 15.7 H, Plt Count 38 L*, MPV 12.0, Neut % (Auto) Not Reportable, Absolute Neuts (auto) 4.9, Absolute Lymphs (auto) 0.50 L, Total Counted 100, Neutrophils % (Manual) 76 H, Band Neutrophils % 11 H, Lymphocytes % (Manual) 9 L, Monocytes % (Manual) 3, Metamyelocytes % 1, Diff Path Review August, Platelet Estimate MKD DEC, RBC Morphology NORM C+C 07/25/22 04:21: Sodium 137, Potassium 3.8, Chloride 95 L, Carbon Dioxide 39.0 H, Anion Gap 3 L, BUN 28 H, Creatinine 0.65, Estim Creat Clear Calc 78.04, Est GFR (MDRD) Af Amer 119, Est GFR (MDRD) Non-Af 99, BUN/Creatinine Ratio 42.9 H, Glucose 348 H, Calcium 9.7 07/25/22 06:40: POC Glucose 326 H Micro: Microbiology 07/19/22 12:15 Nasal Secretion SARS-CoV-2 & FLU Antigen (Rapid) - Final Influenzae B ABG Data ABG results: ABG 07/25/22 04:41 Specimen Type ART Sample Site L Radial pH 7.46 H Bicarbonate Actual 44.4 H Total CO2 46 Base Excess 21 H O2 Saturation 97 O2 % 50 ABG pCO2 62.7 H ABG pO2 92 Derian Test Positive O2 Delivery Device BiPAP Vent Mode BiLevel Clinical Comments 14*9. 50 fiO2 Attestation: I personally reviewed and interpreted this ABG as follows: (Partially compensated chronic respiratory acidosis with increased AA gradient) Physical Exam Const alert and oriented x3 Constitutional Narrative: Mild conversational dyspnea noted. Appears older than stated age. On BiPAP during my evaluation General Appearance: cooperative, well developed and frail HEENT normocephalic, head/scalp atraumatic, moist oral mucous membranes and oropharynx normal Eyes PERRL and EOMs intact bilaterally Neck no lymphadenopathy, supple and no JVD Lymph Lymphatic: no lymphadenopathy noted and no lymphedema noted Chest Chest Narrative: Increased AP diameter Resp Resp Narrative: Significantly diminished bilaterally. On BiPAP during my evaluation Auscultation: Negative for rales, rhonchi or wheezes Cardio regular rate, regular rhythm, S1 normal heart sound, S2 normal heart sound, no murmurs, no rub and no gallops GI normal to inspection, nondistended, normoactive bowel sounds, soft to palpation, non-tender and non-distended Extremity normal capillary refill, no clubbing, cyanosis or edema and no calf tenderness Skin General Skin Exam: no breakdown and turgor normal Neuro CN's II-XII intact bilaterally, no focal motor deficits and no sensory deficits noted Motor Exam: strength 5/5 throughout Psych thought process normal and cooperative Appearance: appropriate Charges/Coding Visit Charges Inpatient E&M: 05509 Subs Hosp L3
[2022-07-25 10:37] LABS: Pathologist Review Reviewed
[2022-07-25 10:45] LABS: Pathologist Review Reviewed
[2022-07-25 10:53] LABS: Pathologist Review Reviewed
[2022-07-25] MEDS: Doxepin Hcl 25 MG Capsule 50 MG PO (11:28)
[2022-07-25] MEDS: Acetaminophen 325 MG Tablet 650 MG PO (11:28)
[2022-07-25] MEDS: Furosemide 20 MG/2 ML VIAL IV (11:28)
[2022-07-25] MEDS: Spironolactone 50 MG Tablet PO (11:28)
[2022-07-25] MEDS: Oseltamivir Phosphate 75 MG Capsule PO (11:29)
[2022-07-25] MEDS: Pantoprazole Sodium 40 MG Tablet PO (11:29)
[2022-07-25 12:50] LABS: Bedside Glucose 82 mg/dL (74-106)
[2022-07-25] MEDS: ASENAPINE MALEATE 5 MG TAB.SUBL SL ×2 (14:39→23:26)
[2022-07-25] MEDS: Ensure Plus High Protein 120 ML LIQUID PO ×2 (14:41→17:46)
[2022-07-25 18:10] LABS: Bedside Glucose 210 mg/dL (74-106)
--- NOTE | 2022-07-25 20:36 | PN.HOSP_ITS ---
Reason for Visit Reason for Visit: Diagnoses Neutropenia, unspecified (07/19/22) Type 2 diabetes mellitus without complications (07/19/22) Gmdya-0-mtilfiagdtv deficiency (07/19/22) Influenza due to unidentified influenza virus with other respiratory manifestations (07/19/22) Chronic obstructive pulmonary disease with (acute) exacerbation (07/19/22) Chronic obstructive pulmonary disease, unspecified (07/19/22) Chronic respiratory failure with hypoxia (07/19/22) Acute and chronic respiratory failure with hypoxia (07/19/22) Acute and chronic respiratory failure with hypercapnia (07/19/22) Unspecified cirrhosis of liver (07/19/22) Subjective Subjective Patient was sen and examined today, she is currently on 10 liters/min. Patient is resting quietly, talked with pulmonary medicine about her care. Objective Data Objective Data Vital Signs: Vital Signs Temp Pulse Resp BP Pulse Ox O2 Del Method O2 Flow Rate 98.1 F 113 H 22 H 124/63 H 98 High Flow 10 07/25/22 18:00 07/25/22 18:00 07/25/22 18:00 07/25/22 18:00 07/25/22 18:00 07/25/22 18:00 07/25/22 18:00 FiO2 45 07/25/22 10:00 Oxygen Flow Rate (L/min) 10 Oxygen Delivery Method High Flow Weight: 63.8 kg Body Mass Index (BMI) 24.9 Intake & Output: Intake and Output for Last 24 Hours 07/23/22 07/24/22 07/25/22 23:59 23:59 23:59 Intake Total 1060 / 1060 850 / 850 840 / 840 Output Total 1999 / 1999 1400 / 1400 1500 / 1500 Balance -940 / -940 -550 / -550 -660 / -660 Medical Nutrition Assessment Dietitian: Malnutrition Criteria Met Start: 07/20/22 14:43 Freq: Status: Active Protocol: Document 07/23/22 10:30 RMA (Rec: 07/23/22 10:30 RMA [id number]) Nutrition Malnutrition Evidence of Malnutrition Exists Yes Malnutrition (severe): Chronic Evidenced By Suboptimal Energy Intake ( Severe),Weight Loss (Severe), Physical Changes (Moderate) Clinical Problem Chronic Disease or Condition Related Malnutrition Etiology chronic, severe malnutrition related to inadequate energy intake w/ increased energy needs d/t resp. failure Signs/Symptoms as evidenced by unintentional wt loss of 33.2#/18% wt loss x 10 months, estimated PO intake meeting <75 % of estimated energy needs > 3 months, Moderate muscle wasting/fat loss evident per physical exam in orbital, clavicle, acromion, and temporal areas Status Active Problem Recommendation Dietitian Recommendations/Changes Will adjust diet to carbohydrate-controlled/no added salt diet. Will continue ensure plus high protein 120mL 4x/day w/ medpass for additional calories/protein if consumed. Lab / Micro Data Result Diagrams: 07/26/22 04:22 07/26/22 04:22 Labs: Laboratory Results - last 24 hr 07/22/22 05:18: Diff Path Review Reviewed 07/23/22 05:45: Diff Path Review Reviewed 07/24/22 04:52: Diff Path Review Reviewed 07/24/22 22:14: POC Glucose > 500 H* 07/24/22 22:40: Glucose 591 H* 07/25/22 04:21: WBC 5.6, RBC 4.43, Hgb 12.1, Hct 40.2, MCV 90.7, MCH 27.3, MCHC 30.1 L, RDW Std Deviation 51.4 H, RDW Coeff of Renetta 15.7 H, Plt Count 38 L*, MPV 12.0, Neut % (Auto) Not Reportable, Absolute Neuts (auto) 4.9, Absolute Lymphs (auto) 0.50 L, Total Counted 100, Neutrophils % (Manual) 76 H, Band Neutrophils % 11 H, Lymphocytes % (Manual) 9 L, Monocytes % (Manual) 3, Metamyelocytes % 1, Diff Path Review May foll, Platelet Estimate MKD DEC, RBC Morphology NORM C+C 07/25/22 04:21: Sodium 137, Potassium 3.8, Chloride 95 L, Carbon Dioxide 39.0 H, Anion Gap 3 L, BUN 28 H, Creatinine 0.65, Estim Creat Clear Calc 78.04, Est GFR (MDRD) Af Amer 119, Est GFR (MDRD) Non-Af 99, BUN/Creatinine Ratio 42.9 H, Glucose 348 H, Calcium 9.7 07/25/22 06:40: POC Glucose 326 H 07/25/22 12:25: POC Glucose 82 07/25/22 17:45: POC Glucose 210 H Micro: Microbiology 07/19/22 12:15 Nasal Secretion SARS-CoV-2 & FLU Antigen (Rapid) - Final Influenzae B ABG Data ABG results: ABG 07/25/22 04:41 Specimen Type ART Sample Site L Radial pH 7.46 H Bicarbonate Actual 44.4 H Total CO2 46 Base Excess 21 H O2 Saturation 97 O2 % 50 ABG pCO2 62.7 H ABG pO2 92 Derian Test Positive O2 Delivery Device BiPAP Vent Mode BiLevel Clinical Comments 14*9. 50 fiO2 Physical Exam Narrative alert, oriented x3, patient appears older than her stated age, she also appears frail General Appearance: cooperative, well kempt and well developed Orientation / Consciousness: Awakens to verbal stimulation, appears lethargic HEENT normocephalic, head/scalp atraumatic and moist oral mucous membranes Eyes PERRL, EOMs intact bilaterally and conjunctivae normal Neck supple, no JVD and thyroid normal General: trachea midline Resp normal respiratory effort Resp Narrative: Patient's breath sounds are distant bilaterally Auscultation: Negative for rales, rhonchi or wheezes Cardio regular rate, regular rhythm, S1 normal heart sound, S2 normal heart sound, no murmurs, no rub and no gallops GI normal to inspection, nondistended, normoactive bowel sounds, soft to palpation, non-tender and non-distended Extremity no clubbing, cyanosis or edema Skin no rashes or lesions noted General Skin Exam: no breakdown Neuro oriented x3, CN's II-XII intact bilaterally, no focal motor deficits and no sensory deficits noted Sensorium / Orientation: Awakens to questioning, she appears lethargic today Speech: speech normal Psych affect normal Assessment & Plan Assessment/Plan (1) COPD exacerbation: (2) Acute on chronic respiratory failure with hypoxia and hypercapnia: PLAN: Plan 1. Acute on chronic hypoxic respiratory failure secondary to influenza B- continue to wean oxygen if possible, pulmonary medicine is participating in her care, there is been no meaningful change in her oxygen requirement at this time, patient is not stable for discharge home. #2 type 2 diabetes-blood sugars will be monitored, sliding scale insulin will be administered, patient is also currently on basal insulin #3 chronic severe protein and caloric malnutrition related to inadequate energy intake with increased energy needs due to respiratory failure as evidenced by unintentional weight loss of 33.2 pounds over the last 10 months and estimated p.o. intake meeting less than 75% of estimated energy needs more than 3 months. Diet was liberalized to regular, no added salt, and sugar plus high-protein 120 mL 4 times a day with med Pass for additional calories was added #4 alpha-1 antitrypsin deficiency-pulmonary medicine is participating in her care, complicates care, medical course, recovery, and prognosis #5 Central hypertension-patient is to remain on her present medication #6 chronic depression/anxiety-patient is currently on her home medications #7 chronic pancytopenia-etiology unclear, labs will be monitored #8 chronic obstructive pulmonary disease-continue present treatment, patient is being seen by pulmonary medicine Total clinical time spent by myself addressing the patient's medical issues, reviewing all of her data, and collaborating with patient's care team: 36 minutes Charges/Coding Visit Charges Inpatient E&M: 59409 Subs Hosp L2
[2022-07-25] MEDS: Insulin Glargine-YFGN 100 UNIT/ML Pen 60 UNIT SC (23:15)
[2022-07-25] MEDS: QUEtiapine 100 MG Tablet 400 MG PO (23:27)
[2022-07-25] MEDS: Sertraline 50 MG Tablet PO (23:27)
--- NOTE | 2022-07-25 23:35 | CPS ---
Pt refused BiPAP for tonight.
[2022-07-25 23:55] LABS: Bedside Glucose 234 mg/dL (74-106)
[2022-07-26] VITALS (21 sets, daily range): BP systolic 116–148; BP diastolic 59–77; PULSE 106–125; RESP 18–32; TEMP 36.5–36.7; O2SAT 83–99; BMI 24.9
[2022-07-26 05:12] LABS: Hematocrit 41.6 % (37-47); Hemoglobin 12.7 g/dL (12.0-15.0); Mean Corp Hgb Conc 30.5 g/dL (32-36); Mean Corpuscular Hgb 27.5 pg (27.0-32.0); Mean Corpuscular Volume 90.2 fL (81-99); Mean Platelet Vol. 12.9 fl (6.2-12.0); POSITIVE COUNT YES; POSITIVE DIFFERENTIAL YES; POSITIVE MORPHOLOGY YES; Platelet Count 38 K/mm3 (150-450); Red Blood Count 4.61 M/mm3 (4.2-5.4)
[2022-07-26 05:16] LABS: Differential Indicated MANUAL DIFF
[2022-07-26 05:34] LABS: Anion Gap 4 (5-15); BUN 33 mg/dL (7-18); BUN/Creat Ratio 55.6 RATIO (10-20); Calcium,Total 9.8 mg/dL (8.5-10.1); Chloride 97 mmol/L (98-107); Creatinine, Serum 0.59 mg/dL (0.55-1.02); EST Glomerular Filtration Rate 110 mL/min (>60); Est Glom Filt Rate - Afr Amer 133 mL/min (>60); Estimated Creatinine Clearance 84.93 ml/min; Glucose 228 mg/dL (74-106); Potassium 3.6 mmol/L (3.5-5.1); Sodium Level 140 mmol/L (136-145)
[2022-07-26 06:13] LABS: Lymphocyte 6 % (19-41); Metamyelocyte 2 % (0-1); Monocyte 5 % (0-10); Myelocyte 2 % (0-0); Neutrophil-Band 4 % (0-5); Neutrophil-Segmented 81 % (47-70); Total Cells Counted 100 (MANUAL DIFF)
[2022-07-26 06:14] LABS: Absolute Lymphocyte Count 0.36 X10^3/uL (0.83-4.51); Absolute Neutrophil Count 5.1 X10^3/uL (2.0-7.7); Lymphocyte # 0.36 X10^3/ul (0.83-4.51); Neutrophil # 5.07 X10^3/uL (2.7-7.7); Platelet Estimate MKD DEC (ADEQ); Red Cell Morphology NORM C+C NORMAL (NORM C&C)
[2022-07-26] MEDS: Ipratropium/Albuterol Sulfate 3 ML AMPUL.NEB INHALATION ×4 (07:03→23:08)
[2022-07-26] MEDS: Insulin Lispro 100 UNIT/ML INSULN.PEN SC (08:58)
[2022-07-26] MEDS: Insulin Lispro 100 UNIT/ML INSULN.PEN 20 UNIT SC (08:58)
[2022-07-26 09:20] LABS: Bedside Glucose 230 mg/dL (74-106)
--- NOTE | 2022-07-26 09:59 | PCM.PN.INT ---
Assessment & Plan Assessment/Plan (1) Influenza: (2) COPD exacerbation: (3) Acute on chronic respiratory failure with hypoxia and hypercapnia: (4) Chronic neutropenia: (5) Zydgd-2-qzwgynsaehj deficiency: (6) Cirrhosis: (7) Diabetes mellitus, type 2: PLAN: Plan RECOMMENDATIONS: 1. Transition to p.o. prednisone. Continue mucolytic and bronchodilators 2. Encourage incentive spirometer and Acapella 3. Wean supplemental oxygen as tolerated 4. Increase activity as tolerated. Obtain walking oximetry 5. Increase basal insulin 6. May need to evaluate for home concentrator up to 10 L/min 7. Challenge with diuretics 8. May need short-term ECF placement IMPRESSIONS: 1. Acute on chronic hypoxic respiratory failure secondary to influenza Patient with multiple etiologies of hypoxia at baseline including alpha 1 antitrypsin deficiency, COPD and now an acute infection of influenza. Patient's oxygenation status appears to have somewhat stabilized. Would continue to recommend BiPAP with sleep. Steroids will have to be kept at the current levels given persistent elevated FiO2 requirements. Continue with mucolytic and bronchodilators. Patient should continue BiPAP with sleep if possible. Patient may benefit from initiation of triple therapy as an outpatient. We will continue to challenge with Lasix, but patient is -3.2 L over the course of the hospitalization so this may not be overly effective. Anticipated protracted recovery given previous baseline and comorbidities. We will attempt a walking oximetry, but patient may need ECF evaluation 2. Cirrhosis/chronic neutropenia/alpha-1 antitrypsin deficiency/debility Complicates care, management, recovery and prognosis. Medications have been evaluated for chronic liver disease alterations. Patient is on Prolastin at baseline, but it is unclear if she has been evaluated for possible endobronchial valve versus bullectomy. Patient will need to follow-up as an outpatient to see if these therapies are appropriate for her anatomically and given goals of therapy. Subjective Subjective Patient did okay overnight. Patient reportedly has been having some confusion overnight. Patient did have some BiPAP rescue. Patient states subjectively she feels better today. Patient is having a cough productive of clear to white sputum and feels that it is less frequent. Patient is still requiring significant amount of supplemental oxygen to maintain saturations. Objective Data Objective Data Vital Signs: Vital Signs Temp Pulse Resp BP Pulse Ox O2 Del Method O2 Flow Rate 36.7 C 108 H 22 H 129/69 H 90 Nasal Cannula 6 07/26/22 06:01 07/26/22 07:10 07/26/22 07:10 07/26/22 06:01 07/26/22 09:31 07/26/22 09:31 07/26/22 09:31 FiO2 45 07/25/22 10:00 Oxygen Flow Rate (L/min) 6 Oxygen Delivery Method Nasal Cannula Weight: 63.9 kg Body Mass Index (BMI) 24.9 Intake & Output: Intake and Output for Last 24 Hours 07/24/22 07/25/22 07/26/22 23:59 23:59 23:59 Intake Total 850 / 850 840 / 960 120 / 120 Output Total 1400 / 1400 1500 / 1900 500 / 500 Balance -550 / -550 -660 / -940 -380 / -380 Medical Nutrition Assessment Dietitian: Malnutrition Criteria Met Start: 07/20/22 14:43 Freq: Status: Active Protocol: Document 07/23/22 10:30 RMA (Rec: 07/23/22 10:30 RMA [id number]) Nutrition Malnutrition Evidence of Malnutrition Exists Yes Malnutrition (severe): Chronic Evidenced By Suboptimal Energy Intake ( Severe),Weight Loss (Severe), Physical Changes (Moderate) Clinical Problem Chronic Disease or Condition Related Malnutrition Etiology chronic, severe malnutrition related to inadequate energy intake w/ increased energy needs d/t resp. failure Signs/Symptoms as evidenced by unintentional wt loss of 33.2#/18% wt loss x 10 months, estimated PO intake meeting <75 % of estimated energy needs > 3 months, Moderate muscle wasting/fat loss evident per physical exam in orbital, clavicle, acromion, and temporal areas Status Active Problem Recommendation Dietitian Recommendations/Changes Will adjust diet to carbohydrate-controlled/no added salt diet. Will continue ensure plus high protein 120mL 4x/day w/ medpass for additional calories/protein if consumed. Lab / Micro Data Attestation: I reviewed the patient's lab results. Result Diagrams: 07/26/22 04:22 07/26/22 04:22 Labs: Laboratory Results - last 24 hr 07/22/22 05:18: Diff Path Review Reviewed 07/23/22 05:45: Diff Path Review Reviewed 07/24/22 04:52: Diff Path Review Reviewed 07/25/22 12:25: POC Glucose 82 07/25/22 17:45: POC Glucose 210 H 07/25/22 23:13: POC Glucose 234 H 07/26/22 04:22: WBC 6.0, RBC 4.61, Hgb 12.7, Hct 41.6, MCV 90.2, MCH 27.5, MCHC 30.5 L, RDW Std Deviation 52.0 H, RDW Coeff of Renetta 16.0 H, Plt Count 38 L*, MPV 12.9 H, Neut % (Auto) Not Reportable, Absolute Neuts (auto) 5.1, Absolute Lymphs (auto) 0.36 L, Total Counted 100, Neutrophils % (Manual) 81 H, Band Neutrophils % 4, Lymphocytes % (Manual) 6 L, Monocytes % (Manual) 5, Metamyelocytes % 2 H, Myelocytes % 2 H, Diff Path Review August, Platelet Estimate MKD DEC, RBC Morphology NORM C+C 07/26/22 04:22: Sodium 140, Potassium 3.6, Chloride 97 L, Carbon Dioxide 39.0 H, Anion Gap 4 L, BUN 33 H, Creatinine 0.59, Estim Creat Clear Calc 84.93, Est GFR (MDRD) Af Amer 133, Est GFR (MDRD) Non-Af 110, BUN/Creatinine Ratio 55.6 H, Glucose 228 H, Calcium 9.8 07/26/22 08:53: POC Glucose 230 H Micro: Microbiology 07/19/22 12:15 Nasal Secretion SARS-CoV-2 & FLU Antigen (Rapid) - Final Influenzae B Physical Exam Const alert and oriented x3 Constitutional Narrative: Mild conversational dyspnea noted. Appears older than stated age. On nasal cannula during my evaluation General Appearance: cooperative, well developed and frail HEENT normocephalic, head/scalp atraumatic, moist oral mucous membranes and oropharynx normal Eyes PERRL and EOMs intact bilaterally Neck no lymphadenopathy, supple and no JVD Lymph Lymphatic: no lymphadenopathy noted and no lymphedema noted Chest Chest Narrative: Increased AP diameter Resp Resp Narrative: Significantly diminished bilaterally. On nasal cannula during my evaluation Auscultation: Negative for rales, rhonchi or wheezes Cardio regular rate, regular rhythm, S1 normal heart sound, S2 normal heart sound, no murmurs, no rub and no gallops GI normal to inspection, nondistended, normoactive bowel sounds, soft to palpation, non-tender and non-distended Extremity normal capillary refill, no clubbing, cyanosis or edema and no calf tenderness Skin General Skin Exam: no breakdown and turgor normal Neuro CN's II-XII intact bilaterally, no focal motor deficits and no sensory deficits noted Motor Exam: strength 5/5 throughout Psych thought process normal and cooperative Appearance: appropriate Charges/Coding Visit Charges Inpatient E&M: 17794 Subs Hosp L3
[2022-07-26] MEDS: Spironolactone 50 MG Tablet PO (10:31)
[2022-07-26] MEDS: Ensure Plus High Protein 120 ML LIQUID PO ×3 (10:31→21:40)
[2022-07-26] MEDS: Pantoprazole Sodium 40 MG Tablet PO (10:31)
[2022-07-26] MEDS: Insulin Glargine-YFGN 100 UNIT/ML Pen 60 UNIT SC (10:31)
[2022-07-26] MEDS: Doxepin Hcl 25 MG Capsule 50 MG PO (10:31)
[2022-07-26] MEDS: hydrOXYzine 50 MG/ML Vial IM ×2 (11:30→18:27)
[2022-07-26] MEDS: Furosemide 20 MG/2 ML VIAL IV (11:59)
[2022-07-26] MEDS: 0.9% Saline Lock 10 ML Syringe IV ×2 (11:59→21:44)
[2022-07-26 12:31] LABS: Bedside Glucose 131 mg/dL (74-106)
[2022-07-26 13:05] LABS: Pathologist Review Reviewed
[2022-07-26 13:22] LABS: Pathologist Review Reviewed
[2022-07-26] MEDS: busPIRone 5 MG Tablet 20 MG PO ×2 (14:02→21:40)
[2022-07-26] MEDS: ASENAPINE MALEATE 5 MG TAB.SUBL SL ×2 (14:24→21:41)
--- NOTE | 2022-07-26 14:29 | RAD_ITS ---
STUDY: X-RAY CHEST REASON FOR EXAM: Female, 57 years old. hypoxia TECHNIQUE: Single AP portable view of the chest. COMPARISON: 07/19/2022 FINDINGS: EKG leads overlie the chest Lungs are mildly hyperexpanded with chronic interstitial changes and stable elevation of the left hemidiaphragm. Chronic interstitial changes noted in both lung gould without definite change since the previous study. Normal size heart. Normal mediastinum and rosemary. Normal visualized pulmonary arteries. There is atherosclerotic calcification of the aortic arch with tortuosity. There are diffuse degenerative changes of the visualized thoracic spine. There is degenerative osteoarthritis of the bilateral shoulders. There is no demonstrated abnormality of the visualized soft tissue structures of the upper abdomen. RAD/Chest 1 View (Portable) IMPRESSION: No significant interval change Electronically Signed: Randall Lemon MD at 14:44 EDT ,
[2022-07-26 17:06] LABS: Bedside Glucose 119 mg/dL (74-106)
--- NOTE | 2022-07-26 18:24 | PN.HOSP_ITS ---
Reason for Visit Reason for Visit: Diagnoses Neutropenia, unspecified (07/19/22) Type 2 diabetes mellitus without complications (07/19/22) Wtuny-4-hdaxmqmzebt deficiency (07/19/22) Influenza due to unidentified influenza virus with other respiratory manifestations (07/19/22) Chronic obstructive pulmonary disease with (acute) exacerbation (07/19/22) Chronic obstructive pulmonary disease, unspecified (07/19/22) Chronic respiratory failure with hypoxia (07/19/22) Acute and chronic respiratory failure with hypoxia (07/19/22) Acute and chronic respiratory failure with hypercapnia (07/19/22) Unspecified cirrhosis of liver (07/19/22) Subjective Subjective Patient was seen and examined today, she appears lethargic but answers questions appropriately, she states she wants to go home, I explained to her that her oxygen requirement is too high to discharge her to home at this time. Objective Data Objective Data Vital Signs: Vital Signs Temp Pulse Resp BP Pulse Ox O2 Del Method O2 Flow Rate 98.1 F 122 H 19 H 142/77 H 96 High Flow 10 07/26/22 17:46 07/26/22 17:46 07/26/22 17:46 07/26/22 17:46 07/26/22 17:46 07/26/22 17:46 07/26/22 17:46 FiO2 45 07/25/22 10:00 Oxygen Flow Rate (L/min) 10 Oxygen Delivery Method High Flow Weight: 63.9 kg Body Mass Index (BMI) 24.9 Intake & Output: Intake and Output for Last 24 Hours 07/24/22 07/25/22 07/26/22 23:59 23:59 23:59 Intake Total 850 / 850 840 / 960 440 / 440 Output Total 1400 / 1400 1500 / 1900 700 / 700 Balance -550 / -550 -660 / -940 -260 / -260 Medical Nutrition Assessment Dietitian: Malnutrition Criteria Met Start: 07/20/22 14:43 Freq: Status: Active Protocol: Document 07/23/22 10:30 RMA (Rec: 07/23/22 10:30 RMA [id number]) Nutrition Malnutrition Evidence of Malnutrition Exists Yes Malnutrition (severe): Chronic Evidenced By Suboptimal Energy Intake ( Severe),Weight Loss (Severe), Physical Changes (Moderate) Clinical Problem Chronic Disease or Condition Related Malnutrition Etiology chronic, severe malnutrition related to inadequate energy intake w/ increased energy needs d/t resp. failure Signs/Symptoms as evidenced by unintentional wt loss of 33.2#/18% wt loss x 10 months, estimated PO intake meeting <75 % of estimated energy needs > 3 months, Moderate muscle wasting/fat loss evident per physical exam in orbital, clavicle, acromion, and temporal areas Status Active Problem Recommendation Dietitian Recommendations/Changes Will adjust diet to carbohydrate-controlled/no added salt diet. Will continue ensure plus high protein 120mL 4x/day w/ medpass for additional calories/protein if consumed. Lab / Micro Data Result Diagrams: 07/26/22 04:22 07/26/22 04:22 Labs: Laboratory Results - last 24 hr 07/25/22 04:21: Diff Path Review Reviewed 07/25/22 23:13: POC Glucose 234 H 07/26/22 04:22: WBC 6.0, RBC 4.61, Hgb 12.7, Hct 41.6, MCV 90.2, MCH 27.5, MCHC 30.5 L, RDW Std Deviation 52.0 H, RDW Coeff of Renetta 16.0 H, Plt Count 38 L*, MPV 12.9 H, Neut % (Auto) Not Reportable, Absolute Neuts (auto) 5.1, Absolute Lymphs (auto) 0.36 L, Total Counted 100, Neutrophils % (Manual) 81 H, Band Neutrophils % 4, Lymphocytes % (Manual) 6 L, Monocytes % (Manual) 5, Metamyelocytes % 2 H, Myelocytes % 2 H, Diff Path Review Reviewed, Platelet Estimate MKD DEC, RBC Morphology NORM C+C 07/26/22 04:22: Sodium 140, Potassium 3.6, Chloride 97 L, Carbon Dioxide 39.0 H, Anion Gap 4 L, BUN 33 H, Creatinine 0.59, Estim Creat Clear Calc 84.93, Est GFR (MDRD) Af Amer 133, Est GFR (MDRD) Non-Af 110, BUN/Creatinine Ratio 55.6 H, Glucose 228 H, Calcium 9.8 07/26/22 08:53: POC Glucose 230 H 07/26/22 12:06: POC Glucose 131 H 07/26/22 16:48: POC Glucose 119 H Micro: Microbiology 07/19/22 12:15 Nasal Secretion SARS-CoV-2 & FLU Antigen (Rapid) - Final Influenzae B Radiography Diagnostic Testing: Radiology Impression Chest X-Ray 07/26/22 14:29 IMPRESSION: No significant interval change Electronically Signed: Randall Lemon MD at 14:44 EDT , Physical Exam Narrative alert, oriented x3, no apparent distress, patient appears lethargic and frail General Appearance: cooperative, well kempt and well developed Orientation / Consciousness: oriented to person, oriented to place and oriented to time HEENT normocephalic, head/scalp atraumatic and moist oral mucous membranes Eyes PERRL, EOMs intact bilaterally and conjunctivae normal Neck supple, no JVD and thyroid normal General: trachea midline Resp normal respiratory effort Resp Narrative: Patient's breath sounds are distant bilaterally Auscultation: Negative for rales, rhonchi or wheezes Cardio regular rate, regular rhythm, S1 normal heart sound, S2 normal heart sound, no murmurs, no rub and no gallops GI normal to inspection, nondistended, normoactive bowel sounds, soft to palpation, non-tender and non-distended Extremity no clubbing, cyanosis or edema Skin no rashes or lesions noted General Skin Exam: no breakdown Neuro oriented x3, CN's II-XII intact bilaterally, no focal motor deficits and no sensory deficits noted Sensorium / Orientation: Patient appears lethargic, she answers simple questions appropriately Speech: speech normal Psych affect normal Assessment & Plan Assessment/Plan (1) Acute on chronic respiratory failure with hypoxia and hypercapnia: (2) COPD exacerbation: PLAN: Plan 1. Acute on chronic hypoxic respiratory failure secondary to influenza B- continue to wean oxygen if possible, pulmonary medicine is participating in her care, there is been no meaningful change in her oxygen requirement at this time, patient is not stable for discharge home. I will have a discussion tomorrow with the patient and her concerning discharge planning, it may be necessary for her to go to an LTAC if she wants to continue aggressive therapy. I briefly discussed this with pulmonary medicine today. #2 type 2 diabetes-blood sugars will be monitored, sliding scale insulin will be administered, patient is also currently on basal insulin #3 chronic severe protein and caloric malnutrition related to inadequate energy intake with increased energy needs due to respiratory failure as evidenced by unintentional weight loss of 33.2 pounds over the last 10 months and estimated p.o. intake meeting less than 75% of estimated energy needs more than 3 months. Diet was liberalized to regular, no added salt, and sugar plus high-protein 120 mL 4 times a day with med Pass for additional calories was added #4 alpha-1 antitrypsin deficiency-pulmonary medicine is participating in her care, complicates care, medical course, recovery, and prognosis #5 Central hypertension-patient is to remain on her present medication #6 chronic depression/anxiety-patient is currently on her home medications #7 chronic pancytopenia-etiology unclear, labs will be monitored #8 chronic obstructive pulmonary disease-continue present treatment, patient is being seen by pulmonary medicine Total clinical time spent by myself addressing the patient's medical issues, reviewing all of her data, and collaborating with patient's care team: 37 minutes Charges/Coding Visit Charges Inpatient E&M: 32789 Subs Hosp L2
[2022-07-26] MEDS: QUEtiapine 100 MG Tablet 400 MG PO (21:41)
[2022-07-26] MEDS: Sertraline 50 MG Tablet PO (21:41)
--- NOTE | 2022-07-26 23:10 | CPS ---
pt refused bipap at this time
[2022-07-27] VITALS (14 sets, daily range): BP systolic 110–139; BP diastolic 53–67; PULSE 102–124; RESP 17–29; TEMP 36–36.8; O2SAT 86–98; BMI 24.7
[2022-07-27 05:11] LABS: Absolute Lymphocyte Count 0.95 X10^3/uL (0.83-4.51); Basophil# 0.03 X10^3/uL; Basophil% 0.4 % (0-1); Eosinophil# 0.13 X10^3/uL; Eosinophils% 1.7 % (0-5); Hematocrit 42.4 % (37-47); Lymphocyte # 0.95 X10^3/ul (0.83-4.51); Lymphocyte % 12.4 % (19-41); Mean Corp Hgb Conc 30.7 g/dL (32-36); Mean Corpuscular Hgb 27.5 pg (27.0-32.0); Mean Corpuscular Volume 89.6 fL (81-99); Mean Platelet Vol. 11.6 fl (6.2-12.0); Monocyte% 5.2 % (0-10); NRBC Flagged by Analyzer 0 % (0-5); Neutrophil # 5.98 X10^3/uL (2.7-7.7); Neutrophil % 78.1 % (47-70); POSITIVE COUNT YES; RBC Distribution Width CV 16.8 % (11.6-14.6); RBC Distribution Width SD 54.4 fl (35.1-43.9); Red Blood Count 4.73 M/mm3 (4.2-5.4); White Blood Count 7.7 K/mm3 (4.4-11.0)
[2022-07-27] MEDS: busPIRone 5 MG Tablet 20 MG PO ×3 (05:48→23:05)
[2022-07-27 05:58] LABS: Differential Indicated SCAN CRITERIA MET; Platelet Count 37 K/mm3 (150-450)
[2022-07-27 06:00] LABS: Anion Gap 5 (5-15); BUN 38 mg/dL (7-18); BUN/Creat Ratio 57.7 RATIO (10-20); Calcium,Total 10.1 mg/dL (8.5-10.1); Chloride 98 mmol/L (98-107); Creatinine, Serum 0.66 mg/dL (0.55-1.02); EST Glomerular Filtration Rate 98 mL/min (>60); Est Glom Filt Rate - Afr Amer 118 mL/min (>60); Estimated Creatinine Clearance 75.92 ml/min; Glucose 173 mg/dL (74-106); Potassium 3.4 mmol/L (3.5-5.1); Sodium Level 139 mmol/L (136-145)
[2022-07-27] MEDS: Ipratropium/Albuterol Sulfate 3 ML AMPUL.NEB INHALATION ×4 (06:43→19:02)
[2022-07-27 06:55] LABS: Differential Comment SCANNED
[2022-07-27 08:41] LABS: Bedside Glucose 174 mg/dL (74-106)
--- NOTE | 2022-07-27 09:56 | PCM.PN.INT ---
Assessment & Plan Assessment/Plan (1) Influenza: (2) COPD exacerbation: (3) Acute on chronic respiratory failure with hypoxia and hypercapnia: (4) Chronic neutropenia: (5) Ceije-8-lpvkuopqwab deficiency: (6) Cirrhosis: (7) Diabetes mellitus, type 2: PLAN: Plan RECOMMENDATIONS: 1. Wean prednisone over 12 to 14 days. Continue mucolytic and bronchodilators 2. Encourage incentive spirometer and Acapella 3. Wean supplemental oxygen as tolerated 4. Increase activity as tolerated. Obtain walking oximetry 5. Increase basal insulin 6. May need to evaluate for home concentrator up to 10 L/min 7. Challenge with diuretics intermittently 8. Consider LTAC evaluation IMPRESSIONS: 1. Acute on chronic hypoxic respiratory failure secondary to influenza Patient with multiple etiologies of hypoxia at baseline including alpha 1 antitrypsin deficiency, COPD and now an acute infection of influenza. Patient's oxygenation status appears to have somewhat stabilized. Would continue to recommend BiPAP with sleep. Steroids will have to be kept at the current levels given persistent elevated FiO2 requirements. Continue with mucolytic and bronchodilators. Patient should continue BiPAP with sleep if possible. Patient may benefit from initiation of triple therapy as an outpatient. We will continue to challenge with Lasix, but patient is -3.2 L over the course of the hospitalization so this may not be overly effective. Anticipated protracted recovery given previous baseline and comorbidities. Given protracted expected course and high oxygen requirements, LTAC may be an appropriate evaluation. 2. Cirrhosis/chronic neutropenia/alpha-1 antitrypsin deficiency/debility Complicates care, management, recovery and prognosis. Medications have been evaluated for chronic liver disease alterations. Patient is on Prolastin at baseline, but it is unclear if she has been evaluated for possible endobronchial valve versus bullectomy. Patient will need to follow-up as an outpatient to see if these therapies are appropriate for her anatomically and given goals of therapy. Subjective Subjective Patient did okay overnight. Patient continues to have significant variation in oxygen requirements. Patient is not reporting any increase in cough or chest pain. No hemoptysis has been reported. Objective Data Objective Data Vital Signs: Vital Signs Temp Pulse Resp BP Pulse Ox O2 Del Method O2 Flow Rate 36.0 C L 106 H 17 128/59 H 98 High Flow 10 07/27/22 08:00 07/27/22 08:00 07/27/22 08:00 07/27/22 08:00 07/27/22 08:00 07/27/22 08:00 07/27/22 08:00 FiO2 45 07/25/22 10:00 Oxygen Flow Rate (L/min) 10 Oxygen Delivery Method High Flow Weight: 63.3 kg Body Mass Index (BMI) 24.7 Intake & Output: Intake and Output for Last 24 Hours 07/25/22 07/26/22 07/27/22 23:59 23:59 23:59 Intake Total 840 / 960 840 / 960 240 / 240 Output Total 1500 / 1900 800 / 950 250 / 250 Balance -660 / -940 40 / 10 -10 / -10 Medical Nutrition Assessment Dietitian: Malnutrition Criteria Met Start: 07/20/22 14:43 Freq: Status: Active Protocol: Document 07/23/22 10:30 RMA (Rec: 07/23/22 10:30 RMA [id number]) Nutrition Malnutrition Evidence of Malnutrition Exists Yes Malnutrition (severe): Chronic Evidenced By Suboptimal Energy Intake ( Severe),Weight Loss (Severe), Physical Changes (Moderate) Clinical Problem Chronic Disease or Condition Related Malnutrition Etiology chronic, severe malnutrition related to inadequate energy intake w/ increased energy needs d/t resp. failure Signs/Symptoms as evidenced by unintentional wt loss of 33.2#/18% wt loss x 10 months, estimated PO intake meeting <75 % of estimated energy needs > 3 months, Moderate muscle wasting/fat loss evident per physical exam in orbital, clavicle, acromion, and temporal areas Status Active Problem Recommendation Dietitian Recommendations/Changes Will adjust diet to carbohydrate-controlled/no added salt diet. Will continue ensure plus high protein 120mL 4x/day w/ medpass for additional calories/protein if consumed. Lab / Micro Data Attestation: I reviewed the patient's lab results. Result Diagrams: 07/27/22 04:41 07/27/22 04:41 Labs: Laboratory Results - last 24 hr 07/25/22 04:21: Diff Path Review Reviewed 07/26/22 04:22: Diff Path Review Reviewed 07/26/22 12:06: POC Glucose 131 H 07/26/22 16:48: POC Glucose 119 H 07/27/22 04:41: WBC 7.7, RBC 4.73, Hgb 13.0, Hct 42.4, MCV 89.6, MCH 27.5, MCHC 30.7 L, RDW Std Deviation 54.4 H, RDW Coeff of Renetta 16.8 H, Plt Count 37 L*, MPV 11.6, Immature Gran % (Auto) 2.200 H, Neut % (Auto) 78.1 H, Lymph % (Auto) 12.4 L, [place] % (Auto) 5.2, Eos % (Auto) 1.7, Baso % (Auto) 0.4, Absolute Neuts (auto) 6.0, Absolute Lymphs (auto) 0.95, Nucleated RBC % 0, Differential Comment SCANNED, Diff Path Review August foll 07/27/22 04:41: Sodium 139, Potassium 3.4 L, Chloride 98, Carbon Dioxide 36.0 H, Anion Gap 5, BUN 38 H, Creatinine 0.66, Estim Creat Clear Calc 75.92, Est GFR (MDRD) Af Amer 118, Est GFR (MDRD) Non-Af 98, BUN/Creatinine Ratio 57.7 H, Glucose 173 H, Calcium 10.1 07/27/22 08:21: POC Glucose 174 H Micro: Microbiology 07/19/22 12:15 Nasal Secretion SARS-CoV-2 & FLU Antigen (Rapid) - Final Influenzae B Radiography Diagnostic Testing: Radiology Impression Chest X-Ray 07/26/22 14:29 IMPRESSION: No significant interval change Electronically Signed: Randall Lemon MD at 14:44 EDT Reading Location ID and State: [address] [place] [address] , Service support , Physical Exam Const alert and oriented x3 Constitutional Narrative: Mild conversational dyspnea noted. Appears older than stated age. On nasal cannula during my evaluation. Resting comfortably initially General Appearance: cooperative, well developed and frail HEENT normocephalic, head/scalp atraumatic, moist oral mucous membranes and oropharynx normal Eyes PERRL and EOMs intact bilaterally Neck no lymphadenopathy, supple and no JVD Lymph Lymphatic: no lymphadenopathy noted and no lymphedema noted Chest Chest Narrative: Increased AP diameter Resp Resp Narrative: Significantly diminished bilaterally. On nasal cannula during my evaluation Auscultation: Negative for rales, rhonchi or wheezes Cardio regular rate, regular rhythm, S1 normal heart sound, S2 normal heart sound, no murmurs, no rub and no gallops GI normal to inspection, nondistended, normoactive bowel sounds, soft to palpation, non-tender and non-distended Extremity normal capillary refill, no clubbing, cyanosis or edema and no calf tenderness Skin General Skin Exam: no breakdown and turgor normal Neuro CN's II-XII intact bilaterally, no focal motor deficits and no sensory deficits noted Motor Exam: strength 5/5 throughout Psych thought process normal and cooperative Appearance: appropriate Charges/Coding Visit Charges Inpatient E&M: 03357 Subs Hosp L2
[2022-07-27 12:16] LABS: Bedside Glucose 76 mg/dL (74-106)
[2022-07-27 12:25] LABS: Bedside Glucose 156 mg/dL (74-106)
[2022-07-27 12:58] LABS: Pathologist Review Reviewed
[2022-07-27] MEDS: ASENAPINE MALEATE 5 MG TAB.SUBL SL ×2 (14:32→23:12)
[2022-07-27] MEDS: Insulin Lispro 100 UNIT/ML INSULN.PEN SC ×2 (17:09→23:14)
[2022-07-27] MEDS: Insulin Lispro 100 UNIT/ML INSULN.PEN 20 UNIT SC (17:10)
[2022-07-27 17:31] LABS: Bedside Glucose 294 mg/dL (74-106)
--- NOTE | 2022-07-27 19:57 | PN.HOSP_ITS ---
Reason for Visit Reason for Visit: Diagnoses Neutropenia, unspecified (07/19/22) Type 2 diabetes mellitus without complications (07/19/22) Wjyrf-3-dhnolgpkucp deficiency (07/19/22) Influenza due to unidentified influenza virus with other respiratory manifestations (07/19/22) Chronic obstructive pulmonary disease with (acute) exacerbation (07/19/22) Chronic obstructive pulmonary disease, unspecified (07/19/22) Chronic respiratory failure with hypoxia (07/19/22) Acute and chronic respiratory failure with hypoxia (07/19/22) Acute and chronic respiratory failure with hypercapnia (07/19/22) Unspecified cirrhosis of liver (07/19/22) Subjective Subjective Patient was seen and examined today, currently at the time of this dictation, she is requiring 6 L of oxygen via nasal cannula. Patient has not been ambulating, nursing feels that the patient is basically bedbound at home due to her severe lung disease. I have not had a chance to talk with the patient's today, I had thought that it might be a good idea to try to get the patient into an LTAC due to her high oxygen requirement but case management states that her oxygen requirement alone would probably not qualify her for an LTAC. I will reevaluate the patient tomorrow and talk with the patient's significant other tomorrow. It appears that he does most of her care at home. Objective Data Objective Data Vital Signs: Vital Signs Temp Pulse Resp BP Pulse Ox O2 Del Method O2 Flow Rate 98.1 F 124 H 21 H 113/65 94 Nasal Cannula 6 07/27/22 18:11 07/27/22 18:11 07/27/22 18:11 07/27/22 18:11 07/27/22 18:11 07/27/22 18:11 07/27/22 18:11 FiO2 45 07/25/22 10:00 Oxygen Flow Rate (L/min) 6 Oxygen Delivery Method Nasal Cannula Weight: 63.3 kg Body Mass Index (BMI) 24.7 Intake & Output: Intake and Output for Last 24 Hours 07/25/22 07/26/22 07/27/22 23:59 23:59 23:59 Intake Total 840 / 960 840 / 960 560 / 560 Output Total 1500 / 1900 800 / 950 750 / 750 Balance -660 / -940 40 / 10 -190 / -190 Medical Nutrition Assessment Dietitian: Malnutrition Criteria Met Start: 07/20/22 14:43 Freq: Status: Active Protocol: Document 07/23/22 10:30 RMA (Rec: 07/23/22 10:30 RMA [id number]) Nutrition Malnutrition Evidence of Malnutrition Exists Yes Malnutrition (severe): Chronic Evidenced By Suboptimal Energy Intake ( Severe),Weight Loss (Severe), Physical Changes (Moderate) Clinical Problem Chronic Disease or Condition Related Malnutrition Etiology chronic, severe malnutrition related to inadequate energy intake w/ increased energy needs d/t resp. failure Signs/Symptoms as evidenced by unintentional wt loss of 33.2#/18% wt loss x 10 months, estimated PO intake meeting <75 % of estimated energy needs > 3 months, Moderate muscle wasting/fat loss evident per physical exam in orbital, clavicle, acromion, and temporal areas Status Active Problem Recommendation Dietitian Recommendations/Changes Will adjust diet to carbohydrate-controlled/no added salt diet. Will continue ensure plus high protein 120mL 4x/day w/ medpass for additional calories/protein if consumed. Lab / Micro Data Result Diagrams: 07/28/22 06:05 07/29/22 06:00 Labs: Laboratory Results - last 24 hr 07/26/22 21:39: POC Glucose 76 07/27/22 04:41: WBC 7.7, RBC 4.73, Hgb 13.0, Hct 42.4, MCV 89.6, MCH 27.5, MCHC 30.7 L, RDW Std Deviation 54.4 H, RDW Coeff of Renetta 16.8 H, Plt Count 37 L*, MPV 11.6, Immature Gran % (Auto) 2.200 H, Neut % (Auto) 78.1 H, Lymph % (Auto) 12.4 L, [place] % (Auto) 5.2, Eos % (Auto) 1.7, Baso % (Auto) 0.4, Absolute Neuts (auto) 6.0, Absolute Lymphs (auto) 0.95, Nucleated RBC % 0, Differential Comment BIN Carrasco Diff Path Review Reviewed 07/27/22 04:41: Sodium 139, Potassium 3.4 L, Chloride 98, Carbon Dioxide 36.0 H, Anion Gap 5, BUN 38 H, Creatinine 0.66, Estim Creat Clear Calc 75.92, Est GFR (MDRD) Af Amer 118, Est GFR (MDRD) Non-Af 98, BUN/Creatinine Ratio 57.7 H, Glucose 173 H, Calcium 10.1 07/27/22 08:21: POC Glucose 174 H 07/27/22 11:23: POC Glucose 156 H 07/27/22 17:08: POC Glucose 294 H Micro: Microbiology 07/19/22 12:15 Nasal Secretion SARS-CoV-2 & FLU Antigen (Rapid) - Final Influenzae B Physical Exam Narrative alert, oriented x3, no apparent distress, patient appears lethargic and frail General Appearance: cooperative, well kempt and well developed Orientation / Consciousness:? oriented to person, oriented to place and oriented to time HEENT normocephalic, head/scalp atraumatic and moist oral mucous membranes Eyes PERRL, EOMs intact bilaterally and conjunctivae normal Neck supple, no JVD and thyroid normal General: trachea midline Resp normal respiratory effort Resp Narrative: Patient's breath sounds are distant bilaterally Auscultation: Negative for rales, rhonchi or wheezes Cardio regular rate, regular rhythm, S1 normal heart sound, S2 normal heart sound, no murmurs, no rub and no gallops GI normal to inspection, nondistended, normoactive bowel sounds, soft to palpation, non-tender and non-distended Extremity no clubbing, cyanosis or edema Skin no rashes or lesions noted General Skin Exam: no breakdown Neuro oriented x3, CN's II-XII intact bilaterally, no focal motor deficits and no sensory deficits noted Sensorium / Orientation: Patient appears lethargic, she answers simple questions appropriately Speech: speech normal Psych affect normal Assessment & Plan Assessment/Plan (1) Acute on chronic respiratory failure with hypoxia and hypercapnia: (2) COPD exacerbation: PLAN: Plan 1. Acute on chronic hypoxic respiratory failure secondary to influenza B-continue to wean oxygen if possible, pulmonary medicine is participating in her care, there is been no meaningful change in her oxygen requirement at this time, patient is not stable for discharge home. #2 type 2 diabetes-blood sugars will be monitored, sliding scale insulin will be administered, patient is also currently on basal insulin #3 chronic severe protein and caloric malnutrition related to inadequate energy intake with increased energy needs due to respiratory failure as evidenced by unintentional weight loss of 33.2 pounds over the last 10 months and estimated p.o. intake meeting less than 75% of estimated energy needs more than 3 months. Diet was liberalized to regular, no added salt, and sugar plus high-protein 120 mL 4 times a day with med Pass for additional calories was added #4 alpha-1 antitrypsin deficiency-pulmonary medicine is participating in her care, complicates care, medical course, recovery, and prognosis #5 Central hypertension-patient is to remain on her present medication #6 chronic depression/anxiety-patient is currently on her home medications #7 chronic pancytopenia-etiology unclear, labs will be monitored #8 chronic obstructive pulmonary disease-continue present treatment, patient is being seen by pulmonary medicine Total clinical time spent by myself addressing the patient's medical issues, reviewing all of her data, and collaborating with patient's care team: 36 minutes Charges/Coding Visit Charges Inpatient E&M: 93014 Subs Hosp L2
[2022-07-27] MEDS: Sertraline 50 MG Tablet PO (23:04)
[2022-07-27] MEDS: QUEtiapine 100 MG Tablet 400 MG PO (23:05)
[2022-07-27] MEDS: Ensure Plus High Protein 120 ML LIQUID PO (23:07)
[2022-07-27] MEDS: Insulin Glargine-YFGN 100 UNIT/ML Pen 60 UNIT SC (23:37)
--- NOTE | 2022-07-27 23:51 | CPS ---
Patient refuses at this time
[2022-07-28] VITALS (16 sets, daily range): BP systolic 92–126; BP diastolic 44–67; PULSE 104–130; RESP 16–28; TEMP 36.4–36.6; O2SAT 86–100; BMI 24.5
[2022-07-28] LABS: Bedside Glucose 181 mg/dL (74-106)
[2022-07-28] MEDS: busPIRone 5 MG Tablet 20 MG PO ×3 (06:02→22:38)
[2022-07-28 06:22] LABS: Absolute Lymphocyte Count 0.98 X10^3/uL (0.83-4.51); Absolute Neutrophil Count 5.4 X10^3/uL (2.0-7.7); Basophil# 0.04 X10^3/uL; Basophil% 0.6 % (0-1); Eosinophil# 0.11 X10^3/uL; Eosinophils% 1.5 % (0-5); Hematocrit 41.2 % (37-47); Hemoglobin 12.5 g/dL (12.0-15.0); Lymphocyte # 0.98 X10^3/ul (0.83-4.51); Lymphocyte % 13.8 % (19-41); Mean Corp Hgb Conc 30.3 g/dL (32-36); Mean Corpuscular Hgb 27.4 pg (27.0-32.0); Mean Corpuscular Volume 90.2 fL (81-99); Monocyte# 0.47 X10^3/uL; Monocyte% 6.6 % (0-10); NRBC Flagged by Analyzer 0 % (0-5); Neutrophil # 5.36 X10^3/uL (2.7-7.7); Neutrophil % 75.5 % (47-70); POSITIVE COUNT YES; RBC Distribution Width CV 16.9 % (11.6-14.6); RBC Distribution Width SD 54.2 fl (35.1-43.9); Red Blood Count 4.57 M/mm3 (4.2-5.4); White Blood Count 7.1 K/mm3 (4.4-11.0)
[2022-07-28 06:51] LABS: Differential Indicated SCAN CRITERIA MET; Platelet Count 36 K/mm3 (150-450)
[2022-07-28 06:52] LABS: Differential Comment SCANNED; Platelet Estimate MKD DEC (ADEQ)
[2022-07-28 06:57] LABS: Anion Gap 3 (5-15); BUN 38 mg/dL (7-18); BUN/Creat Ratio 54.4 RATIO (10-20); Calcium,Total 9.4 mg/dL (8.5-10.1); Chloride 99 mmol/L (98-107); EST Glomerular Filtration Rate 91 mL/min (>60); Est Glom Filt Rate - Afr Amer 111 mL/min (>60); Estimated Creatinine Clearance 71.58 ml/min; Glucose 186 mg/dL (74-106); Potassium 3.3 mmol/L (3.5-5.1); Sodium Level 139 mmol/L (136-145)
[2022-07-28] MEDS: Ipratropium/Albuterol Sulfate 3 ML AMPUL.NEB INHALATION ×4 (07:55→21:37)
--- NOTE | 2022-07-28 08:19 | PN.CC_ITS ---
Assessment & Plan Assessment/Plan (1) Influenza: (2) COPD exacerbation: (3) Acute on chronic respiratory failure with hypoxia and hypercapnia: (4) Chronic neutropenia: (5) Czhah-2-nuwucgxfhdm deficiency: (6) Cirrhosis: (7) Diabetes mellitus, type 2: PLAN: Plan RECOMMENDATIONS: 1. Wean prednisone over 12 to 14 days. Continue mucolytic and bronchodilators 2. Encourage incentive spirometer and Acapella 3. Wean supplemental oxygen as tolerated 4. Obtain walking oximetry. Potential discharge if able to tolerate ambulation on 8 L or less 5. Continue basal insulin 6. Will need home concentrator with up to 10 L/min flow 7. Challenge with diuretics intermittently 8. Follow-up with primary hotel front desk agent in 2 to 4 weeks IMPRESSIONS: 1. Acute on chronic hypoxic respiratory failure secondary to influenza Patient with multiple etiologies of hypoxia at baseline including alpha 1 antitrypsin deficiency, COPD and now an acute infection of influenza. Patient's oxygenation status appears to have somewhat stabilized. Would continue to recommend BiPAP with sleep. Steroids will have to be kept at the current levels given persistent elevated FiO2 requirements. Continue with mucolytic and bronchodilators. Patient should continue BiPAP with sleep if possible. Patient may benefit from initiation of triple therapy as an outpatient. We will continue to challenge with Lasix, but patient is -2.9 L over the course of the hospitalization so this may not be overly effective. Anticipated protracted recovery given previous baseline and comorbidities. Patient much improved over the last 24 hours. Will obtain a walking oximetry. If patient is able to tolerate ambulation on 8 L or less, likely okay to be discharged from a pulmonary perspective with follow-up with primary hotel front desk agent in 2 to 4 weeks. 2. Cirrhosis/chronic neutropenia/alpha-1 antitrypsin deficiency/debility Complicates care, management, recovery and prognosis. Medications have been evaluated for chronic liver disease alterations. Patient is on Prolastin at baseline, but it is unclear if she has been evaluated for possible endobronchial valve versus bullectomy. Patient will need to follow-up as an outpatient to see if these therapies are appropriate for her anatomically and given goals of therapy. Subjective Subjective Patient much more interactive and appropriate today. Patient is not reporting any chest pain and feels subjectively that she is much improved compared to yesterday. Patient still has a cough with minimal production. Oxygen requirements are back to baseline. No bleeding complications have been reported Objective Data Objective Data Vital Signs: Vital Signs Temp Pulse Resp BP Pulse Ox O2 Del Method O2 Flow Rate 36.6 C 108 H 19 H 103/67 97 Nasal Cannula 6 07/28/22 06:00 07/28/22 06:00 07/28/22 06:00 07/28/22 06:00 07/28/22 06:00 07/28/22 06:00 07/28/22 06:00 FiO2 45 07/25/22 10:00 Oxygen Flow Rate (L/min) 6 Oxygen Delivery Method Nasal Cannula Weight: 63.3 kg Body Mass Index (BMI) 24.7 Intake & Output: Intake and Output for Last 24 Hours 07/26/22 07/27/22 07/28/22 23:59 23:59 23:59 Intake Total 840 / 960 560 / 560 240 / 240 Output Total 800 / 950 750 / 750 50 / 50 Balance 40 / 10 -190 / -190 190 / 190 Medical Nutrition Assessment Dietitian: Malnutrition Criteria Met Start: 07/20/22 14:43 Freq: Status: Active Protocol: Document 07/23/22 10:30 RMA (Rec: 07/23/22 10:30 RMA [id number]) Nutrition Malnutrition Evidence of Malnutrition Exists Yes Malnutrition (severe): Chronic Evidenced By Suboptimal Energy Intake ( Severe),Weight Loss (Severe), Physical Changes (Moderate) Clinical Problem Chronic Disease or Condition Related Malnutrition Etiology chronic, severe malnutrition related to inadequate energy intake w/ increased energy needs d/t resp. failure Signs/Symptoms as evidenced by unintentional wt loss of 33.2#/18% wt loss x 10 months, estimated PO intake meeting <75 % of estimated energy needs > 3 months, Moderate muscle wasting/fat loss evident per physical exam in orbital, clavicle, acromion, and temporal areas Status Active Problem Recommendation Dietitian Recommendations/Changes Will adjust diet to carbohydrate-controlled/no added salt diet. Will continue ensure plus high protein 120mL 4x/day w/ medpass for additional calories/protein if consumed. Lab / Micro Data Attestation: I reviewed the patient's lab results. Result Diagrams: 07/28/22 06:05 07/28/22 06:05 Labs: Laboratory Results - last 24 hr 07/26/22 21:39: POC Glucose 76 07/27/22 04:41: Diff Path Review Reviewed 07/27/22 08:21: POC Glucose 174 H 07/27/22 11:23: POC Glucose 156 H 07/27/22 17:08: POC Glucose 294 H 07/27/22 23:05: POC Glucose 181 H 07/28/22 06:05: WBC 7.1, RBC 4.57, Hgb 12.5, Hct 41.2, MCV 90.2, MCH 27.4, MCHC 30.3 L, RDW Std Deviation 54.2 H, RDW Coeff of Renetta 16.9 H, Plt Count 36 L*, MPV 12.0, Immature Gran % (Auto) 2.000 H, Neut % (Auto) 75.5 H, Lymph % (Auto) 13.8 L, [place] % (Auto) 6.6, Eos % (Auto) 1.5, Baso % (Auto) 0.6, Absolute Neuts (auto) 5.4, Absolute Lymphs (auto) 0.98, Nucleated RBC % 0, Differential Comment SCANNED, Diff Path Review May rosalinda, Platelet Estimate MKD 07/28/22 06:05: Sodium 139, Potassium 3.3 L, Chloride 99, Carbon Dioxide 37.0 H, Anion Gap 3 L, BUN 38 H, Creatinine 0.70, Estim Creat Clear Calc 71.58, Est GFR (MDRD) Af Amer 111, Est GFR (MDRD) Non-Af 91, BUN/Creatinine Ratio 54.4 H, Glucose 186 H, Calcium 9.4 Micro: Microbiology 07/19/22 12:15 Nasal Secretion SARS-CoV-2 & FLU Antigen (Rapid) - Final Influenzae B Physical Exam Const alert and oriented x3 Constitutional Narrative: Mild conversational dyspnea noted. Appears older than stated age. On nasal ca nnula during my evaluation. Resting comfortably initially General Appearance: cooperative, well developed and frail HEENT normocephalic, head/scalp atraumatic, moist oral mucous membranes and oropharynx normal Eyes PERRL and EOMs intact bilaterally Neck no lymphadenopathy, supple and no JVD Lymph Lymphatic: no lymphadenopathy noted and no lymphedema noted Chest Chest Narrative: Increased AP diameter Resp Resp Narrative: Significantly diminished bilaterally. On nasal cannula during my evaluation Auscultation: Negative for rales, rhonchi or wheezes Cardio regular rate, regular rhythm, S1 normal heart sound, S2 normal heart sound, no murmurs, no rub and no gallops GI normal to inspection, nondistended, normoactive bowel sounds, soft to palpation, non-tender and non-distended Extremity normal capillary refill, no clubbing, cyanosis or edema and no calf tenderness Skin General Skin Exam: no breakdown and turgor normal Neuro CN's II-XII intact bilaterally, no focal motor deficits and no sensory deficits noted Motor Exam: strength 5/5 throughout Psych thought process normal and cooperative Appearance: appropriate Charges/Coding Visit Charges Inpatient E&M: 95057 Subs Hosp L2
[2022-07-28 08:51] LABS: Bedside Glucose 216 mg/dL (74-106)
[2022-07-28] MEDS: predniSONE 20 MG Tablet 40 MG PO (09:32)
[2022-07-28] MEDS: Spironolactone 50 MG Tablet PO (09:32)
[2022-07-28] MEDS: Potassium Chloride Oral Tablet 20 MEQ 40 MEQ PO (09:32)
[2022-07-28] MEDS: Ensure Plus High Protein 120 ML LIQUID PO ×3 (09:32→16:48)
[2022-07-28] MEDS: Doxepin Hcl 25 MG Capsule 50 MG PO (09:32)
[2022-07-28] MEDS: Pantoprazole Sodium 40 MG Tablet PO (09:32)
[2022-07-28] MEDS: Insulin Lispro 100 UNIT/ML INSULN.PEN 20 UNIT SC ×2 (09:32→16:48)
[2022-07-28] MEDS: Insulin Glargine-YFGN 100 UNIT/ML Pen 60 UNIT SC (09:33)
[2022-07-28] MEDS: Insulin Lispro 100 UNIT/ML INSULN.PEN SC ×2 (09:33→16:48)
[2022-07-28 12:21] LABS: Bedside Glucose 87 mg/dL (74-106)
[2022-07-28] MEDS: ASENAPINE MALEATE 5 MG TAB.SUBL SL ×2 (14:05→21:48)
--- NOTE | 2022-07-28 15:29 | CASEMGMT ---
SHAKIR ROSARIO in to talk with per request. and patient state they would like hospice at home. SHAKIR ROSARIO updated hospitalist and SW.
--- NOTE | 2022-07-28 15:48 | CASEMGMT ---
Social Work here, asking for a hospice referral. Physician had spoken w/him earlier today about this. SW called [facility], made referral, faxed information. They can be here at 5pm to meet w/. SW let know, he is agreeable. However, he said the oxygen concentrator is to be delivered at 5pm. SW explained we will put a hold on this. SW called [facility], asked them to put a hold on delivering the concentrator. Someone is to call [facility] back. JOSE ALFREDO Walters
[2022-07-28 17:10] LABS: Bedside Glucose 432 mg/dL (74-106)
--- NOTE | 2022-07-28 17:44 | PCM.PN.HOSP ---
Reason for Visit Reason for Visit: Diagnoses Neutropenia, unspecified (07/19/22) Type 2 diabetes mellitus without complications (07/19/22) Hqtsf-2-eitrkjymbfa deficiency (07/19/22) Influenza due to unidentified influenza virus with other respiratory manifestations (07/19/22) Chronic obstructive pulmonary disease with (acute) exacerbation (07/19/22) Chronic obstructive pulmonary disease, unspecified (07/19/22) Chronic respiratory failure with hypoxia (07/19/22) Acute and chronic respiratory failure with hypoxia (07/19/22) Acute and chronic respiratory failure with hypercapnia (07/19/22) Unspecified cirrhosis of liver (07/19/22) Subjective Subjective Patient was seen and examined today, currently at rest she is on 6 L via nasal cannula, at minimal exertion however, patient requires 10 L of oxygen. I talked to the patient briefly about hospice, she did not want to see hospice but I also talked with the patient's by phone, he came in to talk to the patient and they decided to have hospice consultation while in the hospital. Patient will need a higher flow oxygen concentrator set up at home before she goes home. It appears that the patient's and the patient want home hospice rather than the patient going to hospice care facility. Objective Data Objective Data Vital Signs: Vital Signs Temp Pulse Resp BP Pulse Ox O2 Del Method O2 Flow Rate 97.9 F 122 H 22 H 121/60 H 95 Nasal Cannula 6 07/28/22 14:05 07/28/22 15:30 07/28/22 15:30 07/28/22 14:05 07/28/22 15:30 07/28/22 15:30 07/28/22 15:30 FiO2 45 07/25/22 10:00 Oxygen Flow Rate (L/min) [ 10 AMBULATING with Oxygen #3] Oxygen Flow Rate (L/min) [ 8 AMBULATING with Oxygen #2] Oxygen Flow Rate (L/min) [ 5 AMBULATING with Oxygen #1] Oxygen Flow Rate (L/min) [At 5 REST with Oxygen] Oxygen Flow Rate (L/min) 6 Oxygen Delivery Method Nasal Cannula Weight: 62.732 kg Body Mass Index (BMI) 24.5 Intake & Output: Intake and Output for Last 24 Hours 07/26/22 07/27/22 07/28/22 23:59 23:59 23:59 Intake Total 840 / 960 560 / 560 600 / 600 Output Total 800 / 950 750 / 750 200 / 200 Balance 40 / 10 -190 / -190 400 / 400 Medical Nutrition Assessment Dietitian: Malnutrition Criteria Met Start: 07/20/22 14:43 Freq: Status: Active Protocol: Document 07/23/22 10:30 RMA (Rec: 07/23/22 10:30 RMA [id number]) Nutrition Malnutrition Evidence of Malnutrition Exists Yes Malnutrition (severe): Chronic Evidenced By Suboptimal Energy Intake ( Severe),Weight Loss (Severe), Physical Changes (Moderate) Clinical Problem Chronic Disease or Condition Related Malnutrition Etiology chronic, severe malnutrition related to inadequate energy intake w/ increased energy needs d/t resp. failure Signs/Symptoms as evidenced by unintentional wt loss of 33.2#/18% wt loss x 10 months, estimated PO intake meeting <75 % of estimated energy needs > 3 months, Moderate muscle wasting/fat loss evident per physical exam in orbital, clavicle, acromion, and temporal areas Status Active Problem Recommendation Dietitian Recommendations/Changes Will adjust diet to carbohydrate-controlled/no added salt diet. Will continue ensure plus high protein 120mL 4x/day w/ medpass for additional calories/protein if consumed. Lab / Micro Data Result Diagrams: 07/28/22 06:05 07/29/22 06:00 Labs: Laboratory Results - last 24 hr 07/27/22 23:05: POC Glucose 181 H 07/28/22 06:05: WBC 7.1, RBC 4.57, Hgb 12.5, Hct 41.2, MCV 90.2, MCH 27.4, MCHC 30.3 L, RDW Std Deviation 54.2 H, RDW Coeff of Renetta 16.9 H, Plt Count 36 L*, MPV 12.0, Immature Gran % (Auto) 2.000 H, Neut % (Auto) 75.5 H, Lymph % (Auto) 13.8 L, [place] % (Auto) 6.6, Eos % (Auto) 1.5, Baso % (Auto) 0.6, Absolute Neuts (auto) 5.4, Absolute Lymphs (auto) 0.98, Nucleated RBC % 0, Differential Comment SCANNED, Diff Path Review August rosalinda, Platelet Estimate MKD 07/28/22 06:05: Sodium 139, Potassium 3.3 L, Chloride 99, Carbon Dioxide 37.0 H, Anion Gap 3 L, BUN 38 H, Creatinine 0.70, Estim Creat Clear Calc 71.58, Est GFR (MDRD) Af Amer 111, Est GFR (MDRD) Non-Af 91, BUN/Creatinine Ratio 54.4 H, Glucose 186 H, Calcium 9.4 07/28/22 08:32: POC Glucose 216 H 07/28/22 11:58: POC Glucose 87 07/28/22 16:46: POC Glucose 432 H Micro: Microbiology 07/19/22 12:15 Nasal Secretion SARS-CoV-2 & FLU Antigen (Rapid) - Final Influenzae B Physical Exam Narrative alert, oriented x3, no apparent distress, patient appears lethargic and frail General Appearance: cooperative, well kempt and well developed Orientation / Consciousness:? oriented to person, oriented to place and oriented to time HEENT normocephalic, head/scalp atraumatic and moist oral mucous membranes Eyes PERRL, EOMs intact bilaterally and conjunctivae normal Neck supple, no JVD and thyroid normal General: trachea midline Resp normal respiratory effort Resp Narrative: Patient's breath sounds are distant bilaterally Auscultation: Negative for rales, rhonchi or wheezes Cardio regular rate, regular rhythm, S1 normal heart sound, S2 normal heart sound, no murmurs, no rub and no gallops GI normal to inspection, nondistended, normoactive bowel sounds, soft to palpation, non-tender and non-distended Extremity no clubbing, cyanosis or edema Skin no rashes or lesions noted General Skin Exam: no breakdown Neuro oriented x3, CN's II-XII intact bilaterally, no focal motor deficits and no sensory deficits noted Sensorium / Orientation: Patient appears lethargic, she answers simple questions appropriately Speech: speech normal Psych affect normal Assessment & Plan Assessment/Plan (1) Acute on chronic respiratory failure with hypoxia and hypercapnia: (2) COPD exacerbation: PLAN: Plan 1. Acute on chronic hypoxic respiratory failure secondary to influenza B-patient has agreed to hospice consultation, they will see the patient, hospice may need to set up oxygen at home if patient's oxygen requirement improves #2 type 2 diabetes-blood sugars will be monitored, sliding scale insulin will be administered, patient is also currently on basal insulin #3 chronic severe protein and caloric malnutrition related to inadequate energy intake with increased energy needs due to respiratory failure as evidenced by unintentional weight loss of 33.2 pounds over the last 10 months and estimated p.o. intake meeting less than 75% of estimated energy needs more than 3 months. Diet was liberalized to regular, no added salt, and sugar plus high-protein 120 mL 4 times a day with med Pass for additional calories was added #4 alpha-1 antitrypsin deficiency-pulmonary medicine is participating in her care, complicates care, medical course, recovery, and prognosis #5 Central hypertension-patient is to remain on her present medication #6 chronic depression/anxiety-patient is currently on her home medications #7 chronic pancytopenia-etiology unclear, labs will be monitored #8 chronic obstructive pulmonary disease-continue present treatment, patient is being seen by pulmonary medicine Total clinical time spent by myself addressing the patient's medical issues, reviewing all of her data, and collaborating with patient's care team: 35 minutes Charges/Coding Visit Charges Inpatient E&M: 90075 Subs Hosp L2
[2022-07-28 22:11] LABS: Bedside Glucose 103 mg/dL (74-106)
[2022-07-28] MEDS: Sertraline 50 MG Tablet PO (22:38)
[2022-07-28] MEDS: QUEtiapine 100 MG Tablet 400 MG PO (22:38)
[2022-07-29] VITALS (15 sets, daily range): BP systolic 107–128; BP diastolic 38–81; PULSE 102–124; RESP 16–28; TEMP 36.3–36.8; O2SAT 88–100; BMI 24.5
--- NOTE | 2022-07-29 01:48 | CPS ---
Pt too short of breath to do PEP therapy at this time.
[2022-07-29 07:12] LABS: Anion Gap 5 (5-15); BUN 34 mg/dL (7-18); BUN/Creat Ratio 52.1 RATIO (10-20); Calcium,Total 9.4 mg/dL (8.5-10.1); Chloride 102 mmol/L (98-107); Creatinine, Serum 0.65 mg/dL (0.55-1.02); EST Glomerular Filtration Rate 99 mL/min (>60); Est Glom Filt Rate - Afr Amer 119 mL/min (>60); Estimated Creatinine Clearance 77.09 ml/min; Glucose 172 mg/dL (74-106); Potassium 3.8 mmol/L (3.5-5.1); Sodium Level 136 mmol/L (136-145)
[2022-07-29] MEDS: Ipratropium/Albuterol Sulfate 3 ML AMPUL.NEB INHALATION ×4 (07:34→19:45)
[2022-07-29] MEDS: Ensure Plus High Protein 120 ML LIQUID PO ×4 (07:59→21:09)
[2022-07-29] MEDS: Insulin Lispro 100 UNIT/ML INSULN.PEN 20 UNIT SC ×2 (08:00→17:24)
[2022-07-29] MEDS: Doxepin Hcl 25 MG Capsule 50 MG PO (08:00)
[2022-07-29] MEDS: predniSONE 20 MG Tablet 40 MG PO (08:00)
[2022-07-29] MEDS: Spironolactone 50 MG Tablet PO (08:00)
[2022-07-29] MEDS: Insulin Lispro 100 UNIT/ML INSULN.PEN SC ×2 (08:00→17:24)
[2022-07-29 08:16] LABS: Bedside Glucose 190 mg/dL (74-106)
[2022-07-29] MEDS: Insulin Glargine-YFGN 100 UNIT/ML Pen 60 UNIT SC (08:54)
[2022-07-29] MEDS: Pantoprazole Sodium 40 MG Tablet PO (10:33)
[2022-07-29 12:00] LABS: Bedside Glucose 95 mg/dL (74-106)
--- NOTE | 2022-07-29 12:10 | PN.CC_ITS ---
Assessment & Plan Assessment/Plan (1) Influenza: (2) COPD exacerbation: (3) Acute on chronic respiratory failure with hypoxia and hypercapnia: (4) Chronic neutropenia: (5) Ggjut-8-kctaxbblwgo deficiency: (6) Cirrhosis: (7) Diabetes mellitus, type 2: PLAN: Plan RECOMMENDATIONS: 1. Wean prednisone over 12 to 14 days. Continue mucolytic and bronchodilators 2. Encourage incentive spirometer and Acapella 3. Wean supplemental oxygen as tolerated 4. Okay to discharge once hospice support is arranged 5. Continue basal insulin 6. Will need home concentrator with up to 10 L/min flow 7. Given goals of therapy, will sign off from a pulmonary perspective IMPRESSIONS: 1. Acute on chronic hypoxic respiratory failure secondary to influenza Patient with multiple etiologies of hypoxia at baseline including alpha 1 antitrypsin deficiency, COPD and now an acute infection of influenza. Patient's oxygenation status appears to have somewhat stabilized. Would continue to recommend BiPAP with sleep. Steroids will have to be kept at the current levels given persistent elevated FiO2 requirements. Continue with mucolytic and bronchodilators. Patient should continue BiPAP with sleep if possible. Patient may benefit from initiation of triple therapy as an outpatient. Patient with very slow recovery secondary to advanced underlying lung disease. Believe hospice is appropriate if patient is agreeable. This would allow the patient to leave even with high oxygen demands. Symptoms appear to be relatively c ontrolled at rest. 2. Cirrhosis/chronic neutropenia/alpha-1 antitrypsin deficiency/debility Complicates care, management, recovery and prognosis. Medications have been evaluated for chronic liver disease alterations. Patient is on Prolastin at baseline, but it is unclear if she has been evaluated for possible endobronchial valve versus bullectomy. Patient will need to follow-up as an outpatient to see if these therapies are appropriate for her anatomically and g zacen goals of therapy. Subjective Subjective Patient did okay overnight. Patient overall feels slightly improved compared to yesterday. Hospitalist did talk with the and there are arrangements being made for hospice therapy on discharge. Objective Data Objective Data Vital Signs: Vital Signs Temp Pulse Resp BP Pulse Ox O2 Del Method O2 Flow Rate 36.7 C 114 H 24 H 113/45 L 94 Nasal Cannula 2 07/29/22 05:25 07/29/22 07:34 07/29/22 07:34 07/29/22 05:25 07/29/22 07:34 07/29/22 08:16 07/29/22 08:16 FiO2 45 07/25/22 10:00 Oxygen Flow Rate (L/min) [ 10 AMBULATING with Oxygen #3] Oxygen Flow Rate (L/min) [ 8 AMBULATING with Oxygen #2] Oxygen Flow Rate (L/min) [ 5 AMBULATING with Oxygen #1] Oxygen Flow Rate (L/min) [At 5 REST with Oxygen] Oxygen Flow Rate (L/min) 2 Oxygen Delivery Method Nasal Cannula Weight: 62.9 kg Body Mass Index (BMI) 24.5 Intake & Output: Intake and Output for Last 24 Hours 07/27/22 07/28/22 07/29/22 23:59 23:59 23:59 Intake Total 560 / 560 720 / 720 Output Total 750 / 750 550 / 550 100 / 100 Balance -190 / -190 170 / 170 -100 / -100 Medical Nutrition Assessment Dietitian: Malnutrition Criteria Met Start: 07/20/22 14:43 Freq: Status: Active Protocol: Document 07/23/22 10:30 RMA (Rec: 07/23/22 10:30 RMA [id number]) Nutrition Malnutrition Evidence of Malnutrition Exists Yes Malnutrition (severe): Chronic Evidenced By Suboptimal Energy Intake ( Severe),Weight Loss (Severe), Physical Changes (Moderate) Clinical Problem Chronic Disease or Condition Related Malnutrition Etiology chronic, severe malnutrition related to inadequate energy intake w/ increased energy needs d/t resp. failure Signs/Symptoms as evidenced by unintentional wt loss of 33.2#/18% wt loss x 10 months, estimated PO intake meeting <75 % of estimated energy needs > 3 months, Moderate muscle wasting/fat loss evident per physical exam in orbital, clavicle, acromion, and temporal areas Status Active Problem Recommendation Dietitian Recommendations/Changes Will adjust diet to carbohydrate-controlled/no added salt diet. Will continue ensure plus high protein 120mL 4x/day w/ medpass for additional calories/protein if consumed. Lab / Micro Data Attestation: I reviewed the patient's lab results. Result Diagrams: 07/28/22 06:05 07/29/22 06:00 Labs: Laboratory Results - last 24 hr 07/28/22 11:58: POC Glucose 87 07/28/22 16:46: POC Glucose 432 H 04/15/23 21:42: POC Glucose 103 07/29/22 06:00: Sodium 136, Potassium 3.8, Chloride 102, Carbon Dioxide 29.0, Anion Gap 5, BUN 34 H, Creatinine 0.65, Estim Creat Clear Calc 77.09, Est GFR (MDRD) Af Amer 119, Est GFR (MDRD) Non-Af 99, BUN/Creatinine Ratio 52.1 H, Glucose 172 H, Calcium 9.4 07/29/22 07:53: POC Glucose 190 H 07/29/22 11:41: POC Glucose 95 Micro: Microbiology 07/19/22 12:15 Nasal Secretion SARS-CoV-2 & FLU Antigen (Rapid) - Final Influenzae B Physical Exam Const alert and oriented x3 Constitutional Narrative: Mild conversational dyspnea noted. Appears older than stated age. On nasal cannula during my evaluation. Resting comfortably initially General Appearance: cooperative, well developed and frail HEENT normocephalic, head/scalp atraumatic, moist oral mucous membranes and oropharynx normal Eyes PERRL and EOMs intact bilaterally Neck no lymphadenopathy, supple and no JVD Lymph Lymphatic: no lymphadenopathy noted and no lymphedema noted Chest Chest Narrative: Increased AP diameter Resp Resp Narrative: Significantly diminished bilaterally. On nasal cannula during my evaluation Auscultation: Negative for rales, rhonchi or wheezes Cardio regular rate, regular rhythm, S1 normal heart sound, S2 normal heart sound, no murmurs, no rub and no gallops GI normal to inspection, nondistended, normoactive bowel sounds, soft to palpation, non-tender and non-distended Extremity normal capillary refill, no clubbing, cyanosis or edema and no calf tenderness Skin General Skin Exam: no breakdown and turgor normal Neuro CN's II-XII intact bilaterally, no focal motor deficits and no sensory deficits noted Motor Exam: strength 5/5 throughout Psych thought process normal and cooperative Appearance: appropriate Charges/Coding Visit Charges Inpatient E&M: 54410 Subs Hosp L2
[2022-07-29] MEDS: busPIRone 5 MG Tablet 20 MG PO ×2 (13:43→21:08)
[2022-07-29] MEDS: ASENAPINE MALEATE 5 MG TAB.SUBL SL ×2 (13:46→20:46)
[2022-07-29 17:45] LABS: Bedside Glucose 325 mg/dL (74-106)
--- NOTE | 2022-07-29 19:11 | PN.HOSP_ITS ---
Reason for Visit Reason for Visit: Diagnoses Neutropenia, unspecified (07/19/22) Type 2 diabetes mellitus without complications (07/19/22) Trnmn-5-udqjbikstad deficiency (07/19/22) Influenza due to unidentified influenza virus with other respiratory manifestations (07/19/22) Chronic obstructive pulmonary disease with (acute) exacerbation (07/19/22) Chronic obstructive pulmonary disease, unspecified (07/19/22) Chronic respiratory failure with hypoxia (07/19/22) Acute and chronic respiratory failure with hypoxia (07/19/22) Acute and chronic respiratory failure with hypercapnia (07/19/22) Unspecified cirrhosis of liver (07/19/22) Subjective Subjective Patient was seen and examined today, she is able to answer simple questions appropriately but she is still not completely alert, she is lethargic and appears weak and frail. Oxygen cannot be set up for the patient today at her house by hospice, the house has to be rearranged for the patient's return. I suspect that things will be in place tomorrow for the patient to go home, she is currently on 4 L of nasal cannula oxygen at rest. Objective Data Objective Data Vital Signs: Vital Signs Temp Pulse Resp BP Pulse Ox O2 Del Method O2 Flow Rate 98.3 F 121 H 22 H 119/56 L 94 Nasal Cannula 4 07/29/22 18:55 07/29/22 18:55 07/29/22 18:55 07/29/22 18:55 07/29/22 18:55 07/29/22 18:55 07/29/22 18:55 FiO2 45 07/25/22 10:00 Oxygen Flow Rate (L/min) [ 10 AMBULATING with Oxygen #3] Oxygen Flow Rate (L/min) [ 8 AMBULATING with Oxygen #2] Oxygen Flow Rate (L/min) [ 5 AMBULATING with Oxygen #1] Oxygen Flow Rate (L/min) [At 5 REST with Oxygen] Oxygen Flow Rate (L/min) 4 Oxygen Delivery Method Nasal Cannula Weight: 62.9 kg Body Mass Index (BMI) 24.5 Intake & Output: Intake and Output for Last 24 Hours 07/27/22 07/28/22 07/29/22 23:59 23:59 23:59 Intake Total 560 / 560 720 / 720 560 / 560 Output Total 750 / 750 550 / 550 350 / 350 Balance -190 / -190 170 / 170 210 / 210 Medical Nutrition Assessment Dietitian: Malnutrition Criteria Met Start: 07/20/22 14:43 Freq: Status: Active Protocol: Document 07/23/22 10:30 RMA (Rec: 07/23/22 10:30 RMA [id number]) Nutrition Malnutrition Evidence of Malnutrition Exists Yes Malnutrition (severe): Chronic Evidenced By Suboptimal Energy Intake ( Severe),Weight Loss (Severe), Physical Changes (Moderate) Clinical Problem Chronic Disease or Condition Related Malnutrition Etiology chronic, severe malnutrition related to inadequate energy intake w/ increased energy needs d/t resp. failure Signs/Symptoms as evidenced by unintentional wt loss of 33.2#/18% wt loss x 10 months, estimated PO intake meeting <75 % of estimated energy needs > 3 months, Moderate muscle wasting/fat loss evident per physical exam in orbital, clavicle, acromion, and temporal areas Status Active Problem Recommendation Dietitian Recommendations/Changes Will adjust diet to carbohydrate-controlled/no added salt diet. Will continue ensure plus high protein 120mL 4x/day w/ medpass for additional calories/protein if consumed. Lab / Micro Data Result Diagrams: 07/28/22 06:05 07/29/22 06:00 Labs: Laboratory Results - last 24 hr 07/28/22 21:42: POC Glucose 103 07/29/22 06:00: Sodium 136, Potassium 3.8, Chloride 102, Carbon Dioxide 29.0, Anion Gap 5, BUN 34 H, Creatinine 0.65, Estim Creat Clear Calc 77.09, Est GFR (MDRD) Af Amer 119, Est GFR (MDRD) Non-Af 99, BUN/Creatinine Ratio 52.1 H, Glucose 172 H, Calcium 9.4 07/29/22 07:53: POC Glucose 190 H 07/29/22 11:41: POC Glucose 95 07/29/22 17:23: POC Glucose 325 H Micro: Microbiology 07/19/22 12:15 Nasal Secretion SARS-CoV-2 & FLU Antigen (Rapid) - Final Influenzae B Physical Exam Narrative alert, oriented x3, no apparent distress, patient appears lethargic and frail General Appearance: cooperative, well kempt and well developed Orientation / Consciousness:? oriented to person, oriented to place HEENT normocephalic, head/scalp atraumatic and moist oral mucous membranes Eyes PERRL, EOMs intact bilaterally and conjunctivae normal Neck supple, no JVD and thyroid normal General: trachea midline Resp normal respiratory effort Resp Narrative: Patient's breath sounds are distant bilaterally Auscultation: Negative for rales, rhonchi or wheezes Cardio regular rate, regular rhythm, S1 normal heart sound, S2 normal heart sound, no murmurs, no rub and no gallops GI normal to inspection, nondistended, normoactive bowel sounds, soft to palpation, non-tender and non-distended Extremity no clubbing, cyanosis or edema Skin no rashes or lesions noted General Skin Exam: no breakdown Neuro oriented x3, CN's II-XII intact bilaterally, no focal motor deficits and no sensory deficits noted Sensorium / Orientation: Patient appears lethargic, she answers simple questions appropriately Speech: speech normal Psych Patient has flat affect, she appears lethargic at times Assessment & Plan Assessment/Plan (1) Acute on chronic respiratory failure with hypoxia and hypercapnia: (2) COPD exacerbation: PLAN: Plan 1. Acute on chronic hypoxic respiratory failure secondary to influenza B- patient has agreed to hospice consultation, they will see the patient, hospice may need to set up oxygen at home when the patient is discharged in the hospital, it appears that the patient may be stable tomorrow for discharge #2 type 2 diabetes-blood sugars will be monitored, sliding scale insulin will be administered, patient is also currently on basal insulin #3 chronic severe protein and caloric malnutrition related to inadequate energy intake with increased energy needs due to respiratory failure as evidenced by unintentional weight loss of 33.2 pounds over the last 10 months and estimated p.o. intake meeting less than 75% of estimated energy needs more than 3 months. Diet was liberalized to regular, no added salt, and sugar plus high-protein 120 mL 4 times a day with med Pass for additional calories was added #4 alpha-1 antitrypsin deficiency-pulmonary medicine is participating in her care, complicates care, medical course, recovery, and prognosis #5 Central hypertension-patient is to remain on her present medication #6 chronic depression/anxiety-patient is currently on her home medications #7 chronic pancytopenia-etiology unclear, labs will be monitored #8 chronic obstructive pulmonary disease-continue present treatment, patient is being seen by pulmonary medicine Total clinical time spent by myself addressing the patient's medical issues, reviewing all of her data, and collaborating with patient's care team: 36 minutes Charges/Coding Visit Charges Inpatient E&M: 00779 Subs Hosp L2
[2022-07-29] MEDS: QUEtiapine 100 MG Tablet 400 MG PO (21:08)
[2022-07-29] MEDS: Sertraline 50 MG Tablet PO (21:08)
[2022-07-29 21:36] LABS: Bedside Glucose 82 mg/dL (74-106)
--- NOTE | 2022-07-29 23:52 | CPS ---
patient refused PAP therapy for the night.
[2022-07-30] VITALS (10 sets, daily range): BP systolic 87–121; BP diastolic 39–60; PULSE 100–116; RESP 18–27; TEMP 36.4–36.7; O2SAT 91–96; BMI 24.4
[2022-07-30] MEDS: busPIRone 5 MG Tablet 20 MG PO ×2 (06:03→13:15)
[2022-07-30] MEDS: Doxepin Hcl 25 MG Capsule 50 MG PO (08:27)
[2022-07-30] MEDS: Spironolactone 50 MG Tablet PO (08:27)
[2022-07-30] MEDS: Pantoprazole Sodium 40 MG Tablet PO (08:27)
[2022-07-30] MEDS: predniSONE 20 MG Tablet 40 MG PO (08:27)
[2022-07-30] MEDS: Ensure Plus High Protein 120 ML LIQUID PO ×2 (08:28→13:13)
--- NOTE | 2022-07-30 08:35 | NURSING ---
Per Silva Willis ID, okay to remove isolation precautions for patient. Patient completed Tamiflu course on July 25 and has been fever free for over 24 hours.
--- NOTE | 2022-07-30 10:38 | CASEMGMT ---
ARELY called Zoya at Hospice to check on status of referral. Per Zoya patient's has not signed Hospice papers yet. They were also verifying insurance. Zoya said she would check in with the team and get back SW. Komal SINHA
[2022-07-30] MEDS: Ipratropium/Albuterol Sulfate 3 ML AMPUL.NEB INHALATION ×2 (11:11→15:42)
[2022-07-30 11:30] LABS: Bedside Glucose 124 mg/dL (74-106)
[2022-07-30] MEDS: Insulin Lispro 100 UNIT/ML INSULN.PEN SC ×2 (11:30→18:41)
[2022-07-30 11:50] LABS: Bedside Glucose 255 mg/dL (74-106)
--- NOTE | 2022-07-30 11:50 | CASEMGMT ---
ARELY received a call from Virginie with Hospice. She asked ARELY what equipment patient will need at home. ARELY told Virginie patient will need O2 concentrator that goes up to 10L and a hospital bed. ARELY explained other than that she would need to check with patient's . Virginie said she will work on ordering this equipment and ARELY can set up transport to get patient home for tomorrow am. ARELY will check in with patient's and Zoya at Hospice. Komal SINHA
--- NOTE | 2022-07-30 12:15 | CASEMGMT ---
ARELY received a call from Zoya at Hospice. Zoya said patient will be able to continue to get her injections while on Hospice. Zoya said they are stat ordering everything so ARELY could set up transport for around 5 or 6. ARELY notified physician. ARELY will also call patient's . Komal SINHA
[2022-07-30] MEDS: Insulin Lispro 100 UNIT/ML INSULN.PEN 20 UNIT SC ×2 (13:13→18:41)
--- NOTE | 2022-07-30 13:22 | PN_ITS ---
Subjective Subjective Patient seen and examined. She had no active complaints today. She had an uneventful night. She is awaiting discharge home with hospice once her home oxygen is set up. She has otherwise remained stable. Objective Data Objective Data Vital Signs: Vital Signs Temp Pulse Resp BP Pulse Ox O2 Del Method O2 Flow Rate 98.1 F 110 H 22 H 101/44 L 95 Nasal Cannula 4 07/30/22 12:00 07/30/22 12:00 07/30/22 12:00 07/30/22 12:00 07/30/22 12:00 07/30/22 12:00 07/30/22 12:00 FiO2 45 07/25/22 10:00 Oxygen Flow Rate (L/min) [ 10 AMBULATING with Oxygen #3] Oxygen Flow Rate (L/min) [ 8 AMBULATING with Oxygen #2] Oxygen Flow Rate (L/min) [ 5 AMBULATING with Oxygen #1] Oxygen Flow Rate (L/min) [At 5 REST with Oxygen] Oxygen Flow Rate (L/min) 4 Oxygen Delivery Method Nasal Cannula Weight: 138 lb 0.15 oz Body Mass Index (BMI) 24.4 Intake & Output: Intake and Output for Last 24 Hours 07/28/22 07/29/22 07/30/22 23:59 23:59 23:59 Intake Total 720 / 720 560 / 730 390 / 390 Output Total 550 / 550 350 / 470 420 / 420 Balance 170 / 170 210 / 260 -30 / -30 Medical Nutrition Assessment Dietitian: Malnutrition Criteria Met Start: 07/20/22 14:43 Freq: Status: Active Protocol: Document 07/23/22 10:30 RMA (Rec: 07/23/22 10:30 RMA [id number]) Nutrition Malnutrition Evidence of Malnutrition Exists Yes Malnutrition (severe): Chronic Evidenced By Suboptimal Energy Intake ( Severe),Weight Loss (Severe), Physical Changes (Moderate) Clinical Problem Chronic Disease or Condition Related Malnutrition Etiology chronic, severe malnutrition related to inadequate energy intake w/ increased energy needs d/t resp. failure Signs/Symptoms as evidenced by unintentional wt loss of 33.2#/18% wt loss x 10 months, estimated PO intake meeting <75 % of estimated energy needs > 3 months, Moderate muscle wasting/fat loss evident per physical exam in orbital, clavicle, acromion, and temporal areas Status Active Problem Recommendation Dietitian Recommendations/Changes Will adjust diet to carbohydrate-controlled/no added salt diet. Will continue ensure plus high protein 120mL 4x/day w/ medpass for additional calories/protein if consumed. Lab / Micro Data Result Diagrams: 07/28/22 06:05 07/29/22 06:00 Labs: Laboratory Results - last 24 hr 07/29/22 17:23: POC Glucose 325 H 07/29/22 21:07: POC Glucose 82 07/30/22 08:25: POC Glucose 124 H 07/30/22 11:29: POC Glucose 255 H Micro: Microbiology 07/19/22 12:15 Nasal Secretion SARS-CoV-2 & FLU Antigen (Rapid) - Final Influenzae B Physical Exam Const alert, oriented x3 and no apparent distress General Appearance: cooperative HEENT normocephalic, head/scalp atraumatic and moist oral mucous membranes Eyes PERRL and EOMs intact bilaterally Neck supple and no JVD Lymph Lymphatic: no lymphadenopathy noted Resp Resp Narrative: Mildly diminished breath sounds bibasally. No wheezes or crackles. on 4L of oxygen. tachypneic Cardio regular rhythm, S1 normal heart sound, S2 normal heart sound and no murmurs Cardio Narrative: Tachycardic GI normal to inspection, nondistended, normoactive bowel sounds, soft to palpation, non-tender and non-distended Extremity normal capillary refill, no clubbing, cyanosis or edema and no calf tenderness General Extremity: no tenderness to palpation of joints or extremities Skin General Skin Exam: no breakdown Neuro CN's II-XII intact bilaterally, no focal motor deficits, no sensory deficits noted and deep tendon reflexes 2+ bilaterally Motor Exam: strength 5/5 throughout Psych thought process normal, cooperative and affect normal Appearance: appropriate Assessment & Plan Assessment/Plan (1) Acute on chronic respiratory failure with hypoxia and hypercapnia: (2) Influenza: (3) COPD exacerbation: (4) Htlya-2-hjzwdupwmac deficiency: PLAN: Plan #Acute on chronic hypoxic respiratory failure due to influenza B infection and COPD * completed a course of tamiflu * on 4L of oxygen * will need oxygen at home; * has signed up with hospice. Awaiting high flow oxygen to be set up at home before she can be discharged home with hospice * #Type 2 diabetes mellitus: * On insulin sliding scale. On Lantus. Accu-Cheks ACHS. * blood sugars running low, so lantus held * will adjust lantus dose * #Alpha-1 antitrypsin deficiency: Pulmonology on board. Contributing to her respiratory failure. #Hypertension: on spironolactone #Depression and anxiety: On doxepin and sertraline #Chronic pancytopenia: This is longstanding. # History of cirrhosis: May likely be due to her history of alpha-1 antitrypsin deficiency. Follow-up with gastroenterology on outpatient basis. DVT prophylaxis: SCDs Disposition: Awaiting discharge home with home hospice once her home oxygen is set up. Charges/Coding Visit Charges Inpatient E&M: 32897 Subs Hosp L2
[2022-07-30] MEDS: ASENAPINE MALEATE 5 MG TAB.SUBL SL (15:35)
--- NOTE | 2022-07-30 15:48 | CASEMGMT ---
ARELY called patient's P[facility]. ARELY explained that SW could get patient home today if he was ready. Julius said today would be great. ARELY let Julius know SW will set up transport for 5p per Hospice's request. ARELY called [facility] and arranged for patient to get picked up at 5p via cot. ARELY notified RN and Zoya at Hospice. Plan: d/c home on [facility]. Komal SINHA
--- NOTE | 2022-07-30 16:07 | DS.PCM_ITS ---
Providers Date of Admission: 07/19/22 Date of Discharge: 07/30/22 Primary Care Physician: Dr. 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 / Pulmonary Medicine Routine Consulting Provider: Pulmonary Medicine [facility] Reason for Consult: acute on chronic respiratory failure EMERGENT Consult: No MD Notified: Yes Date Notified: 07/22/22 Time Notified: 07:43 Method of Notification: Text Reason For Visit: RESPIRATORY FAILURE ON CHRONIC, COPD EXACERBATION Diagnosis Discharge Diagnosis (1) Acute on chronic respiratory failure with hypoxia and hypercapnia: Status: Chronic Code(s): J96.21 - Acute and chronic respiratory failure with hypoxia; J96.22 - Acute and chronic respiratory failure with hypercapnia (2) Influenza: Status: Acute Code(s): J11.1 - Influenza due to unidentified influenza virus with other respiratory manifestations (3) COPD exacerbation: Status: Chronic Code(s): J44.1 - Chronic obstructive pulmonary disease with (acute) exacerbation (4) [id number] deficiency: Status: Acute Code(s): E88.01 - Eqlkc-4-[id number] deficiency Plan #Acute on chronic hypoxic respiratory failure due to influenza B infection and COPD * completed a course of tamiflu * on 4L of oxygen * will need oxygen at home; * has signed up with hospice. Awaiting high flow oxygen to be set up at home before she can be discharged home with hospice * #Type 2 diabetes mellitus: * On insulin sliding scale. On Lantus. Accu-Cheks ACHS. * blood sugars running low, so lantus held * will adjust lantus dose * #Alpha-1 antitrypsin deficiency: Pulmonology on board. Contributing to her respiratory failure. #Hypertension: on spironolactone #Depression and anxiety: On doxepin and sertraline #Chronic pancytopenia: This is longstanding. # History of cirrhosis: May likely be due to her history of alpha-1 antitrypsin deficiency. Follow-up with gastroenterology on outpatient basis. DVT prophylaxis: SCDs Disposition: Awaiting discharge home with home hospice once her home oxygen is set up. Medications at Discharge Home Medications albuterol sulfate 90 mcg/actuation aerosol inhaler (Ventolin HFA) 2 puff inha lation Q4H PRN PRN Sob &/Or Wheezing 05/29/16 potassium chloride 10 mEq tablet,extended release(part/cryst) 10 meq PO TID supplement 03/09/18 esomeprazole magnesium 40 mg capsule,delayed release (Nexium) 40 mg PO DAILY gerd 07/27/19 fluticasone fur. 100 mcg-umeclid 62.5 mcg-vilant 25 mcg inhalat.powder (Trelegy Ellipta) 1 ea IH DAILY copd 07/27/19 asenapine maleate 5 mg sublingual tablet (Saphris) 5 mg sublingual BID 08/03/21 buspirone 15 mg tablet 30 mg PO TID Check with primary doctor 08/03/21 metformin 1,000 mg tablet 1,000 mg PO BID diabetes 08/03/21 doxepin 25 mg capsule 50 mg PO DAILY DEPRESSION 03/29/22 sertraline 50 mg tablet (Zoloft) 50 mg PO QHS DEPRESSION 03/29/22 pseudoephedrine-guaifenesin ER 60 mg-600 mg tablet,extend release 12hr (Mucinex D) 1 tab PO BID cold symptoms #14 tabs 04/01/22 quetiapine 400 mg tablet (Seroquel) 400 mg PO QHS 07/19/22 spironolactone 50 mg tablet 50 mg DAILY Check with primary doctor 07/19/22 Hospital Course Operations None Procedures None Summary of Care Provided Minutes Spent on Discharge: 50 Hospital Course: Patient is a 56-year-old female with a past medical history as outlined which includes chronic hypoxic respiratory failure on 4 L of oxygen and follows with pulmonology. She was admitted through the ED on 07/19/2022 with a complaint of 10-day history of fatigue and malaise as well as increased cough and wheezing. She had been seen at [facility] a few days prior to admission but there was a long wait for a bed so she was discharged home. However his shortness of breath worsened so she came into the ED where she had to be put on BiPAP as she was saturating at 85% even on her regular 4 L of oxygen. Chest x- ray showed no acute cardiopulmonary process and COVID test was negative. Flu test was positive for influenza B. She was admitted and managed for acute on chronic hypoxic respiratory failure due to influenza A infection. She was started on breathing treatments and IV Solu-Medrol as well as Tamiflu. Shortness of breath did not improve as expected so pulmonology was consulted. She did complete a course of Tamiflu. There was concern about alpha 1 antitrypsin deficiency which was causing her cirrhosis as well as her COPD. Patient's breathing did not really improve and she Required Increasing Amount of Oxygen, up to 8 L at Night. Due To Her Debility, She Had a Protracted Hospital Course and Was Recommended That Hospice Be Consulted. Patient Was Agreeable to This. Hospice Was Consulted and Patient Was Discharged Home with Home Hospice on 07/30/2022. Patient was seen and examined prior to discharge. She had no active complaints. Review of systems otherwise negative. Labs and vitals reviewed. Physical Exam Const alert, oriented x3 and no apparent distress Constitutional Narrative: frail General Appearance: cooperative, well kempt and well developed Orientation / Consciousness: awake, oriented to person, oriented to place and oriented to time HEENT normocephalic, head/scalp atraumatic, moist oral mucous membranes and oropharynx normal Eyes PERRL, EOMs intact bilaterally and conjunctivae normal Neck no lymphadenopathy, supple, no JVD and thyroid normal General: trachea midline Lymph Lymphatic: no lymphadenopathy noted and no lymphedema noted Resp normal respiratory effort Resp Narrative: Mildly diminished breath sounds bibasally. No wheezes or crackles. on 4L of oxygen. tachypneic Auscultation: Negative for rales, rhonchi or wheezes Cardio regular rate, regular rhythm, S1 normal heart sound, S2 normal heart sound, no murmurs, no rub and no gallops Cardio Narrative: Tachycardic GI normal to inspection, nondistended, normoactive bowel sounds, soft to palpation, non-tender and non-distended Extremity normal capillary refill, no clubbing, cyanosis or edema and no calf tenderness General Extremity: no tenderness to palpation of joints or extremities Skin no rashes or lesions noted General Skin Exam: no breakdown and turgor normal Neuro oriented x3, CN's II-XII intact bilaterally, no focal motor deficits, no sensory deficits noted and deep tendon reflexes 2+ bilaterally Sensorium / Orientation: awake and alert Speech: speech normal Motor Exam: strength 5/5 throughout Psych thought process normal, cooperative and affect normal Appearance: appropriate Weight / BMI Weight Weight: 138 lb 0.15 oz Body Mass Index (BMI) 24.4 ABG / Lab / Microbiology Data Result Diagrams: 07/28/22 06:05 07/29/22 06:00 Laboratory: Laboratory Results - last 24 hr 07/30/22 08:25: POC Glucose 124 H 07/30/22 11:29: POC Glucose 255 H 07/30/22 16:50: POC Glucose 244 H Microbiology: Microbiology 07/19/22 12:15 Nasal Secretion SARS-CoV-2 & FLU Antigen (Rapid) - Final Influenzae B Meaningful Use Info Meaningful Use Diagnoses (Choose all that apply): None applicable Discharge Plan Admission Admit Date/Time: 07/19/22 14:05 Attending Provider: Britney Flores Primary Care Provider: Felipe Souza Consulting Providers: Evelyne Panchal ; Dev Michel ; Arnaldo Aguirre ; Juan Bailey ; Pankaj Peters ; Karen Pino PUMP[employer] ; Britney Flores ; [facility] [facility] Discharge Orders/Prescriptions Prescriptions: No Action albuterol sulfate [Ventolin HFA] 1 INHALER inhaler 2 puff inhalation Q4H PRN PRN (Reason: Sob &/Or Wheezing) potassium chloride 10 MEQ tablet 10 meq PO TID esomeprazole magnesium [Nexium] 40 MG capsule 40 mg PO DAILY Trelegy Ellipta 1 EACH blister with device 1 ea IH DAILY metformin 1,000 mg Tablet 1,000 mg PO BID Rx Instructions: Pt takes 1000mg in AM & 500mg in PM buspirone 15 mg Tablet 30 mg PO TID asenapine maleate [Saphris] 5 mg Tablet, Sublingual 5 mg SUBLINGUAL BID doxepin 25 mg capsule 50 mg PO DAILY Label Comments: take 1 capsule by mouth at bedtime sertraline [Zoloft] 50 mg tablet 50 mg PO QHS Label Comments: take 2 tablets by mouth every evening AT 5PM Rx Instructions: PER PT ADMINISTERED IN THE EVENING. pseudoephedrine-guaifenesin [Mucinex D] 60-600 mg tablet extended release 12 hr 1 tab PO BID Qty: 14 0RF quetiapine [Seroquel] 400 mg tablet 400 mg PO QHS Label Comments: take 2 tablets by mouth at bedtime spironolactone 50 mg tablet 50 mg DAILY Label Comments: take 1 tablet by mouth once daily Referrals / Follow Up: Felipe Souza DO [Primary Care Provider] - Disposition Disposition (needs filled in before D/C Order can be placed): Hospice in Home Charges/Coding Visit Charges Inpatient E&M: 93279 Disch Hosp >30min
[2022-07-30 17:50] LABS: Bedside Glucose 244 mg/dL (74-106)
[2022-07-31 12:44] LABS: Pathologist Review Reviewed
== END 2022-07-30 20:15 | disposition hospice, home (50) | DRG 189 ==
LOC: ED 13:50 → PCU 14:54
PROVIDERS: Hospitalist; Internal Medicine; Internal Medicine Critical Care Medicine; Admitting Provider Family Medicine; Emergency Provider Emergency Medicine; PCP Family Medicine; Visit Provider Student in an Organized Health Care Education/Training Program
DX: J96.21 Acute and chronic respiratory failure with hypoxia (principal); E43 Unspecified severe protein-calorie malnutrition; D61.818 Other pancytopenia; J44.1 Chronic obstructive pulmonary disease with (acute) exacerbation; J44.0 Chronic obstructive pulmonary disease with (acute) lower respiratory infection; E88.01 Alpha-1-antitrypsin deficiency; K74.60 Unspecified cirrhosis of liver; J96.22 Acute and chronic respiratory failure with hypercapnia; E11.65 Type 2 diabetes mellitus with hyperglycemia; J10.1 Influenza due to other identified influenza virus with other respiratory manifestations; I10 Essential (primary) hypertension; E78.5 Hyperlipidemia, unspecified; F41.9 Anxiety disorder, unspecified; F32.A Depression, unspecified; R53.81 Other malaise; Z11.52 Encounter for screening for COVID-19; Z99.81 Dependence on supplemental oxygen; Z79.84 Long term (current) use of oral hypoglycemic drugs; Z79.51 Long term (current) use of inhaled steroids; Z79.899 Other long term (current) drug therapy; Z87.891 Personal history of nicotine dependence; Z68.24 Body mass index [BMI] 24.0-24.9, adult
CPT/HCPCS: 36415; 36600; 71045; 80048; 80053; 80076; 82803; 82947; 82962; 83605; 83880; 84145; 84484; 85025; 87428; 87635; 93005; 94002; 94003; 94640; 94668; 94762; 99285; J7030; A4216; J1940; U0003; U0005